=== PATIENT | male | born 1950 | race Caucasian/White ===

== ENCOUNTER → 2020-04-26 08:47 | Outpatient (BNVA) | payer MEDICARE, SELFPAY | PROVIDERS: PCP Internal Medicine; Visit Provider Internal Medicine Pulmonary Disease | DX: J44.9 Chronic obstructive pulmonary disease, unspecified (principal); Z87.891 Personal history of nicotine dependence; Z79.899 Other long term (current) drug therapy; Z99.81 Dependence on supplemental oxygen | CPT/HCPCS: 99204 ==

== ENCOUNTER 2020-05-15 09:45 | Outpatient (REF) | payer MEDICARE, SELFPAY ==
--- NOTE | 2020-05-15 | PFT_ITS ---
INDICATION: COPD. SPIROMETRY: The FEV1 to FVC 32% with an FEV1 of 1.22 L which is 34% predicted and an FVC of 3.79 L, which is 78% predicted. Unable to perform the test with bronchodilation. Maximum voluntary ventilation 34% predicted. LUNG VOLUMES: Total lung capacity 105% predicted with a residual volume of 142% predicted. DIFFUSION CAPACITY: DLCO 35% predicted. COMPARISONS: No previous PFTs available at this time. IMPRESSION: There is significant obstructive airway disease consistent with severe COPD. Again, bronchodilators were not be able to use. Also severe decrease in maximum voluntary ventilation secondary to deconditioning and also worsening dynamic inspiratory capacity. The patient has evidence of air trapping consistent with COPD and also severe diffusion impairment secondary to emphysema and other parenchymal lung conditions should be considered. Clinical correlation warranted, suboptimal study. MD JET Parkinson/MODL / [id number]
== END 2020-05-15 09:46 | disposition home or self-care (01) ==
LOC: HO.RESP 09:45
PROVIDERS: Visit Provider Internal Medicine Pulmonary Disease
DX: J44.9 Chronic obstructive pulmonary disease, unspecified (principal); Z87.891 Personal history of nicotine dependence
CPT/HCPCS: 94060; 94727; 94729

== ENCOUNTER → 2020-05-29 09:47 | Outpatient (BNVA) | payer MEDICARE, SELFPAY | PROVIDERS: PCP Internal Medicine; Visit Provider Internal Medicine Pulmonary Disease | DX: J44.9 Chronic obstructive pulmonary disease, unspecified (principal); R91.8 Other nonspecific abnormal finding of lung field; Z79.899 Other long term (current) drug therapy; Z99.81 Dependence on supplemental oxygen | CPT/HCPCS: 99212 ==

== ENCOUNTER → 2020-10-09 09:41 | Outpatient (BNVA) | payer MEDICARE, SELFPAY | PROVIDERS: PCP Internal Medicine; Visit Provider Internal Medicine Pulmonary Disease | DX: J44.9 Chronic obstructive pulmonary disease, unspecified (principal); R91.8 Other nonspecific abnormal finding of lung field; Z99.81 Dependence on supplemental oxygen | CPT/HCPCS: 99212 ==

== ENCOUNTER → 2020-10-19 09:19 | Outpatient (BNVA) | payer MEDICARE, SELFPAY | PROVIDERS: PCP Internal Medicine; Visit Provider Internal Medicine Pulmonary Disease | DX: Z13.89 Encounter for screening for other disorder (principal) | CPT/HCPCS: 99212 ==

== ENCOUNTER 2020-10-19 09:54 | Inpatient (IN) | payer MEDICARE, SELFPAY ==
[2020-10-19] VITALS (9 sets, daily range): BP systolic 101–129; BP diastolic 59–81; PULSE 82–130; RESP 18–24; TEMP 36.7–37.2; O2SAT 94–99; BMI 23.7
--- NOTE | ~2020-10-19 | CT_ITS ---
EXAMINATION: CT ANGIOGRAM OF THE CHEST WITH AND WITHOUT CONTRAST (CT PULMONARY ANGIOGRAM FOR PE) CLINICAL INFORMATION: Reason for Exam SOB COMPARISON: Chest radiograph 10/19/2020 TECHNIQUE: Prior to contrast administration, noncontrast localization images were obtained. Subsequently, multidetector volumetric imaging was performed from the thoracic inlet to below the diaphragms following the administration of 65 mL Omnipaque 350 intravenous contrast. Sagittal, coronal, and MIP oblique sagittal reformatted images were obtained on the CT workstation, uploaded to PACS, and reviewed. This CT examination was performed using dose optimization techniques as appropriate, variously including the following: *Automated exposure control *Adjustment of mA and/or kV according to patient size (this includes techniques or standardized protocols for targeted exams where dose is matched to indication/reason for exam; i.e. extremities or head) *Use of iterative reconstruction technique Total exam dose-length product 257 mGy-cm FINDINGS: QUALITY OF STUDY/CONTRAST BOLUS: Satisfactory. PULMONARY ARTERIES: No central or segmental pulmonary emboli. THORACIC AORTA: No aneurysm or dissection. LUNG: No airspace consolidation or groundglass opacity. Central airways clear. No endobronchial lesion or bronchiectasis. No pneumothorax or pneumomediastinum. PLEURA: Mild bilateral apical pleural-parenchymal scarring. No pleural effusion. MEDIASTINUM: Normal heart size. No pericardial effusion. No hilar or mediastinal lymphadenopathy. No evidence of septal bowing or right heart strain. CHEST WALL/AXILLA: No axillary or internal mammary lymphadenopathy. OSSEOUS STRUCTURES: No acute bony abnormality. UPPER ABDOMEN: Probable 0.9 cm cyst dome liver segment 4A. No reflux of contrast into the hepatic veins to suggest elevated right heart pressures. CT/CT angio chest PE protocol IMPRESSION: 1. No pulmonary embolism. No thoracic aortic dissection. 2. No airspace consolidation, pneumothorax, or effusion. VTE: negative
--- NOTE | ~2020-10-19 | XR_ITS ---
EXAMINATION: XR CHEST CLINICAL INFORMATION: Shortness of breath COMPARISON: None TECHNIQUE: AP portable view of the chest was obtained. FINDINGS: No significant abnormality is noted involving the heart, lungs, mediastinum, bony thorax or soft tissues. There is hyperinflation of the lungs with prominent pulmonary arteries likely related to COPD. There are some mildly prominent interstitial markings seen at the lung bases bilaterally. XR/XR chest 1V IMPRESSION: No acute disease. Findings consistent with COPD.
--- NOTE | 2020-10-19 09:58 | ED.SOB ---
HPI - SOB/Dyspnea General Chief Complaint: Dyspnea Stated Complaint: copd exacerbation Time Seen by Provider: 10/19/20 09:58 Source: patient Mode of arrival: wheelchair Limitations: no limitations History of Present Illness HPI Narrative: Pleasant 70-year-old male with past medical history that is significant for severe COPD on home O2 O2 dependent, hyperlipidemia and ? Paroxysmal atrial fibrillation and surgical history significant for cervical spine/lumbar spine back surgery status post plating, abdominal hernia repair, right shoulder surgery, vasectomy who is currently being followed by pulmonology here Dr. Bennett. He presents from office of pulmonology with continued shortness of breath has been having a flare for the past week or so attempt was made to manage this an outpatient with steroids and optimal COPD regimen however continues to have shortness of breath and the center emergency room for further evaluation and treatment. He is a former smoker with 30+ pack a year history he stopped smoking in 2010 MD elicited complaint: shortness of breath Pertinent past history: COPD Onset (ago): day(s) Timing: constant Severity: moderate Exacerbating factors: coughing Relieving factors: rest Known history of: COPD Associated symptoms: cough Treatment prior to arrival: oxygen, bronchodilator and other (Prednisone) Related Data Home oxygen amount: 2 liters Home Medications Medication Instructions Recorded Confirmed albuterol sulfate 90 mcg/actuation 2 puff INHALATION Q4H PRN 04/26/20 10/19/20 aerosol inhaler atorvastatin 20 mg tablet 20 mg PO BEDTIME 04/26/20 10/19/20 budesonide-formoterol HFA 160 2 puff PO BID 04/26/20 10/19/20 mcg-4.5 mcg/actuation aerosol inhaler mirtazapine 30 mg tablet 30 mg PO BEDTIME 04/26/20 10/19/20 pantoprazole 40 mg tablet,delayed 40 mg PO DAILY 04/26/20 10/19/20 release trazodone 50 mg tablet 50 mg PO BEDTIME 04/26/20 10/19/20 albuterol sulfate 1 vial INHALATION Q4H PRN 10/19/20 10/19/20 ascorbic acid (vitamin C) [Vitamin 1,000 mg PO DAILY 10/19/20 10/19/20 C] ipratropium-albuterol 3 ml INHALATION Q4H PRN 10/19/20 10/19/20 lidocaine 1 patch TOPICAL DAILY 10/19/20 10/19/20 multivitamin 1 tab PO DAILY 10/19/20 10/19/20 theophylline 200 mg PO DAILY 10/19/20 10/19/20 tiotropium bromide [Spiriva with 1 cap INHALATION DAILY 10/19/20 10/19/20 HandiHaler] tizanidine 2 mg PO BEDTIME 10/19/20 10/19/20 verapamil 180 mg PO BEDTIME 10/19/20 10/19/20 Allergies Allergy/AdvReac Type Severity Reaction Status Date / Time No Known Allergies Allergy Verified 10/19/20 09:20 Review of Systems Review of Systems: Constitutional: No Weight loss, No Fever, No Chills, No Night Sweats, No Fatigue, No Malaise ENT/Mouth: No Hearing loss, No Ear Pain, No Nasal Congestion, No Sinus Pain, No Hoarseness, No sore throat, No Rhinorrhea, No Swallowing Difficulty Eyes: No Eye Pain, No Swelling, No Redness, No Foreign Body, No Discharge, No Vision Changes Cardiovascular: No Chest Pain, + SOB, No Edema, No Palpitations Respiratory: + Cough at baseline, + Wheezing, No Smoke Exposure Gastrointestinal: No Nausea, No Vomiting, No Diarrhea, No Constipation, No abdominal Pain, No Hematochezia, No Melena Genitourinary: No Dysuria, No Urinary Frequency, No Hematuria, No Urinary Incontinence, No Urgency, No Flank Pain, No Urinary Flow Changes, No Hesitancy Musculoskeletal: No joint pain, No Myalgias, No Joint Swelling Skin: No Skin Lesions, No rash Neuro: No Weakness, No Numbness, No Paresthesias, No Loss of Consciousness, No Dizziness, No Headache Psych: No Social Issues Heme/Lymph: No Bruising, No Bleeding,No Lymphadenopathy Endocrine: No Polyuria, No Polydipsia, No Temperature Intolerance Yes all other systems are reviewed and are negative [facility] Past Medical History [facility] Narrative: severe COPD on home O2 dependent, hyperlipidemia and ? Paroxysmal atrial fibrillation and surgical history significant for cervical spine/lumbar spine back surgery status post plating, abdominal hernia repair, right shoulder surgery, vasectomy Medical History (Updated 10/19/20 @ 14:27 by Bradley Armijo NP) Afib Social History Social History (Updated 04/26/20 @ 09:06 by Kaylie Jones MA) Alcohol intake: never Smoking Status: Former smoker Years Smoked: 40 yrs Smoked in Last 30 Days: No Use of substances other than those prescribed or required for medical reasons: No Advance Directives: Yes Advance Directives on File: Yes Advance Directives Date on File: 10/19/20 Physical Exam Vital Signs: Vital Signs: Last Vital Signs Temp 98.9 F 10/19/20 13:05 Pulse 125 H 10/19/20 13:05 Resp 20 10/19/20 13:05 BP 123/66 10/19/20 13:05 Pulse Ox 97 10/19/20 13:05 Body Mass Index 23.7 Reviewed Const: General: acute distress mild and respiratory and anxious; No intoxicated appearing Nutritional Appearance: thin Orientation/consciousness: patient oriented x3 HENMT: Head: Yes normal to inspection Ears: hearing grossly normal bilaterally Eyes: General: appearance normal, both eyes and all related structures Visual Bettencourt: normal visual bettencourt by confrontation Neck: Neck: Yes normal visual inspection, No positive Brudzinski's sign, No positive Kernig's sign and No tender Thyroid: Thyroid normal Chest: Chest palpation & inspection: normal inspection of the chest Resp: Effort & Inspection: able to speak in complete sentences and Actively coughing Auscultation: diminished lung sounds diffuse Cardio: Jugular venous distension: no JVD Rate: tachycardic GI: Inspection: Yes normal to inspection Palpation (GI): Soft to palpation Percussion: Yes normal to percussion Auscultation: normal bowel sounds : General: Yes no CVA tenderness Back/Spine/Pelvis: Back: no CVA tenderness Skin: General skin exam: no rashes or lesions noted Neuro: General: patient oriented x3 Extrem: General: Yes normal to inspection Course Course Course Narrative: Labs show elevated lactic acidosis this is from type be secondary to multiple inhalers and not acute infectious. Otherwise labs are stable. Chest x-ray with no acute findings. 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 Consultations Consultation #1: Case discussed with hospitalist Dr. Baca accepted patient to service. MDM - SOB/Dyspnea Differential Diagnosis Differential diagnosis: Likely acute exacerbation of chronic obstructive airways disease; Unlikely congestive heart failure, pneumonia, asthma with exacerbation, pulmonary embolism, pleural effusion, sleep apnea and anemia Medical Records Attestation: I reviewed the patient's medical records. Medical records narrative: I reviewed pulmonology note Attempted to call [place] [facility] Dr. Hernandez several times office has no answer both Kameron and Gracie to get records in regards to his cardiac history he states he goes to Cardiology in [place] and gets echo done q.6 months. Lab Data Attestation: I reviewed the patient's lab results. Result diagrams: 10/19/20 10:23 10/19/20 10:22 Labs: Lab Results 10/19/20 10/19/20 10/19/20 Range/Units 10:22 10:22 10:22 WBC (4.8-10.8) X10*3/uL RBC (4.60-5.80) X10*6/uL Hgb (14.0-18.0) g/dl Hct (42-52) % MCV (80-98) fL MCH (27.0-33.0) pg MCHC (31.0-36.0) g/dl RDW (11.0-16.0) % Plt Count (160-400) X10*3/uL MPV (9.4-12.4) fL Immature Gran % (Auto) (0.0-0.4) % Neut % (Auto) (45-73) % Lymph % (Auto) (20-40) % [place] % (Auto) (2-11) % Eos % (Auto) (0-4) % Baso % (Auto) (0-2) % Lymph # (Auto) (1.2-4.9) X10*3/uL [place] # (Auto) (0.1-1.2) X10*3/uL Eos # (Auto) (0.0-0.4) X10*3/uL Baso # (Auto) (0.0-0.2) X10*3/uL Abs Immat Gran (auto) (0.00-0.03) X10*3/uL Absolute Neuts (auto) (2.0-8.3) X10*3/uL Absolute Nucleated RBC (0.0-0.012) X10*3/uL Nucleated RBC % (auto) (0.0-0.2) /100WBC PT 11.6 (10.8-13.0) SEC INR 1.0 (0.9-1.1) APTT 32.1 (24.1-38.0) SEC VBG pH (7.32-7.43) VBG pCO2 mmHg VBG pO2 mmHg VBG HCO3 (22-26) mmol/L VBG O2 Saturation % Sodium 142 (135-145) mmol/L Potassium 3.7 (3.3-5.1) mmol/L Chloride 107 (96-108) mmol/L Carbon Dioxide 24 (22-29) mmol/L Anion Gap 15 (12-20) BUN 19 H (9-16) mg/dL Creatinine 0.91 (0.5-1.4) mg/dL Estim Creat Clear Calc 85.2 Estimated GFR > 60 Random Glucose 121 H (60-115) mg/dL Lactic Acid (0.5-2.0) mmol/L Lactic Acid Fup @ 2Hr (0.5-2.0) mmol/L Calcium 8.6 (8.4-10.2) mg/dL Total Bilirubin 0.5 (0.0-1.0) mg/dL AST 17 (5-37) U/L ALT 20 (0-40) U/L Alkaline Phosphatase 75 (39-117) U/L Troponin I High Sens < 3.5 (<3.5-35.0) ng/L B-Natriuretic Peptide 15 (<100) pg/mL Total Protein 6.5 (6.5-8.0) g/dL Albumin 4.1 (3.5-5.0) g/dL Urine Color Urine Appearance Urine pH (5.0-8.0) Ur Specific [place] (1.005-1.025) Urine Protein (NEG-TRACE) MG/DL Urine Glucose (UA) (NEG) MG/DL Urine Ketones (NEG) MG/DL Urine Blood (NEG) Urine Nitrite (NEG) Ur Leukocyte Esterase (NEG) Urine RBC (0) /HPF Urine WBC (0-4) /HPF Ur Squamous Epith Cells /LPF Urine Bacteria /LPF Coronavirus (PCR) (Negative) Influenza Type A (PCR) (Negative) Influenza Type B (PCR) (Negative) RSV RNA Qual (PCR) (Negative) 10/19/20 10/19/20 10/19/20 Range/Units 10:23 10:23 10:31 WBC 11.2 H (4.8-10.8) X10*3/uL RBC 4.48 L (4.60-5.80) X10*6/uL Hgb 13.9 L (14.0-18.0) g/dl Hct 41.4 L (42-52) % MCV 92.4 (80-98) fL MCH 31.0 (27.0-33.0) pg MCHC 33.6 (31.0-36.0) g/dl RDW 13.1 (11.0-16.0) % Plt Count 299 (160-400) X10*3/uL MPV 9.2 L (9.4-12.4) fL Immature Gran % (Auto) 1.2 H (0.0-0.4) % Neut % (Auto) 62.9 (45-73) % Lymph % (Auto) 26.8 (20-40) % [place] % (Auto) 8.2 (2-11) % Eos % (Auto) 0.6 (0-4) % Baso % (Auto) 0.3 (0-2) % Lymph # (Auto) 3.0 (1.2-4.9) X10*3/uL [place] # (Auto) 0.9 (0.1-1.2) X10*3/uL Eos # (Auto) 0.1 (0.0-0.4) X10*3/uL Baso # (Auto) 0.0 (0.0-0.2) X10*3/uL Abs Immat Gran (auto) 0.13 H (0.00-0.03) X10*3/uL Absolute Neuts (auto) 7.0 (2.0-8.3) X10*3/uL Absolute Nucleated RBC 0.000 (0.0-0.012) X10*3/uL Nucleated RBC % (auto) 0.0 (0.0-0.2) /100WBC PT (10.8-13.0) SEC INR (0.9-1.1) APTT (24.1-38.0) SEC VBG pH 7.45 H (7.32-7.43) VBG pCO2 32 mmHg VBG pO2 170 mmHg VBG HCO3 22 (22-26) mmol/L VBG O2 Saturation 99.0 % Sodium (135-145) mmol/L Potassium (3.3-5.1) mmol/L Chloride (96-108) mmol/L Carbon Dioxide (22-29) mmol/L Anion Gap (12-20) BUN (9-16) mg/dL Creatinine (0.5-1.4) mg/dL Estim Creat Clear Calc Estimated GFR Random Glucose (60-115) mg/dL Lactic Acid 2.1 H* (0.5-2.0) mmol/L Lactic Acid Fup @ 2Hr (0.5-2.0) mmol/L Calcium (8.4-10.2) mg/dL Total Bilirubin (0.0-1.0) mg/dL AST (5-37) U/L ALT (0-40) U/L Alkaline Phosphatase (39-117) U/L Troponin I High Sens (<3.5-35.0) ng/L B-Natriuretic Peptide (<100) pg/mL Total Protein (6.5-8.0) g/dL Albumin (3.5-5.0) g/dL Urine Color Urine Appearance Urine pH (5.0-8.0) Ur Specific [place] (1.005-1.025) Urine Protein (NEG-TRACE) MG/DL Urine Glucose (UA) (NEG) MG/DL Urine Ketones (NEG) MG/DL Urine Blood (NEG) Urine Nitrite (NEG) Ur Leukocyte Esterase (NEG) Urine RBC (0) /HPF Urine WBC (0-4) /HPF Ur Squamous Epith Cells /LPF Urine Bacteria /LPF Coronavirus (PCR) (Negative) Influenza Type A (PCR) (Negative) Influenza Type B (PCR) (Negative) RSV RNA Qual (PCR) (Negative) 10/19/20 10/19/20 10/19/20 Range/Units 11:08 12:31 12:53 WBC (4.8-10.8) X10*3/uL RBC (4.60-5.80) X10*6/uL Hgb (14.0-18.0) g/dl Hct (42-52) % MCV (80-98) fL MCH (27.0-33.0) pg MCHC (31.0-36.0) g/dl RDW (11.0-16.0) % Plt Count (160-400) X10*3/uL MPV (9.4-12.4) fL Immature Gran % (Auto) (0.0-0.4) % Neut % (Auto) (45-73) % Lymph % (Auto) (20-40) % [place] % (Auto) (2-11) % Eos % (Auto) (0-4) % Baso % (Auto) (0-2) % Lymph # (Auto) (1.2-4.9) X10*3/uL [place] # (Auto) (0.1-1.2) X10*3/uL Eos # (Auto) (0.0-0.4) X10*3/uL Baso # (Auto) (0.0-0.2) X10*3/uL Abs Immat Gran (auto) (0.00-0.03) X10*3/uL Absolute Neuts (auto) (2.0-8.3) X10*3/uL Absolute Nucleated RBC (0.0-0.012) X10*3/uL Nucleated RBC % (auto) (0.0-0.2) /100WBC PT (10.8-13.0) SEC INR (0.9-1.1) APTT (24.1-38.0) SEC VBG pH (7.32-7.43) VBG pCO2 mmHg VBG pO2 mmHg VBG HCO3 (22-26) mmol/L VBG O2 Saturation % Sodium (135-145) mmol/L Potassium (3.3-5.1) mmol/L Chloride (96-108) mmol/L Carbon Dioxide (22-29) mmol/L Anion Gap (12-20) BUN (9-16) mg/dL Creatinine (0.5-1.4) mg/dL Estim Creat Clear Calc Estimated GFR Random Glucose (60-115) mg/dL Lactic Acid (0.5-2.0) mmol/L Lactic Acid Fup @ 2Hr 4.0 H* (0.5-2.0) mmol/L Calcium (8.4-10.2) mg/dL Total Bilirubin (0.0-1.0) mg/dL AST (5-37) U/L ALT (0-40) U/L Alkaline Phosphatase (39-117) U/L Troponin I High Sens (<3.5-35.0) ng/L B-Natriuretic Peptide (<100) pg/mL Total Protein (6.5-8.0) g/dL Albumin (3.5-5.0) g/dL Urine Color YELLOW Urine Appearance CLEAR Urine pH 7.5 (5.0-8.0) Ur Specific [place] 1.015 (1.005-1.025) Urine Protein NEG (NEG-TRACE) MG/DL Urine Glucose (UA) NEG (NEG) MG/DL Urine Ketones NEG (NEG) MG/DL Urine Blood NEG (NEG) Urine Nitrite NEG (NEG) Ur Leukocyte Esterase NEG (NEG) Urine RBC 0 (0) /HPF Urine WBC 0 (0-4) /HPF Ur Squamous Epith Cells NONE /LPF Urine Bacteria NONE /LPF Coronavirus (PCR) NEGATIVE (Negative) Influenza Type A (PCR) NEGATIVE (Negative) Influenza Type B (PCR) NEGATIVE (Negative) RSV RNA Qual (PCR) NEGATIVE (Negative) ECG Data Interpretation: Normal sinus rhythm Rate [address] segment changes No previous available Critical Care Time Critical Care Time Attestation: Respiratory monitoring, evaluation for potential sepsis, hour long nebulizer treatment, multiple visits to bedside from monitor. Discharge Plan Discharge Clinical Impression: Supplemental oxygen dependent, COPD with acute exacerbation Patient Disposition: Admitted As Inpatient
--- NOTE | 2020-10-19 10:00 | ECG_ITS ---
Test Reason : WEAKNESS Blood Pressure : / mmHG Vent. Rate : 079 BPM Atrial Rate : 079 BPM P-R Int : 166 ms QRS Dur : 074 ms QT Int : 400 ms P-R-T Axes : 079 082 086 degrees QTc Int : 458 ms Normal sinus rhythm Possible Anterior infarct , age undetermined Abnormal ECG No previous ECGs available Referred By: Bradley Armijo Electronically Signed By:PAVEL BEE
[2020-10-19] MEDS: methylPREDNISolone Sod Succ 125 MG/2 ML VIAL IVPUSH (10:28)
[2020-10-19 10:32] LABS: MANUAL DIFF FLAG NO
[2020-10-19 10:34] LABS: Basophils Percent Auto 0.3 % (0-2); Eosinophils Absolute Auto 0.1 X10*3/uL (0.0-0.4); Eosinophils Percent Auto 0.6 % (0-4); Hematocrit 41.4 % (42-52); Hemoglobin 13.9 g/dl (14.0-18.0); Imm Gran Abs Auto 0.13 X10*3/uL (0.00-0.03); Imm Gran Pct Auto 1.2 % (0.0-0.4); Lymphocytes Percent Auto 26.8 % (20-40); Mean Corpuscular HGB Conc 33.6 g/dl (31.0-36.0); Mean Corpuscular Volume 92.4 fL (80-98); Mean Platelet Volume 9.2 fL (9.4-12.4); Monocytes Absolute Auto 0.9 X10*3/uL (0.1-1.2); Monocytes Percent Auto 8.2 % (2-11); Neutrophils Percent Auto 62.9 % (45-73); Platelet Count 299 X10*3/uL (160-400); Red Blood Count 4.48 X10*6/uL (4.60-5.80); Red Cell Distribution Width 13.1 % (11.0-16.0); White Blood Count 11.2 X10*3/uL (4.8-10.8)
--- NOTE | 2020-10-19 10:34 | PC.NURSE ---
pt seen by provider, sitting in tripod position on bedside table for comfort, spo2 97% on 2l. nad. iv established, blood labs obtained and sent.
[2020-10-19 10:40] LABS: Venous Blood Gas Refer to POC result
[2020-10-19 10:41] LABS: VBG HCO3 22 mmol/L (22-26); VBG pCO2 32 mmHg; VBG pH 7.45 (7.32-7.43); VBG pO2 170 mmHg
[2020-10-19 10:52] LABS: Prothrombin Time 11.6 SEC (10.8-13.0)
[2020-10-19 10:55] LABS: Partial Thromboplastin Time 32.1 SEC (24.1-38.0)
--- NOTE | 2020-10-19 10:55 | MHC.CM.ED ---
Per Kaleigh in registration, patient requesting to complete HCP. Met with patient. HCP completed, signed and witnessed. Original given to patient. Copy placed in chart. Continue to monitor for d/c needs.
[2020-10-19 11:01] LABS: Lactic Acid 2.1 mmol/L (0.5-2.0)
[2020-10-19 11:05] LABS: Alanine Aminotransferase 20 U/L (0-40); Albumin Level 4.1 g/dL (3.5-5.0); Alkaline Phosphatase 75 U/L (39-117); Anion Gap 15 (12-20); Aspartate Amino Transferase 17 U/L (5-37); Bilirubin Total 0.5 mg/dL (0.0-1.0); Blood Urea Nitrogen 19 mg/dL (9-16); Calcium 8.6 mg/dL (8.4-10.2); Carbon Dioxide 24 mmol/L (22-29); Chloride 107 mmol/L (96-108); Creatinine Clr Calc Pharmacy 85.2; Estimated Glomerular Filt Rate > 60; Glucose Random 121 mg/dL (60-115); Potassium 3.7 mmol/L (3.3-5.1); Sodium 142 mmol/L (135-145); Total Protein 6.5 g/dL (6.5-8.0); Troponin-I High Sensitivity < 3.5 ng/L (<3.5-35.0)
[2020-10-19] MEDS: 0.9 % Sodium Chloride 500 ML IV (11:16)
[2020-10-19] MEDS: Albuterol Sulfate (0.083%) 2.5 MG/3 ML VIAL.NEB 7.5 MG INHALE (11:37)
[2020-10-19 11:57] LABS: Influenza A PCR NEGATIVE (Negative); Influenza B PCR NEGATIVE (Negative); Resp Syncy Virus RNA Qual PCR NEGATIVE (Negative); SARS COV2 PCR INHOUSE NEGATIVE (Negative)
[2020-10-19 12:26] LABS: Reflex Lactate? Lactic Acid Added
[2020-10-19 12:48] LABS: Glucose Urine UA NEG (NEG); Leukocyte Esterase Urine NEG (NEG); Nitrite Urine NEG (NEG); PH 7.5 (5.0-8.0); Specific Gravity - Urine 1.015 (1.005-1.025); Urine Blood NEG (NEG); Urine Ketones NEG (NEG); Urine Protein NEG (NEG-TRACE)
[2020-10-19 12:51] LABS: Appearance Urine CLEAR; Color Urine YELLOW
[2020-10-19 12:58] LABS: RBC Urine 0 /HPF (0); WBC Urine 0 /HPF (0-4)
[2020-10-19] MEDS: Azithromycin 500 MG in 0.9 % Sodium Chloride 250 ML 125 MG IV (13:02)
[2020-10-19 13:08] LABS: B Type Natriuretic Peptide 15 pg/mL (<100)
--- NOTE | 2020-10-19 13:30 | PM.EVENT ---
Event Note Date of Service: 10/19/20 Event Note: Patient seen and examined independently and I was present during [place] portion of E/M service. Agree with REINA Montague's history, physical, assessment, and plan. This is a 70-year-old male with a past medical history of COPD, chronic respiratory failure on home O2, chronic tachycardia question paroxysmal AFib (not entirely clear per patient history), who was being managed for a COPD exacerbation in the outpatient setting. 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 Noted to have poor air entry while in the ED along with tachycardia. CTA completed showing no pulmonary embolism. Will admit for high-dose IV steroids and scheduled bronchodilators, will use Xopenex due to tachycardia. Will also give him some Zithromax for its anti-inflammatory effect. BNP is low and no fluid is seen on imaging studies, however if no further improvement with IV steroids may need to check echo.
--- NOTE | 2020-10-19 13:31 | PC.NURSE ---
pt return from ct scan, seen by hospitalist. offers no new complaints. vss.
--- NOTE | 2020-10-19 14:12 | P.HPHOSP_ITS ---
History of Present Illness Date of Service: 10/19/20 Chief Complaint: shortness of breath This is a 70-year-old male with a history advanced COPD/chronic respiratory failure on 2-3 L of home O2 sent from the pulmonary clinic for worsening shortness of breath. Patient reports shortness of breath and chest tightness over the past 3 weeks. He was treated with of one-week course of steroids with no significant improvement. His shortness of breath worsens even with minimal exertion. He denies any cough, fever, chills. In the emergency department read he received IV Solu-Medrol, breathing treatment. He was very tachycardic and therefore underwent CTA which did not show any evidence of pulmonary embolism. His lab work was unremarkable. He was saturating 96% on his 2 L of home O2 and the decision was made to admit him for further management. Review of Systems Review of Systems: Yes all other systems are reviewed and are negative Constitutional: Constitutional: Denies chills and Denies fever(s) Cardiovascular: Cardiovascular: Denies chest pain and Reports dyspnea Respiratory: Respiratory: Denies cough and Reports dyspnea Gastrointestinal: Gastrointestinal: Denies abdominal pain [facility] Medical History Afib COPD (chronic obstructive pulmonary disease) HLD (hyperlipidemia) Tachyarrhythmia Functional capacity: independent ambulation Family History (Updated 10/19/20 @ 15:08 by REINA Pizano) Other Adopted Family history: reviewed and not pertinent Social History Alcohol intake: never Smoking Status: Former smoker Years Smoked: 40 yrs Smoked in Last 30 Days: No Use of substances other than those prescribed or required for medical reasons: No Advance Directives: Yes Advance Directives on File: Yes Advance Directives Date on File: 10/19/20 Meds Allergies Allergy/AdvReac Type Severity Reaction Status Date / Time No Known Allergies Allergy Verified 10/19/20 09:20 Active Medications: Current Medications Generic Name Dose Route Start Last Admin Trade Name Freq PRN Reason Stop Dose Admin Azithromycin 500 mg/ Sodium 250 mls @ 125 mls/hr 10/19/20 12:47 10/19/20 13:02 Chloride IV 10/19/20 14:46 125 mls/hr ONCE ONE Administration Home Medications Medication Instructions Recorded Confirmed Last Taken Type albuterol sulfate 90 mcg/actuation 2 puff INHALATION Q4H PRN 04/26/20 10/19/20 Unknown History aerosol inhaler atorvastatin 20 mg tablet 20 mg PO BEDTIME 04/26/20 10/19/20 10/18/20 History budesonide-formoterol HFA 160 2 puff PO BID 04/26/20 10/19/20 10/19/20 History mcg-4.5 mcg/actuation aerosol 1 inhaler mirtazapine 30 mg tablet 30 mg PO BEDTIME 04/26/20 10/19/20 10/18/20 History pantoprazole 40 mg tablet,delayed 40 mg PO DAILY 04/26/20 10/19/20 10/19/20 History release trazodone 50 mg tablet 50 mg PO BEDTIME 04/26/20 10/19/20 10/18/20 History albuterol sulfate 1 vial INHALATION Q4H PRN 10/19/20 10/19/20 10/19/20 History ascorbic acid (vitamin C) [Vitamin 1,000 mg PO DAILY 10/19/20 10/19/20 10/19/20 History C] ipratropium-albuterol 3 ml INHALATION Q4H PRN 10/19/20 10/19/20 10/19/20 History lidocaine 1 patch TOPICAL DAILY 10/19/20 10/19/20 10/18/20 History multivitamin 1 tab PO DAILY 10/19/20 10/19/20 10/19/20 History theophylline 200 mg PO DAILY 10/19/20 10/19/20 10/19/20 History tiotropium bromide [Spiriva with 1 cap INHALATION DAILY 10/19/20 10/19/20 10/19/20 History HandiHaler] tizanidine 2 mg PO BEDTIME 10/19/20 10/19/20 10/18/20 History verapamil 180 mg PO BEDTIME 10/19/20 10/19/20 10/18/20 History Physical Exam Vital Signs and Narrative: Vital Signs: Last Vital Signs Temp 98.9 F 10/19/20 13:05 Pulse 125 H 10/19/20 13:05 Resp 20 10/19/20 13:05 BP 123/66 10/19/20 13:05 Pulse Ox 97 10/19/20 13:05 Body Mass Index 23.7 Const: General: alert and awake Nutritional Appearance: well nourished Orientation/consciousness: patient oriented x3 HENMT: Head: Yes normocephalic and Yes atraumatic Eyes: Sclerae: sclerae normal Chest: Chest palpation & inspection: normal inspection of the chest Resp: Other: diminished b/l; prolonged expiratory phase, no wheezing Effort & Inspection: tachypneic Cardio: Rhythm: regular rhythm GI: Palpation (GI): Soft to palpation and nontender Skin: General skin exam: no rashes or lesions noted Neuro: General: patient oriented x3 Cranial nerves: Yes CN's II-XII intact bilaterally and Yes Bilaterally intact EOM present Extrem: General: Yes normal to inspection Results Labs CBC and Chem 7: 10/19/20 10:23 10/19/20 10:22 Labs: Laboratory Results - last 24 hr 10/19/20 10/19/20 10/19/20 10:22 10:22 10:22 MCV MCH MCHC RDW Plt Count MPV Immature Gran % (Auto) Neut % (Auto) Lymph % (Auto) [place] % (Auto) Eos % (Auto) Baso % (Auto) Lymph # (Auto) [place] # (Auto) Eos # (Auto) Baso # (Auto) Abs Immat Gran (auto) Absolute Neuts (auto) Absolute Nucleated RBC Nucleated RBC % (auto) PT 11.6 INR 1.0 APTT 32.1 VBG pH VBG pCO2 VBG pO2 VBG HCO3 VBG O2 Saturation Anion Gap 15 Estim Creat Clear Calc 85.2 Estimated GFR > 60 Random Glucose 121 H Lactic Acid Lactic Acid Fup @ 2Hr Calcium 8.6 Total Bilirubin 0.5 AST 17 ALT 20 Alkaline Phosphatase 75 Troponin I High Sens < 3.5 B-Natriuretic Peptide 15 Total Protein 6.5 Albumin 4.1 Urine Color Urine Appearance Urine pH Ur Specific [place] Urine Protein Urine Glucose (UA) Urine Ketones Urine Blood Urine Nitrite Ur Leukocyte Esterase Urine RBC Urine WBC Ur Squamous Epith Cells Urine Bacteria Coronavirus (PCR) Influenza Type A (PCR) Influenza Type B (PCR) RSV RNA Qual (PCR) 10/19/20 10/19/20 10/19/20 10:23 10:23 10:31 MCV 92.4 MCH 31.0 MCHC 33.6 RDW 13.1 Plt Count 299 MPV 9.2 L Immature Gran % (Auto) 1.2 H Neut % (Auto) 62.9 Lymph % (Auto) 26.8 [place] % (Auto) 8.2 Eos % (Auto) 0.6 Baso % (Auto) 0.3 Lymph # (Auto) 3.0 [place] # (Auto) 0.9 Eos # (Auto) 0.1 Baso # (Auto) 0.0 Abs Immat Gran (auto) 0.13 H Absolute Neuts (auto) 7.0 Absolute Nucleated RBC 0.000 Nucleated RBC % (auto) 0.0 PT INR APTT VBG pH 7.45 H VBG pCO2 32 VBG pO2 170 VBG HCO3 22 VBG O2 Saturation 99.0 Anion Gap Estim Creat Clear Calc Estimated GFR Random Glucose Lactic Acid 2.1 H* Lactic Acid Fup @ 2Hr Calcium Total Bilirubin AST ALT Alkaline Phosphatase Troponin I High Sens B-Natriuretic Peptide Total Protein Albumin Urine Color Urine Appearance Urine pH Ur Specific [place] Urine Protein Urine Glucose (UA) Urine Ketones Urine Blood Urine Nitrite Ur Leukocyte Esterase Urine RBC Urine WBC Ur Squamous Epith Cells Urine Bacteria Coronavirus (PCR) Influenza Type A (PCR) Influenza Type B (PCR) RSV RNA Qual (PCR) 10/19/20 10/19/20 10/19/20 11:08 12:31 12:53 MCV MCH MCHC RDW Plt Count MPV Immature Gran % (Auto) Neut % (Auto) Lymph % (Auto) [place] % (Auto) Eos % (Auto) Baso % (Auto) Lymph # (Auto) [place] # (Auto) Eos # (Auto) Baso # (Auto) Abs Immat Gran (auto) Absolute Neuts (auto) Absolute Nucleated RBC Nucleated RBC % (auto) PT INR APTT VBG pH VBG pCO2 VBG pO2 VBG HCO3 VBG O2 Saturation Anion Gap Estim Creat Clear Calc Estimated GFR Random Glucose Lactic Acid Lactic Acid Fup @ 2Hr 4.0 H* Calcium Total Bilirubin AST ALT Alkaline Phosphatase Troponin I High Sens B-Natriuretic Peptide Total Protein Albumin Urine Color YELLOW Urine Appearance CLEAR Urine pH 7.5 Ur Specific [place] 1.015 Urine Protein NEG Urine Glucose (UA) NEG Urine Ketones NEG Urine Blood NEG Urine Nitrite NEG Ur Leukocyte Esterase NEG Urine RBC 0 Urine WBC 0 Ur Squamous Epith Cells NONE Urine Bacteria NONE Coronavirus (PCR) NEGATIVE Influenza Type A (PCR) NEGATIVE Influenza Type B (PCR) NEGATIVE RSV RNA Qual (PCR) NEGATIVE Imaging Radiologist's Impressions: Impressions Chest X-Ray 10/19/20 10:00 IMPRESSION: No acute disease. Findings consistent with COPD. Chest CTA 10/19/20 12:46 IMPRESSION: 1. No pulmonary embolism. No thoracic aortic dissection. 2. No airspace consolidation, pneumothorax, or effusion. VTE: negative Assessment and Plan (1) COPD with acute exacerbation: Status: Acute This is a 89-year-old male with a history of COPD/chronic respiratory failure who was sent from pulmonary clinic with worsening shortness of breath Acute COPD exacerbation/chronic respiratory failure On 2-3 L of home O2 Status post 1 week p.o. steroids with no improvement CTA negative for PE, pna, effusion continue home dose theophylline -IV Solu-Medrol -scheduled Xopenex, Atrovent given tachycardia h/o tachyarrythmia ?PAF. never on AC -continue verapamil -tele monitoring HLD continue statin gerd continue ppi dvt ppx - lovenox code status - DNI This case was discussed with Dr. Baca
[2020-10-19 14:56] LABS: Reflex Lactate? 2 Y
--- NOTE | 2020-10-19 16:05 | PC.NURSE ---
called to [facility] [place] for report
--- NOTE | 2020-10-19 16:16 | PC.NURSE ---
report given to c darlin jarquin
--- NOTE | 2020-10-19 17:09 | ECG_ITS ---
Test Reason : tachycardia Blood Pressure : / mmHG Vent. Rate : 122 BPM Atrial Rate : 122 BPM P-R Int : 160 ms QRS Dur : 072 ms QT Int : 314 ms P-R-T Axes : 081 085 076 degrees QTc Int : 447 ms Sinus tachycardia with Premature atrial complexes Biatrial enlargement Abnormal ECG When compared to the previous EKG of 19 october 2020, atrial enlargement seems more prominent. Referred By: Anne Del Toro Electronically Signed By:PAVEL BEE
[2020-10-19 17:17] LABS: ~Lactic Acid-LAB USE ONLY 9.8 mmol/L (0.5-2.0)
[2020-10-19] MEDS: 0.9 % Sodium Chloride Flush 3 ML SYRINGE IVFLUSH ×2 (17:53→23:48)
[2020-10-19] MEDS: methylPREDNISolone Sod Succ 125 MG/2 ML VIAL 60 MG IVPUSH ×2 (17:54→23:48)
[2020-10-19] MEDS: Enoxaparin Sodium 40 MG/0.4 ML SYRINGE SUBCUT (17:55)
[2020-10-19] MEDS: VerapamiL HCL SR 180 MG TABLET.ER PO (17:56)
[2020-10-19] MEDS: 0.9 % Sodium Chloride 1,000 ML 999 ML IVCONT (17:57)
--- NOTE | 2020-10-19 18:27 | PC.NURSE ---
PT ARRIVED TO UNIT APPROX 1700. SR ON MONITOR. ASSISTED TO CHAIR. O2 2L NC. DENIES PAIN BUT IS FENG. PT STOOD TO VOID IN URINAL. HR UP 120'2 TO 130'S. JACKELYN PINEDO NOTIFIED. EKG OBTAINED. LACTIC 9.8 REPORTED WELL. IVF ORDERED. BOOLUS INFUSING, VERAPAMIL GIVEN. PT ASSISTED BTB. WILL HAVE REPEAT LACTIC AT 1930
[2020-10-19] MEDS: Ipratropium Bromide 0.5 MG/2.5 ML SOLUTION INHALE (18:32)
[2020-10-19] MEDS: 0.9 % Sodium Chloride 1,000 ML 100 ML IVCONT (19:32)
[2020-10-19 20:10] LABS: Lactic Acid 8.7 mmol/L (0.5-2.0)
[2020-10-19] MEDS: TiZANidine HCL 4 MG TABLET 2 MG PO (21:03)
[2020-10-19] MEDS: Mirtazapine 30 MG TABLET PO (21:04)
[2020-10-19] MEDS: traZODone HCL 50 MG TABLET PO (21:04)
[2020-10-19] MEDS: Atorvastatin Calcium 20 MG TABLET PO (21:04)
[2020-10-19 21:34] LABS: Reflex Lactate? Lactic Acid Added
[2020-10-19 22:45] LABS: ~Lactic Acid-LAB USE ONLY 6.9 mmol/L (0.5-2.0)
[2020-10-20] VITALS (10 sets, daily range): BP systolic 105–135; BP diastolic 57–94; PULSE 94–118; RESP 18–22; TEMP 36.2–37.2; O2SAT 94–98
[2020-10-20 00:16] LABS: Reflex Lactate? 2 Y
[2020-10-20] MEDS: 0.9 % Sodium Chloride 1,000 ML 100 ML IVCONT (04:52)
[2020-10-20] MEDS: Ipratropium Bromide 0.5 MG/2.5 ML SOLUTION INHALE ×4 (07:50→20:35)
--- NOTE | 2020-10-20 08:48 | HO.PM.IMPN ---
Subjective Subjective Date of Service: 10/20/20 <REINA Pizano - Last Filed: 10/20/20 09:17> 10/20/20 <William Urbina MD - Last Filed: 10/20/20 13:38> Interval History: f/u COPD exacerbation reports feeling somewhat better, with less chest tightness 1 episode of coughing early this am, with no phlegm production <REINA Pizano - Last Filed: 10/20/20 09:17> Review of Systems Review of Systems: Yes all other systems are reviewed and are negative <REINA Pizano - Last Filed: 10/20/20 09:17> Constitutional Constitutional: Denies chills and Denies fever(s) <REINA Pizano - Last Filed: 10/20/20 09:17> Cardiovascular Cardiovascular: Denies chest pain, Reports dyspnea and Reports dyspnea on exertion <REINA Pizano - Last Filed: 10/20/20 09:17> Respiratory Respiratory: Reports cough, Reports dyspnea and Reports dyspnea on exertion <REINA Pizano - Last Filed: 10/20/20 09:17> Gastrointestinal Gastrointestinal: Denies abdominal pain <REINA Pizano - Last Filed: 10/20/20 09:17> Physical Exam Vital Signs: Vital Signs: Last Vital Signs Temp 97.1 F 10/20/20 08:00 Pulse 118 H 10/20/20 08:00 Resp 22 H 10/20/20 08:00 BP 135/68 10/20/20 08:00 Pulse Ox 96 10/20/20 08:00 Body Mass Index 23.7 <REINA Pizano - Last Filed: 10/20/20 09:17> Const: General: alert and awake <REINA Pizano Last Filed: 10/20/20 09:17> Nutritional Appearance: thin <REINA Pizano Last Filed: 10/20/20 09:17> Orientation/consciousness: patient oriented x3 <REINA Pizano Last Filed: 10/20/20 09:17> HENMT: Head: Yes normocephalic and Yes atraumatic <REINA Pizano - Last Filed: 10/20/20 09:17> Eyes: Sclerae: sclerae normal <REINA Pizano - Last Filed: 10/20/20 09:17> Chest: Chest palpation & inspection: normal inspection of the chest <REINA Pizano - Last Filed: 10/20/20 09:17> Resp: Other: better air entry, prolonged expiratory phase, no significant wheezing <REINA Pizano - Last Filed: 10/20/20 09:17> Effort & Inspection: able to speak in complete sentences, no respiratory distress and tachypneic <REINA Pizano - Last Filed: 10/20/20 09:17> Cardio: Rate: regular rate <REINA Pizano - Last Filed: 10/20/20 09:17> Rhythm: regular rhythm <REINA Pizano - Last Filed: 10/20/20 09:17> GI: Palpation (GI): Soft to palpation and nontender <REINA Pizano - Last Filed: 10/20/20 09:17> Neuro: General: patient oriented x3 <REINA Pizano - Last Filed: 10/20/20 09:17> Cranial nerves: Yes CN's II-XII intact bilaterally and Yes Bilaterally intact EOM present <REINA Pizano - Last Filed: 10/20/20 09:17> Extrem: Other: no leg edema <REINA Pizano - Last Filed: 10/20/20 09:17> Objective Data Current Medications Generic Name Dose Route Start Last Admin Trade Name Freq PRN Reason Stop Dose Admin Acetaminophen 650 mg 10/19/20 16:33 Acetaminophen 325 Mg Tablet PO Q6H PRN Pain, Mild (Pain Scale 1-3) Ascorbic Acid 1,000 mg 10/20/20 09:00 Ascorbic Acid 500 Mg Tablet PO DAILY SUSAN Atorvastatin Calcium 20 mg 10/19/20 21:00 10/19/20 21:04 Atorvastatin Calcium 20 Mg Tablet PO 20 mg BEDTIME SUSAN Administration Docusate Sodium 100 mg 10/19/20 16:33 Docusate Sodium 100 Mg Capsule PO DAILY PRN Constipation Enoxaparin Sodium 40 mg 10/19/20 17:00 10/19/20 17:55 Enoxaparin Sodium 40 Mg/0.4 Ml Syringe SUBCUT 40 mg Q24H SUSAN Administration Sodium Chloride 1,000 mls @ 100 mls/hr 10/19/20 17:45 10/20/20 04:52 Ns IVCONT 100 mls/hr .Q10H SUSAN Administration Ipratropium [place] 0.5 mg 10/20/20 08:00 10/20/20 07:50 Ipratropium [place] 0.5 Mg/2.5 Ml Solution INHALE 0.5 mg RQ4H WHILE AWAKE SUSAN Administration Levalbuterol HCl 1.25 mg 10/19/20 16:33 10/20/20 07:50 Levalbuterol Hcl 1.25 Mg/0.5 Ml Vial.Neb INHALE 1.25 mg RQ4H WHILE AWAKE SUSAN Administration Lidocaine 1 patch 10/20/20 09:00 Lidocaine 4 % Patch Adh..Patch TRANSDERMA DAILY [facility] Methylprednisolone Sodium Succinate 60 mg 10/19/20 16:33 10/19/20 23:48 Methylprednisolone Sod Succ 125 Mg/2 Ml Vial IVPUSH 60 mg Q8H SUSAN Administration Mirtazapine 30 mg 10/19/20 21:00 10/19/20 21:04 Mirtazapine 30 Mg Tablet PO 30 mg BEDTIME SUSAN Administration Multivitamins/Vitamin C 1 tab 10/20/20 09:00 Multivitamin Tablet PO DAILY [facility] Omeprazole 20 mg 10/20/20 06:30 10/20/20 05:02 Omeprazole 20 Mg Capsule.Dr PO Not Given DAILY@0630 [facility] Ondansetron HCl 4 mg 10/19/20 16:33 Ondansetron Hcl 4 Mg/2 Ml Vial IVPUSH Q8H PRN Nausea and Vomiting Sodium Chloride 3 ml 10/19/20 16:33 10/19/20 23:48 0.9 % Sodium Chloride Flush 3 Ml Syringe IVFLUSH 3 ml QSHIFT SUSAN Administration Theophylline 200 mg 10/20/20 09:00 Theophylline Anhydrous Er 400 Mg Tab.Er.24h PO DAILY [facility] Tizanidine HCl 2 mg 10/19/20 21:00 10/19/20 21:03 Tizanidine Hcl 4 Mg Tablet PO 2 mg BEDTIME SUSAN Administration Trazodone HCl 50 mg 10/19/20 21:00 10/19/20 21:04 Trazodone Hcl 50 Mg Tablet PO 50 mg BEDTIME SUSAN Administration Verapamil HCl 180 mg 10/19/20 17:16 10/19/20 17:56 Verapamil Hcl Sr 180 Mg Tablet.Er PO 180 mg BEDTIME SUSAN Administration Protocol <REINA Pizano - Last Filed: 10/20/20 09:17> Labs CBC & Chem 7: : 10/19/20 10:23 10/19/20 10:22 <REINA Pizano - Last Filed: 10/20/20 09:17> Assessment and Plan (1) COPD with acute exacerbation: Status: Acute <REINA Pizano - Last Filed: 10/20/20 09:17> Assessment and Plan: This is a 89-year-old male with a history of COPD/chronic respiratory failure who was sent from pulmonary clinic with worsening shortness of breath after failing outpatient treatment with PO steroids. Acute COPD exacerbation/chronic respiratory failure On 2-3 L of home O2. CTA negative for PE, pna, effusion continue home theophylline -Continue IV Solu-Medrol -scheduled Xopenex, Atrovent given tachycardia h/o tachyarrythmia ?PAF. never on AC Has been tachycardic to 120s, EKG sinus tach, HR slightly improved today -continue verapamil -tele monitoring Elevated lactic acid Improving with IVF r/t tachycardia not r/t sepsis or infectious source HLD continue statin gerd continue ppi dvt ppx - lovenox code status - DNI Attending: Dr. Gatica <REINA Pizano - Last Filed: 10/20/20 09:17> Addendum to documentation by midlevel I saw and examined the patient and participated in the [place] portion of the E/M service. I agree exam and management as documented by PA above. Patient admitted for severe exacerbation of COPD, lactic acidosis and tachycardia. Exam: No longer anxious, seems comfortable, speaks in full sentences, lung with good air movment, no accessory muscle. labs and imaging reviewed. Lactic acidosis not d/t sepsis, but rather to bronchodilators and tissue hypoxia from copd. 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 O/w I agree with assesment and plan as above <William Urbina MD - Last Filed: 10/20/20 13:38>
[2020-10-20] MEDS: 0.9 % Sodium Chloride Flush 3 ML SYRINGE IVFLUSH ×3 (09:43→23:02)
[2020-10-20] MEDS: methylPREDNISolone Sod Succ 125 MG/2 ML VIAL 60 MG IVPUSH ×2 (09:43→16:36)
[2020-10-20] MEDS: Multivitamin TABLET 1 TAB PO (09:44)
[2020-10-20] MEDS: Theophylline Anhydrous ER 400 MG TAB.ER.24H 200 MG PO (09:44)
[2020-10-20] MEDS: Ascorbic Acid 500 MG TABLET 1000 MG PO (09:44)
[2020-10-20] MEDS: Lidocaine 4 % Patch ADH..PATCH 1 PATCH TRANSDERMA (09:46)
--- NOTE | 2020-10-20 11:54 | MHC.CM.PN ---
Lives at home w/, still drives, fully independent. Owns 3 canes (2 straight canes and 1 tripod-does not use any of them), no prior services. asking for assistance with a letter for her work to keep her on a leave for his clinical safety (away from COVID); this CM explained this requested letter would be best suited coming from his PCP who oversees his OP care and is familiar w/all comorbidities/patient diagnoses and risk COVID presents, etc., should be designated navigator of requested legal advocacy clinical document regarding the patient's clinical risk and her requirements to protect such. Otherwise, D/C plan is home w/ via , no anticipated services.
[2020-10-20] MEDS: Enoxaparin Sodium 40 MG/0.4 ML SYRINGE SUBCUT (16:36)
[2020-10-20] MEDS: VerapamiL HCL SR 180 MG TABLET.ER PO (20:31)
[2020-10-20] MEDS: traZODone HCL 50 MG TABLET PO (20:31)
[2020-10-20] MEDS: Atorvastatin Calcium 20 MG TABLET PO (20:31)
[2020-10-20] MEDS: TiZANidine HCL 4 MG TABLET 2 MG PO (20:32)
[2020-10-20] MEDS: Mirtazapine 30 MG TABLET PO (20:32)
[2020-10-21] VITALS (9 sets, daily range): BP systolic 109–150; BP diastolic 63–88; PULSE 96–114; RESP 18–20; TEMP 36.6–37.1; O2SAT 94–97
[2020-10-21] MEDS: methylPREDNISolone Sod Succ 125 MG/2 ML VIAL 60 MG IVPUSH ×3 (02:34→16:32)
[2020-10-21] MEDS: Omeprazole 20 MG CAPSULE.DR PO (05:48)
[2020-10-21 07:15] LABS: Hematocrit 36.2 % (42-52); Hemoglobin 11.8 g/dl (14.0-18.0); Mean Corpuscular HGB Conc 32.6 g/dl (31.0-36.0); Mean Corpuscular Hemoglobin 30.6 pg (27.0-33.0); Mean Platelet Volume 9.5 fL (9.4-12.4); Platelet Count 281 X10*3/uL (160-400); Red Blood Count 3.85 X10*6/uL (4.60-5.80); Red Cell Distribution Width 14.4 % (11.0-16.0); White Blood Count 28.9 X10*3/uL (4.8-10.8)
[2020-10-21 07:35] LABS: Anion Gap 17 (12-20); Blood Urea Nitrogen 24 mg/dL (9-16); Calcium 8.2 mg/dL (8.4-10.2); Carbon Dioxide 19 mmol/L (22-29); Chloride 111 mmol/L (96-108); Estimated Glomerular Filt Rate > 60; Glucose Random 146 mg/dL (60-115); Sodium 143 mmol/L (135-145)
[2020-10-21] MEDS: Ipratropium Bromide 0.5 MG/2.5 ML SOLUTION INHALE ×4 (07:35→20:07)
[2020-10-21] MEDS: 0.9 % Sodium Chloride Flush 3 ML SYRINGE IVFLUSH ×3 (08:19→20:08)
[2020-10-21] MEDS: Ascorbic Acid 500 MG TABLET 1000 MG PO (08:20)
[2020-10-21] MEDS: Theophylline Anhydrous ER 400 MG TAB.ER.24H 200 MG PO (08:21)
[2020-10-21] MEDS: Multivitamin TABLET 1 TAB PO (08:21)
[2020-10-21] MEDS: Lidocaine 4 % Patch ADH..PATCH 1 PATCH TRANSDERMA (08:21)
--- NOTE | 2020-10-21 12:43 | HO.PM.IMPN ---
Subjective Subjective Date of Service: 10/21/20 <REINA Pizano - Last Filed: 10/21/20 13:01> 10/21/20 <William Urbina MD - Last Filed: 10/21/20 13:46> Interval History: f/u COPD exacerbation seen and examined this morning Feels chest tightness has improved and overall breathing improved, but still having FENG with minimal activity home albuterol at bedside - advised not to self administer medications ROS: CV no chest pain, some palpitations overnight, none this am PULM. 1 ep <REINA Pizano - Last Filed: 10/21/20 13:01> Physical Exam Vital Signs: Vital Signs: Last Vital Signs Temp 98 F 10/21/20 11:03 Pulse 107 H 10/21/20 11:03 Resp 20 10/21/20 11:03 BP 133/71 10/21/20 11:03 Pulse Ox 96 10/21/20 11:03 Body Mass Index 23.7 <REINA Pizano - Last Filed: 10/21/20 13:01> Const: General: alert and awake <REINA Pizano - Last Filed: 10/21/20 13:01> Nutritional Appearance: well nourished and thin <REINA Pizano - Last Filed: 10/21/20 13:01> Orientation/consciousness: patient oriented x3 <REINA Pizano - Last Filed: 10/21/20 13:01> HENMT: Head: Yes normocephalic and Yes atraumatic <REINA Pizano - Last Filed: 10/21/20 13:01> Eyes: Sclerae: sclerae normal <REINA Pizano - Last Filed: 10/21/20 13:01> Chest: Chest palpation & inspection: normal inspection of the chest <REINA Pizano Last Filed: 10/21/20 13:01> Resp: Other: better air entry, prolonged expiratory phase, no significant wheezing <REINA Pizano - Last Filed: 10/21/20 13:01> Effort & Inspection: able to speak in complete sentences, no respiratory distress and tachypneic <REINA Pizano - Last Filed: 10/21/20 13:01> Cardio: Rate: regular rate <REINA Pizano - Last Filed: 10/21/20 13:01> Rhythm: regular rhythm <REINA Pizano - Last Filed: 10/21/20 13:01> GI: Palpation (GI): Soft to palpation and nontender <REINA Pizano - Last Filed: 10/21/20 13:01> Skin: General skin exam: no rashes or lesions noted <REINA Pizano - Last Filed: 10/21/20 13:01> Neuro: General: patient oriented x3 <REINA Pizano - Last Filed: 10/21/20 13:01> Cranial nerves: Yes CN's II-XII intact bilaterally and Yes Bilaterally intact EOM present <REINA Pizano - Last Filed: 10/21/20 13:01> Extrem: Other: no leg edema <REINA Pizano Last Filed: 10/21/20 13:01> General: Yes normal to inspection <REINA Pizano - Last Filed: 10/21/20 13:01> Objective Data Current Medications Generic Name Dose Route Start Last Admin Trade Name Freq PRN Reason Stop Dose Admin Acetaminophen 650 mg 10/19/20 16:33 Acetaminophen 325 Mg Tablet PO Q6H PRN Pain, Mild (Pain Scale 1-3) Ascorbic Acid 1,000 mg 10/20/20 09:00 10/21/20 08:20 Ascorbic Acid 500 Mg Tablet PO 1,000 mg DAILY SUSAN Administration Atorvastatin Calcium 20 mg 10/19/20 21:00 10/20/20 20:31 Atorvastatin Calcium 20 Mg Tablet PO 20 mg BEDTIME SUSAN Administration Docusate Sodium 100 mg 10/19/20 16:33 Docusate Sodium 100 Mg Capsule PO DAILY PRN Constipation Enoxaparin Sodium 40 mg 10/19/20 17:00 10/20/20 16:36 Enoxaparin Sodium 40 Mg/0.4 Ml Syringe SUBCUT 40 mg Q24H SUSAN Administration Ipratropium [place] 0.5 mg 10/20/20 08:00 10/21/20 11:05 Ipratropium [place] 0.5 Mg/2.5 Ml Solution INHALE 0.5 mg RQ4H WHILE AWAKE SUSAN Administration Levalbuterol HCl 1.25 mg 10/19/20 16:33 10/21/20 11:05 Levalbuterol Hcl 1.25 Mg/0.5 Ml Vial.Neb INHALE 1.25 mg RQ4H WHILE AWAKE SUSAN Administration Lidocaine 1 patch 10/20/20 09:00 10/21/20 08:21 Lidocaine 4 % Patch Adh..Patch TRANSDERMA 1 patch DAILY SUSAN Administration Methylprednisolone Sodium Succinate 60 mg 10/19/20 16:33 10/21/20 08:20 Methylprednisolone Sod Succ 125 Mg/2 Ml Vial IVPUSH 60 mg Q8H SUSAN Administration Mirtazapine 30 mg 10/19/20 21:00 10/20/20 20:32 Mirtazapine 30 Mg Tablet PO 30 mg BEDTIME SUSAN Administration Multivitamins/Vitamin C 1 tab 10/20/20 09:00 10/21/20 08:21 Multivitamin Tablet PO 1 tab DAILY SUSAN Administration Omeprazole 20 mg 10/20/20 06:30 10/21/20 05:48 Omeprazole 20 Mg Capsule. PO 20 mg DAILY@0630 SUSAN Administration Ondansetron HCl 4 mg 10/19/20 16:33 Ondansetron Hcl 4 Mg/2 Ml Vial IVPUSH Q8H PRN Nausea and Vomiting Sodium Chloride 3 ml 10/19/20 16:33 10/21/20 08:19 0.9 % Sodium Chloride Flush 3 Ml Syringe IVFLUSH 3 ml QSHIFT SUSAN Administration Theophylline 200 mg 10/20/20 09:00 10/21/20 08:21 Theophylline Anhydrous Er 400 Mg Tab.Er.24h PO 200 mg DAILY SUSAN Administration Tizanidine HCl 2 mg 10/19/20 21:00 10/20/20 20:32 Tizanidine Hcl 4 Mg Tablet PO 2 mg BEDTIME SUSAN Administration Trazodone HCl 50 mg 10/19/20 21:00 10/20/20 20:31 Trazodone Hcl 50 Mg Tablet PO 50 mg BEDTIME SUSAN Administration Verapamil HCl 180 mg 10/19/20 17:16 10/20/20 20:31 Verapamil Hcl Sr 180 Mg Tablet.Er PO 180 mg BEDTIME SUSAN Administration Protocol <REINA Pizano - Last Filed: 10/21/20 13:01> Labs CBC & Chem 7: : 10/21/20 06:02 10/21/20 06:02 <REINA Pizano - Last Filed: 10/21/20 13:01> Microbiology Microbiology Results: Microbiology 10/19/20 10:22 Blood - Venous Blood Culture - Preliminary No growth after 48 hours. 10/19/20 11:18 Blood - Venous Blood Culture - Preliminary No growth after 24 hours. <REINA Pizano - Last Filed: 10/21/20 13:01> Assessment and Plan (1) COPD with acute exacerbation: Status: Acute <REINA Pizano - Last Filed: 10/21/20 13:01> Assessment and Plan: This is a 89-year-old male with a history of COPD/chronic respiratory failure who was sent from pulmonary clinic with worsening shortness of breath after failing outpatient treatment with PO steroids. FENG r/t underlying severe COPD BNP 15, trop neg can consider echo if no improvement with current management Acute COPD exacerbation/chronic respiratory failure On 2-3 L of home O2. CTA negative for PE, pna, effusion continue home theophylline -Continue IV Solu-Medrol -scheduled Xopenex, Atrovent given tachycardia -Pulmonary consult Leukocytosis r/t steroid use h/o tachyarrythmia ?PAF. never on AC Has been tachycardic to 120s, EKG sinus tach, HR slightly improved today -continue verapamil -tele monitoring Elevated lactic acid Improving with IVF r/t tachycardia not r/t sepsis or infectious source HLD continue statin gerd continue ppi dvt ppx - lovenox code status - DNI Attending: Dr. Metzger <REINA Pizano - Last Filed: 10/21/20 13:01> I saw and examined the patient and participated in the sykes portion of the E/M service. I agree exam and management as documented by REINA above. He is being treated for severe exacerbation of COPD. Exam: less tachycy anxious, seems comfortable, speaks in full sentences, lung with good air movment, no wheezes heard, no accessory muscle. labs and imaging reviewed Plan is to continue IV steroid for one more day and transition to Prednisone, bronchodilators with xopenex given tachycardia (should not be using his own albuterol pump), O2 at home level of 2. O/w I agree with assesment and plan as above <William Urbina MD - Last Filed: 10/21/20 13:46>
[2020-10-21] MEDS: Enoxaparin Sodium 40 MG/0.4 ML SYRINGE SUBCUT (16:33)
[2020-10-21] MEDS: VerapamiL HCL SR 180 MG TABLET.ER PO (20:07)
[2020-10-21] MEDS: TiZANidine HCL 4 MG TABLET 2 MG PO (20:07)
[2020-10-21] MEDS: Atorvastatin Calcium 20 MG TABLET PO (20:07)
[2020-10-21] MEDS: traZODone HCL 50 MG TABLET PO (20:07)
[2020-10-21] MEDS: Mirtazapine 30 MG TABLET PO (20:08)
[2020-10-22] VITALS (9 sets, daily range): BP systolic 116–148; BP diastolic 66–90; PULSE 92–109; RESP 17–18; TEMP 35.9–36.7; O2SAT 96–98
[2020-10-22] MEDS: methylPREDNISolone Sod Succ 125 MG/2 ML VIAL 60 MG IVPUSH ×2 (00:45→09:30)
[2020-10-22] MEDS: Omeprazole 20 MG CAPSULE.DR PO (05:53)
[2020-10-22 06:37] LABS: Hematocrit 36.7 % (42-52); Mean Corpuscular HGB Conc 32.7 g/dl (31.0-36.0); Mean Corpuscular Hemoglobin 30.6 pg (27.0-33.0); Mean Corpuscular Volume 93.6 fL (80-98); Mean Platelet Volume 9.6 fL (9.4-12.4); Platelet Count 280 X10*3/uL (160-400); Red Blood Count 3.92 X10*6/uL (4.60-5.80); Red Cell Distribution Width 14.3 % (11.0-16.0); White Blood Count 22.7 X10*3/uL (4.8-10.8)
[2020-10-22 07:11] LABS: Anion Gap 15 (12-20); Blood Urea Nitrogen 24 mg/dL (9-16); Calcium 8.2 mg/dL (8.4-10.2); Carbon Dioxide 22 mmol/L (22-29); Chloride 110 mmol/L (96-108); Creatinine Clr Calc Pharmacy 99.4; Estimated Glomerular Filt Rate > 60; Glucose Random 115 mg/dL (60-115); Potassium 4.3 mmol/L (3.3-5.1); Sodium 143 mmol/L (135-145)
[2020-10-22] MEDS: Ipratropium Bromide 0.5 MG/2.5 ML SOLUTION INHALE ×4 (08:47→20:03)
[2020-10-22] MEDS: Multivitamin TABLET 1 TAB PO (09:30)
[2020-10-22] MEDS: Theophylline Anhydrous ER 400 MG TAB.ER.24H 200 MG PO (09:31)
[2020-10-22] MEDS: Ascorbic Acid 500 MG TABLET 1000 MG PO (09:31)
[2020-10-22] MEDS: Lidocaine 4 % Patch ADH..PATCH 1 PATCH TRANSDERMA (09:37)
[2020-10-22] MEDS: 0.9 % Sodium Chloride Flush 3 ML SYRINGE IVFLUSH ×2 (09:39→16:02)
[2020-10-22] MEDS: guaiFENesin LA 600 MG TAB.ER.12H PO (10:25)
--- NOTE | 2020-10-22 12:43 | MHC.CM.PN ---
DP MALE 70 COPD EXACERBATION. @ discharge the Pt will return home without services. Patient to arrange transportation. is requesting a work note to extend her leave r/t covid. She does not want to give her spouse covid. The request has been forwarded. CM will follow.
--- NOTE | 2020-10-22 14:40 | P.CONPL_ITS ---
History of Present Illness History of Present Illness Consult date: 10/22/20 Requesting physician: Anne Del Toro Reason for consult: COPD Chief complaint: copd exacerbation Narrative: 70-year-old gentleman with underlying history of AFib, hyperlipidemia, severe supplemental oxygen dependent 2-3 L COPD admitted from pulmonary office on 10/19/2020 of with COPD exacerbation poorly responsive to ambulatory treatment. Patient has been started on systemic glucocorticoids and nebulized bronchodilators and now reports some improvement. However, he still has poor bilateral air movement. Review of Systems Constitutional: Constitutional: Denies daytime sleepiness, Denies excessive sweating, Denies fatigue, Denies fever(s), Denies lethargy, Denies malaise, Denies night sweats, Denies snoring and Denies weight loss Eyes: Eyes: Denies blurry vision and Denies itchy eyes ENT: Denies nasal congestion, Denies post nasal drip, Denies sinus pain, Denies sinus pressure and Denies other ( Thrush) Cardiovascular: Cardiovascular: Denies chest pain, Denies pedal edema, Reports dyspnea, Denies orthopnea and Denies paroxysmal nocturnal dyspnea Respiratory: Respiratory: Denies cough, Denies hemoptysis, Denies excessive phlegm production, Reports dyspnea, Denies snoring and Reports wheezing Gastrointestinal: Gastrointestinal: Denies abdominal pain and Denies heartburn Musculoskeletal: Musculoskeletal: Denies myalgias, Denies arthralgias and Denies joint swelling Integumentary/Breasts: Skin/Breast: Denies rash Neurologic: Denies memory loss and Denies seizure-like activity Psychiatric: Psychiatric: Denies abnormal sleep pattern, Denies anxiety and Denies memory loss Endocrine: Endocrine: Denies excessive sweating, Denies fatigue and Denies heat intolerance Hematologic/Lymphatic: Hematologic/Lymphatic: Denies easy bruising Allergic/Immunologic: Allergic/Immunologic: Denies itchy eyes, Denies seasonal rhinorrhea and Reports wheezing PMFSH Past Medical History Medical History Afib COPD (chronic obstructive pulmonary disease) HLD (hyperlipidemia) Tachyarrhythmia Functional capacity: independent ambulation Family History Family History Other Adopted Family history: reviewed and not pertinent Social History Social History Household Members: Spouse Housing: Apartment Do you presently have visiting nurse or other home services: No Alcohol intake: never Smoking Status: Former smoker Tobacco Type: Cigarette Years Smoked: 40 yrs Smoked in Last 30 Days: No Patient Interested in Nicotine Replacement: No Use of substances other than those prescribed or required for medical reasons: No Currently Displaying Signs/Symptoms of Drug Intoxication Withdrawal: No Have you been hit, kicked, punched, or otherwise hurt by someone within the past year? If so, by whom?: No Do you feel safe in your current relationship?: Yes Is there a partner from a previous relationship who is making you feel unsafe now?: No Are you made to feel afraid or neglected: No Advance Directives: Yes Advance Directives on File: Yes Advance Directives Date on File: 10/19/20 Do you have thoughts of harming others: None Do you have a plan to hurt others: No Plan Recently lost weight without trying: No Current occupational status: retired Meds Allergies Allergy/AdvReac Type Severity Reaction Status Date / Time No Known Allergies Allergy Verified 10/19/20 09:20 Active Medications: Current Medications Generic Name Dose Route Start Last Admin Trade Name Freq PRN Reason Stop Dose Admin Acetaminophen 650 mg 10/19/20 16:33 Acetaminophen 325 Mg Tablet PO Q6H PRN Pain, Mild (Pain Scale 1-3) Ascorbic Acid 1,000 mg 10/20/20 09:00 10/22/20 09:31 Ascorbic Acid 500 Mg Tablet PO 1,000 mg DAILY SUSAN Administration Atorvastatin Calcium 20 mg 10/19/20 21:00 10/21/20 20:07 Atorvastatin Calcium 20 Mg Tablet PO 20 mg BEDTIME SUSAN Administration Docusate Sodium 100 mg 10/19/20 16:33 Docusate Sodium 100 Mg Capsule PO DAILY PRN Constipation Enoxaparin Sodium 40 mg 10/19/20 17:00 10/21/20 16:33 Enoxaparin Sodium 40 Mg/0.4 Ml Syringe SUBCUT 40 mg Q24H SUSAN Administration Guaifenesin 600 mg 10/22/20 10:15 10/22/20 10:25 Guaifenesin [place] 600 Mg Tab.Er.12h PO 600 mg BID SUSAN Administration Ipratropium [place] 0.5 mg 10/20/20 08:00 10/22/20 11:56 Ipratropium [place] 0.5 Mg/2.5 Ml Solution INHALE 0.5 mg RQ4H WHILE AWAKE SUSAN Administration Levalbuterol HCl 1.25 mg 10/19/20 16:33 10/22/20 11:56 Levalbuterol Hcl 1.25 Mg/0.5 Ml Vial.Neb INHALE 1.25 mg RQ4H WHILE AWAKE SUSAN Administration Lidocaine 1 patch 10/20/20 09:00 10/22/20 09:37 Lidocaine 4 % Patch Adh..Patch TRANSDERMA 1 patch DAILY SUSAN Administration Methylprednisolone Sodium Succinate 60 mg 10/19/20 16:33 10/22/20 09:30 Methylprednisolone Sod Succ 125 Mg/2 Ml Vial IVPUSH 60 mg Q8H SUSAN Administration Mirtazapine 30 mg 10/19/20 21:00 10/21/20 20:08 Mirtazapine 30 Mg Tablet PO 30 mg BEDTIME SUSAN Administration Multivitamins/Vitamin C 1 tab 10/20/20 09:00 10/22/20 09:30 Multivitamin Tablet PO 1 tab DAILY SUSAN Administration Omeprazole 20 mg 10/20/20 06:30 10/22/20 05:53 Omeprazole 20 Mg Capsule.Dr PO 20 mg DAILY@0630 SUSAN Administration Ondansetron HCl 4 mg 10/19/20 16:33 Ondansetron Hcl 4 Mg/2 Ml Vial IVPUSH Q8H PRN Nausea and Vomiting Sodium Chloride 3 ml 10/19/20 16:33 10/22/20 09:39 0.9 % Sodium Chloride Flush 3 Ml Syringe IVFLUSH 3 ml QSHIFT SUSAN Administration Theophylline 200 mg 10/20/20 09:00 10/22/20 09:31 Theophylline Anhydrous Er 400 Mg Tab.Er.24h PO 200 mg DAILY SUSAN Administration Tizanidine HCl 2 mg 10/19/20 21:00 10/21/20 20:07 Tizanidine Hcl 4 Mg Tablet PO 2 mg BEDTIME SUSAN Administration Trazodone HCl 50 mg 10/19/20 21:00 10/21/20 20:07 Trazodone Hcl 50 Mg Tablet PO 50 mg BEDTIME SUSAN Administration Verapamil HCl 180 mg 10/19/20 17:16 10/21/20 20:07 Verapamil Hcl Sr 180 Mg Tablet.Er PO 180 mg BEDTIME SUSAN Administration Protocol Home Medications Medication Instructions Recorded Confirmed Last Taken Type albuterol sulfate 90 mcg/actuation 2 puff INHALATION Q4H PRN 04/26/20 10/19/20 Unknown History aerosol inhaler atorvastatin 20 mg tablet 20 mg PO BEDTIME 04/26/20 10/19/20 10/18/20 History budesonide-formoterol HFA 160 2 puff PO BID 04/26/20 10/19/20 10/19/20 History mcg-4.5 mcg/actuation aerosol 1 inhaler mirtazapine 30 mg tablet 30 mg PO BEDTIME 04/26/20 10/19/20 10/18/20 History pantoprazole 40 mg tablet,delayed 40 mg PO DAILY 04/26/20 10/19/20 10/19/20 History release trazodone 50 mg tablet 50 mg PO BEDTIME 04/26/20 10/19/20 10/18/20 History albuterol sulfate 1 vial INHALATION Q4H PRN 10/19/20 10/19/20 10/19/20 History ascorbic acid (vitamin C) [Vitamin 1,000 mg PO DAILY 10/19/20 10/19/20 10/19/20 History C] ipratropium-albuterol 3 ml INHALATION Q4H PRN 10/19/20 10/19/20 10/19/20 History lidocaine 1 patch TOPICAL DAILY 10/19/20 10/19/20 10/18/20 History multivitamin 1 tab PO DAILY 10/19/20 10/19/20 10/19/20 History theophylline 200 mg PO DAILY 10/19/20 10/19/20 10/19/20 History tiotropium bromide [Spiriva with 1 cap INHALATION DAILY 10/19/20 10/19/20 10/19/20 History HandiHaler] tizanidine 2 mg PO BEDTIME 10/19/20 10/19/20 10/18/20 History verapamil 180 mg PO BEDTIME 10/19/20 10/19/20 10/18/20 History Physical Exam Vital Signs: Vital Signs: Last Vital Signs Temp 98.1 F 10/22/20 12:00 Pulse 109 H 10/22/20 12:00 Resp 17 10/22/20 12:00 BP 116/66 10/22/20 12:00 Pulse Ox 97 10/22/20 12:00 Body Mass Index 23.7 Const: General: no acute distress, alert and awake Eyes: Sclerae: sclerae normal EOM: EOMs intact bilaterally Neck: Neck: Yes no lymphadenopathy, Yes trachea midline and Yes supple Resp: Effort & Inspection: normal respiratory effort and no respiratory distress Auscultation: other (Improved, but still poor bilateral air movement) Cardio: Rate: regular rate Rhythm: regular rhythm Heart sounds: no gallops, no murmurs and no rubs GI: Palpation (GI): Soft to palpation and Other GI palpation findings present ( Nontender) Auscultation: normal bowel sounds Extrem: General: Yes no pedal edema, No clubbing and No cyanosis Results Laboratory Findings CBC and BMP: 10/22/20 05:27 10/22/20 05:27 ABG, PT/INR, D-dimer: ABG Carbon Dioxide 22 mmol/L (22-29) 10/22/20 05:27 Albumin 4.1 g/dL (3.5-5.0) 10/19/20 10:22 PT/INR, D-dimer PT 11.6 SEC (10.8-13.0) 10/19/20 10:22 INR 1.0 (0.9-1.1) 10/19/20 10:22 Abnormal lab findings: Abnormal Labs 10/19/20 10/19/20 10/19/20 10:22 10:23 10:23 WBC 11.2 H RBC 4.48 L Hgb 13.9 L Hct 41.4 L MPV 9.2 L Immature Gran % (Auto) 1.2 H Abs Immat Gran (auto) 0.13 H VBG pH Chloride Carbon Dioxide BUN 19 H Random Glucose 121 H Lactic Acid 2.1 H* Lactic Acid Fup @ 2Hr Lactic Acid Fup @ 4Hr Calcium 10/19/20 10/19/20 10/19/20 10:31 12:53 16:44 WBC RBC Hgb Hct MPV Immature Gran % (Auto) Abs Immat Gran (auto) VBG pH 7.45 H Chloride Carbon Dioxide BUN Random Glucose Lactic Acid Lactic Acid Fup @ 2Hr 4.0 H* Lactic Acid Fup @ 4Hr 9.8 H* Calcium 10/19/20 10/19/20 10/21/20 19:27 22:10 06:02 WBC 28.9 H RBC 3.85 L Hgb 11.8 L Hct 36.2 L MPV Immature Gran % (Auto) Abs Immat Gran (auto) VBG pH Chloride Carbon Dioxide BUN Random Glucose Lactic Acid 8.7 H* Lactic Acid Fup @ 2Hr 6.9 H* Lactic Acid Fup @ 4Hr Calcium 10/21/20 10/22/20 10/22/20 06:02 05:27 05:27 WBC 22.7 H RBC 3.92 L Hgb 12.0 L Hct 36.7 L MPV Immature Gran % (Auto) Abs Immat Gran (auto) VBG pH Chloride 111 H 110 H Carbon Dioxide 19 L BUN 24 H 24 H Random Glucose 146 H Lactic Acid Lactic Acid Fup @ 2Hr Lactic Acid Fup @ 4Hr Calcium 8.2 L 8.2 L Microbiology: Microbiology 10/19/20 11:18 Blood - Venous Blood Culture - Preliminary No growth after 48 hours. 10/19/20 10:22 Blood - Venous Blood Culture - Preliminary No growth after 48 hours. Assessment and Plan (1) COPD with acute exacerbation: Status: Acute Impression: Exacerbation of underlying chronic supplemental oxygen dependent COPD, now with slow improvement. Recommendation: Continue with tapering systemic glucocorticoids. Continue nebulized bronchodilators. Will increase theophylline to 400. (2) Supplemental oxygen dependent: Status: Acute
--- NOTE | 2020-10-22 15:43 | P.PNIM_ITS ---
Subjective Subjective Date of Service: 10/22/20 <Pretty Santiago NP - Last Filed: 10/22/20 15:53> 10/22/20 <Favio Baca MD - Last Filed: 10/22/20 16:53> Interval History: Follow up COPD. Some mild SOB but better <Pretty Santiago NP - Last Filed: 10/22/20 15:53> Physical Exam Vital Signs: Vital Signs: Last Vital Signs Temp 98.0 F 10/22/20 15:35 Pulse 108 H 10/22/20 15:35 Resp 18 10/22/20 15:35 BP 148/81 H 10/22/20 15:35 Pulse Ox 96 10/22/20 15:35 Body Mass Index 23.7 <Pretty Santiago NP - Last Filed: 10/22/20 15:53> Appearing in no acute distress lung sounds diminished heart regular rate rhythm, clear S1, S2 positive bowel sounds, abdomen is soft, nontender neuro patient is alert x3, no focal deficits <Pretty Santiago NP - Last Filed: 10/22/20 15:53> Objective Data Current Medications Generic Name Dose Route Start Last Admin Trade Name Freq PRN Reason Stop Dose Admin Acetaminophen 650 mg 10/19/20 16:33 Acetaminophen 325 Mg Tablet PO Q6H PRN Pain, Mild (Pain Scale 1-3) Ascorbic Acid 1,000 mg 10/20/20 09:00 10/22/20 09:31 Ascorbic Acid 500 Mg Tablet PO 1,000 mg DAILY SUSAN Administration Atorvastatin Calcium 20 mg 10/19/20 21:00 10/21/20 20:07 Atorvastatin Calcium 20 Mg Tablet PO 20 mg BEDTIME SUSAN Administration Docusate Sodium 100 mg 10/19/20 16:33 Docusate Sodium 100 Mg Capsule PO DAILY PRN Constipation Enoxaparin Sodium 40 mg 10/19/20 17:00 10/21/20 16:33 Enoxaparin Sodium 40 Mg/0.4 Ml Syringe SUBCUT 40 mg Q24H SUSAN Administration Guaifenesin 600 mg 10/22/20 10:15 10/22/20 10:25 Guaifenesin [place] 600 Mg Tab.Er.12h PO 600 mg BID SUSAN Administration Ipratropium [place] 0.5 mg 10/20/20 08:00 10/22/20 11:56 Ipratropium [place] 0.5 Mg/2.5 Ml Solution INHALE 0.5 mg RQ4H WHILE AWAKE SUSAN Administration Levalbuterol HCl 1.25 mg 10/19/20 16:33 10/22/20 11:56 Levalbuterol Hcl 1.25 Mg/0.5 Ml Vial.Neb INHALE 1.25 mg RQ4H WHILE AWAKE SUSAN Administration Lidocaine 1 patch 10/20/20 09:00 10/22/20 09:37 Lidocaine 4 % Patch Adh..Patch TRANSDERMA 1 patch DAILY SUSAN Administration Methylprednisolone Sodium Succinate 40 mg 10/22/20 21:00 Methylprednisolone Sod Succ 125 Mg/2 Ml Vial IVPUSH BID SUSAN Mirtazapine 30 mg 10/19/20 21:00 10/21/20 20:08 Mirtazapine 30 Mg Tablet PO 30 mg BEDTIME SUSAN Administration Multivitamins/Vitamin C 1 tab 10/20/20 09:00 10/22/20 09:30 Multivitamin Tablet PO 1 tab DAILY SUSAN Administration Omeprazole 20 mg 10/20/20 06:30 10/22/20 05:53 Omeprazole 20 Mg Capsule.Dr PO 20 mg DAILY@0630 SUSAN Administration Ondansetron HCl 4 mg 10/19/20 16:33 Ondansetron Hcl 4 Mg/2 Ml Vial IVPUSH Q8H PRN Nausea and Vomiting Sodium Chloride 3 ml 10/19/20 16:33 10/22/20 09:39 0.9 % Sodium Chloride Flush 3 Ml Syringe IVFLUSH 3 ml QSHIFT SUSAN Administration Theophylline 400 mg 10/23/20 09:00 Theophylline Anhydrous Er 400 Mg Tab.Er.24h PO DAILY SUSAN Tizanidine HCl 2 mg 10/19/20 21:00 10/21/20 20:07 Tizanidine Hcl 4 Mg Tablet PO 2 mg BEDTIME SUSAN Administration Trazodone HCl 50 mg 10/19/20 21:00 10/21/20 20:07 Trazodone Hcl 50 Mg Tablet PO 50 mg BEDTIME SUSAN Administration Verapamil HCl 180 mg 10/19/20 17:16 10/21/20 20:07 Verapamil Hcl Sr 180 Mg Tablet.Er PO 180 mg BEDTIME SUSAN Administration Protocol <Pretty Santiago PATIENT CARE NURSING ASSISTANT - Last Filed: 10/22/20 15:53> Labs CBC & Chem 7: : 10/22/20 05:27 10/22/20 05:27 <Pretty Santiago NP - Last Filed: 10/22/20 15:53> Microbiology Microbiology Results: Microbiology 10/19/20 11:18 Blood - Venous Blood Culture - Preliminary No growth after 48 hours. 10/19/20 10:22 Blood - Venous Blood Culture - Preliminary No growth after 48 hours. <Pretty Santiago NP - Last Filed: 10/22/20 15:53> Assessment and Plan (1) COPD with acute exacerbation: Status: Acute <Pretty Santiago NP - Last Filed: 10/22/20 15:53> Assessment and Plan: 89-year-old male with a history of COPD/chronic respiratory failure who was sent from pulmonary clinic with worsening shortness of breath after failing outpatient treatment with PO steroids. Acute COPD exacerbation/chronic respiratory failure. On 2-3 L of home O2. CTA negative for PE, pna, effusion -continue home theophylline -decrease IV Solu-Medrol to BID -scheduled Xopenex, Atrovent -Pulmonary consult -add Mucinex 1200 BID Leukocytosis. Secondary to steroid use. Hx of tachyarrythmia. Patient reports hx of afib not on anticoagulation. No episodes of Afib while hospitalized. -continue verapamil -tele monitoring Elevated lactic acid. Secondary to tachycardia not sepsis HLD -continue statin GERD -continue ppi Attending: Dr. Baca <Pretty Santiago NP - Last Filed: 10/22/20 15:53> Patient seen and examined independently and I was present during sykes portion of E/M service. Agree with Violeta Santiago NP's history, physical, assessment, and plan. Very slow to improve. Will start steroid taper. Pulm input appreciated -- theophyllin increased. <Favio Baca MD - Last Filed: 10/22/20 16:53>
[2020-10-22] MEDS: Enoxaparin Sodium 40 MG/0.4 ML SYRINGE SUBCUT (16:02)
[2020-10-22] MEDS: Furosemide 20 MG/2 ML VIAL IVPUSH (16:02)
[2020-10-22] MEDS: VerapamiL HCL SR 180 MG TABLET.ER PO (21:50)
[2020-10-22] MEDS: Mirtazapine 30 MG TABLET PO (21:50)
[2020-10-22] MEDS: methylPREDNISolone Sod Succ 125 MG/2 ML VIAL 40 MG IVPUSH (21:50)
[2020-10-22] MEDS: traZODone HCL 50 MG TABLET PO (21:50)
[2020-10-22] MEDS: guaiFENesin LA 600 MG TAB.ER.12H 1200 MG PO (21:51)
[2020-10-22] MEDS: TiZANidine HCL 4 MG TABLET 2 MG PO (21:51)
[2020-10-22] MEDS: Atorvastatin Calcium 20 MG TABLET PO (21:51)
[2020-10-23] VITALS (10 sets, daily range): BP systolic 112–153; BP diastolic 53–83; PULSE 95–114; RESP 16–22; TEMP 36.3–37; O2SAT 95–98
--- NOTE | 2020-10-23 | ECG_ITS ---
Test Reason : CP Blood Pressure : / mmHG Vent. Rate : 109 BPM Atrial Rate : 109 BPM P-R Int : 146 ms QRS Dur : 062 ms QT Int : 332 ms P-R-T Axes : 080 082 071 degrees QTc Int : 447 ms Sinus tachycardia Possible Left atrial enlargement Septal infarct , age undetermined Abnormal ECG No previous ECGs available Referred By: Favio Baca Electronically Signed By:ALLY DONALD MD
[2020-10-23] MEDS: 0.9 % Sodium Chloride Flush 3 ML SYRINGE IVFLUSH ×3 (01:04→16:33)
[2020-10-23] MEDS: Omeprazole 20 MG CAPSULE.DR PO (05:48)
[2020-10-23 06:41] LABS: MANUAL DIFF FLAG NO
[2020-10-23 06:46] LABS: Basophils Percent Auto 0.2 % (0-2); Hematocrit 38.6 % (42-52); Hemoglobin 12.6 g/dl (14.0-18.0); Imm Gran Abs Auto 0.35 X10*3/uL (0.00-0.03); Imm Gran Pct Auto 1.9 % (0.0-0.4); Lymphocytes Absolute Auto 0.9 X10*3/uL (1.2-4.9); Lymphocytes Percent Auto 4.8 % (20-40); Mean Corpuscular HGB Conc 32.6 g/dl (31.0-36.0); Mean Corpuscular Hemoglobin 30.7 pg (27.0-33.0); Mean Corpuscular Volume 93.9 fL (80-98); Mean Platelet Volume 9.6 fL (9.4-12.4); Monocytes Absolute Auto 0.6 X10*3/uL (0.1-1.2); Monocytes Percent Auto 3.1 % (2-11); Neutrophils Absolute Auto 16.4 X10*3/uL (2.0-8.3); Platelet Count 288 X10*3/uL (160-400); Red Blood Count 4.11 X10*6/uL (4.60-5.80); Red Cell Distribution Width 14.3 % (11.0-16.0); White Blood Count 18.2 X10*3/uL (4.8-10.8)
[2020-10-23 07:18] LABS: Anion Gap 18 (12-20); Blood Urea Nitrogen 32 mg/dL (9-16); Calcium 8.6 mg/dL (8.4-10.2); Carbon Dioxide 22 mmol/L (22-29); Chloride 105 mmol/L (96-108); Creatinine Clr Calc Pharmacy 89.1; Estimated Glomerular Filt Rate > 60; Glucose Random 174 mg/dL (60-115); Potassium 3.8 mmol/L (3.3-5.1); Sodium 141 mmol/L (135-145)
--- NOTE | 2020-10-23 07:30 | CA_ITS ---
Transthoracic Echocardiogram Patient (Last, First, Middle): Mateusz Grigsby P Gender: Male Date of : 1950 Age: 70 Procedure Date: 10/23/2020 Procedure Type: Transthoracic Echocardiogram Location: [facility] – [place] Height: 182.88 cm Weight: 79.38 kg BSA: 2.01 m2 Heart Rate: bpm BP: 112 / 53 mmHg [employer]: Referring MD: Brian Bennett MD Symptoms: FENG Study Quality: Fair ECG Rhythm: Sinus Conclusions: - Normal left ventricular size and systolic function. - There is moderately increased left ventricular wall thickness. - Diastolic function is normal for age. - Normal right ventricular cavity size and systolic function. - There is no evidence of pulmonary hypertension. Findings Left Ventricle Normal left ventricular size and systolic function. There is moderately increased left ventricular wall thickness. The visually estimated ejection fraction is between 55-60%. There is no evidence of regional wall motion abnormalities. Diastolic function is normal for age. Right Ventricle Normal right ventricular cavity size and systolic function. Atria The left atrium is normal in size. Aortic Valve The aortic valve was not well visualized. There is no aortic valve stenosis. There is no aortic valve regurgitation. Mitral Valve Normal mitral valve structure and function. There is no mitral valve regurgitation. There is no mitral valve stenosis. Pulmonic Valve The pulmonic valve was not well visualized. Tricuspid Valve Likely normal tricuspid valve structure and function. There is trace tricuspid valve regurgitation. Normal right atrial pressure. There is no evidence of pulmonary hypertension. Great Vessels The aorta was not well visualized. The pulmonary artery was not well visualized. Venous The inferior vena cava is normal in size and collapses greater than 50% with inspiration. Pericardium/Pleural There is no evidence of pericardial effusion. Prior Study Comparison No prior study available for comparison. Measurements 2D Linear Measurements IVSd: 1.23 0.6-0.9/0.6-1.0 cm LVIDd: 3.97 3.9-5.3/4.2-5.9 cm LVIDd Index: 1.98 2.4-3.2/2.2-3.1 cm/m2 LVIDs: 2.51 2.0-3.6 cm LVPWd: 1.28 0.7-1.1 cm Ao Root: 3.30 2.1-3.5 cm LA Diam: 2.10 2.7-3.8/3.0-4.0 cm LAIDs Index: 1.04 1.5-2.3 cm/m2 LV Mass: 217.91 67-162/88-224 g LV Mass Index: 108.41 43-95/49-115 g/m2 LVOT Diam: 2.10 3.0+(-)1.3 cm Mitral Valve MV Pk E: 0.78 MV PK A: 1.05 MV Decel Time: 144.00 E/A: 0.70 E'Lateral: 7.64 E'Medial: 7.93 E/E' Med: 9.80 E/E' Lat: 10.20 PHT: 42.00 MVA PHT: 5.24 Decel Carver: 5.41 Aortic Valve AoV Pk Pranay: 1.39 AoV Mn Pranay: 0.96 AoV VTI: 0.28 AoV Pk Grad: 8.00 Aov Mn Grad: 4.00 RADHA Cont.VTI: 1.96 LVOT LVOT Pk Pranay: 0.77 LVOT Mn Pranay: 0.58 LVOT VTI: 0.16 LVOT Pk Grad: 2.00 LVOT Mn Grad: 2.00 LVOT Diam: 2.10 LVOT Area: 3.46 Diastolic Function MV Pk E: 0.78 MV Pk A: 1.05 E/A: 0.70 E'Medial: 7.93 E/E' Med: 9.80 E' Laterial: 7.64 E/E' Lat: 10.20 Tricuspid Valve TR Pk Pranay: 1.46 TR Pk Grad: 9.00 RA Press: 5.50 RVSP: 17.00 Great Vessels Aorta Ao Root-2D: 3.30 2.0-3.7 cm Pulmonary Valve PV Pk Pranay: 0.79 Peak PV Grad: 2.00 Updated in Other Vendor System with Status of Final Eric Hoffman MD electronically signed on 10/23/2020 4:46:04 PM with status of Final
[2020-10-23] MEDS: Multivitamin TABLET 1 TAB PO (08:36)
[2020-10-23] MEDS: Ascorbic Acid 500 MG TABLET 1000 MG PO (08:36)
[2020-10-23] MEDS: guaiFENesin LA 600 MG TAB.ER.12H 1200 MG PO ×2 (08:37→20:02)
[2020-10-23] MEDS: Theophylline Anhydrous ER 400 MG TAB.ER.24H PO (08:37)
[2020-10-23] MEDS: methylPREDNISolone Sod Succ 125 MG/2 ML VIAL 40 MG IVPUSH ×2 (08:38→20:04)
[2020-10-23] MEDS: Lidocaine 4 % Patch ADH..PATCH 1 PATCH TRANSDERMA (08:38)
[2020-10-23] MEDS: Ipratropium Bromide 0.5 MG/2.5 ML SOLUTION INHALE ×3 (11:17→20:05)
--- NOTE | 2020-10-23 12:41 | P.PNIM_ITS ---
Subjective Subjective Date of Service: 10/23/20 Physical Exam Vital Signs: Vital Signs: Last Vital Signs Temp 98.3 F 10/23/20 11:48 Pulse 106 H 10/23/20 11:48 Resp 18 10/23/20 11:48 BP 141/83 H 10/23/20 11:48 Pulse Ox 97 10/23/20 11:48 Body Mass Index 23.7 Objective Data Current Medications Generic Name Dose Route Start Last Admin Trade Name Freq PRN Reason Stop Dose Admin Acetaminophen 650 mg 10/19/20 16:33 Acetaminophen 325 Mg Tablet PO Q6H PRN Pain, Mild (Pain Scale 1-3) Ascorbic Acid 1,000 mg 10/20/20 09:00 10/23/20 08:36 Ascorbic Acid 500 Mg Tablet PO 1,000 mg DAILY SUSAN Administration Atorvastatin Calcium 20 mg 10/19/20 21:00 10/22/20 21:51 Atorvastatin Calcium 20 Mg Tablet PO 20 mg BEDTIME SUSAN Administration Docusate Sodium 100 mg 10/19/20 16:33 Docusate Sodium 100 Mg Capsule PO DAILY PRN Constipation Enoxaparin Sodium 40 mg 10/19/20 17:00 10/22/20 16:02 Enoxaparin Sodium 40 Mg/0.4 Ml Syringe SUBCUT 40 mg Q24H SUSAN Administration Guaifenesin 1,200 mg 10/22/20 21:00 10/23/20 08:37 Guaifenesin [place] 600 Mg Tab.Er.12h PO 1,200 mg BID SUSAN Administration Ipratropium [place] 0.5 mg 10/20/20 08:00 10/23/20 11:17 Ipratropium [place] 0.5 Mg/2.5 Ml Solution INHALE 0.5 mg RQ4H WHILE AWAKE SUSAN Administration Levalbuterol HCl 1.25 mg 10/19/20 16:33 10/23/20 11:17 Levalbuterol Hcl 1.25 Mg/0.5 Ml Vial.Neb INHALE 1.25 mg RQ4H WHILE AWAKE SUSAN Administration Lidocaine 1 patch 10/20/20 09:00 10/23/20 08:38 Lidocaine 4 % Patch Adh..Patch TRANSDERMA 1 patch DAILY SUSAN Administration Methylprednisolone Sodium Succinate 40 mg 10/22/20 21:00 10/23/20 08:38 Methylprednisolone Sod Succ 125 Mg/2 Ml Vial IVPUSH 40 mg BID SUSAN Administration Mirtazapine 30 mg 10/19/20 21:00 10/22/20 21:50 Mirtazapine 30 Mg Tablet PO 30 mg BEDTIME SUSAN Administration Multivitamins/Vitamin C 1 tab 10/20/20 09:00 10/23/20 08:36 Multivitamin Tablet PO 1 tab DAILY SUSAN Administration Omeprazole 20 mg 10/20/20 06:30 10/23/20 05:48 Omeprazole 20 Mg Capsule.Dr PO 20 mg DAILY@0630 SUSAN Administration Ondansetron HCl 4 mg 10/19/20 16:33 Ondansetron Hcl 4 Mg/2 Ml Vial IVPUSH Q8H PRN Nausea and Vomiting Sodium Chloride 3 ml 10/19/20 16:33 10/23/20 08:38 0.9 % Sodium Chloride Flush 3 Ml Syringe IVFLUSH 3 ml QSHIFT SUSAN Administration Theophylline 400 mg 10/23/20 09:00 10/23/20 08:37 Theophylline Anhydrous Er 400 Mg Tab.Er.24h PO 400 mg DAILY SUSAN Administration Tizanidine HCl 2 mg 10/19/20 21:00 10/22/20 21:51 Tizanidine Hcl 4 Mg Tablet PO 2 mg BEDTIME SUSAN Administration Trazodone HCl 50 mg 10/19/20 21:00 10/22/20 21:50 Trazodone Hcl 50 Mg Tablet PO 50 mg BEDTIME SUSAN Administration Verapamil HCl 180 mg 10/19/20 17:16 10/22/20 21:50 Verapamil Hcl Sr 180 Mg Tablet.Er PO 180 mg BEDTIME SUSAN Administration Protocol Labs CBC & Chem 7: 10/23/20 05:47 10/23/20 05:47 Microbiology Microbiology Results: Microbiology 10/19/20 11:18 Blood - Venous Blood Culture - Preliminary No growth after 48 hours. 10/19/20 10:22 Blood - Venous Blood Culture - Preliminary No growth after 48 hours. Assessment and Plan (1) COPD with acute exacerbation: Status: Acute Assessment and Plan: 89-year-old male with a history of COPD/chronic respiratory failure who was sent from pulmonary clinic with worsening shortness of breath after failing ou tpatient treatment with PO steroids. Acute COPD exacerbation/chronic respiratory failure. On 2-3 L of home O2. CTA negative for PE, pna, effusion -seen and evaluated by pulmonology, theophylline dose increased -decrease IV Solu-Medrol to BID -scheduled Xopenex, Atrovent -add Mucinex 1200 BID Leukocytosis. Secondary to steroid use. Hx of tachyarrythmia. Patient reports hx of afib not on anticoagulation. No episodes of Afib while hospitalized. -continue verapamil -tele monitoring Elevated lactic acid. Secondary to tachycardia not sepsis HLD -continue statin GERD -continue ppi Dispo: Likely discharge tomorrow if stable. Home with increased dose of theophylline and steroid taper.
[2020-10-23] MEDS: Enoxaparin Sodium 40 MG/0.4 ML SYRINGE SUBCUT (16:23)
[2020-10-23] MEDS: VerapamiL HCL SR 180 MG TABLET.ER 240 MG PO (20:00)
[2020-10-23] MEDS: TiZANidine HCL 4 MG TABLET 2 MG PO (20:01)
[2020-10-23] MEDS: Mirtazapine 30 MG TABLET PO (20:03)
[2020-10-23] MEDS: traZODone HCL 50 MG TABLET PO (20:03)
[2020-10-23] MEDS: Atorvastatin Calcium 20 MG TABLET PO (20:03)
[2020-10-24] MEDS: 0.9 % Sodium Chloride Flush 3 ML SYRINGE IVFLUSH ×2 (02:00→08:18)
[2020-10-24 03:24] VITALS: BP 100/64; PULSE 93; RESP 17; TEMP 37; O2SAT 96
[2020-10-24] MEDS: Omeprazole 20 MG CAPSULE.DR PO (05:36)
[2020-10-24 07:11] VITALS: BP 148/74; PULSE 89; RESP 20; TEMP 36.3; O2SAT 97
[2020-10-24] MEDS: Ipratropium Bromide 0.5 MG/2.5 ML SOLUTION INHALE ×2 (07:45→10:50)
[2020-10-24 07:46] VITALS: PULSE 88; O2SAT 94
[2020-10-24] MEDS: Ascorbic Acid 500 MG TABLET 1000 MG PO (08:06)
[2020-10-24] MEDS: methylPREDNISolone Sod Succ 125 MG/2 ML VIAL 40 MG IVPUSH (08:07)
[2020-10-24] MEDS: guaiFENesin LA 600 MG TAB.ER.12H 1200 MG PO (08:07)
[2020-10-24] MEDS: Theophylline Anhydrous ER 400 MG TAB.ER.24H PO (08:09)
[2020-10-24] MEDS: Multivitamin TABLET 1 TAB PO (08:09)
--- NOTE | 2020-10-24 08:33 | MHC.CM.PN ---
IMM 10/24/20 Male 70 DX COPD DP is discharge to home with [facility]. Lisa is the Pts O2 provider. The Pt states that he has a supply of O2 @ home. A note RE hospitalization, has been provided, as requested from CM office. The Pts will provide transportation. CM will follow.
[2020-10-24 10:52] VITALS: PULSE 87; O2SAT 94
[2020-10-24] MEDS: Lidocaine 4 % Patch ADH..PATCH 1 PATCH TRANSDERMA (11:02)
--- NOTE | 2020-10-24 13:16 | P.DS_ITS ---
DS: Providers Provider Date of Service: 10/24/20 <Pretty Santiago NP - Last Filed: 10/24/20 13:31> 10/25/20 <Favio Baca MD - Last Filed: 10/25/20 15:16> Date of admission: 10/19/20 14:10 <Pretty Santiago NP - Last Filed: 10/24/20 13:31> Primary care physician: Alfa Velasco MD <Pretty Santiago NP - Last Filed: 10/24/20 13:31> Consults: 10/21/20 11:57 Consult to Pulmonology Routine Consulting Provider: Morris Satniago Reason for consultation: severe copd Has provider been notified: No <Pretty Santiago NP - Last Filed: 10/24/20 13:31> DS: Diagnosis Discharge Diagnosis (1) COPD with acute exacerbation: Status: Acute <Pretty Santiago NP - Last Filed: 10/24/20 13:31> (2) Chronic respiratory failure with hypoxia: Status: Acute <Pretty Santiago NP - Last Filed: 10/24/20 13:31> (3) Tachycardia: Status: Acute <Pretty Santiago NP - Last Filed: 10/24/20 13:31> DS: Medications Discharge Medications Home Medications: Home Medications Medication Instructions Recorded Confirmed albuterol sulfate 90 mcg/actuation 2 puff INHALATION Q4H PRN 04/26/20 10/19/20 aerosol inhaler atorvastatin 20 mg tablet 20 mg PO BEDTIME 04/26/20 10/19/20 budesonide-formoterol HFA 160 2 puff PO BID 04/26/20 10/19/20 mcg-4.5 mcg/actuation aerosol inhaler mirtazapine 30 mg tablet 30 mg PO BEDTIME 04/26/20 10/19/20 pantoprazole 40 mg tablet,delayed 40 mg PO DAILY 04/26/20 10/19/20 release trazodone 50 mg tablet 50 mg PO BEDTIME 04/26/20 10/19/20 Spiriva with HandiHaler 1 cap INHALATION DAILY 10/19/20 10/19/20 albuterol sulfate 1 vial INHALATION Q4H PRN 10/19/20 10/19/20 ascorbic acid (vitamin C) [Vitamin 1,000 mg PO DAILY 10/19/20 10/19/20 C] ipratropium-albuterol 3 ml INHALATION Q4H PRN 10/19/20 10/19/20 lidocaine 1 patch TOPICAL DAILY 10/19/20 10/19/20 multivitamin 1 tab PO DAILY 10/19/20 10/19/20 tizanidine 2 mg PO BEDTIME 10/19/20 10/19/20 Previous Rx's Medication Instructions Recorded prednisone See Taper PO DAILY #30 tab 10/24/20 theophylline 400 mg PO DAILY #30 tab 10/24/20 verapamil 240 mg PO BEDTIME #30 tab 10/24/20 <Pretty Santiago NP - Last Filed: 10/24/20 13:31> DS: Summary Hospital Course Hospital Course: HP as per admitting provider This is a 70-year-old male with a history advanced COPD/chronic respiratory failure on 2-3 L of home O2 sent from the pulmonary clinic for worsening shortness of breath. Patient reports shortness of breath and chest tightness over the past 3 weeks. He was treated with of one-week course of steroids with no significant improvement. His shortness of breath worsens even with minimal exertion. He denies any cough, fever, chills. In the emergency department read he received IV Solu-Medrol, breathing treatment. He was very tachycardic and therefore underwent CTA which did not show any evidence of pulmonary embolism. His lab work was unremarkable. He was saturating 96% on his 2 L of home O2 and the decision was made to admit him for further management . Acute COPD exacerbation + Chronic resp. failure with hyopxia Oxygen dependent at home. CTA was negative for pulmonary embolus, pneumonia or effusion. Treated with IV steroids, scheduled Xopenex. His theophylline was increased to 400 mg daily. He was seen and evaluated by pulmonology. He will be discharged on a prednisone taper. Tachyarrythmia. History of this in the past. On Verapamil that was increased to 240mg daily after having some episodes of tachycardia. No atrial fibrillation noted during hospitalization. He can follow up with his medical center representative outpatient. Attending: Dr. Baca Attending Attestation: Patient seen and examined independently and I was present during sykes portion of E/M service. Agree with Violeta Santiago NP's history, physical, assessment, and plan. Improved, home today with steroid taper. Theophyllin increased per pulm. continue o2 at baseline. F/u with his cash management officer in a few weeks or sooner if not improved. <Pretty Santiago NP - Last Filed: 10/24/20 13:31> Time Spent with Patient Time attestation: Total time spent providing and/or coordinating discharge services: <Pretty Santiago NP - Last Filed: 10/24/20 13:31> Discharge coordination time: Greater than 30 minutes <Pretty Santiago NP - Last Filed: 10/24/20 13:31> Physical Exam Vital Signs: Vital Signs: Last Vital Signs Temp 97.4 F 10/24/20 07:11 Pulse 87 10/24/20 10:52 Resp 20 10/24/20 07:11 BP 148/74 H 10/24/20 07:11 Pulse Ox 97 10/24/20 07:11 Body Mass Index 23.7 <Pretty Santiago NP - Last Filed: 10/24/20 13:31> Appearing in no acute distress head is normocephalic atraumatic eyes pupils are PERRLA sclera is anicteric mouth throat mucous membranes are intact and moist neck is supple no lymphadenopathy, no JVD noted lung sounds diminished but moving more air heart regular rate rhythm, clear S1, S2 positive bowel sounds, abdomen is soft, nontender neuro patient is alert x3, no focal deficits <Pretty Santiago NP - Last Filed: 10/24/20 13:31> DS: Data Data Completed and Pending Labs on day of discharge: Preliminary micro results at discharge 10/19/20 11:18 Blood Culture - Preliminary Blood - Venous No growth after 48 hours. <Pretty Santiago NP - Last Filed: 10/24/20 13:31> Discharge Plan Discharge Anticipated Discharge Date/Time: 10/24/20 13:14 <Pretty Santiago NP - Last Filed: 10/24/20 13:31> Patient Disposition: Home, Self-Care <Pretty Santiago NP - Last Filed: 10/24/20 13:31> Referrals: Alfa Velasco MD [Primary Care Provider] - <Pretty Santiago NP - Last Filed: 10/24/20 13:31> Discharge Medications: New theophylline 400 mg Tablet Extended Release 24 Hr 400 mg PO DAILY Qty: 30 RF: 0 prednisone 10 mg tablet See Taper mg PO DAILY Qty: 30 RF: 0 verapamil 240 mg tablet extended release 240 mg PO BEDTIME Qty: 30 RF: 0 Continued Spiriva with HandiHaler 18 mcg capsule, w/inhalation device 1 cap inhalation DAILY RF: 0 albuterol sulfate 2.5 mg /3 mL (0.083 %) solution for nebulization 1 vial inhalation Q4H PRN (Reason: wheezing) RF: 0 ipratropium-albuterol 0.5 mg-3 mg(2.5 mg base)/3 mL solution for nebulization 3 ml inhalation Q4H PRN (Reason: wheezing) RF: 0 multivitamin Tablet 1 tab PO DAILY RF: 0 ascorbic acid (vitamin C) [Vitamin C] 500 mg Tablet 1,000 mg PO DAILY RF: 0 tizanidine 2 mg Tablet 2 mg PO BEDTIME RF: 0 lidocaine 5 % Adhesive Patch,Medicated 1 patch TOPICAL DAILY RF: 0 budesonide-formoterol 160-4.5 mcg/actuation HFA aerosol inhaler 2 puff PO BID RF: 0 mirtazapine 30 mg tablet 30 mg PO BEDTIME RF: 0 pantoprazole 40 mg tablet,delayed release (DR/EC) 40 mg PO DAILY RF: 0 atorvastatin 20 mg tablet 20 mg PO BEDTIME RF: 0 trazodone 50 mg tablet 50 mg PO BEDTIME RF: 0 albuterol sulfate 90 mcg/actuation HFA aerosol inhaler 2 puff inhalation Q4H PRN (Reason: Wheezing) RF: 0 Discontinued verapamil 180 mg tablet extended release 180 mg PO BEDTIME RF: 0 theophylline 400 mg tablet extended release 24 hr 200 mg PO DAILY RF: 0 <Pretty Santiago NP - Last Filed: 10/24/20 13:31> Discharge Orders: Discharge Order (Routine); Ordered 10/24/20 Ordered By: Pretty Santiago <Pretty Santiago NP - Last Filed: 10/24/20 13:31> Diet: advance to usual diet <Pretty Santiago NP - Last Filed: 10/24/20 13:31> advance to usual diet <Favio Baca MD - Last Filed: 10/25/20 15:16> Activity on Discharge: As tolerated <Pretty Santiago NP - Last Filed: 10/24/20 13:31> As tolerated <Favio Baca MD - Last Filed: 10/25/20 15:16> Stand Alone Forms: Patient Portal Discharge page <Pretty Santiago NP - Last Filed: 10/24/20 13:31> Care Plan Goals: Resolution of shortness of breath <Pretty Santiago NP - Last Filed: 10/24/20 13:31> Health Concerns: COPD <Pretty Santiago NP - Last Filed: 10/24/20 13:31> Plan of Treatment: Follow up with primary care provider as needed <Pretty Santiago NP - Last Filed: 10/24/20 13:31> Discharge Date/Time: 10/24/20 14:00 <Pretty Santiago NP - Last Filed: 10/24/20 13:31>
== END 2020-10-24 14:00 | disposition home or self-care (01) | DRG 191 ==
LOC: HO.ED 14:27 → HO.EDOVER 14:50 → HO.IMC 16:00
PROVIDERS: Nurse Practitioner Acute Care; Nurse Practitioner Primary Care; Physician Assistant Medical; Admitting Provider Family Medicine; Emergency Provider Emergency Medicine Emergency Medical Services; PCP Internal Medicine; Visit Provider Family Medicine
DX: J44.1 Chronic obstructive pulmonary disease with (acute) exacerbation (principal); E87.2 Acidosis; J96.11 Chronic respiratory failure with hypoxia; D72.829 Elevated white blood cell count, unspecified; K21.9 Gastro-esophageal reflux disease without esophagitis; E78.5 Hyperlipidemia, unspecified; I48.0 Paroxysmal atrial fibrillation; Z99.81 Dependence on supplemental oxygen; Z20.822 Contact with and (suspected) exposure to COVID-19; Z87.891 Personal history of nicotine dependence; Z79.899 Other long term (current) drug therapy
CPT/HCPCS: 0241U; 36415; 71045; 71275; 80048; 80053; 81001; 83605; 83880; 84484; 85025; 85027; 85610; 85730; 87040; 93005; 93306; 94640; 94644; 96361; 96365; 96366; 96375; 99212; 99285; J0456; J1650; J1940; J2930; Q9967

== ENCOUNTER → 2020-11-27 10:55 | Outpatient (BNVA) | payer MEDICARE, SELFPAY | PROVIDERS: PCP Internal Medicine; Visit Provider Internal Medicine Pulmonary Disease | DX: J44.9 Chronic obstructive pulmonary disease, unspecified (principal); Z99.81 Dependence on supplemental oxygen | CPT/HCPCS: 99212 ==

== ENCOUNTER 2020-12-05 09:44 | Outpatient (REF) | payer MEDICARE, SELFPAY ==
[2020-12-05 10:37] VITALS: O2SAT 96
[2020-12-05 10:58] LABS: ABG Base Excess -0.9 mmol/L; ABG HCO3 22 mmol/L (22-26); ABG pCO2 31 mmHg (32-45); ABG pCO2 TC 31 mmHg (32-45); ABG pH 7.45 (7.35-7.45); ABG pH TC 7.45 (7.35-7.45); ABG pO2 92 mmHg (83-108); ABG pO2 TC 92 (83-108)
[2020-12-05 10:59] LABS: ABG Refer to POC result
[2020-12-05 12:25] LABS: Alanine Aminotransferase 15 U/L (0-40); Albumin Level 4.6 g/dL (3.5-5.0); Alkaline Phosphatase 84 U/L (39-117); Anion Gap 15 (12-20); Aspartate Amino Transferase 15 U/L (5-37); Bilirubin Total 0.5 mg/dL (0.0-1.0); Blood Urea Nitrogen 14 mg/dL (9-16); Calcium 9.5 mg/dL (8.4-10.2); Carbon Dioxide 24 mmol/L (22-29); Chloride 106 mmol/L (96-108); Estimated Glomerular Filt Rate > 60; Glucose Random 97 mg/dL (60-115); Potassium 3.8 mmol/L (3.3-5.1); Sodium 141 mmol/L (135-145); Total Protein 6.9 g/dL (6.5-8.0)
== END 2020-12-05 09:45 | disposition home or self-care (01) ==
LOC: HO.LAB 09:44
PROVIDERS: PCP Internal Medicine; Visit Provider Internal Medicine Pulmonary Disease
DX: R06.00 Dyspnea, unspecified (principal); J44.9 Chronic obstructive pulmonary disease, unspecified
CPT/HCPCS: 36415; 36600; 80053; 99211

== ENCOUNTER → 2021-01-01 09:38 | Outpatient (BNVA) | payer MEDICARE, SELFPAY | PROVIDERS: PCP Internal Medicine; Visit Provider Internal Medicine Pulmonary Disease | DX: J44.9 Chronic obstructive pulmonary disease, unspecified (principal); B37.0 Candidal stomatitis; Z99.81 Dependence on supplemental oxygen | CPT/HCPCS: 99212 ==

== ENCOUNTER → 2021-01-29 13:25 | Outpatient (BNVA) | payer MEDICARE, SELFPAY | PROVIDERS: PCP Internal Medicine; Visit Provider Internal Medicine Pulmonary Disease | DX: J44.9 Chronic obstructive pulmonary disease, unspecified (principal); Z99.81 Dependence on supplemental oxygen | CPT/HCPCS: 99212 ==

== ENCOUNTER → 2021-03-06 09:25 | Outpatient (BNVA) | payer MEDICARE, SELFPAY | PROVIDERS: PCP Internal Medicine; Visit Provider Internal Medicine Pulmonary Disease | DX: J44.9 Chronic obstructive pulmonary disease, unspecified (principal); Z99.81 Dependence on supplemental oxygen | CPT/HCPCS: 99212 ==

== ENCOUNTER → 2021-07-09 09:26 | Outpatient (BNVA) | payer MEDICARE, SELFPAY | PROVIDERS: PCP Internal Medicine; Visit Provider Internal Medicine Pulmonary Disease | DX: J44.9 Chronic obstructive pulmonary disease, unspecified (principal); Z99.81 Dependence on supplemental oxygen | CPT/HCPCS: 99212 ==

== ENCOUNTER 2021-09-26 12:09 | Emergency (ER) | payer MEDICARE, SELFPAY ==
--- NOTE | ~2021-09-26 | XR_ITS ---
EXAMINATION: XR CHEST CLINICAL INFORMATION: Shortness of breath COMPARISON: October 19, 2020 TECHNIQUE: 2 views of the chest were obtained. FINDINGS: The lungs are hyperinflated. No acute parenchymal disease, pneumothorax, or pleural effusion is appreciated. There is some diminished density peripherally consistent with emphysematous change. The central pulmonary arteries are prominent. Heart normal size. No evidence of pulmonary edema. Status post previous neck surgery. XR/XR chest 2V IMPRESSION: No acute disease.
--- NOTE | 2021-09-26 12:10 | ECG_ITS ---
Test Reason : chest pain / sob Blood Pressure : / mmHG Vent. Rate : 103 BPM Atrial Rate : 103 BPM P-R Int : 156 ms QRS Dur : 074 ms QT Int : 348 ms P-R-T Axes : 086 085 087 degrees QTc Int : 455 ms Sinus tachycardia with Premature supraventricular complexes Biatrial enlargement Cannot rule out Anterior infarct (cited on or before 23-OCT-2020) Abnormal ECG When compared with ECG of 23-OCT-2020 12:05, Premature supraventricular complexes are now Present Referred By: Generic ED Physician Electronically Signed By:Eric Hoffman
[2021-09-26 12:20] VITALS: BP 129/76; PULSE 101; RESP 30; TEMP 36.7; O2SAT 96
--- NOTE | 2021-09-26 12:52 | ED_ITS ---
HPI - SOB/Dyspnea General Chief Complaint: Dyspnea Stated Complaint: chest pain Time Seen by Provider: 09/26/21 12:29 Source: patient Mode of arrival: ambulatory Limitations: no limitations History of Present Illness HPI Narrative: Patient is a 71-year-old male with a past medical history of atrial fibrillation, not on anticoagulant, COPD on 2 L via nasal cannula, pulmonary nodules. He presents emergency department for evaluation of chest pain and shortness of breath. Patient reports onset of symptoms 4 days ago. He was feeling, unwell?. Three days ago developed increasing shortness urine. States this morning upon awakening he was having substernal chest pain described as throbbing and aching. The pain has been constant. It is made worse by deep inspiration or coughing. He has been having a nonproductive cough. He was evaluated at his primary care provider's office prior to arrival, had a negative COVID-19 test, and was referred to the emergency department for further evaluation. Denies fevers, chills, dizziness, lightheadedness, neck pain, palpitations, nausea, vomiting, abdominal pain, leg pain or swelling, past or personal history of DVT/PE/cancer. States he is participating in pulmonary rehab, undergoing evaluation at [facility] for possible lung transplant, is followed by pulmonology at [facility], managed with Symbicort, Spiriva, albuterol MDI, theophyliline, Duoneb, and prednisone 5mg daily. Former cigarette smoker with cessation in 2010 with 30+ pack year history. MD elicited complaint: shortness of breath, cough, pain with inspiration and chest pain Pertinent past history: COPD Onset (ago): day(s) Timing: progressively worsening Known history of: COPD Associated symptoms: chest pain Treatment prior to arrival: oxygen and bronchodilator Related Data Home oxygen amount: 2 liters Home Medications Medication Instructions Recorded Confirmed albuterol sulfate 90 mcg/actuation 2 puff INHALATION Q4H PRN 04/26/20 10/19/20 aerosol inhaler atorvastatin 20 mg tablet 20 mg PO BEDTIME 04/26/20 10/19/20 budesonide-formoterol HFA 160 2 puff PO BID 04/26/20 10/19/20 mcg-4.5 mcg/actuation aerosol inhaler mirtazapine 30 mg tablet 30 mg PO BEDTIME 04/26/20 10/19/20 pantoprazole 40 mg tablet,delayed 40 mg PO DAILY 04/26/20 10/19/20 release trazodone 50 mg tablet 50 mg PO BEDTIME 04/26/20 10/19/20 albuterol sulfate 1 vial INHALATION Q4H PRN 10/19/20 10/19/20 ascorbic acid (vitamin C) 500 mg 1,000 mg PO DAILY 10/19/20 10/19/20 tablet (Vitamin C) ipratropium 0.5 mg-albuterol 3 mg 3 ml INHALATION Q4H PRN 10/19/20 10/19/20 (2.5 mg base)/3 mL nebulization soln lidocaine 5 % topical patch 1 patch TOPICAL DAILY 10/19/20 10/19/20 multivitamin 1 tab PO DAILY 10/19/20 10/19/20 tiotropium bromide 18 mcg capsule 1 cap INHALATION DAILY 10/19/20 10/19/20 with inhalation device (Spiriva with HandiHaler) tizanidine 2 mg tablet 2 mg PO BEDTIME 10/19/20 10/19/20 Previous Rx's Medication Instructions Recorded verapamil 240 mg tablet,extended 240 mg PO BEDTIME #30 tab 10/24/20 release fluconazole 100 mg tablet 100 mg PO DAILY #7 tab 01/01/21 prednisone 5 mg tablet 5 mg PO DAILY 90 Days #90 tab 07/09/21 theophylline 400 mg 400 mg PO DAILY 90 Days #90 tab 07/09/21 tablet,extended release 24 hr azithromycin 500 mg tablet See Rx Instructions .ROUTE 09/26/21 .COMPLEX #6 tab prednisone 20 mg tablet 60 mg PO DAILY 5 Days #15 tab 09/26/21 Allergies Allergy/AdvReac Type Severity Reaction Status Date / Time No Known Allergies Allergy Verified 09/26/21 12:18 Review of Systems Review of Systems: Constitutional: No weight loss, fever, chills, weakness or fatigue. HEENT: No visual loss, blurred vision, double vision or yellow sclera. No hearing loss, sneezing, congestion, runny nose or sore throat. Skin: No rash or itching. Cardiovascular: Positive chest pain. No palpitations or pedal edema. Respiratory: Positive shortness of breath and cough Gastrointestinal: No anorexia, nausea, vomiting or diarrhea. No abdominal pain or blood in stool. Genitourinary: No burning micturition. No urinary frequency or incontinence. Neurologic: No headache, dizziness, syncope, unilateral weakness, ataxia, numbness or tingling in the extremities. Musculoskeletal: No muscle pain, back pain, joint pain or stiffness. Hematologic: No bleeding or bruising. Lymphatics: No enlarged lymph nodes. Psychiatric:No depression or anxiety. Endocrine: No polyuria or polydipsia. COUNTS INCLUDE 234 BEDS AT THE [facility] Past Medical History Attestation statement: The following information was validated with the patient. Source: old records reviewed Medical History Afib COPD (chronic obstructive pulmonary disease) HLD (hyperlipidemia) Tachyarrhythmia Family History Family History Other Adopted Social History Social History Household Members: Spouse Housing: Apartment Do you presently have visiting nurse or other home services: No Alcohol intake: never Years Smoked: 40 Advance Directives: Yes Advance Directives on File: Yes Advance Directives Date on File: 10/19/20 Current occupational status: retired Physical Exam Vital Signs: Vital Signs: Last Vital Signs Temp 98.1 F 09/26/21 12:20 Pulse 84 09/26/21 14:19 Resp 16 09/26/21 14:19 BP 109/70 09/26/21 14:19 Pulse Ox 98 09/26/21 14:19 Oxygen Flow Rate 3 09/26/21 12:20 BMI result Body Mass Index 0.0 Vital signs have been reviewed and appeared to be correct. Blood pressure normal.? Heart rate 90's during exam.? Tachypnea, respiratory rate 25-30 Temperature normal.? Oxygen saturation normal. Appearance: Alert.?Oriented to person, place and time.?Normal affect. Eyes: Pupils equal, round and reactive to light.? ENT: Pharynx normal.?? Neck: Normal inspection.? Neck supple.?? CVS: Heart sounds normal. Normal heart rate and rhythm.? Pulses normal.?? No JVD. Respiratory: + increased work of breathing, use of abdominal muscles, speaking short brief sentences, easily winded. Lung sounds are diminished bilaterally with little air movement, no wheezing or rales Abdomen: Soft and non-tender. Normoactive bowel sounds. No pulsatile mass.?? Skin: Skin warm and dry.? Normal skin color.? Normal skin turgor.?? Extremities: No lower extremity edema.? No calf ttp? Neuro: Moves all extremities spontaneously. Sensation intact bilaterally. CN II- XII intact. No focal neuro deficits. Ambulates with normal steady gait. Course Course Course Narrative: Patient is a 71-year-old male being evaluated for chest pain and shortness of breath. Will obtain CBC to evaluate for leukocytosis/ anemia, CMP to evaluate for abnormal electrolytes /abnormal renal function/ abnormal hepatic function, EKG and troponin to evaluate for ischemia/ACS. Chest x-ray to evaluate for consolidation/ infiltrate/ mass/ pulmonary congestion/ effusion. D-Dimer to evaluate for pulmonary embolism. Suspect this is likely an acute exacerbation of his chronic obstructive airway disease, less likely to be congestive heart failure but will obtain BNP. Will treat with DuoNeb and methylprednisone 125mg IV. Reevaluation(s) Reevaluation #1: CBC reveals a mild anemia with hemoglobin 12.9 and hematocrit 38.3 consistent with baseline priors. CMP is overall unremarkable. D-dimer <150, unlikely to be PE. BNP 23 do not suspect congestive heart failure exacerbation. EKG reveals sinus tachycardia without acute concerns for ischemia, troponin <3.5 obtain repeat delta trop. Chest x-ray without acute disease, lungs are hyperinflated. Reports improvement in his shortness of breath after receiving Solu-Medrol and was DuoNeb. Lung sounds continued to be diminished bilaterally but moving more air than prior. Suspect that this is most likely COPD exacerbation. Time: 14:53 Reevaluation #2: Delta troponin <50%, <3.5 on repeat. Discussed results with patient and his . Suspect the symptoms are most consistent with a COPD exacerbation, therefore he will be discharged home with prednisone 60 mg daily for 5 days, in addition to azithromycin course for 5 days. 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 Discussed reasons to return to the emergency department including worsening shortness of breath, or any new symptoms or concerns including but not limited to fevers, chills, chest pain, palpitations, dizziness, lightheadedness, nausea, vomiting, abdominal pain, weakness. MDM - SOB/Dyspnea Medical Records Attestation: I reviewed the patient's medical records. Lab Data Attestation: I reviewed the patient's lab results. Result diagrams: 09/26/21 13:18 09/26/21 13:18 Labs: Lab Results 09/26/21 09/26/21 09/26/21 Range/Units 13:18 13:18 13:18 WBC 9.9 (4.8-10.8) X10*3/uL RBC 4.20 L (4.60-5.80) X10*6/uL Hgb 12.9 L (14.0-18.0) g/dl Hct 38.3 L (42.0-52.0) % MCV 91.2 (80.0-98.0) fL MCH 30.7 (27.0-33.0) pg MCHC 33.7 (31.0-36.0) g/dl RDW 13.4 (11.0-16.0) % Plt Count 295 (160-400) X10*3/uL MPV 9.1 L (9.4-12.4) fL Immature Gran % (Auto) 0.5 H (0.0-0.4) % Neut % (Auto) 78.9 H (45-73) % Lymph % (Auto) 15.8 L (20-40) % [place] % (Auto) 4.5 (2-11) % Eos % (Auto) 0.0 (0-4) % Baso % (Auto) 0.3 (0-2) % Lymph # (Auto) 1.6 (1.2-4.9) X10*3/uL [place] # (Auto) 0.4 (0.1-1.2) X10*3/uL Eos # (Auto) 0.0 (0.0-0.4) X10*3/uL Baso # (Auto) 0.0 (0.0-0.2) X10*3/uL Abs Immat Gran (auto) 0.05 H (0.00-0.03) X10*3/uL Absolute Neuts (auto) 7.8 (2.0-8.3) x10*3/uL Absolute Nucleated RBC 0.000 (0.0-0.012) X10*3/uL Nucleated RBC % (auto) 0.0 (0.0-0.2) /100WBC D-Dimer High Sensitivty NG/ML Sodium 141 (135-145) mmol/L Potassium 3.8 (3.3-5.1) mmol/L Chloride 107 (96-108) mmol/L Carbon Dioxide 27 (22-29) mmol/L Anion Gap 11 L (12-20) BUN 12 (9-16) mg/dL Creatinine 0.90 (0.5-1.4) mg/dL Estim Creat Clear Calc TNP Estimated GFR > 60 Random Glucose 99 (60-115) mg/dL Calcium 9.1 (8.4-10.2) mg/dL Total Bilirubin 0.6 (0.0-1.0) mg/dL AST 16 (5-37) U/L ALT 13 (0-40) U/L Alkaline Phosphatase 55 D (39-117) U/L Troponin I High Sens < 3.5 (<3.5-35.0) ng/L B-Natriuretic Peptide 23 (<100) pg/mL Total Protein 6.4 L (6.5-8.0) g/dL Albumin 4.1 (3.5-5.0) g/dL 09/26/21 09/26/21 Range/Units 13:18 16:07 WBC (4.8-10.8) X10*3/uL RBC (4.60-5.80) X10*6/uL Hgb (14.0-18.0) g/dl Hct (42.0-52.0) % MCV (80.0-98.0) fL MCH (27.0-33.0) pg MCHC (31.0-36.0) g/dl RDW (11.0-16.0) % Plt Count (160-400) X10*3/uL MPV (9.4-12.4) fL Immature Gran % (Auto) (0.0-0.4) % Neut % (Auto) (45-73) % Lymph % (Auto) (20-40) % [place] % (Auto) (2-11) % Eos % (Auto) (0-4) % Baso % (Auto) (0-2) % Lymph # (Auto) (1.2-4.9) X10*3/uL [place] # (Auto) (0.1-1.2) X10*3/uL Eos # (Auto) (0.0-0.4) X10*3/uL Baso # (Auto) (0.0-0.2) X10*3/uL Abs Immat Gran (auto) (0.00-0.03) X10*3/uL Absolute Neuts (auto) (2.0-8.3) x10*3/uL Absolute Nucleated RBC (0.0-0.012) X10*3/uL Nucleated RBC % (auto) (0.0-0.2) /100WBC D-Dimer High Sensitivty < 150 NG/ML Sodium (135-145) mmol/L Potassium (3.3-5.1) mmol/L Chloride (96-108) mmol/L Carbon Dioxide (22-29) mmol/L Anion Gap (12-20) BUN (9-16) mg/dL Creatinine (0.5-1.4) mg/dL Estim Creat Clear Calc Estimated GFR Random Glucose (60-115) mg/dL Calcium (8.4-10.2) mg/dL Total Bilirubin (0.0-1.0) mg/dL AST (5-37) U/L ALT (0-40) U/L Alkaline Phosphatase (39-117) U/L Troponin I High Sens < 3.5 (<3.5-35.0) ng/L B-Natriuretic Peptide (<100) pg/mL Total Protein (6.5-8.0) g/dL Albumin (3.5-5.0) g/dL Imaging Data Chest x-ray: Radiologist's impression: FINDINGS: The lungs are hyperinflated. No acute parenchymal disease, pneumothorax, or pleural effusion is appreciated. There is some diminished density peripherally consistent with emphysematous change. The central pulmonary arteries are prominent. Heart normal size. No evidence of pulmonary edema. Status post previous neck surgery. XR/XR chest 2V IMPRESSION: No acute disease. ECG Data Attestation: I personally reviewed and interpreted this ECG as follows: ECG interpretation date: 09/26/21 ECG interpretation time: 13:04 Prior ECG tracings: available for review Interpretation: Rate: 103 Rhythm:? Sinus tachycardia [place]:? None Normal P waves.? Normal SARAH.?? Normal QRS complex.?? ST T wave :??None ST elevation, no ST depression in new T-wave inversion qTC: 455 prior studies:? September 2020 The study has been interpreted contemporaneously by me. Discharge Plan Discharge Clinical Impression: COPD (chronic obstructive pulmonary disease) Patient Disposition: Home, Self-Care Instructions: COPD (Chronic Obstructive Pulmonary Disease) (ED) Additional Instructions: COPD exacerbation, new prescription for prednisone 60 mg daily for 5 days, in addition to azithromycin 500 mg day 1 followed by 250 mg day 2 through 5. Continue using your oxygen and albuterol inhaler/nebulizer updraft. 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 Please return to the emergency department with any new or worsening symptoms or concerns including fevers, chills, shortness of breath, chest pain, palpitations, dizziness, lightheadedness, nausea, vomiting, abdominal pain, weakness. Prescriptions: New prednisone 20 mg tablet 60 mg PO DAILY 5 Days Qty: 15 0RF azithromycin 500 mg tablet See Rx Instructions .ROUTE .COMPLEX Qty: 6 0RF Rx Instructions: For 250 mg dose pack: take 500 mg today (day 1), then 250 mg for 4 days (days 2-5) No Action Spiriva with HandiHaler 18 mcg capsule, w/inhalation device 1 cap inhalation DAILY 0RF albuterol sulfate 2.5 mg /3 mL (0.083 %) solution for nebulization 1 vial inhalation Q4H PRN (Reason: wheezing) 0RF ipratropium-albuterol 0.5 mg-3 mg(2.5 mg base)/3 mL solution for nebulization 3 ml inhalation Q4H PRN (Reason: wheezing) 0RF multivitamin Tablet 1 tab PO DAILY 0RF ascorbic acid (vitamin C) [Vitamin C] 500 mg Tablet 1,000 mg PO DAILY 0RF tizanidine 2 mg Tablet 2 mg PO BEDTIME 0RF Rx Instructions: rx is for tid prn, but patient takes once at bedtime lidocaine 5 % Adhesive Patch,Medicated 1 patch TOPICAL DAILY 0RF Rx Instructions: 12 hours on/12 hours off verapamil 240 mg tablet extended release 240 mg PO BEDTIME Qty: 30 0RF budesonide-formoterol 160-4.5 mcg/actuation HFA aerosol inhaler 2 puff PO BID 0RF mirtazapine 30 mg tablet 30 mg PO BEDTIME 0RF pantoprazole 40 mg tablet,delayed release (DR/EC) 40 mg PO DAILY 0RF atorvastatin 20 mg tablet 20 mg PO BEDTIME 0RF trazodone 50 mg tablet 50 mg PO BEDTIME 0RF albuterol sulfate 90 mcg/actuation HFA aerosol inhaler 2 puff inhalation Q4H PRN (Reason: Wheezing) 0RF fluconazole 100 mg tablet 100 mg PO DAILY Qty: 7 0RF theophylline 400 mg tablet extended release 24 hr 400 mg PO DAILY 90 Days Qty: 90 4RF prednisone 5 mg tablet 5 mg PO DAILY 90 Days Qty: 90 4RF Interventions: ED Discharge Assessment Last Done: 09/26/21 17:38 Discharge Date/Time: 09/26/21 17:38
[2021-09-26] MEDS: methylPREDNISolone Sod Succ 125 MG/2 ML VIAL IVPUSH (13:19)
[2021-09-26] MEDS: Albuterol/Iprat 2.5/0.5MG 3 ML AMPUL.NEB INHALE (13:28)
[2021-09-26 13:30] LABS: MANUAL DIFF FLAG NO
[2021-09-26 13:32] LABS: Basophils Percent Auto 0.3 % (0-2); Hematocrit 38.3 % (42.0-52.0); Hemoglobin 12.9 g/dl (14.0-18.0); Imm Gran Abs Auto 0.05 X10*3/uL (0.00-0.03); Imm Gran Pct Auto 0.5 % (0.0-0.4); Lymphocytes Absolute Auto 1.6 X10*3/uL (1.2-4.9); Lymphocytes Percent Auto 15.8 % (20-40); Mean Corpuscular HGB Conc 33.7 g/dl (31.0-36.0); Mean Corpuscular Hemoglobin 30.7 pg (27.0-33.0); Mean Corpuscular Volume 91.2 fL (80.0-98.0); Mean Platelet Volume 9.1 fL (9.4-12.4); Monocytes Absolute Auto 0.4 X10*3/uL (0.1-1.2); Monocytes Percent Auto 4.5 % (2-11); Neutrophils Absolute Auto 7.8 x10*3/uL (2.0-8.3); Neutrophils Percent Auto 78.9 % (45-73); Platelet Count 295 X10*3/uL (160-400); Red Cell Distribution Width 13.4 % (11.0-16.0); White Blood Count 9.9 X10*3/uL (4.8-10.8)
[2021-09-26 13:34] VITALS: PULSE 93; RESP 14; O2SAT 99
[2021-09-26 13:40] LABS: D Dimer High Sensitivity < 150 NG/ML
[2021-09-26 13:46] LABS: Alanine Aminotransferase 13 U/L (0-40); Albumin Level 4.1 g/dL (3.5-5.0); Alkaline Phosphatase 55 U/L (39-117); Anion Gap 11 (12-20); Aspartate Amino Transferase 16 U/L (5-37); Bilirubin Total 0.6 mg/dL (0.0-1.0); Blood Urea Nitrogen 12 mg/dL (9-16); Calcium 9.1 mg/dL (8.4-10.2); Carbon Dioxide 27 mmol/L (22-29); Chloride 107 mmol/L (96-108); Estimated Glomerular Filt Rate > 60; Glucose Random 99 mg/dL (60-115); Potassium 3.8 mmol/L (3.3-5.1); Sodium 141 mmol/L (135-145); Total Protein 6.4 g/dL (6.5-8.0)
[2021-09-26 13:50] LABS: B Type Natriuretic Peptide 23 pg/mL (<100); Troponin-I High Sensitivity < 3.5 ng/L (<3.5-35.0)
[2021-09-26 14:19] VITALS: BP 109/70; PULSE 84; RESP 16; O2SAT 98
[2021-09-26 16:34] LABS: Troponin-I High Sensitivity < 3.5 ng/L (<3.5-35.0)
== END 2021-09-26 17:38 | disposition home or self-care (01) ==
PROVIDERS: Nurse Practitioner Family; Emergency Provider Emergency Medicine; PCP Internal Medicine
DX: J44.9 Chronic obstructive pulmonary disease, unspecified (principal); R06.02 Shortness of breath; I48.91 Unspecified atrial fibrillation; E78.5 Hyperlipidemia, unspecified; R00.0 Tachycardia, unspecified; Z99.81 Dependence on supplemental oxygen; Z87.891 Personal history of nicotine dependence
CPT/HCPCS: 36415; 71046; 80053; 83880; 84484; 85025; 85379; 93005; 94640; 96374; 99284; J2930

== ENCOUNTER → 2021-10-03 09:38 | Outpatient (BNVA) | payer MEDICARE, SELFPAY | PROVIDERS: PCP Internal Medicine; Visit Provider Internal Medicine Pulmonary Disease | DX: J44.9 Chronic obstructive pulmonary disease, unspecified (principal); Z99.81 Dependence on supplemental oxygen | CPT/HCPCS: 94640; 99212 ==

== ENCOUNTER → 2021-10-08 13:48 | Outpatient (BNVA) | payer MEDICARE, SELFPAY | PROVIDERS: PCP Internal Medicine; Visit Provider Internal Medicine Pulmonary Disease | DX: J44.9 Chronic obstructive pulmonary disease, unspecified (principal); R06.00 Dyspnea, unspecified; Z79.52 Long term (current) use of systemic steroids; Z79.899 Other long term (current) drug therapy; Z87.891 Personal history of nicotine dependence; Z99.81 Dependence on supplemental oxygen | CPT/HCPCS: 99212 ==

== ENCOUNTER 2021-10-17 15:04 | Outpatient (REF) | payer MEDICARE, SELFPAY ==
--- NOTE | ~2021-10-17 | CT_ITS ---
EXAMINATION: CT ANGIOGRAM OF THE CHEST WITH AND WITHOUT CONTRAST (CT PULMONARY ANGIOGRAM FOR PE) CLINICAL INFORMATION: Reason for Exam R06.00 - Dyspnea, unspecified COMPARISON: None TECHNIQUE: Prior to contrast administration, noncontrast localization images were obtained. Subsequently, multidetector volumetric imaging was performed from the thoracic inlet to below the diaphragms following the administration of 80 mL Omnipaque 350 intravenous contrast. No contrast reaction reported Sagittal, coronal, and MIP oblique sagittal reformatted images were obtained on the CT workstation, uploaded to PACS, and reviewed. This CT examination was performed using dose optimization techniques as appropriate, variously including the following: *Automated exposure control *Adjustment of mA and/or kV according to patient size (this includes techniques or standardized protocols for targeted exams where dose is matched to indication/reason for exam; i.e. extremities or head) *Use of iterative reconstruction technique Total exam dose-length product 110 mGy-cm FINDINGS: QUALITY OF STUDY/CONTRAST BOLUS: Satisfactory. PULMONARY ARTERIES: No central or segmental pulmonary emboli. THORACIC AORTA: No aneurysm or dissection. LUNG: There is diffuse centrilobular emphysema with diffuse groundglass attenuation seen throughout both lungs. There are no pulmonary nodules, mass or consolidation. Minimal atelectatic changes are seen in the lingula. PLEURA: No pleural effusion or pneumothorax. MEDIASTINUM: Normal heart size. No pericardial effusion. No hilar or mediastinal lymphadenopathy. No evidence of septal bowing or right heart strain. CHEST WALL/AXILLA: No axillary or internal mammary lymphadenopathy. OSSEOUS STRUCTURES: There are mild compression deformities T1 and T2 vertebra of indeterminate age. No lytic or sclerotic process seen. There is mild osteopenia. UPPER ABDOMEN: There are several hypodense lesions seen in liver largest lesion measures 1.2 cm adjacent to the right hemidiaphragm axial image 64/5. Visualized spleen, pancreas and bilateral adrenal glands are unremarkable No reflux of contrast into the hepatic veins to suggest elevated right heart pressures. CT/CT angio chest PE protocol IMPRESSION: No evidence of PE. No evidence of aortic dissection or aneurysm. Diffuse emphysema without acute pneumonic process. VTE: negative
[2021-10-17] MEDS: iohexoL 350 MG/ML 100 ML INFUS..BTL IV (15:50)
== END 2021-10-17 15:05 | disposition home or self-care (01) ==
LOC: HO.CT 15:04
PROVIDERS: Visit Provider Internal Medicine Pulmonary Disease
DX: R06.00 Dyspnea, unspecified (principal); J44.9 Chronic obstructive pulmonary disease, unspecified
CPT/HCPCS: 71275; Q9967

== ENCOUNTER → 2021-11-12 10:23 | Outpatient (BNVA) | payer MEDICARE, SELFPAY | PROVIDERS: PCP Internal Medicine; Visit Provider Internal Medicine Pulmonary Disease | DX: J44.9 Chronic obstructive pulmonary disease, unspecified (principal); Z99.81 Dependence on supplemental oxygen | CPT/HCPCS: 99212 ==

== ENCOUNTER → 2022-02-04 09:41 | Outpatient (BNVA) | payer MEDICARE, SELFPAY | PROVIDERS: PCP Internal Medicine; Visit Provider Internal Medicine Pulmonary Disease | DX: J44.9 Chronic obstructive pulmonary disease, unspecified (principal); Z99.81 Dependence on supplemental oxygen; Z79.52 Long term (current) use of systemic steroids; Z79.899 Other long term (current) drug therapy | CPT/HCPCS: 99212 ==

== ENCOUNTER → 2022-05-21 11:06 | Outpatient (BNVA) | payer MEDICARE, SELFPAY | PROVIDERS: PCP Internal Medicine; Visit Provider Internal Medicine Pulmonary Disease | DX: J44.9 Chronic obstructive pulmonary disease, unspecified (principal); Z99.81 Dependence on supplemental oxygen | CPT/HCPCS: 94640; 96372; 99212; J2930 ==

== ENCOUNTER → 2022-06-03 10:35 | Outpatient (BNVA) | payer MEDICARE, SELFPAY | PROVIDERS: PCP Internal Medicine; Visit Provider Internal Medicine Pulmonary Disease | DX: J44.9 Chronic obstructive pulmonary disease, unspecified (principal); R06.00 Dyspnea, unspecified; Z99.81 Dependence on supplemental oxygen | CPT/HCPCS: 99212 ==

== ENCOUNTER → 2022-07-08 10:19 | Outpatient (BNVA) | payer MEDICARE, SELFPAY | PROVIDERS: PCP Internal Medicine; Visit Provider Internal Medicine Pulmonary Disease | DX: J44.9 Chronic obstructive pulmonary disease, unspecified (principal); R91.8 Other nonspecific abnormal finding of lung field; Z87.891 Personal history of nicotine dependence; Z98.890 Other specified postprocedural states; Z99.81 Dependence on supplemental oxygen; Z79.52 Long term (current) use of systemic steroids; Z79.899 Other long term (current) drug therapy | CPT/HCPCS: 99212 ==

== ENCOUNTER → 2022-10-21 10:57 | Outpatient (BNVA) | payer MEDICARE, SELFPAY | PROVIDERS: PCP Internal Medicine; Visit Provider Internal Medicine Pulmonary Disease | DX: J44.9 Chronic obstructive pulmonary disease, unspecified (principal); I48.91 Unspecified atrial fibrillation; Z99.81 Dependence on supplemental oxygen | CPT/HCPCS: 99212 ==

== ENCOUNTER → 2022-11-17 08:44 | Outpatient (BNVA) | payer MEDICARE, SELFPAY | PROVIDERS: PCP Internal Medicine; Referring Provider Internal Medicine; Visit Provider Internal Medicine | DX: I25.10 Atherosclerotic heart disease of native coronary artery without angina pectoris (principal); I42.9 Cardiomyopathy, unspecified; R07.2 Precordial pain; J44.9 Chronic obstructive pulmonary disease, unspecified | CPT/HCPCS: 93005; 99202 ==

== ENCOUNTER → 2022-12-09 07:47 | Outpatient (REF) | payer MEDICARE, SELFPAY ==
[2022-11-18 10:00] VITALS: BP 120/70; BP 124/64; BMI 22.6
--- NOTE | ~2022-12-09 | NM_ITS ---
Dobutamine Myocardial perfusion study Indication: Coronary artery disease, assess for ischemia Technique: The patient was brought in for a dobutamine myocardial perfusion study on 12/09/2022 and dobutamine was injected intravenously per protocol. Subsequently, 25 mCi of sestamibi was given intravenously. Images were obtained using the SPECT gamma camera interlaced with the gating device. Images were obtained in supine position. Resting perfusion study was performed on 12/11/2022. Patient was administered 25 mCi of sestamibi intravenously at rest. Images were then obtained in supine position. Images were processed with the software and compared side to side in short axis, horizontal long axis and vertical long axis views. Total DLP 103mGy-cm. Findings: Raw acquisition reviewed. Arms by the patient's side. The stress perfusion study showed diminished tracer uptake along the distal part of inferior wall, but there is also adjacent sub-diaphragmatic uptake. Hence not clear if artifactual. With CT attenuation correction, however there seems to be some improvement. The gated study shows normal LV systolic function with calculated LVEF of 37%. LV cavity is normal in size. The gated study shows globally diminished wall thickening and contraction of segments. Resting study shows diminished tracer uptake along the inferolateral wall along the distal aspect. There is also adjacent subdiaphragmatic tracer uptake. There is improvement with CT attenuation correction. Gating at rest reveals normal wall motion with ejection fraction at 39%. The findings are consistent with no clear reversible defects. Fixed distal inferior defect that could be artifactual. NM/NM cardiolite stress test Impression: 1. Myocardial perfusion imaging study shows no clear evidence of any ischemia or infarction. Probably normal myocardial perfusion. 2. Gated LVEF is 37% during stress and 39% during rest. 3. Transient ischemic dilatation not present. EKG component of the test reported separately.
--- NOTE | 2022-12-09 07:50 | CA_ITS ---
Transthoracic Echocardiogram Patient (Last, First, Middle): Mateusz Grigsby P Gender: Male Date of : 1950 Age: 72 Procedure Date: 12/09/2022 Procedure Type: Transthoracic Echocardiogram Location: OP Height: 182.88 cm Weight: 75.3 kg BSA: 1.97 m2 Heart Rate: bpm BP: 128 / 66 mmHg Materials Clerk: Referring MD: Ritesh Puentes MD Symptoms: I42.9 - Cardiomyopathy, unspecified Study Quality: Fair ECG Rhythm: Sinus Conclusions: - The left ventricular systolic function is mildly decreased. The visually estimated ejection fraction is between 40-45%. - No obvious valvular pathology seen on this study. Findings Procedure Information Contrast agent, definity, is being given per protocol without apparent complications. Left Ventricle Normal left ventricular cavity size. There is mildly increased left ventricular wall thickness. The left ventricular systolic function is mildly decreased. The visually estimated ejection fraction is between 40-45%. There is mild global hypokinesis. Diastolic function is normal for age. Right Ventricle Normal right ventricular cavity size and systolic function. Atria Both atria are normal in size. Aortic Valve There is a normal trileaflet aortic valve. There is no aortic valve stenosis. There is no aortic valve regurgitation. Mitral Valve The mitral valve appears normal. There is no mitral valve regurgitation. There is no mitral valve stenosis. Pulmonic Valve The pulmonic valve is likely normal. Tricuspid Valve There is trace tricuspid valve regurgitation. There is no evidence of pulmonary hypertension. Great Vessels The asc aorta is normal in size. Venous The inferior vena cava is normal in size and collapses greater than 50% with inspiration. Pericardium/Pleural There is no evidence of pericardial effusion. There is a trivial pericardial effusion. Prior Study Comparison Changes noted compared to prior study dated: 10/23/2020. LVEF diminished. Recommendations, Care & Conclusions No obvious valvular pathology seen on this study. Measurements 2D Linear Measurements IVSd: 1.03 0.6-0.9/0.6-1.0 cm LVIDd: 4.93 3.9-5.3/4.2-5.9 cm LVIDd Index: 2.50 2.4-3.2/2.2-3.1 cm/m2 LVIDs: 3.81 2.0-3.6 cm LVPWd: 1.10 0.7-1.1 cm Ao Root: 3.40 2.1-3.5 cm LA Diam: 2.20 2.7-3.8/3.0-4.0 cm LAIDs Index: 1.12 1.5-2.3 cm/m2 LV Mass: 241.36 67-162/88-224 g LV Mass Index: 122.52 43-95/49-115 g/m2 LVOT Diam: 2.20 3.0+(-)1.3 cm 2D Systolic Function EF 4C: 41.90 >55% EF 2C: 51.80 >55% EF BiP: 46.70 >55% Mitral Valve MV Pk E: 0.80 MV PK A: 1.18 MV Decel Time: 160.00 E/A: 0.70 E'Lateral: 6.64 E'Medial: 5.87 E/E' Med: 13.60 E/E' Lat: 12.00 PHT: 47.00 MVA PHT: 4.68 Decel [place]: 4.98 Aortic Valve AoV Pk Pranay: 1.51 AoV Mn Pranay: 0.99 AoV VTI: 0.31 AoV Pk Grad: 9.00 Aov Mn Grad: 5.00 RADHA Cont.VTI: 1.89 LVOT LVOT Pk Pranay: 0.74 LVOT Mn Pranay: 0.50 LVOT VTI: 0.15 LVOT Pk Grad: 2.00 LVOT Mn Grad: 1.00 LVOT Diam: 2.20 LVOT Area: 3.80 Diastolic Function MV Pk E: 0.80 MV Pk A: 1.18 E/A: 0.70 E'Medial: 5.87 E/E' Med: 13.60 E' Laterial: 6.64 E/E' Lat: 12.00 Right Ventricle TAPSE (mm): 30.00 TVS' Pranay: 11.00 Tricuspid Valve TR Pk Pranay: 1.56 TR Pk Grad: 10.00 RA Press: 3.00 RVSP: 13.00 Great Vessels Aorta Ao Root-2D: 3.40 2.0-3.7 cm Ao Asc: 3.70 2.1-3.4 cm Pulmonary Valve PV Pk Pranay: 0.88 Peak PV Grad: 3.00 Updated in Other Vendor System with Status of Final Ritesh Puentes MD electronically signed on 12/10/2022 3:31:35 PM with status of Final
--- NOTE | 2022-12-09 07:50 | CA_ITS ---
Acquisition Time: 2022-12-09 09:18:30 Total Exercise Time: 00:11:17 Test Indications: CP ABN EKG Medications: ALBUTEROL ASA ATORVASTATIN CLONAZAPAM MIRTAZAPINE PANTOPRAZOLE PREDNISONE THEOPHYLLINE TIZANIDINE VERAPAMIL Protocol: DOBUTAMINE Max HR: 133 BPM 88% of Pred: 150 BPM Max BP: 136/074 mmHG Max Work Load: 1.0 METS Pharmacological sress test wth Dobutamine infusion to max of 20mcg/kg/min achieving 88% MPHR, without anginal symptoms, with frequent PVCs, PACs and runs of accelerated junctional rhythm during test, with normotensive response to infusion, without EKG changes meeting criteria for ischemia, with borderline ST depression noted inferorly. Nuclear images pending. Test reviewed with Dr Hoffman. Referred By: Ritesh Puentes Overread By: JARED JON
== END ==
LOC: HO.CARD 07:47
PROVIDERS: PCP Internal Medicine; Visit Provider Internal Medicine
DX: R07.2 Precordial pain (principal); I25.10 Atherosclerotic heart disease of native coronary artery without angina pectoris; I42.9 Cardiomyopathy, unspecified
CPT/HCPCS: 78452; 93017; 93306; A9500; J1250; Q9957

== ENCOUNTER → 2022-12-24 13:11 | Outpatient (BNVA) | payer MEDICARE, SELFPAY ==
[2022-11-18 10:00] VITALS: BP 120/70; BP 124/64
[2022-12-15 15:37] VITALS: BP 110/70; BMI 22.6
== END ==
PROVIDERS: PCP Internal Medicine; Referring Provider Internal Medicine; Visit Provider Internal Medicine
DX: I25.10 Atherosclerotic heart disease of native coronary artery without angina pectoris (principal); I42.9 Cardiomyopathy, unspecified; R00.0 Tachycardia, unspecified; J44.9 Chronic obstructive pulmonary disease, unspecified
CPT/HCPCS: 99212

== ENCOUNTER → 2022-12-31 10:22 | Outpatient (BNVA) | payer MEDICARE, SELFPAY ==
[2022-11-18 10:00] VITALS: BP 120/70; BP 124/64
[2022-12-15 15:37] VITALS: BP 110/70; BMI 22.6
== END ==
PROVIDERS: PCP Internal Medicine; Visit Provider Nurse Practitioner Family
DX: J44.9 Chronic obstructive pulmonary disease, unspecified (principal); R91.8 Other nonspecific abnormal finding of lung field; Z79.899 Other long term (current) drug therapy; Z99.81 Dependence on supplemental oxygen
CPT/HCPCS: 94640; 96372; 99212; J2930

== ENCOUNTER → 2023-01-13 09:54 | Outpatient (BNVA) | payer MEDICARE, SELFPAY ==
[2022-11-18 10:00] VITALS: BP 120/70; BP 124/64
[2022-12-15 15:37] VITALS: BMI 22.6
[2023-01-13 09:55] VITALS: BP 106/70
== END ==
PROVIDERS: PCP Internal Medicine; Visit Provider Internal Medicine Pulmonary Disease
DX: J44.1 Chronic obstructive pulmonary disease with (acute) exacerbation (principal); Z79.899 Other long term (current) drug therapy; Z87.891 Personal history of nicotine dependence; Z99.81 Dependence on supplemental oxygen
CPT/HCPCS: 99212

== ENCOUNTER 2023-02-24 08:31 | Outpatient (REF) | payer MEDICARE, SELFPAY ==
[2022-11-18 10:00] VITALS: BP 120/70; BP 124/64
[2023-02-24 07:47] VITALS: BMI 23.1
[2023-02-24 12:23] LABS: ABG Base Excess 2.7 mmol/L; ABG HCO3 25 mmol/L (22-26); ABG pCO2 34 mmHg (32-45); ABG pH 7.48 (7.35-7.45); ABG pO2 83 mmHg (83-108)
[2023-02-24 12:27] LABS: ABG Refer to POC result
== END 2023-02-24 08:32 | disposition home or self-care (01) ==
LOC: HO.LAB 08:31
PROVIDERS: PCP Internal Medicine; Visit Provider Nurse Practitioner Family
DX: J44.9 Chronic obstructive pulmonary disease, unspecified (principal); R06.02 Shortness of breath; Z99.81 Dependence on supplemental oxygen
CPT/HCPCS: 82803; 94640; 96372; 99212; J2930

== ENCOUNTER 2023-02-24 08:31 | Outpatient (AMB) | payer MEDICARE, SELFPAY ==
[2022-11-18 10:00] VITALS: BP 120/70; BP 124/64
[2023-02-24 07:47] VITALS: BMI 23.1
--- NOTE | 2023-02-24 08:24 | MHC.OFFVIS ---
Intake Vital Signs 02/24/23 08:27 Height 6 ft Weight 167 lb 8.821 oz BMI 22.7 BP 140/80 H Blood Pressure Location Lt brachial Position Sitting Pulse 105 H Pulse Source Pulse Oximeter Pulse Oximetry (%) 93 Intake Visit Reasons: short of breath Cancer Genetic Counselor Required: No Brush Material Preparer: Brush Material Preparer offered & declined Accompanied by: Self / Same As Patient Allergies No Known Allergies Allergy (Verified 02/24/23 08:30) Medication List - Last Reconciled 02/24/23 by Claire Saucedo LPN albuterol sulfate 1 vial inhalation Q4H PRN albuterol sulfate 90 mcg/actuation 2 puffs inhalation Q4H PRN ascorbic acid (vitamin C) (Vitamin C) 1,000 mg PO DAILY aspirin (Adult Low Dose Aspirin) 81 mg PO DAILY atorvastatin 20 mg PO BEDTIME budesonide-formoterol 160-4.5 mcg/actuation (Symbicort) 2 puffs inhalation Q12H 30 days clonazepam 1 mg PO DAILY PRN 30 days ipratropium-albuterol 0.5 mg-3 mg(2.5 mg base)/3 mL 3 mL inhalation Q4-6H PRN levofloxacin 750 mg PO DAILY 7 days mirtazapine 30 mg PO BEDTIME multivitamin 1 tab PO DAILY nitroglycerin 0 mg sublingual pantoprazole 40 mg PO DAILY prednisone 5 mg PO DAILY 3 months theophylline ER 400 mg PO DAILY 90 days tiotropium bromide (Spiriva with HandiHaler) 1 cap inhalation DAILY tizanidine 2 mg PO BEDTIME trazodone 50 mg PO BEDTIME verapamil ER 240 mg PO BEDTIME HPI short of breath HPI Details Mateusz is a very pleasant 72 year old male who is followed for severe COPD on supplemental oxygen and pulmonary nodules. At baseline, his symptoms are moderately controlled on Symbicort, Spiriva, albuterol MDI, theophylline, prednisone 5 mg daily, and duonebs.?Today he presents for an acute visit. He reports an increase in wheezing, shortness of breath and mucus production with light green sputum since yesterday. He denies any fevers, chills or sick contacts. [facility] Medical History (Updated 11/17/22 @ 11:58 by Ritesh Puentes MD) Afib Atherosclerotic cardiovascular disease Cardiomyopathy COPD (chronic obstructive pulmonary disease) HLD (hyperlipidemia) Tachyarrhythmia Family History Other Adopted Social History (Updated 02/24/23 @ 08:33 by Claire Saucedo LPN) Household Members: Spouse Housing: Apartment Do you presently have visiting nurse or other home services: No Alcohol intake: never Patient Tobacco Use Status: Former Tobacco user Quit Date: 2010 Cigarette Packs Per Day: 1 Years Smoked: 41 Smoked in Last 30 Days: No Advance Directives Date on File: 10/19/20 Current occupational status: retired Review of Systems Const Denies daytime sleepiness, Denies excessive sweating, Denies fatigue, Denies fever(s), Denies night sweats, Denies snoring and Denies weight loss Eyes Denies blurry vision and Denies itchy eyes ENT Reports Normal hearing present, Denies nasal congestion, Denies post nasal drip, Denies sinus pain, Denies sinus pressure and Denies other ( Thrush) Card Denies pedal edema, Reports dyspnea on exertion, Denies orthopnea and Denies paroxysmal nocturnal dyspnea Resp Denies hemoptysis, Reports dyspnea on exertion and Denies snoring GI Denies abdominal pain and Denies heartburn Musc Denies myalgias, Denies arthralgias and Denies joint swelling Skin/Breast Denies rash Neuro Reports Normal hearing present, Denies memory loss and Denies seizure-like activity Psych Denies abnormal sleep pattern, Denies anxiety and Denies memory loss Endo Denies excessive sweating, Denies fatigue and Denies heat intolerance [place]/Lymph Denies easy bruising Aller/Immun Denies itchy eyes and Denies seasonal rhinorrhea Physical Exam Vital Signs: Last Vital Signs Pulse 105 H 02/24/23 08:27 BP 140/80 H 02/24/23 08:27 Pulse Ox 93 02/24/23 08:27 BMI result Body Mass Index 22.7 Const General: cooperative, no acute distress and alert Orientation/consciousness: patient oriented x3 Limitations: ambulation with walker HEENT Head: Yes normal to inspection, Yes normocephalic and Yes atraumatic Ears: hearing grossly normal bilaterally and external ears normal Eyes General: appearance normal, both eyes and all related structures Eyelids: Yes eyelids normal Sclerae: sclerae normal EOM: EOMs intact bilaterally Neck Neck: Yes normal visual inspection and Yes no lymphadenopathy Lymphatic: no lymphadenopathy noted Chest Chest palpation & inspection: normal inspection of the chest Resp Other: poor air movement bilaterally, some improvement after DuoNeb. Effort & Inspection: able to speak in complete sentences, audible wheezes, Actively coughing, no stridor, tripod positioning and no use of accessory muscles Auscultation: wheezes expiratory wheezes and throughout and diminished lung sounds Cardio Rate: regular rate Rhythm: regular rhythm Skin Other: warm, dry General skin exam: no rashes or lesions noted Neuro General: patient oriented x3 Cranial nerves: Yes Normal hearing present Cognition (Neuro): normal cognition Extrem General: Yes normal to inspection, Yes capillary refill normal, Yes no clubbing, cyanosis or edema and Yes no pedal edema Psych Appearance: grossly normal and well kempt Speech and movement: Normal speech and movement present and Clear speech present Affect: normal affect Attitude: cooperative Thought process: Normal thought process present Thought content: Normal thought content present Insight: Good insight present (Psych) Judgement: Good judgement present (Psych) Office Procedures Nebulizer Treatment Nebulizer Treatment 12121-Kihnzqzgp/MDI RX initial, or Nebulizer Subsequent Treatment Office Meds methylprednisolone sod suc(PF) Performing Provider: Marisabel Cooper NP Administered by: Claire Saucedo LPN on 02/24/23 09:41 Dose Route Admin Location Lot Number Expiration Date [facility] Gis Analyst Developer 125 mg IM right buttock [id number] 04/25/25 5894-7909-01 [employer] [facility] ipratropium-albuterol 0.5 mg-3 mg(2.5 mg base)/3 mL Performing Provider: Marisabel Cooper NP Administered by: Claire Saucedo LPN on 02/24/23 09:43 Dose Route Admin Location Lot Number Expiration Date [place] [employer] 6 mL inhalation [id number] 07/26/24 8203-4782-72 [employer] Assessment & Plan Assessment & Plan (1) COPD (chronic obstructive pulmonary disease): Code(s): J44.9 - Chronic obstructive pulmonary disease, unspecified (2) Supplemental oxygen dependent: Code(s): Z99.81 - Dependence on supplemental oxygen Plan Mateusz reports progressively worsening dyspnea on exertion, wheezing and productive cough with green sputum that started yesterday. He was on his way to pulmonary rehab this morning and given his worsening symptoms came to the office for a sick visit. Duoneb and solumedrol given in office. Will treat?acute exacerbation with Levaquin and prednisone.?Advised to continue baseline regimen and maintain supplemental O2 saturation of 88-93%. Patient is aware if symptoms do not improve to call and if worsen seek emergent care. All questions were answered and patient is in agreement of plan. Will follow up in two weeks for regularly scheduled appointment with Dr. Bennett. Orders: Orders ABG Today J44.9 - Chronic obstructive pulmonary disease, unspecified AMB Methylprednisolone Injection Today J44.9 - Chronic obstructive pulmonary disease, unspecified AMB Nebulizer Treatment Today J44.9 - Chronic obstructive pulmonary disease, unspecified Medications: New prednisone 40 mg (2 x 20 mg) PO DAILY 10 tabs 0RF Refilled levofloxacin 750 mg PO DAILY 7 tabs 0RF 7 days Coding Level of Care Code Est Pt Level 4 (38497) Diagnoses COPD (chronic obstructive pulmonary disease) J44.9 Supplemental oxygen dependent Z99.81 CPT Codes Nebulizer Treatment - Nebulizer Treatment, initial or subsequent: [id number]-Cdltmmxxj/MDI RX initial, or Nebulizer Subsequent Treatment ([id number])
[2023-02-24 08:27] VITALS: BP 140/80; PULSE 105; O2SAT 93; BMI 22.7
== END 2023-02-24 09:29 | disposition home or self-care (01) ==
PROVIDERS: PCP Internal Medicine; Visit Provider Nurse Practitioner Family
DX: J44.9 Chronic obstructive pulmonary disease, unspecified (principal); Z99.81 Dependence on supplemental oxygen
CPT/HCPCS: 99214

== ENCOUNTER 2023-03-10 09:48 | Outpatient (AMB) | payer MEDICARE, SELFPAY ==
[2022-11-18 10:00] VITALS: BP 120/70; BP 124/64
[2022-12-15 15:37] VITALS: BMI 22.6
[2023-01-13 09:55] VITALS: BP 106/70
--- NOTE | 2023-03-10 09:50 | A.OFFVIS_ITS ---
Intake Vital Signs 03/10/23 09:54 Weight 174 lb 2.643 oz BP 116/64 Blood Pressure Location Lt brachial Position Sitting Pulse 112 H Pulse Source Pulse Oximeter Pulse Oximetry (%) 92 Oxygen Delivery Method Nasal Cannula Oxygen Flow Rate 0.5 Intake Visit Reasons: asthma Allergies No Known Allergies Allergy (Verified 03/10/23 09:57) Medication List - Last Reconciled 03/10/23 by Stephanie Rivero LPN albuterol sulfate 1 vial inhalation Q4H PRN albuterol sulfate 90 mcg/actuation 2 puffs inhalation Q4H PRN ascorbic acid (vitamin C) (Vitamin C) 1,000 mg PO DAILY aspirin (Adult Low Dose Aspirin) 81 mg PO DAILY atorvastatin 20 mg PO BEDTIME budesonide-formoterol 160-4.5 mcg/actuation (Symbicort) 2 puffs inhalation Q12H 30 days clonazepam 1 mg PO DAILY PRN 30 days ipratropium-albuterol 0.5 mg-3 mg(2.5 mg base)/3 mL 3 mL inhalation Q4-6H PRN levofloxacin 750 mg PO DAILY 7 days mirtazapine 30 mg PO BEDTIME multivitamin 1 tab PO DAILY nitroglycerin 0 mg sublingual pantoprazole 40 mg PO DAILY prednisone 40 mg (2 x 20 mg) PO DAILY prednisone 5 mg PO DAILY 3 months theophylline ER 400 mg PO DAILY 90 days tiotropium bromide (Spiriva with HandiHaler) 1 cap inhalation DAILY tizanidine 2 mg PO BEDTIME trazodone 50 mg PO BEDTIME verapamil ER 240 mg PO BEDTIME HPI asthma HPI Details 73-year-old gentleman, former 30+ pack-year smoker, quit 2009,? followed for severe supplemental oxygen dependent COPD and 3 mm pulmonary nodules.? He continues to use Symbicort, Spiriva, albuterol MDI, theophylline, prednisone 5 mg daily, and Duonebs with good baseline control of his symptoms.? He has been evaluated at [facility] program.? 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 Patient recently been treated for COPD exacerbation, however with no significant improvement. Today he does complain of worsening dyspnea on exertion, orthopnea, but no wheezing. [facility] Medical History (Updated 11/17/22 @ 11:58 by Ritesh Puentes MD) Afib Atherosclerotic cardiovascular disease Cardiomyopathy COPD (chronic obstructive pulmonary disease) HLD (hyperlipidemia) Tachyarrhythmia Family History Other Adopted Social History (Updated 02/24/23 @ 08:33 by Claire Saucedo LPN) Household Members: Spouse Housing: Apartment Do you presently have visiting nurse or other home services: No Alcohol intake: never Patient Tobacco Use Status: Former Tobacco user Quit Date: 2010 Cigarette Packs Per Day: 1 Years Smoked: 41 Advance Directives Date on File: 10/19/20 Current occupational status: retired Review of Systems Const Denies daytime sleepiness, Denies excessive sweating, Denies fatigue, Denies fever(s), Denies lethargy, Denies malaise, Denies night sweats, Denies snoring and Denies weight loss Eyes Denies blurry vision and Denies itchy eyes ENT Denies nasal congestion, Denies post nasal drip, Denies sinus pain, Denies sinus pressure and Denies other ( Thrush) Card Denies chest pain, Denies pedal edema, Denies dyspnea, Reports dyspnea on exertion, Reports orthopnea and Denies paroxysmal nocturnal dyspnea Resp Denies cough, Denies hemoptysis, Denies excessive phlegm production, Denies dyspnea, Reports dyspnea on exertion, Denies snoring and Denies wheezing GI Denies abdominal pain and Denies heartburn Musc Denies myalgias, Denies arthralgias and Denies joint swelling Skin/Breast Denies rash Neuro Denies memory loss and Denies seizure-like activity Psych Denies abnormal sleep pattern, Denies anxiety and Denies memory loss Endo Denies excessive sweating, Denies fatigue and Denies heat intolerance [place]/Lymph Denies easy bruising Aller/Immun Denies itchy eyes, Denies seasonal rhinorrhea and Denies wheezing Physical Exam Vital Signs: Last Vital Signs Pulse 112 H 03/10/23 09:54 BP 116/64 03/10/23 09:54 Pulse Ox 92 03/10/23 09:54 Oxygen Delivery Method Nasal Cannula 03/10/23 09:54 Oxygen Flow Rate 0.5 03/10/23 09:54 Const General: no acute distress and alert Nutritional Appearance: not obese Orientation/consciousness: Other orientation findings ( oriented) HEENT Head: Yes atraumatic Eyes General: appearance normal, both eyes and all related structures Sclerae: sclerae normal EOM: EOMs intact bilaterally Neck Neck: Yes supple Lymphatic: no lymphadenopathy noted Resp Effort & Inspection: normal respiratory effort and no use of accessory muscles Auscultation: clear to auscultation bilaterally Cardio Rate: regular rate Rhythm: regular rhythm Heart sounds: no gallops, no murmurs and no rubs Skin General skin exam: other ( warm) Extrem General: No clubbing, No cyanosis and No edema Assessment & Plan Assessment & Plan (1) COPD (chronic obstructive pulmonary disease): Code(s): J44.9 - Chronic obstructive pulmonary disease, unspecified Plan: Baseline controlled on Symbicort, Spiriva, prednisone 5 mg daily, Serevent 400, albuterol MDI, and duo nebs. Continue current regimen. (2) Chronic respiratory failure with hypoxia: Code(s): J96.11 - Chronic respiratory failure with hypoxia Plan: Continue supplemental oxygen to maintain O2 saturation of 88-92%. (3) Dyspnea on exertion: Code(s): R06.00 - Dyspnea, unspecified Plan: Now appears to have a component of orthopnea and retention, will treat with empiric course of diuretic. Orders: Orders XR chest 2V Today J44.9 - Chronic obstructive pulmonary disease, unspecified Medications: New furosemide (Lasix) 40 mg PO DAILY 7 days 7 tabs 0RF J44.9 - Chronic obstructive pulmonary disease, unspecified Discontinued levofloxacin Discontinued Reason: Doctor's Order 750 mg PO DAILY 7 days 7 tabs 0RF prednisone Discontinued Reason: Doctor's Order 40 mg (2 x 20 mg) PO DAILY 10 tabs 0RF Coding Level of Care Code Est Pt Level 4 (38089) Diagnoses COPD (chronic obstructive pulmonary disease) J44.9 Chronic respiratory failure with hypoxia J96.11 Dyspnea on exertion R06.00
[2023-03-10 09:54] VITALS: BP 116/64; PULSE 112; O2SAT 92
== END 2023-03-10 10:18 | disposition home or self-care (01) ==
PROVIDERS: PCP Internal Medicine; Visit Provider Internal Medicine Pulmonary Disease
DX: J44.9 Chronic obstructive pulmonary disease, unspecified (principal); J96.11 Chronic respiratory failure with hypoxia
CPT/HCPCS: 99214

== ENCOUNTER 2023-03-10 09:48 | Outpatient (REF) | payer MEDICARE, SELFPAY ==
[2022-11-18 10:00] VITALS: BP 120/70; BP 124/64
--- NOTE | ~2023-03-10 | XR_ITS ---
EXAMINATION: XR CHEST 2 VIEWS CLINICAL INFORMATION: COPD. COMPARISON: CTA chest dated 10/17/2021; chest radiographs dated 09/26/2021. TECHNIQUE: Frontal and lateral views of the chest were obtained. FINDINGS: The heart, great vessels, pulmonary vasculature and mediastinum are normal. The lungs show no focal infiltrate, effusion or pneumothorax. A prominent left nipple shadow is redemonstrated, stable from chest radiographs dated 09/26/2021 and correlating with the CT appearance of 10/17/2021. There is biapical pleural scarring. There is no acute osseous abnormality. There are stable mild T6 and T7 anterior wedge compression fractures. There is lower cervical orthopedic hardware. XR/XR chest 2V IMPRESSION: No active cardiopulmonary disease.
== END 2023-03-10 09:49 | disposition home or self-care (01) ==
LOC: HO.XRAY 09:48
PROVIDERS: PCP Internal Medicine; Visit Provider Internal Medicine Pulmonary Disease
DX: J44.9 Chronic obstructive pulmonary disease, unspecified (principal); J96.11 Chronic respiratory failure with hypoxia
CPT/HCPCS: 71046; 99212

== ENCOUNTER 2023-03-17 08:34 | Outpatient (AMB) | payer MEDICARE, SELFPAY ==
[2022-11-18 10:00] VITALS: BP 120/70; BP 124/64
--- NOTE | 2023-03-17 08:49 | A.OFFVIS_ITS ---
Intake Vital Signs 03/17/23 08:50 Height 6 ft Weight 173 lb 1.006 oz BMI 23.5 BP 126/68 Blood Pressure Location Lt brachial Position Sitting Pulse 116 H Pulse Source Pulse Oximeter Pulse Oximetry (%) 93 Oxygen Delivery Method Nasal Cannula Intake Visit Reasons: COPD follow-up [employer] Required: No Accompanied by: Spouse Allergies No Known Allergies Allergy (Verified 03/17/23 09:44) Medication List - Last Reconciled 03/17/23 by Claire Saucedo LPN albuterol sulfate 1 vial inhalation Q4H PRN albuterol sulfate 90 mcg/actuation 2 puffs inhalation Q4H PRN ascorbic acid (vitamin C) (Vitamin C) 1,000 mg PO DAILY aspirin (Adult Low Dose Aspirin) 81 mg PO DAILY atorvastatin 20 mg PO BEDTIME budesonide-formoterol 160-4.5 mcg/actuation (Symbicort) 2 puffs inhalation Q12H 30 days clonazepam 1 mg PO DAILY PRN 30 days furosemide (Lasix) 40 mg PO DAILY 30 days ipratropium-albuterol 0.5 mg-3 mg(2.5 mg base)/3 mL 3 mL inhalation Q4-6H PRN mirtazapine 30 mg PO BEDTIME multivitamin 1 tab PO DAILY nitroglycerin 0 mg sublingual pantoprazole 40 mg PO DAILY prednisone 5 mg PO DAILY 3 months theophylline ER 400 mg PO DAILY 90 days tiotropium bromide (Spiriva with HandiHaler) 1 cap inhalation DAILY tizanidine 2 mg PO BEDTIME trazodone 50 mg PO BEDTIME verapamil ER 240 mg PO BEDTIME HPI COPD follow-up HPI Details Mateusz is a very pleasant 72 year old male who is followed for severe COPD on supplemental oxygen and pulmonary nodules. He ambulates with a walker and is accompanied by his . He has had worsening control of his symptoms on Symbicort, Spiriva, albuterol MDI, theophylline, prednisone 5 mg daily, and duonebs.?He was seen on 02/24/23 with bronchitic symptoms and treated prednisone/levaquin with minimal improvement. He was then seen on 03/10/23 with worsening shortness of breath, orthopnea, treated empirically with lasix 40 mg with no improvement. Today he presents with worsening dyspnea on minimal exertion, reporting increasing frequency of needing to rest, chest tightness/discomfort and productive cough with white sputum. He denies any f jasmin, chills or sick contacts. [facility] Medical History (Updated 11/17/22 @ 11:58 by Ritesh Puentes MD) Afib Atherosclerotic cardiovascular disease Cardiomyopathy COPD (chronic obstructive pulmonary disease) HLD (hyperlipidemia) Tachyarrhythmia Family History Other Adopted Social History Household Members: Spouse Housing: Apartment Do you presently have visiting nurse or other home services: No Alcohol intake: never Patient Tobacco Use Status: Former Tobacco user Quit Date: 2010 Cigarette Packs Per Day: 1 Years Smoked: 41 Advance Directives Date on File: 10/19/20 Current occupational status: retired Review of Systems Const Denies daytime sleepiness, Denies excessive sweating, Denies fatigue, Denies fever(s), Denies night sweats, Denies snoring and Denies weight loss Eyes Denies blurry vision and Denies itchy eyes ENT Reports Normal hearing present, Denies nasal congestion, Denies post nasal drip, Denies sinus pain, Denies sinus pressure and Denies other ( Thrush) Card Reports chest pain, Reports rapid heart rate, Denies pedal edema, Reports dysp sunil, Reports dyspnea on exertion, Reports orthopnea and Denies paroxysmal nocturnal dyspnea Resp Reports chest congestion, Reports cough, Denies hemoptysis, Reports dyspnea, R eports dyspnea on exertion and Denies snoring GI Denies abdominal pain and Reports heartburn Musc Denies myalgias, Denies arthralgias and Denies joint swelling Skin/Breast Denies rash Neuro Reports Normal hearing present, Denies memory loss and Denies seizure-like activity Psych Denies abnormal sleep pattern, Denies anxiety and Denies memory loss Endo Denies excessive sweating, Denies fatigue and Denies heat intolerance [place]/Lymph Denies easy bruising Aller/Immun Denies itchy eyes and Denies seasonal rhinorrhea Physical Exam Vital Signs: Last Vital Signs Pulse 116 H 03/17/23 08:50 BP 126/68 03/17/23 08:50 Pulse Ox 93 03/17/23 08:50 Oxygen Delivery Method Nasal Cannula 03/17/23 08:50 BMI result Body Mass Index 23.5 Const General: cooperative, no acute distress and alert Orientation/consciousness: patient oriented x3 Limitations: ambulation with walker HEENT Head: Yes normal to inspection, Yes normocephalic and Yes atraumatic Ears: hearing grossly normal bilaterally and external ears normal Eyes General: appearance normal, both eyes and all related structures Eyelids: Yes eyelids normal Sclerae: sclerae normal EOM: EOMs intact bilaterally Neck Neck: Yes normal visual inspection and Yes no lymphadenopathy Lymphatic: no lymphadenopathy noted Chest Chest palpation & inspection: normal inspection of the chest Resp Other: poor air movement bilaterally, some improvement after DuoNeb. Effort & Inspection: able to speak in complete sentences, Actively coughing, no stridor and tripod positioning Auscultation: diminished lung sounds Cardio Rhythm: regular rhythm Skin Other: warm, dry General skin exam: no rashes or lesions noted Neuro General: patient oriented x3 Cranial nerves: Yes Normal hearing present Cognition (Neuro): normal cognition Extrem General: Yes normal to inspection and Yes no pedal edema Psych Appearance: grossly normal and well kempt Speech and movement: Normal speech and movement present and Clear speech present Affect: normal affect Attitude: cooperative Thought process: Normal thought process present Thought content: Normal thought content present Insight: Good insight present (Psych) Judgement: Good judgement present (Psych) Office Procedures Nebulizer Treatment Nebulizer Treatment [id number]/MDI RX initial, or Nebulizer Subsequent Treatment Office Meds ipratropium-albuterol 0.5 mg-3 mg(2.5 mg base)/3 mL Performing Provider: Marisabel Cooper NP Administered by: Claire Saucedo LPN on 03/17/23 09:15 Dose Route Admin Location Lot Number Expiration Date [facility] [employer] Outside 3 mL inhalation [id number] 06/26/24 2921-6449-01 [facility] [place] Assessment & Plan Assessment & Plan (1) COPD (chronic obstructive pulmonary disease): Code(s): J44.9 - Chronic obstructive pulmonary disease, unspecified (2) Supplemental oxygen dependent: Code(s): Z99.81 - Dependence on supplemental oxygen Plan Mateusz presents with progressively worsening dyspnea on exertion, increased work of breathing and chest discomfort. He has been maximized on outpatient therapy with antibiotics, prednisone and lasix with little to no improvement in symptoms. At this time, we agreed that he should be evaluated in the ED.All questions were answered and patient is in agreement of plan. Will follow up in two weeks for regularly scheduled appointment with Dr. Bennett. Orders: Orders AMB Nebulizer Treatment Today J44.9 - Chronic obstructive pulmonary disease, unspecified, J96.11 - Chronic respiratory failure with hypoxia Coding Level of Care Code Est Pt Level 5 (15661) Diagnoses COPD (chronic obstructive pulmonary disease) J44.9 Supplemental oxygen dependent Z99.81 CPT Codes Nebulizer Treatment - Nebulizer Treatment, initial or subsequent: 49615- Nebulizer/MDI RX initial, or Nebulizer Subsequent Treatment ([id number])
[2023-03-17 08:50] VITALS: BP 126/68; PULSE 116; O2SAT 93; BMI 23.5
== END 2023-03-17 10:06 | disposition home or self-care (01) ==
PROVIDERS: PCP Internal Medicine; Visit Provider Nurse Practitioner Family
DX: J44.9 Chronic obstructive pulmonary disease, unspecified (principal); J96.11 Chronic respiratory failure with hypoxia; Z99.81 Dependence on supplemental oxygen
CPT/HCPCS: 99213

== ENCOUNTER → 2023-03-17 08:34 | Outpatient (BNVA) | payer MEDICARE, SELFPAY ==
[2022-11-18 10:00] VITALS: BP 120/70; BP 124/64
[2023-02-24 07:47] VITALS: BMI 23.1
== END ==
PROVIDERS: PCP Internal Medicine; Visit Provider Nurse Practitioner Family

== ENCOUNTER 2023-03-17 09:39 | Inpatient (IN) | payer MEDICARE, SELFPAY ==
[2022-11-18 10:00] VITALS: BP 120/70; BP 124/64
[2023-03-17] VITALS (22 sets, daily range): BP systolic 101–145; BP diastolic 54–83; PULSE 80–130; RESP 11–114; TEMP 36.1–36.9; O2SAT 91–99; BMI 23.5
--- NOTE | ~2023-03-17 | XR_ITS ---
EXAMINATION: XR CHEST CLINICAL INFORMATION: Shortness of breath. COMPARISON: 03/10/2023 chest radiographs. TECHNIQUE: Frontal view of the chest was obtained. FINDINGS: No significant abnormality is noted involving the heart, lungs, mediastinum, bony thorax or soft tissues. XR/XR chest 1V IMPRESSION: No acute cardiopulmonary process.
--- NOTE | ~2023-03-17 | XR_ITS ---
EXAMINATION: XR CHEST CLINICAL INFORMATION: Shortness of breath. COMPARISON: Chest CTA dated 03/17/2023. TECHNIQUE: Frontal view of the chest was obtained. FINDINGS: Coarsened interstitial markings are seen bilaterally. There are no pleural effusions. The heart and mediastinal structures are unremarkable. XR/XR chest 1V IMPRESSION: Coarsened interstitial markings correlate with the patient's known emphysema. No acute cardiopulmonary process.
--- NOTE | ~2023-03-17 | CT_ITS ---
EXAMINATION: CT ANGIOGRAM OF THE CHEST WITH AND WITHOUT CONTRAST (CT PULMONARY ANGIOGRAM FOR PE) CLINICAL INFORMATION: Reason for Exam sob r/o PE COMPARISON: None available. TECHNIQUE: Prior to contrast administration, noncontrast localization images were obtained. Subsequently, multidetector volumetric imaging was performed from the thoracic inlet to below the diaphragms following the administration of 80 mL Omnipaque 350 intravenous contrast. No contrast reaction reported Sagittal, coronal, and MIP oblique sagittal reformatted images were obtained on the CT workstation, uploaded to PACS, and reviewed. This CT examination was performed using dose optimization techniques as appropriate, variously including the following: *Automated exposure control *Adjustment of mA and/or kV according to patient size (this includes techniques or standardized protocols for targeted exams where dose is matched to indication/reason for exam; i.e. extremities or head) *Use of iterative reconstruction technique Total exam dose-length product 285 mGy-cm FINDINGS: QUALITY OF STUDY/CONTRAST BOLUS: Satisfactory. PULMONARY ARTERIES: No pulmonary emboli. THORACIC AORTA: There is no evidence of aneurysm. There is 4 vessel branching of the arch. The left vertebral artery originates from the arch. LUNG: There is mild centrilobular emphysema without acute process. There is bilateral apical pleural thickening. PLEURA: No pleural effusion or pneumothorax. MEDIASTINUM: Normal heart size. No pericardial effusion. No hilar or mediastinal lymphadenopathy. No evidence of septal bowing or right heart strain. CORONARY ARTERY CALCIFICATION: There is mild coronary artery calcification present. CHEST WALL/AXILLA: No axillary or internal mammary lymphadenopathy. OSSEOUS STRUCTURES: No acute or suspicious osseous abnormality. UPPER ABDOMEN: There is a 9 mm hypodensity left hepatic lobe image 59/5 and 1.3 cm hypodensity right hepatic lobe favoring cyst. No additional lesions seen. No intrahepatic ductal dilatation. The gallbladder is unremarkable. Visualized spleen, pancreas and bilateral adrenal glands unremarkable. No reflux of contrast into the hepatic veins to suggest elevated right heart pressures. CT/CT angio chest PE protocol IMPRESSION: No evidence of PE. No evidence of aortic dissection or aneurysm. Centrilobular emphysema with bilateral apical pleural thickening. No acute consolidation. VTE: negative
--- NOTE | 2023-03-17 09:42 | ECG_ITS ---
Test Reason : chest pain Blood Pressure : / mmHG Vent. Rate : 110 BPM Atrial Rate : 110 BPM P-R Int : 146 ms QRS Dur : 070 ms QT Int : 350 ms P-R-T Axes : 083 085 082 degrees QTc Int : 473 ms Sinus tachycardia with Premature atrial complexes Right atrial enlargement Anterior infarct (cited on or before 23-OCT-2020) Abnormal ECG When compared with ECG of 26-SEP-2021 12:10, No significant change was found Referred By: Deniz Perry Electronically Signed By:EMIL PATEL
--- NOTE | 2023-03-17 09:43 | ED_ITS ---
HPI - General Adult General Chief complaint: Upper Respiratory Symptoms Stated complaint: Diff Breathing Time Seen by Provider: 03/17/23 09:42 Source: patient and family Mode of arrival: ambulatory Limitations: no limitations History of Present Illness HPI narrative: 73-year-old male history of COPD on home oxygen wears 0.5 L at rest and with exertion 2-3 L, cardiomyopathy, atherosclerotic cardiovascular disease, chronic respiratory failure, AFib only on aspirin no anti coags presenting to the emergency department from pulmonology with shortness of breath for the past few weeks worsening over the past few days. Patient reports that shortness of breath is worse with exertion better at rest. He was recently on antibiotics and prednisone with little to no relief and was also placed on diuretics which seem to not be helping. Patient got a DuoNeb today in the office however this did not help. Patient denies chest pain, fevers, chills, chest pain, nausea, vomiting, abdominal pain, headache, vision changes, dizziness, weakness. Related Data Home Medications Medication Instructions Recorded Confirmed albuterol sulfate 90 mcg/actuation 2 puff inhalation Q4H PRN Wheezing 04/26/20 03/17/23 aerosol inhaler atorvastatin 20 mg tablet 20 mg PO BEDTIME 04/26/20 03/17/23 mirtazapine 30 mg tablet 30 mg PO BEDTIME 04/26/20 03/17/23 pantoprazole 40 mg tablet,delayed 40 mg PO DAILY 04/26/20 03/17/23 release trazodone 50 mg tablet 50 mg PO BEDTIME 04/26/20 03/17/23 albuterol sulfate 2.5 mg/3 mL 1 vial inhalation Q4H PRN wheezing 10/19/20 03/17/23 (0.083 %) solution for nebulization ascorbic acid (vitamin C) 500 mg 1,000 mg PO DAILY 10/19/20 03/17/23 tablet (Vitamin C) multivitamin 1 tab PO DAILY 10/19/20 03/17/23 tiotropium bromide 18 mcg capsule 1 cap inhalation DAILY 10/19/20 03/17/23 with inhalation device (Spiriva with HandiHaler) tizanidine 2 mg tablet 2 mg PO BEDTIME 10/19/20 03/17/23 aspirin 81 mg tablet,delayed 81 mg PO DAILY 11/17/22 03/17/23 release (Adult Low Dose Aspirin) nitroglycerin 0.4 mg sublingual 0 mg sublingual 11/17/22 03/17/23 tablet Previous Rx's Medication Instructions Recorded theophylline 400 mg 400 mg PO DAILY 90 days #90 tabs 07/24/22 tablet,extended release 24 hr ipratropium 0.5 mg-albuterol 3 mg 3 ml inhalation Q4-6H PRN for 09/16/22 (2.5 mg base)/3 mL nebulization wheezing #270 mL soln budesonide-formoterol HFA 160 2 puff inhalation Q12H 30 days 01/13/23 mcg-4.5 mcg/actuation aerosol #10.2 grams inhaler (Symbicort) clonazepam 1 mg tablet 1 mg PO DAILY PRN anxiety 30 days 01/13/23 #30 tabs prednisone 5 mg tablet 5 mg PO DAILY 3 months #90 tabs 02/03/23 verapamil 240 mg tablet,extended 240 mg PO BEDTIME #30 tabs 02/12/23 release furosemide 40 mg tablet (Lasix) 40 mg PO DAILY 30 days #30 tabs 03/13/23 Allergies Allergy/AdvReac Type Severity Reaction Status Date / Time No Known Allergies Allergy Verified 03/17/23 09:44 Review of Systems Review of Systems: Constitutional : No Weight loss, No Fever, No Chills, No Fatigue, No Malaise ENT/Mouth : No sore throat, No Rhinorrhea Eyes: No Eye Pain, No Swelling, No Redness Cardiovascular : No Chest Pain, + SOB, + Dyspnea on Exertion, No Orthopnea, No Edema, No Palpitations Respiratory : No Cough, No Sputum, No Wheezing Gastrointestinal : No Nausea, No Vomiting, No Diarrhea, No Constipation, No abdominal Pain, No Hematochezia, No Melena Genitourinary : No Dysuria, No Urinary Frequency, No Hematuria, Musculoskeletal : No joint pain, No Myalgias, No Joint Swelling Skin : No Skin Lesions, No rash Neuro : No Weakness, No Numbness, No Dizziness, No Headache Psych : No Anxiety/Panic, No Depression All other systems reviewed and are negative Yes all other systems are reviewed and are negative [facility] Past Medical History Attestation statement: The following information was validated with the patient. Source: old records reviewed and nursing notes reviewed Medical History Afib Atherosclerotic cardiovascular disease Cardiomyopathy COPD (chronic obstructive pulmonary disease) HLD (hyperlipidemia) Tachyarrhythmia Family History Family History Other Adopted Social History Social History Household Members: Spouse Housing: Apartment Do you presently have visiting nurse or other home services: No Alcohol intake: never Patient Tobacco Use Status: Former Tobacco user Quit Date: 2010 Cigarette Packs Per Day: 1 Years Smoked: 41 Smoked in Last 30 Days: No Use of substances other than those prescribed or required for medical reasons: No Advance Directives: Yes Advance Directives on File: Yes Advance Directives Date on File: 10/19/20 Current occupational status: retired Physical Exam ED Vital Signs: Vital Signs - 24 hr 03/17/23 09:44 03/17/23 11:25 03/17/23 11:36 Temperature 98 F Pulse Rate 85 101 H Respiratory Rate 26 H 16 Blood Pressure 101/55 L Pulse Oximetry 93 99 Oxygen Delivery Method Nasal Cannula Nasal Cannula Oxygen Flow Rate 03/17/23 11:36 Temperature 98.2 F Pulse Rate 104 H Respiratory Rate 18 Blood Pressure 127/67 Pulse Oximetry 98 Oxygen Delivery Method Nasal Cannula Oxygen Flow Rate 2 BMI result Body Mass Index 23.5 vss Appearance: Alert.? Oriented X3.? No acute distress.? Head: Normocephalic, atraumatic, no step-offs or deformities Eyes: Pupils equal, round and reactive to light.? ENT: Pharynx normal.? Neck: Normal inspection.? Neck supple.? CVS: Normal heart rate and rhythm.? Pulses normal.? Respiratory: No respiratory distress.? Breath sounds diminished b/l.? Abdomen: Soft and nontender.? Skin: Skin warm and dry.? Normal skin color.? Normal skin turgor.? Extremities: No lower extremity edema.? No calf ttp. 5/5 strength to bilateral upper and lower extremities Neuro: Oriented X 3.? No motor deficit.? No sensory deficit. CN 2-12 intact Course Reevaluation(s) Reevaluation #1: CBC with leukocytosis and left shift, a normocytic anemia also noted however this appears to be part of patient's baseline. Coags unremarkable, negative D- dimer however based off patient history and physical exam still some suspicion for PE will obtain CTA patient risk factors include sedentary lifestyle, atrial fibrillation not on anticoagulants. Chest x-ray unremarkable. Patient's chemistry is pending Time: 10:45 Reevaluation #2: Patient's potassium 3.1 will give oral potassium at this time. BUN 22 likely secondary to poor p.o. intake/dehydration initial lactic acid elevated 2.4 this could be secondary to poor p.o. intake/dehydration or secondary to steroid use, however after repeated 2 hours later lactic still elevated, this could be a COPD exacerbation, treated with antibiotics, fluids. Plan to admit patient to the hospital due to patient requiring more oxygen than usual, and has failed p.o. antibiotics. Time: 13:13 Reevaluation #3: I did speak to pulmonology earlier nurse practitioner, concern patient has been having increasing shortness of breath despite antibiotics, prednisone, multiple home treatments and DuoNeb in office. Not on blood thinners. Medications Administered Discontinued Medications Generic Name Dose Route Start Last Admin Trade Name Freq PRN Reason Stop Dose Admin Ceftriaxone Sodium 1 gm/ 50 mls @ 100 mls/hr 03/17/23 10:44 03/17/23 11:59 Sodium Chloride IV 03/17/23 11:13 Infused ONCE ONE Infusion Sodium Chloride 1,000 mls @ 999 mls/hr 03/17/23 11:15 03/17/23 12:31 Ns IV 03/17/23 12:15 Infused .Q1H1M SUSAN Infusion Iohexol 65 ml 03/17/23 11:21 03/17/23 11:21 Iohexol 350 Mg/Ml 100 Ml Infus..Btl IV 03/17/23 11:22 65 ml ONCE ONE Administration Levalbuterol HCl 3.75 mg 03/17/23 11:02 03/17/23 11:22 Levalbuterol Hcl 1.25 Mg/3 Ml Vial.Neb INHALE 03/17/23 11:03 3.75 mg ONCE ONE Administration Methylprednisolone Sodium Succinate 125 mg 03/17/23 11:49 03/17/23 12:03 Methylprednisolone Sod Succ 125 Mg/2 Ml Vial IVPUSH 03/17/23 11:50 125 mg ONCE ONE Administration Medical Decision Making Medical Decision Making [facility] Narrative: 0945 73-year-old male presents with shortness of breath for few weeks worsening of the past few days. Coming from pulmonology. Uses home O2 and is not requiring increase home O2. Physical examination with diminished breath sounds bilaterally. Mild respiratory distress. Concerns for chronic lung disease versus pulmonary embolism versus bronchitis versus CHF. Unlikely ACS, dissection, aneurysm rupture. No signs of acute r espiratory distress at this time. Will rule out electrolyte abnormalities, dysrhythmia. Plan at this time labs, imaging, EKG. Differential Diagnosis Differential Diagnoses: The differential diagnosis associated with the presentation includes Concerns for chronic lung disease versus pulmonary embolism versus bronchitis versus CHF. Unlikely ACS, dissection, aneurysm rupture. No signs of acute respiratory distress at this time. Will rule out electrolyte abnormalities, dysrhythmia. Admission/Observation Consideration of admission/observation: Escalation of care including admission/observation considered Likely Lab Data MDM Lab Attestation statement: I reviewed the patient's lab results. 03/17/23 10:19 03/17/23 10:19 Labs: Lab Results 03/17/23 03/17/23 03/17/23 Range/Units 10:06 10:19 10:19 WBC 12.0 H (4.8-10.8) X10*3/uL RBC 4.45 L (4.60-5.80) X10*6/uL Hgb 13.8 L (14.0-18.0) g/dl Hct 40.5 L (42.0-52.0) % MCV 91.0 (80.0-98.0) fL MCH 31.0 (27.0-33.0) pg MCHC 34.1 (31.0-36.0) g/dl RDW 13.0 (11.0-16.0) % Plt Count 283 (160-400) X10*3/uL MPV 8.9 L (9.4-12.4) fL Immature Gran % (Auto) 0.7 H (0.0-0.4) % Neut % (Auto) 80.6 H (45-73) % Lymph % (Auto) 11.6 L (20-40) % Platte % (Auto) 6.4 (2-11) % Eos % (Auto) 0.5 (0-4) % Baso % (Auto) 0.2 (0-2) % Lymph # (Auto) 1.4 (1.2-4.9) X10*3/uL Platte # (Auto) 0.8 (0.1-1.2) X10*3/uL Eos # (Auto) 0.1 (0.0-0.4) X10*3/uL Baso # (Auto) 0.0 (0.0-0.2) X10*3/uL Abs Immat Gran (auto) 0.08 H (0.00-0.03) X10*3/uL Absolute Neuts (auto) 9.7 H (2.0-8.3) x10*3/uL Absolute Nucleated RBC 0.000 (0.0-0.012) X10*3/uL Nucleated RBC % (auto) 0.0 (0.0-0.2) /100WBC PT (11.1-13.3) SEC INR (0.9-1.1) D-Dimer High Sensitivty NG/ML Sodium 141 (135-145) mmol/L Potassium 3.1 L (3.3-5.1) mmol/L Chloride 100 (96-108) mmol/L Carbon Dioxide 30 H (22-29) mmol/L Anion Gap 14 (12-20) BUN 22 H (9-16) mg/dL Creatinine 1.03 (0.5-1.4) mg/dL Estim Creat Clear Calc 72.2 Estimated GFR > 60 Random Glucose 109 (60-115) mg/dL Lactic Acid (0.5-2.0) mmol/L Lactic Acid F/U @ 2Hr (0.5-2.0) mmol/L Calcium 10.1 D (8.4-10.2) mg/dL Magnesium 2.2 (1.6-2.6) mg/dL Total Bilirubin 0.7 (0.0-1.0) mg/dL AST 18 (5-37) U/L ALT 17 (0-40) U/L Alkaline Phosphatase 58 (39-117) U/L Troponin I High Sens (<3.5-35.0) ng/L B-Natriuretic Peptide (<100) pg/mL Total Protein 7.1 (6.5-8.0) g/dL Albumin 4.3 (3.5-5.0) g/dL COVID-19 (HAYDEE) Negative (Negative) COVID-19 Clin Com See Note 03/17/23 03/17/23 03/17/23 Range/Units 10:19 10:19 10:19 WBC (4.8-10.8) X10*3/uL RBC (4.60-5.80) X10*6/uL Hgb (14.0-18.0) g/dl Hct (42.0-52.0) % MCV (80.0-98.0) fL MCH (27.0-33.0) pg MCHC (31.0-36.0) g/dl RDW (11.0-16.0) % Plt Count (160-400) X10*3/uL MPV (9.4-12.4) fL Immature Gran % (Auto) (0.0-0.4) % Neut % (Auto) (45-73) % Lymph % (Auto) (20-40) % Platte % (Auto) (2-11) % Eos % (Auto) (0-4) % Baso % (Auto) (0-2) % Lymph # (Auto) (1.2-4.9) X10*3/uL Platte # (Auto) (0.1-1.2) X10*3/uL Eos # (Auto) (0.0-0.4) X10*3/uL Baso # (Auto) (0.0-0.2) X10*3/uL Abs Immat Gran (auto) (0.00-0.03) X10*3/uL Absolute Neuts (auto) (2.0-8.3) x10*3/uL Absolute Nucleated RBC (0.0-0.012) X10*3/uL Nucleated RBC % (auto) (0.0-0.2) /100WBC PT 11.0 L (11.1-13.3) SEC INR 0.9 (0.9-1.1) D-Dimer High Sensitivty < 150 NG/ML Sodium (135-145) mmol/L Potassium (3.3-5.1) mmol/L Chloride (96-108) mmol/L Carbon Dioxide (22-29) mmol/L Anion Gap (12-20) BUN (9-16) mg/dL Creatinine (0.5-1.4) mg/dL Estim Creat Clear Calc Estimated GFR Random Glucose (60-115) mg/dL Lactic Acid (0.5-2.0) mmol/L Lactic Acid F/U @ 2Hr (0.5-2.0) mmol/L Calcium (8.4-10.2) mg/dL Magnesium (1.6-2.6) mg/dL Total Bilirubin (0.0-1.0) mg/dL AST (5-37) U/L ALT (0-40) U/L Alkaline Phosphatase (39-117) U/L Troponin I High Sens 8.2 (<3.5-35.0) ng/L B-Natriuretic Peptide 18 (<100) pg/mL Total Protein (6.5-8.0) g/dL Albumin (3.5-5.0) g/dL COVID-19 (HAYDEE) (Negative) COVID-19 Clin Com 03/17/23 03/17/23 Range/Units 10:19 12:39 WBC (4.8-10.8) X10*3/uL RBC (4.60-5.80) X10*6/uL Hgb (14.0-18.0) g/dl Hct (42.0-52.0) % MCV (80.0-98.0) fL MCH (27.0-33.0) pg MCHC (31.0-36.0) g/dl RDW (11.0-16.0) % Plt Count (160-400) X10*3/uL MPV (9.4-12.4) fL Immature Gran % (Auto) (0.0-0.4) % Neut % (Auto) (45-73) % Lymph % (Auto) (20-40) % Platte % (Auto) (2-11) % Eos % (Auto) (0-4) % Baso % (Auto) (0-2) % Lymph # (Auto) (1.2-4.9) X10*3/uL Platte # (Auto) (0.1-1.2) X10*3/uL Eos # (Auto) (0.0-0.4) X10*3/uL Baso # (Auto) (0.0-0.2) X10*3/uL Abs Immat Gran (auto) (0.00-0.03) X10*3/uL Absolute Neuts (auto) (2.0-8.3) x10*3/uL Absolute Nucleated RBC (0.0-0.012) X10*3/uL Nucleated RBC % (auto) (0.0-0.2) /100WBC PT (11.1-13.3) SEC INR (0.9-1.1) D-Dimer High Sensitivty NG/ML Sodium (135-145) mmol/L Potassium (3.3-5.1) mmol/L Chloride (96-108) mmol/L Carbon Dioxide (22-29) mmol/L Anion Gap (12-20) BUN (9-16) mg/dL Creatinine (0.5-1.4) mg/dL Estim Creat Clear Calc Estimated GFR Random Glucose (60-115) mg/dL Lactic Acid 2.4 H* (0.5-2.0) mmol/L Lactic Acid F/U @ 2Hr 3.1 H* (0.5-2.0) mmol/L Calcium (8.4-10.2) mg/dL Magnesium (1.6-2.6) mg/dL Total Bilirubin (0.0-1.0) mg/dL AST (5-37) U/L ALT (0-40) U/L Alkaline Phosphatase (39-117) U/L Troponin I High Sens (<3.5-35.0) ng/L B-Natriuretic Peptide (<100) pg/mL Total Protein (6.5-8.0) g/dL Albumin (3.5-5.0) g/dL COVID-19 (HAYDEE) (Negative) COVID-19 Clin Com Independent Interpretation I performed an independent interpretation of an: Plain X-Ray Radiology Impression Discussion of test interpretation with radiology: I have reviewed the radiologist's reading. Core Measures AMI core measures followed: Yes Measure exclusions: not indicated Critical Care Time Critical Care Time Critical Care Time: Yes Total Critical Care Time: 35 Attestation: I attest to this time spent taking care of the patient, obtaining history, physical, reviewing labs, imaging, speaking to my attending, speaking to specialist. Discharge Plan Discharge Clinical Impression: COPD (chronic obstructive pulmonary disease), Shortness of breath, Wheezing Patient Disposition: Admitted As Inpatient Prescriptions: No Action theophylline 400 mg tablet extended release 24 hr 400 mg PO DAILY 90 Days Qty: 90 4RF ipratropium-albuterol 0.5 mg-3 mg(2.5 mg base)/3 mL solution for nebulization 3 ml inhalation Q4-6H PRN (Reason: for wheezing) Qty: 270 6RF prednisone 5 mg tablet 5 mg PO DAILY 90 Days Qty: 90 4RF verapamil 240 mg tablet extended release 240 mg PO BEDTIME Qty: 30 5RF furosemide [Lasix] 40 mg tablet 40 mg PO DAILY 30 Days Qty: 30 0RF Spiriva with HandiHaler 18 mcg capsule, w/inhalation device 1 cap inhalation DAILY albuterol sulfate 2.5 mg /3 mL (0.083 %) solution for nebulization 1 vial inhalation Q4H PRN (Reason: wheezing) multivitamin Tablet 1 tab PO DAILY ascorbic acid (vitamin C) [Vitamin C] 500 mg Tablet 1,000 mg PO DAILY tizanidine 2 mg Tablet 2 mg PO BEDTIME Rx Instructions: rx is for tid prn, but patient takes once at bedtime mirtazapine 30 mg tablet 30 mg PO BEDTIME pantoprazole 40 mg tablet,delayed release (DR/EC) 40 mg PO DAILY atorvastatin 20 mg tablet 20 mg PO BEDTIME trazodone 50 mg tablet 50 mg PO BEDTIME albuterol sulfate 90 mcg/actuation HFA aerosol inhaler 2 puff inhalation Q4H PRN (Reason: Wheezing) clonazepam 1 mg tablet 1 mg PO DAILY PRN (Reason: anxiety) 30 Days Qty: 30 3RF budesonide-formoterol [Symbicort] 160-4.5 mcg/actuation HFA aerosol inhaler 2 puff inhalation Q12H 30 Days Qty: 10.2 6RF aspirin [Adult Low Dose Aspirin] 81 mg tablet,delayed release (DR/EC) 81 mg PO DAILY nitroglycerin 0.4 mg tablet, sublingual 0 mg sublingual
[2023-03-17 10:26] LABS: MANUAL DIFF FLAG NO
--- NOTE | 2023-03-17 10:27 | PC.NURSE ---
IV placed in right forearm w/o complications - labs drawn and sent to lab. tech will draw second set of cultures.
[2023-03-17 10:29] LABS: Basophils Percent Auto 0.2 % (0-2); Eosinophils Absolute Auto 0.1 X10*3/uL (0.0-0.4); Eosinophils Percent Auto 0.5 % (0-4); Hematocrit 40.5 % (42.0-52.0); Hemoglobin 13.8 g/dl (14.0-18.0); Imm Gran Abs Auto 0.08 X10*3/uL (0.00-0.03); Imm Gran Pct Auto 0.7 % (0.0-0.4); Lymphocytes Absolute Auto 1.4 X10*3/uL (1.2-4.9); Lymphocytes Percent Auto 11.6 % (20-40); Mean Corpuscular HGB Conc 34.1 g/dl (31.0-36.0); Mean Platelet Volume 8.9 fL (9.4-12.4); Monocytes Absolute Auto 0.8 X10*3/uL (0.1-1.2); Monocytes Percent Auto 6.4 % (2-11); Neutrophils Absolute Auto 9.7 x10*3/uL (2.0-8.3); Neutrophils Percent Auto 80.6 % (45-73); Platelet Count 283 X10*3/uL (160-400); Red Blood Count 4.45 X10*6/uL (4.60-5.80)
[2023-03-17 10:34] LABS: INTERNATIONAL NORM RATIO 0.9 (0.9-1.1)
[2023-03-17 10:38] LABS: D Dimer High Sensitivity < 150 NG/ML
[2023-03-17 10:46] LABS: Lactic Acid 2.4 mmol/L (0.5-2.0)
[2023-03-17 10:48] LABS: Alanine Aminotransferase 17 U/L (0-40); Albumin Level 4.3 g/dL (3.5-5.0); Alkaline Phosphatase 58 U/L (39-117); Anion Gap 14 (12-20); Aspartate Amino Transferase 18 U/L (5-37); Bilirubin Total 0.7 mg/dL (0.0-1.0); Blood Urea Nitrogen 22 mg/dL (9-16); Calcium 10.1 mg/dL (8.4-10.2); Carbon Dioxide 30 mmol/L (22-29); Chloride 100 mmol/L (96-108); Creatinine Clr Calc Pharmacy 72.2; Estimated Glomerular Filt Rate > 60; Glucose Random 109 mg/dL (60-115); Magnesium 2.2 mg/dL (1.6-2.6); Potassium 3.1 mmol/L (3.3-5.1); Sodium 141 mmol/L (135-145); Total Protein 7.1 g/dL (6.5-8.0)
[2023-03-17 10:53] LABS: B Type Natriuretic Peptide 18 pg/mL (<100)
[2023-03-17 10:55] LABS: COVID-19 Test Negative (Negative); IDNOW Serial# BCCEAD1C
[2023-03-17 10:55] LABS: Troponin-I High Sensitivity 8.2 ng/L (<3.5-35.0)
[2023-03-17] MEDS: iohexoL 350 MG/ML 100 ML INFUS..BTL 65 ML IV (11:21)
[2023-03-17] MEDS: levalbuterol HCL 1.25 MG/3 ML VIAL.NEB 3.75 MG INHALE (11:22)
[2023-03-17] MEDS: cefTRIAXone sodium 1 GM in 0.9 % Sodium Chloride 50 ML IV (11:29)
[2023-03-17] MEDS: 0.9 % Sodium Chloride 1,000 ML 999 ML IV ×2 (11:30→13:23)
--- NOTE | 2023-03-17 11:33 | PC.NURSE ---
pt a&ox3, vss, sinus tachy on the monitoring and evaluation advisor, IVF and medications administered per provider order. wheezing noted throughout lung ovalle prior to respiratory treatment. RT bedside setting pt up with treatment. call mendiola placed within reach.
[2023-03-17] MEDS: methylPREDNISolone Sod Succ 125 MG/2 ML VIAL IVPUSH (12:03)
--- NOTE | 2023-03-17 12:06 | PC.NURSE ---
medication administered per provider order.
[2023-03-17 12:25] LABS: Reflex Lactate? Lactic Acid Added
--- NOTE | 2023-03-17 12:44 | PC.NURSE ---
abx completely infused and d/c'd. pt still c/o SOB and pain on inspiration. pt showing no work of breathing melvin but displays pursed lip breathing to soothe self. pt able to speak in full/clear sentences w/o signs of distress. pt's lung sounds clear throughout post breathing treatment. pt's bedside. call mendiola within reach.
[2023-03-17 13:10] LABS: ~Lactic Acid-LAB USE ONLY 3.1 mmol/L (0.5-2.0)
--- NOTE | 2023-03-17 13:24 | PC.NURSE ---
a&ox3, vss, sinus tachy on the transmitter engineer, IVF hung and administered per provider order. pt resting comfortably in no apparent distress.
--- NOTE | 2023-03-17 13:56 | PHA.MEDREC ---
Pharmacy Consult ? Medication Reconciliation Pharmacy has completed the medication reconciliation. Spoke to patient to confirm meds. Patient had med list with them.
--- NOTE | 2023-03-17 14:22 | PM.IMHP ---
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 Puentes recent echo showed EF 40-45%, cardiac catheterization at [facility] last ER showed no hemodynamically significant obstructive disease, recent dobutamine myocardial perfusion imaging study showed no acute ischemia or infarction, patient tachycardia was felt to be related to advanced lung disease, and theophylline use patient has been maintained on verapamil to counter this tachycardia and to of antianginal , patient has been followed closely by his fire pilot due to worsening shortness of breath with exertion for last several months but worse in last 3 weeks patient recently finished a course of prednisone ends antibiotic 2 weeks ago and was recently placed on Lasix but since patient was not having any improvement in symptoms he went for a follow-up appointment at pulmonology for increasing work of breathing, chest discomfort and was referred to [place] ED for further evaluation and treatment. today patient is complaining of shortness of breath for the past few weeks ,reports that shortness of breath is worse with exertion better at rest, he complains of chest tightness that occurs even at rest gets better with deep breathing in few minutes and with use of nitro, he complains of epigastric pain burning acidity, he denies associated fever chills, no headache, no dizziness, denies nausea, no vomiting, no diarrhea , he uses DuoNeb twice daily use Symbicort inhaler, he awful and Spiriva religiously and uses home O2 as prescribed in ED CTA chest showed no PE, no infiltrate, WBC 42984, potassium 3.1, elevated lactic acid 2.4, normal creatinine, bicarb 30 magnesium 2.2 patient treated with the emergency room with IV steroids and now being admitted to [facility] due to persistent dyspnea of exertion of several weeks duration. Review of Systems Review of Systems: General no headache no dizziness no fever chills. CVS no palpitation. Respiratory Shortness of breath, dry cough Gastrointestinal no nausea no vomiting, no abdominal pain no urgency, no frequency skin no rash all other system reviewed and negative [facility] Medical History Afib Atherosclerotic cardiovascular disease Cardiomyopathy COPD (chronic obstructive pulmonary disease) HLD (hyperlipidemia) Tachyarrhythmia Family History Other Adopted Social History Household Members: Spouse Housing: Apartment Do you presently have visiting nurse or other home services: No Alcohol intake: never Patient Tobacco Use Status: Former Tobacco user Quit Date: 2010 Cigarette Packs Per Day: 1 Years Smoked: 41 Smoked in Last 30 Days: No Use of substances other than those prescribed or required for medical reasons: No Advance Directives: Yes Advance Directives on File: Yes Advance Directives Date on File: 10/19/20 Nutrition Risks: No Nutritional Risk Current occupational status: retired [employer] Allergies Allergy/AdvReac Type Severity Reaction Status Date / Time No Known Allergies Allergy Verified 03/17/23 09:44 Active Medications: Current Medications Acetaminophen (Acetaminophen 325 Mg Tablet) 650 mg PO Q6H PRN PRN Reason: Pain, Mild (Pain Scale 1-3) Albuterol/Ipratropium (Albuterol/Iprat 2.5/0.5mg 3 Ml Ampul.Neb) 3 ml INHALE QID [facility] Ascorbic Acid (Ascorbic Acid 500 Mg Tablet) 1,000 mg PO DAILY [facility] Aspirin (Aspirin Enteric Coated 81 Mg Tablet.) 81 mg PO DAILY [facility] Atorvastatin Calcium (Atorvastatin Calcium 20 Mg Tablet) 20 mg PO BEDTIME [facility] Clonazepam (Clonazepam 1 Mg Tablet) 1 mg PO DAILY PRN PRN Reason: anxiety Magnesium Hydroxide (Milk Of Magnesia 30 Ml Oral.Susp) 30 ml PO DAILY PRN PRN Reason: Constipation Melatonin (Melatonin 3 Mg Tablet) 3 mg PO BEDTIME PRN PRN Reason: Insomnia Methylprednisolone Sodium Succinate (Methylprednisolone Sod Succ 40 Mg/Ml Vial) 40 mg IVPUSH BID [facility] Mirtazapine (Mirtazapine 30 Mg Tablet) 30 mg PO BEDTIME [facility] Multivitamins/Vitamin C (Multivitamin Tablet) 1 tab PO DAILY [facility] Nitroglycerin (Nitroglycerin 0.4 Mg Tab.Subl) 0.4 mg SUBLINGUAL Q5M PRN PRN Reason: Angina Omeprazole (Omeprazole 40 Mg Capsule.) 40 mg PO DAILY@0630 [facility] Ondansetron HCl (Ondansetron Hcl 4 Mg/2 Ml Vial) 4 mg IVPUSH Q8H PRN PRN Reason: Nausea and Vomiting Sodium Chloride (0.9 % Sodium Chloride Flush 3 Ml Syringe) 3 ml IVFLUSH QSHIFT [facility] Theophylline (Theophylline Anhydrous Er 300 Mg Tab.Er.12h) 300 mg PO DAILY [facility] Tizanidine HCl (Tizanidine Hcl 4 Mg Tablet) 2 mg PO BEDTIME [facility] Trazodone HCl (Trazodone Hcl 25 Mg Halftab) 25 mg PO BEDTIME [facility] Verapamil HCl (Verapamil Hcl Sr 240 Mg Tablet.Er) 240 mg PO BEDTIME [facility]; Protocol Home Medications Medication Instructions Recorded Confirmed Last Taken Type albuterol sulfate 90 mcg/actuation 2 puff inhalation Q4H PRN Wheezing 04/26/20 03/17/23 Unknown History aerosol inhaler atorvastatin 20 mg tablet 20 mg PO BEDTIME 04/26/20 03/17/23 03/16/23 History mirtazapine 30 mg tablet 30 mg PO BEDTIME 04/26/20 03/17/23 03/16/23 History pantoprazole 40 mg tablet,delayed 40 mg PO DAILY@0630 04/26/20 03/17/23 03/17/23 07:00 History release trazodone 50 mg tablet 25 mg PO BEDTIME 04/26/20 03/17/23 03/16/23 History ascorbic acid (vitamin C) 500 mg 1,000 mg PO DAILY 10/19/20 03/17/23 03/17/23 09:00 History tablet (Vitamin C) multivitamin 1 tab PO DAILY 10/19/20 03/17/23 03/17/23 09:00 History tiotropium bromide 18 mcg capsule 1 cap inhalation DAILY 10/19/20 03/17/23 03/17/23 09:00 History with inhalation device (Spiriva with HandiHaler) tizanidine 2 mg tablet 2 mg PO BEDTIME 10/19/20 03/17/23 03/16/23 History aspirin 81 mg tablet,delayed 81 mg PO DAILY 11/17/22 03/17/23 03/17/23 09:00 History release (Adult Low Dose Aspirin) nitroglycerin 0.4 mg sublingual 0.4 mg sublingual Q5M PRN Angina 11/17/22 03/17/23 Unknown History tablet acetaminophen 500 mg tablet 500 mg PO Q6H PRN Pain 03/17/23 03/17/23 Unknown History ipratropium 0.5 mg-albuterol 3 mg 3 ml inhalation Q4H PRN for 03/17/23 03/17/23 Unknown History (2.5 mg base)/3 mL nebulization wheezing soln levalbuterol HCl 1.25 mg/3 mL 1.25 mg inhalation Q4H PRN 03/17/23 03/17/23 Unknown History solution for nebulization Shortness Of Breath Or Wheezing lidocaine 5 % topical patch 1 patch topical DAILY 03/17/23 03/17/23 03/17/23 09:00 History Physical Exam Vital Signs and Narrative: Vital Signs: Last Vital Signs Temp 97.6 F 03/17/23 13:17 Pulse 93 03/17/23 13:17 Resp 16 03/17/23 13:17 BP 104/65 03/17/23 13:17 Pulse Ox 97 03/17/23 13:17 O2 Del Method Nasal Cannula 03/17/23 13:17 O2 Flow Rate 2 03/17/23 13:17 Oxygen Flow Rate 2 03/17/23 11:36 BMI result Body Mass Index 23.5 Const: Other: General awake alert x3 talking in full sentences, in no respiratory distress. anicteric sclera Neck is supple no JVD. CVS regular rate rhythm, Respiratory lungs clear to auscultation, diminished, no respiratory distress, no wheeze, no rhonchi. Gastrointestinal abdomen soft, nontender, bowel sounds audible, no guarding , no rigidity. Extremities edema. Neuro nonfocal patient moving all 4 extremity speech clear. Skin no rash psych appropriate affect Results Labs 03/17/23 10:19 03/17/23 10:19 Labs: Laboratory Results - last 24 hr 03/17/23 03/17/23 03/17/23 10:06 10:19 10:19 MCV 91.0 MCH 31.0 MCHC 34.1 RDW 13.0 Plt Count 283 MPV 8.9 L Immature Gran % (Auto) 0.7 H Neut % (Auto) 80.6 H Lymph % (Auto) 11.6 L [place] % (Auto) 6.4 Eos % (Auto) 0.5 Baso % (Auto) 0.2 Lymph # (Auto) 1.4 [place] # (Auto) 0.8 Eos # (Auto) 0.1 Baso # (Auto) 0.0 Abs Immat Gran (auto) 0.08 H Absolute Neuts (auto) 9.7 H Absolute Nucleated RBC 0.000 Nucleated RBC % (auto) 0.0 PT INR D-Dimer High Sensitivty Anion Gap 14 Estim Creat Clear Calc 72.2 Estimated GFR > 60 Random Glucose 109 Lactic Acid Lactic Acid F/U @ 2Hr Calcium 10.1 D Magnesium 2.2 Total Bilirubin 0.7 AST 18 ALT 17 Alkaline Phosphatase 58 B-Natriuretic Peptide Total Protein 7.1 Albumin 4.3 COVID-19 (HAYDEE) Negative COVID-19 9+ Com See Note 03/17/23 03/17/23 03/17/23 10:19 10:19 10:19 MCV MCH MCHC RDW Plt Count MPV Immature Gran % (Auto) Neut % (Auto) Lymph % (Auto) [place] % (Auto) Eos % (Auto) Baso % (Auto) Lymph # (Auto) [place] # (Auto) Eos # (Auto) Baso # (Auto) Abs Immat Gran (auto) Absolute Neuts (auto) Absolute Nucleated RBC Nucleated RBC % (auto) PT 11.0 L INR 0.9 D-Dimer High Sensitivty < 150 Anion Gap Estim Creat Clear Calc Estimated GFR Random Glucose Lactic Acid 2.4 H* Lactic Acid F/U @ 2Hr Calcium Magnesium Total Bilirubin AST ALT Alkaline Phosphatase B-Natriuretic Peptide 18 Total Protein Albumin COVID-19 (HAYDEE) COVID-[facility] 03/17/23 12:39 MCV MCH MCHC RDW Plt Count MPV Immature Gran % (Auto) Neut % (Auto) Lymph % (Auto) [place] % (Auto) Eos % (Auto) Baso % (Auto) Lymph # (Auto) [place] # (Auto) Eos # (Auto) Baso # (Auto) Abs Immat Gran (auto) Absolute Neuts (auto) Absolute Nucleated RBC Nucleated RBC % (auto) PT INR D-Dimer High Sensitivty Anion Gap Estim Creat Clear Calc Estimated GFR Random Glucose Lactic Acid Lactic Acid F/U @ 2Hr 3.1 H* Calcium Magnesium Total Bilirubin AST ALT Alkaline Phosphatase B-Natriuretic Peptide Total Protein Albumin COVID-19 (HAYDEE) COVID[facility] Com Imaging Radiologist's Impressions: Impressions Chest X-Ray 03/17/23 10:30 IMPRESSION: No acute cardiopulmonary process. Chest CTA 03/17/23 11:22 IMPRESSION: No evidence of PE. No evidence of aortic dissection or aneurysm. Centrilobular emphysema with bilateral apical pleural thickening. No acute consolidation. VTE: negative Assessment and Plan (1) Shortness of breath: Status: Acute Plan 73-year-old gentleman with past medical history of COPD, chronic respiratory failure who was sent from pulmonary clinic with worsening shortness of breath and failing outpatient treatment with by mouth steroids and antibiotics acute COPD exacerbation /chronic respiratory failure. worsening dyspnea of exertion likely due to worsening underlying severe COPD CTA chest showed no PE, no infiltrate recently finished course of antibiotic and prednisone will place on scheduled DuoNeb updraft and as needed, IV Solu Medrol 40 b.i.d. continue theophylline, check respiratory viral panel, Symbicort is non formulary hold Spiriva no evidence of CHF, hold Lasix , BNP 18, no evidence of fluid overload, recent echo showed EF between 55-60% no evidence of regional wall motion abnormality and normal diastolic function likely need higher concentration of oxygen , scheduled DuoNeb q.i.d. and chronic prednisone, along with steroid inhalers and Spiriva. consult pulmonology. hypokalemia due to recent use of Lasix will replace and follow labs Leukocytosis r/t steroid use h/o tachyarrythmia no documented paroxysmal atrial fibrillation, continue verapamil, dose of theophylline reduced to 300 mg daily acute lactic acidosis likely due to updraft treatment, due to dehydration with recent use of Lasix,r/t tachycardia not r/t sepsis or infectious source. HLD continue Lipitor mood disorder continue Remeron and trazodone gerd continue ppi dvt ppx - lovenox code status - DNI in my clinical judgment patient need to night inpatient stay for management of acute worsening dyspnea on exertion with underlying COPD requiring IV steroids Time Spent With Patient Time: Total time managing care of this patient today ____ minutes. Quality Stroke Does the patient have a stroke diagnosis?: No VTE Prior VTE?: No VTE Risk Level:: Medical - moderate - high VTE Device Contraindication: Treatment Not Indicated VTE Drug Contraindication: N/A - Med Ordered
--- NOTE | 2023-03-17 14:30 | PC.NURSE ---
labs drawn and sent to lab.
[2023-03-17 14:43] LABS: Reflex Lactate? 2 Y
[2023-03-17 14:56] LABS: Troponin-I High Sensitivity 4.4 ng/L (<3.5-35.0)
[2023-03-17] MEDS: 0.9 % Sodium Chloride Flush 3 ML SYRINGE IVFLUSH ×2 (15:12→23:09)
--- NOTE | 2023-03-17 15:14 | PC.NURSE ---
pt a&ox3, vss, sinus tachy w/ frequent PVCs on the nuclear monitoring technician. pt verbalizing no pain. pt states that he is feeling better but still SOB. pt able to speak in full, clear sentences w/o difficulty. lung sounds clear bilaterally/throughout. pt resting comfortably while watching tv. call mendiola placed within reach.
[2023-03-17 15:44] LABS: ~Lactic Acid-LAB USE ONLY 3.7 mmol/L (0.5-2.0)
--- NOTE | 2023-03-17 16:50 | PC.NURSE ---
report given to RN on IMC. transport notified that pt is ready to leave unit.
[2023-03-17 16:54] LABS: Theophylline 11.4 MG/L ((10-20))
[2023-03-17 16:56] LABS: Appearance Urine Clear; Color Urine Yellow; Glucose Urine UA Negative (Negative); Leukocyte Esterase Urine Negative (Negative); Nitrite Urine Negative (Negative); Specific Gravity - Urine >= 1.030 (1.005-1.025); Urine Blood Negative (Negative); Urine Ketones Negative (Negative); Urine Protein Negative (Neg-Trace)
[2023-03-17] MEDS: Potassium Chloride ER 20 MEQ TAB.ER.PRT 40 MEQ PO (18:17)
[2023-03-17] MEDS: Enoxaparin Sodium 40 MG/0.4 ML SYRINGE SUBCUT (18:20)
[2023-03-17] MEDS: Albuterol/Iprat 2.5/0.5MG 3 ML AMPUL.NEB INHALE (19:57)
[2023-03-17] MEDS: TiZANidine HCL 4 MG TABLET 2 MG PO (20:34)
[2023-03-17] MEDS: Atorvastatin Calcium 20 MG TABLET PO (20:36)
[2023-03-17] MEDS: Mirtazapine 30 MG TABLET PO (20:36)
[2023-03-17] MEDS: traZODone HCL 25 MG HALFTAB PO (20:36)
[2023-03-17] MEDS: methylPREDNISolone Sod Succ 40 MG/ML VIAL IVPUSH (20:36)
[2023-03-17] MEDS: VerapamiL HCL SR 240 MG TABLET.ER PO (20:36)
--- NOTE | 2023-03-17 21:19 | ECG_ITS ---
Test Reason : CP Blood Pressure : / mmHG Vent. Rate : 119 BPM Atrial Rate : 119 BPM P-R Int : 152 ms QRS Dur : 072 ms QT Int : 330 ms P-R-T Axes : 081 082 077 degrees QTc Int : 464 ms Sinus tachycardia Right atrial enlargement Cannot rule out Anterior infarct (cited on or before 23-OCT-2020) Abnormal ECG When compared with ECG of 17-MAR-2023 10:03, Premature atrial complexes are no longer Present Referred By: Jed Garcia Electronically Signed By:EMIL PATEL
[2023-03-18] VITALS (10 sets, daily range): BP systolic 116–163; BP diastolic 65–92; PULSE 86–142; RESP 18–20; TEMP 36.4–37.1; O2SAT 94–98
--- NOTE | 2023-03-18 | ECG_ITS ---
Test Reason : TACHYCARDIA Blood Pressure : / mmHG Vent. Rate : 130 BPM Atrial Rate : 130 BPM P-R Int : 144 ms QRS Dur : 068 ms QT Int : 308 ms P-R-T Axes : 084 084 077 degrees QTc Int : 453 ms Sinus tachycardia with frequent Premature ventricular complexes Biatrial enlargement Anterior infarct (cited on or before 23-OCT-2020) Abnormal ECG When compared with ECG of 17-MAR-2023 21:19, Premature ventricular complexes are now Present Referred By: Mary Jo Venegas Electronically Signed By:EMIL PATEL
--- NOTE | 2023-03-18 01:09 | PC.NURSE ---
2054; Patient with tachycardia, HR 122, BP 127/72, scheduled verapamil sr 240mg administered per sep. Patient reports a history of tachycardia. Patient offers no complaints at this time, denies pain or discomfort. No orders for cardiac monitoring. Dr. Bang notified. Orders for EKG, cardiac monitoring. Ekg done and sent to Dr. Bang.
[2023-03-18] MEDS: Omeprazole 40 MG CAPSULE.DR PO (06:33)
[2023-03-18 07:03] LABS: Anion Gap 13 (12-20); Blood Urea Nitrogen 19 mg/dL (9-16); Calcium 9.7 mg/dL (8.4-10.2); Carbon Dioxide 26 mmol/L (22-29); Chloride 107 mmol/L (96-108); Creatinine Clr Calc Pharmacy 92.9; Estimated Glomerular Filt Rate > 60; Glucose Random 119 mg/dL (60-115); Sodium 142 mmol/L (135-145)
[2023-03-18] MEDS: Ascorbic Acid 500 MG TABLET 1000 MG PO (07:46)
[2023-03-18] MEDS: Theophylline Anhydrous ER 300 MG TAB.ER.12H PO (07:46)
[2023-03-18] MEDS: Aspirin Enteric Coated 81 MG TABLET.DR PO (07:46)
[2023-03-18] MEDS: Multivitamin TABLET 1 TAB PO (07:47)
[2023-03-18] MEDS: 0.9 % Sodium Chloride Flush 3 ML SYRINGE IVFLUSH ×3 (07:49→23:06)
[2023-03-18] MEDS: methylPREDNISolone Sod Succ 40 MG/ML VIAL IVPUSH ×2 (07:49→23:02)
[2023-03-18] MEDS: Albuterol/Iprat 2.5/0.5MG 3 ML AMPUL.NEB INHALE ×4 (07:55→20:00)
--- NOTE | 2023-03-18 09:09 | MHC.CM.PN ---
IMM 03/18. Pt admitted with dyspnea on exertion. Pt lives at home with his , uses a rollater walker when out of the house, and has home O2 with Lisa. Pt reports he goes to the pulmonary rehab at [facility] on /. D/C plan: return home self-care. Pt can drive himself home. HCP on file and verified. PCP: Alfa Reyes vax: x 4
--- NOTE | 2023-03-18 09:33 | PM.CNPUL ---
History of Present Illness History of Present Illness Consult date: 03/18/23 Chief complaint: dyspnea on exertion Narrative: This is an inpatient pulmonary consultation. The patient is a 73-year-old male with past medical history of COPD, chronic respiratory failure on home oxygen 0.5 L at rest and with exertion 2-3 L,? sinus tachycardia no official diagnosis of atrial fibrillation, recent echo showed EF? 40-45%, cardiac catheterization? at [facility] last ER showed no hemodynamically significant obstructive disease, recent dobutamine myocardial perfusion imaging study showed no acute ischemia or infarction, patient tachycardia was felt to be related to advanced lung disease, and theophylline use patient has been maintained on verapamil to counter this tachycardia and to of antianginal , patient has been followed closely by his back end engineer due to worsening shortness of breath with exertion for last several months but worse in last 3 weeks patient recently finished a course of prednisone ends antibiotic 2 weeks ago and was recently placed on Lasix but since patient was not having any improvement in symptoms he went for a follow-up appointment at pulmonology? for increasing work of breathing, chest discomfort and was referred to [place] [facility] for further evaluation and treatment. In the ER the patient did have a CTA which was personally by me demonstrating extensive emphysema otherwise no acute disease. Review of Systems Review of Systems: General no headache no dizziness no fever chills. CVS no palpitation. Respiratory Shortness of breath, dry cough Gastrointestinal no nausea no vomiting, no abdominal pain no urgency, no frequency skin no rash all other system reviewed and negative ENT: Reports Normal hearing present Neurologic: Reports Normal hearing present [facility] Past Medical History Medical History Afib Atherosclerotic cardiovascular disease Cardiomyopathy COPD (chronic obstructive pulmonary disease) HLD (hyperlipidemia) Tachyarrhythmia Family History Family History Other Adopted Social History Social History Household Members: Spouse Housing: Condominium Do you presently have visiting nurse or other home services: No Alcohol intake: never Patient Tobacco Use Status: Former Tobacco user Quit Date: 2010 Cigarette Packs Per Day: 1 Years Smoked: 41 Smoked in Last 30 Days: No Patient Interested in Nicotine Replacement: No Use of substances other than those prescribed or required for medical reasons: No Currently Displaying Signs/Symptoms of Drug Intoxication Withdrawal: No Have you been hit, kicked, punched, or otherwise hurt by someone within the past year? If so, by whom?: No Do you feel safe in your current relationship?: Yes Is there a partner from a previous relationship who is making you feel unsafe now?: No Are you made to feel afraid or neglected: No Advance Directives: Yes Advance Directives on File: Yes Advance Directives Date on File: 10/19/20 Do you have thoughts of harming others: None Do you have a plan to hurt others: No Plan Recently lost weight without trying: No Eating poorly because of decreased appetite: No Nutrition Risks: No Nutritional Risk Poor oral hygiene: No service: No Current occupational status: retired [employer] Allergies Allergy/AdvReac Type Severity Reaction Status Date / Time No Known Allergies Allergy Verified 03/17/23 09:44 Active Medications: Current Medications Acetaminophen (Acetaminophen 325 Mg Tablet) 650 mg PO Q6H PRN PRN Reason: Pain, Mild (Pain Scale 1-3) Albuterol/Ipratropium (Albuterol/Iprat 2.5/0.5mg 3 Ml Ampul.Neb) 3 ml INHALE QID [facility] Last Admin: 03/18/23 07:55 Dose: 3 ml Ascorbic Acid (Ascorbic Acid 500 Mg Tablet) 1,000 mg PO DAILY [facility] Last Admin: 03/18/23 07:46 Dose: 1,000 mg Aspirin (Aspirin Enteric Coated 81 Mg Tablet.) 81 mg PO DAILY [facility] Last Admin: 03/18/23 07:46 Dose: 81 mg Atorvastatin Calcium (Atorvastatin Calcium 20 Mg Tablet) 20 mg PO BEDTIME [facility] Last Admin: 03/17/23 20:36 Dose: 20 mg Clonazepam (Clonazepam 1 Mg Tablet) 1 mg PO DAILY PRN PRN Reason: anxiety Enoxaparin Sodium (Enoxaparin Sodium 40 Mg/0.4 Ml Syringe) 40 mg SUBCUT Q24H [facility] Last Admin: 03/17/23 18:20 Dose: 40 mg Magnesium Hydroxide (Milk Of Magnesia 30 Ml Oral.Susp) 30 ml PO DAILY PRN PRN Reason: Constipation Melatonin (Melatonin 3 Mg Tablet) 3 mg PO BEDTIME PRN PRN Reason: Insomnia Methylprednisolone Sodium Succinate (Methylprednisolone Sod Succ 40 Mg/Ml Vial) 40 mg IVPUSH BID [facility] Last Admin: 03/18/23 07:49 Dose: 40 mg Mirtazapine (Mirtazapine 30 Mg Tablet) 30 mg PO BEDTIME [facility] Last Admin: 03/17/23 20:36 Dose: 30 mg Multivitamins/Vitamin C (Multivitamin Tablet) 1 tab PO DAILY [facility] Last Admin: 03/18/23 07:47 Dose: 1 tab Nitroglycerin (Nitroglycerin 0.4 Mg Tab.Subl) 0.4 mg SUBLINGUAL Q5M PRN PRN Reason: Angina Omeprazole (Omeprazole 40 Mg Capsule.Dr) 40 mg PO DAILY@0630 [facility] Last Admin: 03/18/23 06:33 Dose: 40 mg Ondansetron HCl (Ondansetron Hcl 4 Mg/2 Ml Vial) 4 mg IVPUSH Q8H PRN PRN Reason: Nausea and Vomiting Sodium Chloride (0.9 % Sodium Chloride Flush 3 Ml Syringe) 3 ml IVFLUSH QSHIFT [facility] Last Admin: 03/18/23 07:49 Dose: 3 ml Theophylline (Theophylline Anhydrous Er 300 Mg Tab.Er.12h) 300 mg PO DAILY [facility] Last Admin: 03/18/23 07:46 Dose: 300 mg Tizanidine HCl (Tizanidine Hcl 4 Mg Tablet) 2 mg PO BEDTIME [facility] Last Admin: 03/17/23 20:34 Dose: 2 mg Trazodone HCl (Trazodone Hcl 25 Mg Halftab) 25 mg PO BEDTIME [facility] Last Admin: 03/17/23 20:36 Dose: 25 mg Verapamil HCl (Verapamil Hcl Sr 240 Mg Tablet.Er) 240 mg PO BEDTIME [facility]; Protocol Last Admin: 03/17/23 20:36 Dose: 240 mg Home Medications Medication Instructions Recorded Confirmed Last Taken Type albuterol sulfate 90 mcg/actuation 2 puff inhalation Q4H PRN Wheezing 04/26/20 03/17/23 Unknown History aerosol inhaler atorvastatin 20 mg tablet 20 mg PO BEDTIME 04/26/20 03/17/23 03/16/23 History mirtazapine 30 mg tablet 30 mg PO BEDTIME 04/26/20 03/17/23 03/16/23 History pantoprazole 40 mg tablet,delayed 40 mg PO DAILY@0630 04/26/20 03/17/23 03/17/23 07:00 History release trazodone 50 mg tablet 25 mg PO BEDTIME 04/26/20 03/17/23 03/16/23 History ascorbic acid (vitamin C) 500 mg 1,000 mg PO DAILY 10/19/20 03/17/23 03/17/23 09:00 History tablet (Vitamin C) multivitamin 1 tab PO DAILY 10/19/20 03/17/23 03/17/23 09:00 History tiotropium bromide 18 mcg capsule 1 cap inhalation DAILY 10/19/20 03/17/23 03/17/23 09:00 History with inhalation device (Spiriva with HandiHaler) tizanidine 2 mg tablet 2 mg PO BEDTIME 10/19/20 03/17/23 03/16/23 History aspirin 81 mg tablet,delayed 81 mg PO DAILY 11/17/22 03/17/23 03/17/23 09:00 History release (Adult Low Dose Aspirin) nitroglycerin 0.4 mg sublingual 0.4 mg sublingual Q5M PRN Angina 11/17/22 03/17/23 Unknown History tablet acetaminophen 500 mg tablet 500 mg PO Q6H PRN Pain 03/17/23 03/17/23 Unknown History ipratropium 0.5 mg-albuterol 3 mg 3 ml inhalation Q4H PRN for 03/17/23 03/17/23 Unknown History (2.5 mg base)/3 mL nebulization wheezing soln levalbuterol HCl 1.25 mg/3 mL 1.25 mg inhalation Q4H PRN 03/17/23 03/17/23 Unknown History solution for nebulization Shortness Of Breath Or Wheezing lidocaine 5 % topical patch 1 patch topical DAILY 03/17/23 03/17/23 03/17/23 09:00 History Physical Exam Vital Signs: Vital Signs: Last Vital Signs Temp 98.4 F 03/18/23 07:32 Pulse 98 03/18/23 07:55 Resp 20 03/18/23 07:55 BP 129/69 03/18/23 07:32 Pulse Ox 97 03/18/23 07:32 O2 Del Method Nasal Cannula 03/18/23 07:32 O2 Flow Rate 2 03/18/23 07:32 Oxygen Flow Rate 2 03/17/23 11:36 BMI result Body Mass Index 23.5 Const: General: cooperative, no acute distress and alert Orientation/consciousness: patient oriented x3 Limitations: ambulation with walker HEENT: Head: Yes normal to inspection, Yes normocephalic and Yes atraumatic Ears: hearing grossly normal bilaterally and external ears normal Eyes: General: appearance normal, both eyes and all related structures Eyelids: Yes eyelids normal Sclerae: sclerae normal EOM: EOMs intact bilaterally Neck: Neck: Yes normal visual inspection and Yes no lymphadenopathy Lymphatic: no lymphadenopathy noted Chest: Chest palpation & inspection: normal inspection of the chest Resp: Other: poor air movement bilaterally, some improvement after DuoNeb. Effort & Inspection: able to speak in complete sentences, Actively coughing Quality: actively coughing, no stridor and tripod positioning Auscultation: diminished lung sounds Cardio: Rhythm: regular rhythm Skin: Other: warm, dry General skin exam: no rashes or lesions noted Neuro: General: patient oriented x3 Cranial nerves: Yes Normal hearing present Cognition (Neuro): normal cognition Extrem: General: Yes normal to inspection and Yes no pedal edema Psych: Appearance: grossly normal and well kempt Speech and movement: Normal speech and movement present and Clear speech present Affect: normal affect Attitude: cooperative Thought process: Normal thought process present Thought content: Normal thought content present Insight: Good insight present (Psych) Judgement: Good judgement present (Psych) Results Laboratory Findings 03/17/23 10:19 03/18/23 06:19 ABG, PT/INR, D-dimer: PT/INR, D-dimer PT 11.0 SEC (11.1-13.3) L 03/17/23 10:19 INR 0.9 (0.9-1.1) 03/17/23 10:19 Abnormal lab findings: Abnormal Labs 03/17/23 03/17/23 03/17/23 10:19 10:19 10:19 WBC 12.0 H RBC 4.45 L Hgb 13.8 L Hct 40.5 L MPV 8.9 L Immature Gran % (Auto) 0.7 H Neut % (Auto) 80.6 H Lymph % (Auto) 11.6 L Abs Immat Gran (auto) 0.08 H Absolute Neuts (auto) 9.7 H PT 11.0 L Potassium 3.1 L Carbon Dioxide 30 H BUN 22 H Random Glucose Lactic Acid Lactic Acid F/U @ 2Hr Lactic Acid F/U @ 4Hr Ur Specific [place] 03/17/23 03/17/23 03/17/23 10:19 12:39 15:07 WBC RBC Hgb Hct MPV Immature Gran % (Auto) Neut % (Auto) Lymph % (Auto) Abs Immat Gran (auto) Absolute Neuts (auto) PT Potassium Carbon Dioxide BUN Random Glucose Lactic Acid 2.4 H* Lactic Acid F/U @ 2Hr 3.1 H* Lactic Acid F/U @ 4Hr 3.7 H* Ur Specific [place] 03/17/23 03/18/23 16:45 06:19 WBC RBC Hgb Hct MPV Immature Gran % (Auto) Neut % (Auto) Lymph % (Auto) Abs Immat Gran (auto) Absolute Neuts (auto) PT Potassium Carbon Dioxide BUN 19 H Random Glucose 119 H Lactic Acid Lactic Acid F/U @ 2Hr Lactic Acid F/U @ 4Hr Ur Specific [place] >= 1.030 H Assessment and Plan (1) COPD (chronic obstructive pulmonary disease): Status: Acute (2) Acute and chronic respiratory failure: Status: Acute (3) Cough: Status: Acute Plan The patient is presenting with a COPD exacerbation. Slow to recover. Multiple course of prednisone and antibiotics. His CT scan is reassuring that he does not have any evidence of any lower respiratory infection. Does have an ongoing cough. Seems to evolve into prolonged coughing spells making it hard for him to breathe. Recommendations: Continue Solu-Medrol Continue respiratory therapy Add Mucinex DM twice a day Add benzonatate as needed to help with cough Continue oxygen supplementation to maintain a pulse ox above 90% Check theophylline levels Time Spent With Patient Time: Total time managing care of this patient today ____ minutes. Procedures Date of Service Date of Service: 03/18/23
[2023-03-18] MEDS: guaiFENesin LA 600 MG TAB.ER.12H PO (11:29)
[2023-03-18] MEDS: Loratadine 10 MG TABLET PO (11:30)
[2023-03-18 12:06] LABS: Adenovirus PCR Not Detected (Not Detect.); Bordetella parapertussis PCR Not Detected (Not Detect.); Bordetella pertussis PCR Not Detected (Not Detect.); Chlamydia pneumoniae PCR Not Detected (Not Detect.); Coronavirus 229E PCR Not Detected (Not Detect.); Coronavirus HKU1 PCR Not Detected (Not Detect.)
[2023-03-18 12:07] LABS: Coronavirus NL63 PCR Not Detected (Not Detect.); Coronavirus OC43 PCR Not Detected (Not Detect.); Human metapneumovirus PCR Not Detected (Not Detect.); Influenza A PCR Not Detected (Not Detect.); Influenza B PCR Not Detected (Not Detect.); Mycoplasma pneumoniae PCR Not Detected (Not Detect.); Parainfluenza 1 PCR Not Detected (Not Detect.); Parainfluenza 2 PCR Not Detected (Not Detect.); Parainfluenza 3 PCR Not Detected (Not Detect.); Parainfluenza 4 PCR Not Detected (Not Detect.); RSV PCR Not Detected (Not Detect.); Rhino/Enterovirus PCR Not Detected (Not Detect.); SARS-CoV-2 PCR Not Detected (Not Detect.)
--- NOTE | 2023-03-18 12:22 | PC.NURSE ---
Addendum entered by Hailey Andino RN 03/18/23 16:40: Approx 1538 pt notified RN while in bathroom increased work of breathing, dizziness and palpitations. HR into 150-160. Oxygen increased to 6L for comfort. BP 163/92 HR 139 sats 96% on 3L nasal cannula. Pt resting in bed Dr Venegas notified EKG obtained. Medicated with prn clonazepam per pt request. Dr Venegas at bedside to see patient. Plan to give Verapamil. Per pt feeling better shortly after. Will continue to monitor and report changes Original Note: Pt alert and oriented x4. Neurologically intact. LS dim all ovalle remains on 3L oxygen per pt request for comfort, seen by RT for updrafts. Continues on IV steroids. BS+X4 abdomen soft non-tender denies nausea/vomiting tolerating diet. Denies pain/discomfort. ST on tele. Sustained into 130's at 1220 with more frequent PVC's Dr Venegas notified. OOB to chair independent. Will continue to monitor and report changes
--- NOTE | 2023-03-18 15:02 | P.PNIM_ITS ---
Subjective Subjective Date of Service: 03/18/23 Interval History: dyspnea on exertion Review of Systems sob stillsimilar to yesterday Denies any chest pain or cough or phlegm. No fevers Physical Exam Vital Signs: Vital Signs: Last Vital Signs Temp 98.6 F 03/18/23 11:15 Pulse 113 H 03/18/23 11:15 Resp 20 03/18/23 11:15 BP 134/65 03/18/23 11:15 Pulse Ox 97 03/18/23 11:15 O2 Del Method Nasal Cannula 03/18/23 11:15 O2 Flow Rate 3 03/18/23 11:15 Oxygen Flow Rate 2 03/17/23 11:36 BMI result Body Mass Index 23.5 Appearance: Alert.? Oriented X3.? not in distress.? cvs: rrr, [id number] . res: air entry seems diminshed ,few rhonchii b/l. abd: no rebound or guarding ,nt, bs present. ext pulses present , no cyanosis . neuro: axo3 , nonfocal. Objective Data Active Medications Acetaminophen (Acetaminophen 325 Mg Tablet) 650 mg PO Q6H PRN PRN Reason: Pain, Mild (Pain Scale 1-3) Albuterol/Ipratropium (Albuterol/Iprat 2.5/0.5mg 3 Ml Ampul.Neb) 3 ml INHALE QID [facility] Last Admin: 03/18/23 11:14 Dose: 3 ml Documented By: JORJE Ascorbic Acid (Ascorbic Acid 500 Mg Tablet) 1,000 mg PO DAILY [facility] Last Admin: 03/18/23 07:46 Dose: 1,000 mg Documented By: NOLAN Aspirin (Aspirin Enteric Coated 81 Mg Tablet.) 81 mg PO DAILY [facility] Last Admin: 03/18/23 07:46 Dose: 81 mg Documented By: NOLAN Atorvastatin Calcium (Atorvastatin Calcium 20 Mg Tablet) 20 mg PO BEDTIME [facility] Last Admin: 03/17/23 20:36 Dose: 20 mg Documented By: ABDULLAHI Benzonatate (Benzonatate 100 Mg Capsule) 200 mg PO TID [facility] Clonazepam (Clonazepam 1 Mg Tablet) 1 mg PO DAILY PRN PRN Reason: anxiety Enoxaparin Sodium (Enoxaparin Sodium 40 Mg/0.4 Ml Syringe) 40 mg SUBCUT Q24H [facility] Last Admin: 03/17/23 18:20 Dose: 40 mg Documented By: ROGELIO Guaifenesin (Guaifenesin La 600 Mg Tab.Er.12h) 600 mg PO DAILY [facility] Last Admin: 03/18/23 11:29 Dose: 600 mg Documented By: NOLAN Guaifenesin/Dextromethorphan (Guaifenesin Dm 600/30 1 Tab Tab.Er.12h) 2 tab PO BID [facility] Loratadine (Loratadine 10 Mg Tablet) 10 mg PO DAILY [facility] Last Admin: 03/18/23 11:30 Dose: 10 mg Documented By: NOLAN Magnesium Hydroxide (Milk Of Magnesia 30 Ml Oral.Susp) 30 ml PO DAILY PRN PRN Reason: Constipation Melatonin (Melatonin 3 Mg Tablet) 3 mg PO BEDTIME PRN PRN Reason: Insomnia Methylprednisolone Sodium Succinate (Methylprednisolone Sod Succ 40 Mg/Ml Vial) 40 mg IVPUSH BID [facility] Last Admin: 03/18/23 07:49 Dose: 40 mg Documented By: NOLAN Mirtazapine (Mirtazapine 30 Mg Tablet) 30 mg PO BEDTIME [facility] Last Admin: 03/17/23 20:36 Dose: 30 mg Documented By: ABDULLAHI Multivitamins/Vitamin C (Multivitamin Tablet) 1 tab PO DAILY [facility] Last Admin: 03/18/23 07:47 Dose: 1 tab Documented By: NOLAN Nitroglycerin (Nitroglycerin 0.4 Mg Tab.Subl) 0.4 mg SUBLINGUAL Q5M PRN PRN Reason: Angina Omeprazole (Omeprazole 40 Mg Capsule.) 40 mg PO DAILY@0630 [facility] Last Admin: 03/18/23 06:33 Dose: 40 mg Documented By: ABDULLAHI Ondansetron HCl (Ondansetron Hcl 4 Mg/2 Ml Vial) 4 mg IVPUSH Q8H PRN PRN Reason: Nausea and Vomiting Sodium Chloride (0.9 % Sodium Chloride Flush 3 Ml Syringe) 3 ml IVFLUSH QSHIFT [facility] Last Admin: 03/18/23 07:49 Dose: 3 ml Documented By: NOLAN Theophylline (Theophylline Anhydrous Er 300 Mg Tab.Er.12h) 300 mg PO DAILY [facility] Last Admin: 03/18/23 07:46 Dose: 300 mg Documented By: HO.RUANES Tizanidine HCl (Tizanidine Hcl 4 Mg Tablet) 2 mg PO BEDTIME [facility] Last Admin: 03/17/23 20:34 Dose: 2 mg Documented By: ABDULLAHI Trazodone HCl (Trazodone Hcl 25 Mg Halftab) 25 mg PO BEDTIME [facility] Last Admin: 03/17/23 20:36 Dose: 25 mg Documented By: ABDULLAHI Verapamil HCl (Verapamil Hcl Sr 240 Mg Tablet.Er) 240 mg PO BEDTIME [facility]; Protocol Last Admin: 03/17/23 20:36 Dose: 240 mg Documented By: ABDULLAHI Labs 03/17/23 10:19 03/18/23 06:19 Labs: Laboratory Results - last 24 hr 03/17/23 03/17/23 03/17/23 14:29 15:07 16:45 Anion Gap Estim Creat Clear Calc Estimated GFR Random Glucose Lactic Acid F/U @ 4Hr 3.7 H* Calcium Urine Color Yellow Urine Appearance Clear Urine pH 8.0 Ur Specific [place] >= 1.030 H Urine Protein Negative Urine Glucose (UA) Negative Urine Ketones Negative Urine Blood Negative Urine Nitrite Negative Ur Leukocyte Esterase Negative Theophylline 11.4 Respiratory Panel Yoo Adenovirus (Rapid PCR) B.pert (TEM-PCR) B.parapertussis DNA PCR C. pneumoniae DNA (PCR) Coronavirus OC43 (PCR) Coronavirus HKU1 (PCR) Coronavirus 229E (PCR) Coronavirus NL63 (PCR) Human Metapneumovir PCR Influenza A (RT-PCR) Influenza B (RT-PCR) M. pneumoniae (PCR) Parainfluenza 1 (PCR) Parainfluenza 2 (PCR) Parainfluenza 3 (PCR) Parainfluenza 4 (PCR) RSV (PCR) Entero/Rhino (PCR) SARS-CoV-2 RNA (RT-PCR) 03/17/23 03/18/23 18:30 06:19 Anion Gap 13 Estim Creat Clear Calc 92.9 Estimated GFR > 60 Random Glucose 119 H Lactic Acid F/U @ 4Hr Calcium 9.7 Urine Color Urine Appearance Urine pH Ur Specific [place] Urine Protein Urine Glucose (UA) Urine Ketones Urine Blood Urine Nitrite Ur Leukocyte Esterase Theophylline Respiratory Panel Yoo See Note Adenovirus (Rapid PCR) Not Detected B.pert (TEM-PCR) Not Detected B.parapertussis DNA PCR Not Detected C. pneumoniae DNA (PCR) Not Detected Coronavirus OC43 (PCR) Not Detected Coronavirus HKU1 (PCR) Not Detected Coronavirus 229E (PCR) Not Detected Coronavirus NL63 (PCR) Not Detected Human Metapneumovir PCR Not Detected Influenza A (RT-PCR) Not Detected Influenza B (RT-PCR) Not Detected M. pneumoniae (PCR) Not Detected Parainfluenza 1 (PCR) Not Detected Parainfluenza 2 (PCR) Not Detected Parainfluenza 3 (PCR) Not Detected Parainfluenza 4 (PCR) Not Detected RSV (PCR) Not Detected Entero/Rhino (PCR) Not Detected SARS-CoV-2 RNA (RT-PCR) Not Detected Microbiology Microbiology Results: Microbiology 03/17/23 10:40 Blood Culture - Preliminary Blood - Venous No growth after 24 hours. 03/17/23 10:19 Blood Culture - Preliminary Blood - Venous No growth after 24 hours. Assessment and Plan (1) Acute and chronic respiratory failure: Status: Acute Assessment and Plan: ?73-year-old gentleman with past medical history of COPD, chronic respiratory failure who was sent from pulmonary clinic with worsening shortness of breath and failing outpatient treatment with by mouth steroids and antibiotics acute COPD exacerbation /chronic respiratory failure-worsening dyspnea of exertion likely due to worsening underlying severe COPD CTA chest showed no PE, no infiltrate recently finished course of antibiotic and prednisone. continue scheduled DuoNeb updraft and as needed, IV Solu Medrol 40 b.i.d. continue theophylline, respiratory viral panel-neg,Symbicort is non formulary hold Spiriva no evidence of CHF, hold Lasix , BNP 18, no evidence of fluid overload, recent echo showed EF between 55-60% no evidence of regional wall motion abnormality and normal diastolic function likely need higher concentration of oxygen , scheduled DuoNeb q.i.d. and chronic prednisone, along with steroid inhalers and Spiriva. pulmonology-continue above ,added mucinex ,benzonatate. hypokalemia due to recent use of Lasix will replace and follow labs Leukocytosis r/t steroid use h/o tachyarrythmia no documented paroxysmal atrial fibrillation, continue verapamil, dose of theophylline reduced to 300 mg daily theophylline levels pending. acute lactic acidosis likely due to updraft treatment, due to dehydration with recent use of Lasix,r/t tachycardia not r/t sepsis or infectious source. HLD continue? Lipitor ?mood disorder continue Remeron and trazodone gerd continue ppi dvt ppx - lovenox code status - DNI ongoing hospitilisation need:inpatient stay for management of acute worsening dy spnea on exertion with underlying COPD requiring IV steroids,pulm evaluation. Time Spent With Patient Time: Total time managing care of this patient today ____ minutes. Quality Stroke Does the patient have a stroke diagnosis?: No VTE Prior VTE?: No VTE Risk Level:: Medical - moderate - high VTE Device Contraindication: Treatment Not Indicated VTE Drug Contraindication: N/A - Med Ordered
--- NOTE | 2023-03-18 15:48 | ECG_ITS ---
Test Reason : PALPITATIONS Blood Pressure : / mmHG Vent. Rate : 133 BPM Atrial Rate : 133 BPM P-R Int : 140 ms QRS Dur : 078 ms QT Int : 304 ms P-R-T Axes : 084 085 076 degrees QTc Int : 452 ms Sinus tachycardia with occasional Premature ventricular complexes and Fusion complexes Right atrial enlargement Possible Anterior infarct (cited on or before 23-OCT-2020) Abnormal ECG When compared with ECG of 18-MAR-2023 12:29, Fusion complexes are now Present Referred By: Mary Jo Venegas Electronically Signed By:EMIL PATEL
[2023-03-18] MEDS: Benzonatate 100 MG CAPSULE 200 MG PO ×2 (16:00→23:02)
[2023-03-18] MEDS: clonazePAM 1 MG TABLET PO (16:00)
[2023-03-18] MEDS: VerapamiL HCL 5 MG/2 ML VIAL 2.5 MG IVPUSH (17:19)
[2023-03-18 17:30] LABS: Thyroid Stimulating Hormone 0.19 uIU/mL (0.32-4.0)
[2023-03-18] MEDS: VerapamiL HCL 80 MG TABLET PO ×2 (17:46→23:03)
[2023-03-18] MEDS: Enoxaparin Sodium 40 MG/0.4 ML SYRINGE SUBCUT (17:46)
[2023-03-18] MEDS: traZODone HCL 25 MG HALFTAB PO (23:03)
[2023-03-18] MEDS: Mirtazapine 30 MG TABLET PO (23:04)
[2023-03-18] MEDS: TiZANidine HCL 4 MG TABLET 2 MG PO (23:04)
[2023-03-18] MEDS: guaiFENesin DM 600/30 1 TAB TAB.ER.12H 2 TAB PO (23:04)
[2023-03-18] MEDS: Atorvastatin Calcium 20 MG TABLET PO (23:06)
[2023-03-18 23:36] LABS: Theophylline 14.6 MG/L ((10-20))
[2023-03-19] VITALS (11 sets, daily range): BP systolic 107–145; BP diastolic 60–70; PULSE 78–116; RESP 15–20; TEMP 36.2–36.9; O2SAT 96–99
[2023-03-19] MEDS: Omeprazole 40 MG CAPSULE.DR PO (06:07)
[2023-03-19 06:44] LABS: Thyroid Stimulating Hormone 0.11 uIU/mL (0.32-4.0)
[2023-03-19] MEDS: Albuterol/Iprat 2.5/0.5MG 3 ML AMPUL.NEB INHALE ×5 (07:50→19:39)
[2023-03-19] MEDS: VerapamiL HCL 80 MG TABLET PO ×4 (09:16→21:21)
[2023-03-19] MEDS: Ascorbic Acid 500 MG TABLET 1000 MG PO (09:16)
[2023-03-19] MEDS: Loratadine 10 MG TABLET PO (09:16)
[2023-03-19] MEDS: Benzonatate 100 MG CAPSULE 200 MG PO ×3 (09:16→21:20)
[2023-03-19] MEDS: Aspirin Enteric Coated 81 MG TABLET.DR PO (09:16)
[2023-03-19] MEDS: guaiFENesin DM 600/30 1 TAB TAB.ER.12H 2 TAB PO ×2 (09:16→21:20)
[2023-03-19] MEDS: Theophylline Anhydrous ER 300 MG TAB.ER.12H PO (09:16)
[2023-03-19] MEDS: guaiFENesin LA 600 MG TAB.ER.12H PO (09:16)
[2023-03-19] MEDS: 0.9 % Sodium Chloride Flush 3 ML SYRINGE IVFLUSH (09:16)
[2023-03-19] MEDS: Multivitamin TABLET 1 TAB PO (09:17)
[2023-03-19 09:19] LABS: VBG HCO3 25 mmol/L (22-26); VBG pCO2 39 mmHg; VBG pH 7.41 (7.32-7.43); VBG pO2 98 mmHg
[2023-03-19] MEDS: methylPREDNISolone Sod Succ 40 MG/ML VIAL IVPUSH ×2 (09:19→21:23)
[2023-03-19 09:21] LABS: Venous Blood Gas Refer to POC result
[2023-03-19] MEDS: Magnesium Sulfate/D5W 1 GM/100 ML PIGGYBACK IV (09:23)
[2023-03-19] MEDS: clonazePAM 1 MG TABLET PO (09:28)
--- NOTE | 2023-03-19 09:35 | P.CONCA_ITS ---
History of Present Illness History of Present Illness Date of Service: 03/19/23 Chief complaint: dyspnea on exertion Narrative: This is a cardiology consultation regarding tachycardia. Patient currently the hospital for acute COPD. Patient was last seen in the cardiology clinic about 3 months ago. He has a history of advanced COPD. In the past, he was listed for lung transplantation but no longer in the list due to age. He is on supplemental oxygen at baseline. He has frequent episodes of sinus tachycardia even as an outpatient, suspected to be from some combination of chronic lung disease as well as use of medications like steroids and theophylline. He also has LAD disease but not considered to be hemodynamically significant and mild cardiomyopathy that could be related to tachycardia. Main symptom is still shortness of breath. Nothing specifically cardiac sounding. Review of Systems Review of Systems: Yes all other systems are reviewed and are negative Constitutional: Constitutional: Reports as per HPI and Reports no additional c onstitutional complaints Eyes: Eyes: Reports as per HPI and Denies no additional eye complaints ENT: Denies system reviewed and no additional complaints, except as documented and Reports as per HPI Cardiovascular: Cardiovascular: Reports as per HPI, Reports no additional cardiovascular complaints, Denies acrocyanosis, Denies cool extremities, Denies chest pain, Denies leg edema, Denies lightheadedness, Denies palpitations and Reports dyspnea Respiratory: Respiratory: Reports as per HPI, Denies no additional respiratory complaints and Reports dyspnea Gastrointestinal: Gastrointestinal: Reports as per HPI and Denies no additional gastrointestinal complaints Genitourinary: Genitourinary: Reports no additional male genitourinary complaints and Reports as per HPI Musculoskeletal: Musculoskeletal: Reports no additional musculoskeletal compl aints and Reports as per HPI Integumentary/Breasts: Skin/Breast: Reports system reviewed and no additional complaints, except as docu Neurologic: Reports system reviewed and no additional complaints, except as documented and Reports as per HPI Psychiatric: Psychiatric: Reports no additional psychiatric complaints and Reports as per HPI Endocrine: Endocrine: Reports no additional endocrine complaints, Reports as per HPI and Denies palpitations Hematologic/Lymphatic: Hematologic/Lymphatic: Reports no additional hematologic/lymphatic complaints and Reports as per HPI Allergic/Immunologic: Allergic/Immunologic: Reports no additional allergic/immunologic complaints and Reports as per HPI PMFSH Past Medical History Medical History Afib Atherosclerotic cardiovascular disease Cardiomyopathy COPD (chronic obstructive pulmonary disease) HLD (hyperlipidemia) Tachyarrhythmia Family History Family History Other Adopted Social History Social History Household Members: [facility] Do you presently have visiting nurse or other home services: No Alcohol intake: never Patient Tobacco Use Status: Former Tobacco user Quit Date: 2010 Cigarette Packs Per Day: 1 Years Smoked: 41 Smoked in Last 30 Days: No Patient Interested in Nicotine Replacement: No Use of substances other than those prescribed or required for medical reasons: No Currently Displaying Signs/Symptoms of Drug Intoxication Withdrawal: No Have you been hit, kicked, punched, or otherwise hurt by someone within the past year? If so, by whom?: No Do you feel safe in your current relationship?: Yes Is there a partner from a previous relationship who is making you feel unsafe now?: No Are you made to feel afraid or neglected: No Advance Directives: Yes Advance Directives on File: Yes Advance Directives Date on File: 10/19/20 Do you have thoughts of harming others: None Do you have a plan to hurt others: No Plan Recently lost weight without trying: No Eating poorly because of decreased appetite: No Nutrition Risks: No Nutritional Risk Poor oral hygiene: No service: No Current occupational status: retired [employer] Allergies Allergy/AdvReac Type Severity Reaction Status Date / Time No Known Allergies Allergy Verified 03/17/23 09:44 Active Medications: Current Medications Acetaminophen (Acetaminophen 325 Mg Tablet) 650 mg PO Q6H PRN PRN Reason: Pain, Mild (Pain Scale 1-3) Albuterol/Ipratropium (Albuterol/Iprat 2.5/0.5mg 3 Ml Ampul.Neb) 3 ml INHALE QID [facility] Last Admin: 03/19/23 07:50 Dose: 3 ml Ascorbic Acid (Ascorbic Acid 500 Mg Tablet) 1,000 mg PO DAILY [facility] Last Admin: 03/19/23 09:16 Dose: 1,000 mg Aspirin (Aspirin Enteric Coated 81 Mg Tablet.) 81 mg PO DAILY [facility] Last Admin: 03/19/23 09:16 Dose: 81 mg Atorvastatin Calcium (Atorvastatin Calcium 20 Mg Tablet) 20 mg PO BEDTIME [facility] Last Admin: 03/18/23 23:06 Dose: 20 mg Benzonatate (Benzonatate 100 Mg Capsule) 200 mg PO TID [facility] Last Admin: 03/19/23 09:16 Dose: 200 mg Clonazepam (Clonazepam 1 Mg Tablet) 1 mg PO DAILY PRN PRN Reason: anxiety Last Admin: 03/19/23 09:28 Dose: 1 mg Enoxaparin Sodium (Enoxaparin Sodium 40 Mg/0.4 Ml Syringe) 40 mg SUBCUT Q24H [facility] Last Admin: 03/18/23 17:46 Dose: 40 mg Fluticasone/Umeclidinium/Vilanterol (Fluticasone/Umeclidinium/Vilanterol 100/62.5/25 Blst.W.Dev) 1 puff INHALE RDAILY [facility] Guaifenesin (Guaifenesin La 600 Mg Tab.Er.12h) 600 mg PO DAILY [facility] Last Admin: 03/19/23 09:16 Dose: 600 mg Guaifenesin/Dextromethorphan (Guaifenesin Dm 600/30 1 Tab Tab.Er.12h) 2 tab PO BID [facility] Last Admin: 03/19/23 09:16 Dose: 2 tab Loratadine (Loratadine 10 Mg Tablet) 10 mg PO DAILY [facility] Last Admin: 03/19/23 09:16 Dose: 10 mg Magnesium Hydroxide (Milk Of Magnesia 30 Ml Oral.Susp) 30 ml PO DAILY PRN PRN Reason: Constipation Melatonin (Melatonin 3 Mg Tablet) 3 mg PO BEDTIME PRN PRN Reason: Insomnia Methylprednisolone Sodium Succinate (Methylprednisolone Sod Succ 40 Mg/Ml Vial) 40 mg IVPUSH BID [facility] Last Admin: 03/19/23 09:19 Dose: 40 mg Mirtazapine (Mirtazapine 30 Mg Tablet) 30 mg PO BEDTIME [facility] Last Admin: 03/18/23 23:04 Dose: 30 mg Multivitamins/Vitamin C (Multivitamin Tablet) 1 tab PO DAILY [facility] Last Admin: 03/19/23 09:17 Dose: 1 tab Nitroglycerin (Nitroglycerin 0.4 Mg Tab.Subl) 0.4 mg SUBLINGUAL Q5M PRN PRN Reason: Angina Omeprazole (Omeprazole 40 Mg Capsule.Dr) 40 mg PO DAILY@0630 [facility] Last Admin: 03/19/23 06:07 Dose: 40 mg Ondansetron HCl (Ondansetron Hcl 4 Mg/2 Ml Vial) 4 mg IVPUSH Q8H PRN PRN Reason: Nausea and Vomiting Sodium Chloride (0.9 % Sodium Chloride Flush 3 Ml Syringe) 3 ml IVFLUSH QSHIFT [facility] Last Admin: 03/19/23 09:16 Dose: 3 ml Theophylline (Theophylline Anhydrous Er 300 Mg Tab.Er.12h) 300 mg PO DAILY [facility] Last Admin: 03/19/23 09:16 Dose: 300 mg Tizanidine HCl (Tizanidine Hcl 4 Mg Tablet) 2 mg PO BEDTIME [facility] Last Admin: 03/18/23 23:04 Dose: 2 mg Trazodone HCl (Trazodone Hcl 25 Mg Halftab) 25 mg PO BEDTIME [facility] Last Admin: 03/18/23 23:03 Dose: 25 mg Verapamil HCl (Verapamil Hcl 80 Mg Tablet) 80 mg PO QID [facility]; Protocol Last Admin: 03/19/23 09:16 Dose: 80 mg Home Medications Medication Instructions Recorded Confirmed Last Taken Type albuterol sulfate 90 mcg/actuation 2 puff inhalation Q4H PRN Wheezing 04/26/20 0 03/17/23 Unknown History aerosol inhaler atorvastatin 20 mg tablet 20 mg PO BEDTIME 04/26/20 03/17/23 03/16/23 History mirtazapine 30 mg tablet 30 mg PO BEDTIME 04/26/20 03/17/23 03/16/23 History pantoprazole 40 mg tablet,delayed 40 mg PO DAILY@0630 04/26/20 03/17/23 03/17/23 07:00 History release trazodone 50 mg tablet 25 mg PO BEDTIME 04/26/20 03/17/23 03/16/23 History ascorbic acid (vitamin C) 500 mg 1,000 mg PO DAILY 10/19/20 03/17/23 03/17/23 09:00 History tablet (Vitamin C) multivitamin 1 tab PO DAILY 10/19/20 03/17/23 03/17/23 09:00 History tiotropium bromide 18 mcg capsule 1 cap inhalation DAILY 10/19/20 03/17/23 03/17/23 09:00 History with inhalation device (Spiriva with HandiHaler) tizanidine 2 mg tablet 2 mg PO BEDTIME 10/19/20 03/17/2303/16/23 History aspirin 81 mg tablet,delayed 81 mg PO DAILY 11/17/22 03/17/23 03/17/23 09:00 H istory release (Adult Low Dose Aspirin) nitroglycerin 0.4 mg sublingual 0.4 mg sublingual Q5M PRN Angina 11/17/22 03/17/23 Unknown History tablet acetaminophen 500 mg tablet 500 mg PO Q6H PRN Pain 03/17/23 03/17/23 Unknown History ipratropium 0.5 mg-albuterol 3 mg 3 ml inhalation Q4H PRN for 03/17/23 03/17/23 Unknown History (2.5 mg base)/3 mL nebulization wheezing soln levalbuterol HCl 1.25 mg/3 mL 1.25 mg inhalation Q4H PRN 03/17/23 03/17/23 Unknown History solution for nebulization Shortness Of Breath Or Wheezing lidocaine 5 % topical patch 1 patch topical DAILY 03/17/23 03/17/23 03/17/23 09:00 History Physical Exam Vital Signs: Vital Signs: Last Vital Signs Temp 97.6 F 03/19/23 07:20 Pulse 113 H 03/19/23 09:01 Resp 18 03/19/23 09:01 BP 145/61 H 03/19/23 07:20 Pulse Ox 99 03/19/23 07:20 O2 Del Method Nasal Cannula 03/19/23 07:20 O2 Flow Rate 3 03/19/23 07:20 Oxygen Flow Rate 2 03/17/23 11:36 BMI result Body Mass Index 23.5 Const: General: comfortable and no acute distress Orientation/consciousn ess: patient oriented x3 HEENT: Other: Unremarkable Head: Yes normal to inspection Neck: Neck: Yes normal visual inspection Chest: Chest palpation & inspection: normal inspection of the chest Resp: Auscultation: rhonchi, wheezes and diminished lung sounds Cardio: Palpation: normal PMI Heart sounds: S1 normal heart sound present, S2 normal heart sound present, no gallops, no murmurs and no rubs GI: Palpation (GI): Soft to palpation Back/Spine/Pelvis: Other: unremarkable Skin: General skin exam: no rashes or lesions noted Neuro: General: patient oriented x3 Extrem: General: Yes normal to inspection Psych: Mental Status: mental status grossly normal Objective Labs and Meds 03/17/23 10:19 03/18/23 06:19 Lab results: Laboratory Results - last 24 hr 03/17/23 03/18/23 03/18/23 18:30 06:19 10:00 VBG pH VBG pCO2 VBG pO2 VBG HCO3 VBG O2 Saturation VBG Base Excess TSH 0.19 L Theophylline 14.6 Respiratory Panel Yoo See Note Adenovirus (Rapid PCR) Not Detected B.pert (TEM-PCR) Not Detected B.parapertussis DNA PCR Not Detected C. pneumoniae DNA (PCR) Not Detected Coronavirus OC43 (PCR) Not Detected Coronavirus HKU1 (PCR) Not Detected Coronavirus 229E (PCR) Not Detected Coronavirus NL63 (PCR) Not Detected Human Metapneumovir PCR Not Detected Influenza A (RT-PCR) Not Detected Influenza B (RT-PCR) Not Detected M. pneumoniae (PCR) Not Detected Parainfluenza 1 (PCR) Not Detected Parainfluenza 2 (PCR) Not Detected Parainfluenza 3 (PCR) Not Detected Parainfluenza 4 (PCR) Not Detected RSV (PCR) Not Detected Entero/Rhino (PCR) Not Detected SARS-CoV-2 RNA (RT-PCR) Not Detected 03/19/23 03/19/23 05:20 09:13 VBG pH 7.41 VBG pCO2 39 VBG pO2 98 VBG HCO3 25 VBG O2 Saturation 99.0 VBG Base Excess 1.0 TSH 0.11 L Theophylline Respiratory Panel Yoo Adenovirus (Rapid PCR) B.pert (TEM-PCR) B.parapertussis DNA PCR C. pneumoniae DNA (PCR) Coronavirus OC43 (PCR) Coronavirus HKU1 (PCR) Coronavirus 229E (PCR) Coronavirus NL63 (PCR) Human Metapneumovir PCR Influenza A (RT-PCR) Influenza B (RT-PCR) M. pneumoniae (PCR) Parainfluenza 1 (PCR) Parainfluenza 2 (PCR) Parainfluenza 3 (PCR) Parainfluenza 4 (PCR) RSV (PCR) Entero/Rhino (PCR) SARS-CoV-2 RNA (RT-PCR) ECG Interpretation: EKG shows sinus tachycardia at 01:33/Min; right atrial enlargement; cannot exclude old anterior infarct but could be related to lung disease; PVCs. On telemetry, heart rate is about 100/Min. Imaging Radiologist's impression: Impressions Chest X-Ray 03/19/23 08:46 IMPRESSION: Coarsened interstitial markings correlate with the patient's known emphysema. No acute cardiopulmonary process. Assessment and Plan (1) Tachycardia: Status: Acute (2) Acute and chronic respiratory failure: Status: Acute (3) Cardiomyopathy: Status: Acute (4) Atherosclerotic cardiovascular disease: Status: Acute Plan High sensitivity troponin 4.4 and 8.2. Cardiac BNP well within normal limits. Echocardiogram with LVEF of 40-45%. No significant valvular issues. Sinus tachycardia suspected to be from some combination of compensated re tachycardia related to advanced lung disease, steroid use, inhalers, steroids, theophylline. Not clear if thyroid also plays a role as the TSH is abnormal. He takes verapamil at baseline and okay to keep that. Otherwise, no specific management just for sinus tachycardia as it is a consequence of the above. If able, cut back on the theophylline. Discussed with Dr. Venegas. Time Spent With Patient Time: Total time managing care of this patient today ____ minutes. Procedures Date of Service Date of Service: 03/19/23
--- NOTE | 2023-03-19 09:35 | PM.PNPUL ---
Subjective Subjective Date of Service: 03/19/23 Interval history: The patient was seen on exam. Overall the patient is feeling a little better today. His cough seems to be better. Explained to him that he is wheezing is going to be constant due to the fact that he has advanced COPD. His blood gas was reassuring without any evidence of any hypercarbia. His respiratory viral panel was negative. He was also started on Trelegy. Objective Data Labs 03/17/23 10:19 03/18/23 06:19 Labs: Laboratory Results - last 24 hr 03/17/23 03/18/23 03/18/23 18:30 06:19 10:00 VBG pH VBG pCO2 VBG pO2 VBG HCO3 VBG O2 Saturation VBG Base Excess TSH 0.19 L Theophylline 14.6 Respiratory Panel Yoo See Note Adenovirus (Rapid PCR) Not Detected B.pert (TEM-PCR) Not Detected B.parapertussis DNA PCR Not Detected C. pneumoniae DNA (PCR) Not Detected Coronavirus OC43 (PCR) Not Detected Coronavirus HKU1 (PCR) Not Detected Coronavirus 229E (PCR) Not Detected Coronavirus NL63 (PCR) Not Detected Human Metapneumovir PCR Not Detected Influenza A (RT-PCR) Not Detected Influenza B (RT-PCR) Not Detected M. pneumoniae (PCR) Not Detected Parainfluenza 1 (PCR) Not Detected Parainfluenza 2 (PCR) Not Detected Parainfluenza 3 (PCR) Not Detected Parainfluenza 4 (PCR) Not Detected RSV (PCR) Not Detected Entero/Rhino (PCR) Not Detected SARS-CoV-2 RNA (RT-PCR) Not Detected 03/19/23 03/19/23 05:20 09:13 VBG pH 7.41 VBG pCO2 39 VBG pO2 98 VBG HCO3 25 VBG O2 Saturation 99.0 VBG Base Excess 1.0 TSH 0.11 L Theophylline Respiratory Panel Yoo Adenovirus (Rapid PCR) B.pert (TEM-PCR) B.parapertussis DNA PCR C. pneumoniae DNA (PCR) Coronavirus OC43 (PCR) Coronavirus HKU1 (PCR) Coronavirus 229E (PCR) Coronavirus NL63 (PCR) Human Metapneumovir PCR Influenza A (RT-PCR) Influenza B (RT-PCR) M. pneumoniae (PCR) Parainfluenza 1 (PCR) Parainfluenza 2 (PCR) Parainfluenza 3 (PCR) Parainfluenza 4 (PCR) RSV (PCR) Entero/Rhino (PCR) SARS-CoV-2 RNA (RT-PCR) Microbiology Microbiology Results: Microbiology 03/17/23 10:40 Blood - Venous Blood Culture - Preliminary No growth after 24 hours. 03/17/23 10:19 Blood - Venous Blood Culture - Preliminary No growth after 24 hours. Review of Systems Review of Systems General no headache no dizziness no fever chills. CVS no palpitation. Respiratory Shortness of breath, dry cough Gastrointestinal no nausea no vomiting, no abdominal pain no urgency, no frequency skin no rash all other system reviewed and negative Reports Normal hearing present Reports Normal hearing present Physical Exam Vital Signs: Vital Signs: Last Vital Signs Temp 97.6 F 03/19/23 07:20 Pulse 113 H 03/19/23 09:01 Resp 18 03/19/23 09:01 BP 145/61 H 03/19/23 07:20 Pulse Ox 99 03/19/23 07:20 O2 Del Method Nasal Cannula 03/19/23 07:20 O2 Flow Rate 3 03/19/23 07:20 Oxygen Flow Rate 2 03/17/23 11:36 BMI result Body Mass Index 23.5 Const: General: cooperative, no acute distress and alert Orientation/consciousness: patient oriented x3 Limitations: ambulation with walker HEENT: Head: Yes normal to inspection, Yes normocephalic and Yes atraumatic Ears: hearing grossly normal bilaterally and external ears normal Eyes: General: appearance normal, both eyes and all related structures Eyelids: Yes eyelids normal Sclerae: sclerae normal EOM: EOMs intact bilaterally Neck: Neck: Yes normal visual inspection and Yes no lymphadenopathy Lymphatic: no lymphadenopathy noted Chest: Chest palpation & inspection: normal inspection of the chest Resp: Other: poor air movement bilaterally, some improvement after DuoNeb. Effort & Inspection: able to speak in complete sentences, no cough and no stridor Auscultation: wheezes and diminished lung sounds Cardio: Rhythm: regular rhythm Skin: Other: warm, dry General skin exam: no rashes or lesions noted Neuro: General: patient oriented x3 Cranial nerves: Yes Normal hearing present Cognition (Neuro): normal cognition Extrem: General: Yes normal to inspection and Yes no pedal edema Psych: Appearance: grossly normal and well kempt Speech and movement: Normal speech and movement present and Clear speech present Affect: normal affect Attitude: cooperative Thought process: Normal thought process present Thought content: Normal thought content present Insight: Good insight present (Psych) Judgement: Good judgement present (Psych) Procedures Date of Service Date of Service: 03/19/23 Assessment and Plan Assessment and plan (1) Cough: Status: Acute (2) Acute and chronic respiratory failure: Status: Acute (3) COPD (chronic obstructive pulmonary disease): Status: Acute (4) Supplemental oxygen dependent: Status: Acute Plan Continue current respiratory regimen Started on Trelegy inhaler. 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 Progress Note: Quality Stroke Does the patient have a stroke diagnosis?: No
[2023-03-19 11:21] LABS: Free T4 (Free Thyroxine) 0.88 ng/dL (0.71-1.85)
--- NOTE | 2023-03-19 14:30 | HO.PM.IMPN ---
Subjective Subjective Date of Service: 03/19/23 Interval History: tachycardia ,copd exceerbation Review of Systems Shortness of breath seems somewhat similar to yesterday Tachycardia seems to be improving Denies other complaints currently. Physical Exam Vital Signs: Vital Signs: Last Vital Signs Temp 98.2 F 03/19/23 10:59 Pulse 108 H 03/19/23 11:28 Resp 18 03/19/23 11:28 BP 117/60 03/19/23 10:59 Pulse Ox 97 03/19/23 10:59 O2 Del Method Nasal Cannula 03/19/23 10:59 O2 Flow Rate 3 03/19/23 10:59 Oxygen Flow Rate 2 03/17/23 11:36 BMI result Body Mass Index 23.5 Appearance: Alert.? Oriented X3.? not in distress.? cvs: rrr, [id number] . res: air entry seems diminshed ,few rhonchii b/l. abd: no rebound or guarding ,nt, bs present. ext pulses present , no cyanosis . neuro: axo3 , nonfocal. Objective Data Active Medications Acetaminophen (Acetaminophen 325 Mg Tablet) 650 mg PO Q6H PRN PRN Reason: Pain, Mild (Pain Scale 1-3) Albuterol/Ipratropium (Albuterol/Iprat 2.5/0.5mg 3 Ml Ampul.Neb) 3 ml INHALE QID [facility] Last Admin: 03/19/23 11:26 Dose: 3 ml Documented By: BRITANY Ascorbic Acid (Ascorbic Acid 500 Mg Tablet) 1,000 mg PO DAILY [facility] Last Admin: 03/19/23 09:16 Dose: 1,000 mg Documented By: NOLAN Aspirin (Aspirin Enteric Coated 81 Mg Tablet.) 81 mg PO DAILY [facility] Last Admin: 03/19/23 09:16 Dose: 81 mg Documented By: NOLAN Atorvastatin Calcium (Atorvastatin Calcium 20 Mg Tablet) 20 mg PO BEDTIME [facility] Last Admin: 03/18/23 23:06 Dose: 20 mg Documented By: MARSHALL Benzonatate (Benzonatate 100 Mg Capsule) 200 mg PO TID [facility] Last Admin: 03/19/23 09:16 Dose: 200 mg Documented By: NOLAN Clonazepam (Clonazepam 1 Mg Tablet) 1 mg PO DAILY PRN PRN Reason: anxiety Last Admin: 03/19/23 09:28 Dose: 1 mg Documented By: NOLAN Enoxaparin Sodium (Enoxaparin Sodium 40 Mg/0.4 Ml Syringe) 40 mg SUBCUT Q24H [facility] Last Admin: 03/18/23 17:46 Dose: 40 mg Documented By: NOLAN Fluticasone/Umeclidinium/Vilanterol (Fluticasone/Umeclidinium/Vilanterol 100/62.5/25 Blst.W.Dev) 1 puff INHALE RDAILY [facility] Guaifenesin (Guaifenesin La 600 Mg Tab.Er.12h) 600 mg PO DAILY [facility] Last Admin: 03/19/23 09:16 Dose: 600 mg Documented By: NOLAN Guaifenesin/Dextromethorphan (Guaifenesin Dm 600/30 1 Tab Tab.Er.12h) 2 tab PO BID [facility] Last Admin: 03/19/23 09:16 Dose: 2 tab Documented By: NOLAN Loratadine (Loratadine 10 Mg Tablet) 10 mg PO DAILY [facility] Last Admin: 03/19/23 09:16 Dose: 10 mg Documented By: NOLAN Magnesium Hydroxide (Milk Of Magnesia 30 Ml Oral.Susp) 30 ml PO DAILY PRN PRN Reason: Constipation Melatonin (Melatonin 3 Mg Tablet) 3 mg PO BEDTIME PRN PRN Reason: Insomnia Methylprednisolone Sodium Succinate (Methylprednisolone Sod Succ 40 Mg/Ml Vial) 40 mg IVPUSH BID [facility] Last Admin: 03/19/23 09:19 Dose: 40 mg Documented By: NOLAN Mirtazapine (Mirtazapine 30 Mg Tablet) 30 mg PO BEDTIME [facility] Last Admin: 03/18/23 23:04 Dose: 30 mg Documented By: MARSHALL Multivitamins/Vitamin C (Multivitamin Tablet) 1 tab PO DAILY [facility] Last Admin: 03/19/23 09:17 Dose: 1 tab Documented By: NOLAN Nitroglycerin (Nitroglycerin 0.4 Mg Tab.Subl) 0.4 mg SUBLINGUAL Q5M PRN PRN Reason: Angina Omeprazole (Omeprazole 40 Mg Capsule.Dr) 40 mg PO DAILY@0630 [facility] Last Admin: 03/19/23 06:07 Dose: 40 mg Documented By: MARSHALL Ondansetron HCl (Ondansetron Hcl 4 Mg/2 Ml Vial) 4 mg IVPUSH Q8H PRN PRN Reason: Nausea and Vomiting Sodium Chloride (0.9 % Sodium Chloride Flush 3 Ml Syringe) 3 ml IVFLUSH QSHIFT [facility] Last Admin: 03/19/23 09:16 Dose: 3 ml Documented By: NOLAN Theophylline (Theophylline Anhydrous Er 300 Mg Tab.Er.12h) 300 mg PO DAILY [facility] Last Admin: 03/19/23 09:16 Dose: 300 mg Documented By: NOLAN Tizanidine HCl (Tizanidine Hcl 4 Mg Tablet) 2 mg PO BEDTIME [facility] Last Admin: 03/18/23 23:04 Dose: 2 mg Documented By: MARSHALL Trazodone HCl (Trazodone Hcl 25 Mg Halftab) 25 mg PO BEDTIME [facility] Last Admin: 03/18/23 23:03 Dose: 25 mg Documented By: MARSHALL Verapamil HCl (Verapamil Hcl 80 Mg Tablet) 80 mg PO QID [facility]; Protocol Last Admin: 03/19/23 09:16 Dose: 80 mg Documented By: NOLAN Labs 03/17/23 10:19 03/18/23 06:19 Labs: Laboratory Results - last 24 hr 03/18/23 03/18/23 03/19/23 06:19 10:00 05:20 VBG pH VBG pCO2 VBG pO2 VBG HCO3 VBG O2 Saturation VBG Base Excess TSH 0.19 L 0.11 L Free T4 Theophylline 14.6 03/19/23 03/19/23 09:13 10:02 VBG pH 7.41 VBG pCO2 39 VBG pO2 98 VBG HCO3 25 VBG O2 Saturation 99.0 VBG Base Excess 1.0 TSH Free T4 0.88 Theophylline Microbiology Microbiology Results: Microbiology 03/17/23 10:40 Blood Culture - Preliminary Blood - Venous No growth after 48 hours. 03/17/23 10:19 Blood Culture - Preliminary Blood - Venous No growth after 48 hours. Assessment and Plan (1) Acute and chronic respiratory failure: Status: Acute (2) Shortness of breath: Status: Acute Plan 73-year-old gentleman with past medical history of COPD, chronic respiratory failure who was sent from pulmonary clinic with worsening shortness of breath and failing outpatient treatment with by mouth steroids and antibiotics acute COPD exacerbation /chronic respiratory failure-worsening dyspnea of exertion likely due to worsening underlying severe COPD CTA chest showed no PE, no infiltrate recently finished course of antibiotic and prednisone. continue scheduled DuoNeb updraft and as needed, IV Solu Medrol 40 b.i.d. continue theophylline,? respiratory viral panel-neg,Symbicort is non formulary hold Spiriva no evidence of CHF, hold Lasix , BNP 18, no evidence of fluid overload, recent echo showed EF between 55-60% no evidence of regional wall motion abnormality and normal diastolic function likely need higher concentration of oxygen , scheduled DuoNeb q.i.d. and chronic prednisone, along with steroid inhalers and Spiriva,mucinex ,benzonatate. pulm following hypokalemia due to recent use of Lasix will replace and follow labs Leukocytosis r/t steroid use h/o tachyarrythmia: Possible multifactorial due to advance COPD, steroids, nebs. seems sinus tachycardia tsh boderline low ,normal free t4,added free t3 no documented paroxysmal atrial fibrillation, continue verapamil, dose of theophylline reduced to 300 mg daily theophylline levels within normal Range. Verapamil adjusted to 80 q.i.d. Cardio evaluation. acute lactic acidosis likely due to updraft treatment, due to dehydration with recent use of Lasix,r/t tachycardia not r/t sepsis or infectious source. HLD continue? Lipitor ?mood disorder continue Remeron and trazodone gerd continue ppi dvt ppx - lovenox Inpatient ongoing need: COPD exacerbation-need IV steroids, nebs, oxygen support respiratory is status is not optimal yet. Also need cardiology input for tachycardia Time Spent With Patient Time: Total time managing care of this patient today ____ minutes. Quality Stroke Does the patient have a stroke diagnosis?: No VTE Prior VTE?: No VTE Risk Level:: Medical - moderate - high VTE Device Contraindication: Treatment Not Indicated VTE Drug Contraindication: N/A - Med Ordered
[2023-03-19] MEDS: Enoxaparin Sodium 40 MG/0.4 ML SYRINGE SUBCUT (18:03)
[2023-03-19] MEDS: Mirtazapine 30 MG TABLET PO (21:21)
[2023-03-19] MEDS: TiZANidine HCL 4 MG TABLET 2 MG PO (21:21)
[2023-03-19] MEDS: traZODone HCL 25 MG HALFTAB PO (21:21)
[2023-03-19] MEDS: Atorvastatin Calcium 20 MG TABLET PO (21:22)
[2023-03-20 03:27] VITALS: BP 117/66; PULSE 99; RESP 20; TEMP 36.5; O2SAT 96
[2023-03-20] MEDS: Omeprazole 40 MG CAPSULE.DR PO (05:46)
[2023-03-20] MEDS: Albuterol/Iprat 2.5/0.5MG 3 ML AMPUL.NEB INHALE ×2 (07:47→11:22)
[2023-03-20 07:50] VITALS: PULSE 104; RESP 20; O2SAT 96
[2023-03-20 07:59] VITALS: BP 129/80; PULSE 102; RESP 16; TEMP 36.7; O2SAT 97
[2023-03-20 09:00] VITALS: BP 129/80; PULSE 102; O2SAT 97
[2023-03-20] MEDS: Ascorbic Acid 500 MG TABLET 1000 MG PO (09:14)
[2023-03-20] MEDS: Theophylline Anhydrous ER 300 MG TAB.ER.12H PO (09:14)
[2023-03-20] MEDS: Multivitamin TABLET 1 TAB PO (09:14)
[2023-03-20] MEDS: Benzonatate 100 MG CAPSULE 200 MG PO (09:14)
[2023-03-20] MEDS: guaiFENesin DM 600/30 1 TAB TAB.ER.12H 2 TAB PO (09:14)
[2023-03-20] MEDS: Aspirin Enteric Coated 81 MG TABLET.DR PO (09:14)
[2023-03-20] MEDS: Loratadine 10 MG TABLET PO (09:15)
[2023-03-20] MEDS: VerapamiL HCL 80 MG TABLET PO (09:15)
[2023-03-20] MEDS: clonazePAM 1 MG TABLET PO (09:17)
[2023-03-20] MEDS: Fluticasone/Umeclidinium/Vilanterol 100/62.5/25 BLST.W.DEV 1 PUFF INHALE (09:23)
[2023-03-20] MEDS: methylPREDNISolone Sod Succ 40 MG/ML VIAL IVPUSH (10:20)
[2023-03-20] MEDS: VerapamiL HCL SR 240 MG TABLET.ER PO (10:26)
[2023-03-20 10:38] LABS: Triiodothyronine T3 Free 3.4 pg/mL (2.3-4.2)
[2023-03-20 11:25] VITALS: PULSE 97; RESP 18; O2SAT 95
[2023-03-20 11:31] VITALS: BP 119/71; PULSE 111; RESP 18; TEMP 36.3; O2SAT 98
--- NOTE | 2023-03-20 11:35 | PM.DS ---
DS: Providers Provider Date of Service: 03/20/23 Date of admission: 03/17/23 14:19 Date of discharge: 03/20/23 Primary care physician: Alfa Velasco MD Consults: 03/17/23 18:09 Consult to Pulmonology Routine Consulting Provider: Morris Santiago Reason for consultation: garcia/copd Has provider been notified: No 03/18/23 16:29 Consult to Cardiology Routine Consulting Provider: [facility] Reason for consultation: tachycardia -? hax hx of afib Has provider been notified: No Attending physician on discharge: Mary Jo Venegas Discharging clinician: Mary Jo Venegas DS: Diagnosis Discharge Diagnosis (1) Acute and chronic respiratory failure: Status: Acute (2) Shortness of breath: Status: Acute DS: Summary Hospital Course Hospital Course: 73-year-old male with past medical history of COPD, chronic respiratory failure on home oxygen 0.5 L at rest and with exertion 2-3 L,? sinus tachycardia no official diagnosis of atrial fibrillation, being followed by director pharmacovigilance Dr. Puentes recent echo showed EF? 40-45%, cardiac catheterization? 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 for increasing work of breathing, chest discomfort and was referred to [place] [facility] for further evaluation and treatment. ?today patient is complaining of shortness of breath for the past few weeks ,reports that shortness of breath is worse with exertion better at rest, he complains of chest tightness that occurs even at rest gets better with deep breathing in few minutes and with use of nitro, he complains of epigastric pain burning acidity, he denies associated fever chills, no headache, no dizziness, denies nausea, no vomiting, no diarrhea , he uses DuoNeb twice daily use Symbicort inhaler, he awful and Spiriva religiously and uses home O2 as prescribed in ED? CTA chest showed no PE, no infiltrate, WBC 32709, potassium 3.1, elevated lactic acid 2.4, normal creatinine, bicarb 30 magnesium 2.2 patient treated with the emergency room with IV steroids and now being admitted to [facility] due to persistent dyspnea of exertion of several weeks duration. hsopital course: Patient shortness of breath-patient has chronic respiratory failure on home oxygen- patient was started on nebs, steroids, oxygen support, respiratory viral panel negative, CTA negative for pulmonary embolism: with above supportive care patient seems to be improving: Patient's theophylline was discontinued due to tachycardia. Also switched to trilogy as per Pulmonary. Patient was strongly advised to continue with pulmonary rehab outpatient. Tachycardia: Seen by Cardiology: Tachycardia probably related to advanced pulmonary disease, theophylline: Currently improving with supportive care for COPD and stopping theophylline. continue home verapamil. 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 Cta:Incidental findings : ?There is a 9 mm hypodensity left hepatic lobe image 59/5 and 1.3 cm hypodensity right hepatic lobe favoring cyst. No additional lesions seen. he denies any abdominal c/o, lft's seems fine outpatient follow up plan: stopping theophylline,breo Also switched to trilogy euthyroid sick syndrome,Please repeat thyroid testing including TSH, free T3 and free 3 for out patiently in a week . Patient was strongly advised for outpatient pulmonary rehab. Cta:Incidental findings : ?There is a 9 mm hypodensity left hepatic lobe image 59/5 and 1.3 cm hypodensity right hepatic lobe favoring cyst. No additional lesions seen. follow up with pcp outpatient for above. Also follow up with Pulmonary for underlying COPD. Above discussed with the patient in detail length he understand and in agreement with the above plan, time spent 50 minute. Follow-up with PCP and Pulmonary outpatient. Time Spent with Patient Time attestation: Total time managing care of this patient today ____ minutes. Discharge coordination time: Greater than 30 minutes Quality: Safe Use of Opioids Does Pt have an Active Cancer Diagnosis on the Problem List?: No Quality: Stroke Does the patient have a stroke diagnosis?: No Physical Exam Vital Signs: Vital Signs: Last Vital Signs Temp 97.3 F 03/20/23 11:31 Pulse 111 H 03/20/23 11:31 Resp 18 03/20/23 11:31 BP 119/71 03/20/23 11:31 Pulse Ox 98 03/20/23 11:31 O2 Del Method Nasal Cannula 03/20/23 11:31 O2 Flow Rate 3 03/20/23 11:31 Oxygen Flow Rate 2 03/17/23 11:36 BMI result Body Mass Index 23.5 Appearance: Alert.? Oriented X3.? not in distress.? cvs: rrr, [id number] . res: air entry seems improving,no wheezing or rales. abd: no rebound or guarding ,nt, bs present. ext pulses present , no cyanosis . neuro: axo3 , nonfocal. DS: Data Data Completed and Pending Labs on day of discharge: Laboratory Results - last 24 hr 03/19/23 11:39 Free T3 3.4 Preliminary micro results at discharge 03/17/23 10:40 Blood Culture - Preliminary Blood - Venous No growth after 48 hours. 03/17/23 10:19 Blood Culture - Preliminary Blood - Venous No growth after 48 hours. Imaging Chest x-ray: Radiologist's impression: ITS Impressions Chest X-Ray 03/17/23 10:30 IMPRESSION: No acute cardiopulmonary process. Chest CTA 03/17/23 11:22 IMPRESSION: No evidence of PE. No evidence of aortic dissection or aneurysm. Centrilobular emphysema with bilateral apical pleural thickening. No acute consolidation. VTE: negative Chest X-Ray 03/19/23 08:46 IMPRESSION: Coarsened interstitial markings correlate with the patient's known emphysema. No acute cardiopulmonary process. Discharge Plan Discharge Anticipated Discharge Date/Time: 03/20/23 11:20 Patient Disposition: Home, Self-Care Discharge Diagnosis: copd exacerbation , tachycardia Referrals: Alfa Velasco MD [Primary Care Provider] - 1 Week Discharge Medications: New prednisone 20 mg Tablet 40 mg PO DAILY Qty: 8 0RF Trelegy Ellipta 100-62.5-25 mcg Blister With Device 1 ea inhalation RDAILY Qty: 28 0RF Mucus DM 30-600 mg Tablet Extended Release 12 Hr 2 tab PO BID Qty: 10 0RF benzonatate 100 mg Capsule 200 mg PO TID Qty: 14 0RF loratadine 10 mg Tablet 10 mg PO DAILY Qty: 7 0RF Continued verapamil 240 mg tablet extended release 240 mg PO BEDTIME Qty: 30 5RF furosemide [Lasix] 40 mg tablet 40 mg PO DAILY 30 Days Qty: 30 0RF Spiriva with HandiHaler 18 mcg capsule, w/inhalation device 1 cap inhalation DAILY multivitamin Tablet 1 tab PO DAILY ascorbic acid (vitamin C) [Vitamin C] 500 mg Tablet 1,000 mg PO DAILY tizanidine 2 mg Tablet 2 mg PO BEDTIME Rx Instructions: rx is for tid prn, but patient takes once at bedtime lidocaine 5 % adhesive patch,medicated 1 patch topical DAILY Rx Instructions: remove after 12 hrs ipratropium-albuterol 0.5 mg-3 mg(2.5 mg base)/3 mL solution for nebulization 3 ml inhalation Q4H PRN (Reason: for wheezing) acetaminophen 500 mg Tablet 500 mg PO Q6H PRN (Reason: Pain) levalbuterol HCl 1.25 mg/3 mL Solution For Nebulization 1.25 mg INHALATION Q4H PRN (Reason: Shortness Of Breath Or Wheezing) mirtazapine 30 mg tablet 30 mg PO BEDTIME pantoprazole 40 mg tablet,delayed release (DR/EC) 40 mg PO DAILY@0630 atorvastatin 20 mg tablet 20 mg PO BEDTIME trazodone 50 mg tablet 25 mg PO BEDTIME albuterol sulfate 90 mcg/actuation HFA aerosol inhaler 2 puff inhalation Q4H PRN (Reason: Wheezing) clonazepam 1 mg tablet 1 mg PO DAILY PRN (Reason: anxiety) 30 Days Qty: 30 3RF aspirin [Adult Low Dose Aspirin] 81 mg tablet,delayed release (DR/EC) 81 mg PO DAILY nitroglycerin 0.4 mg tablet, sublingual 0.4 mg sublingual Q5M PRN (Reason: Angina) Held prednisone 5 mg tablet 5 mg PO DAILY 90 Days Qty: 90 4RF Hold Instructions: Resume on 03/24/23. Discontinued theophylline 400 mg tablet extended release 24 hr 400 mg PO DAILY 90 Days Qty: 90 4RF budesonide-formoterol [Symbicort] 160-4.5 mcg/actuation HFA aerosol inhaler 2 puff inhalation Q12H 30 Days Qty: 10.2 6RF Discharge Orders: Discharge Order (Routine); Ordered 03/20/23 Ordered By: Mary Jo Venegas Diet: Advance to usual diet Activity on Discharge: As tolerated Stand Alone Forms: Patient Portal Discharge page Care Plan Goals: Patient shortness of breath-patient has chronic respiratory failure on home oxygen- patient was started on nebs, steroids, oxygen support, respiratory viral panel negative, CTA negative for pulmonary embolism: with above supportive care patient seems to be improving: Patient's theophylline was discontinued due to tachycardia. Also switched to trilogy as per Pulmonary. Patient was strongly advised to continue with pulmonary rehab outpatient. Tachycardia: Seen by Cardiology: Tachycardia probably related to advanced pulmonary disease, theophylline: Currently improving with supportive care for COPD and stopping theophylline. continue home verapamil. hypokalemia was thought to be related to Lasix use, hypokalemia repleted and resolved. Possible euthyroid sick syndrome - tsh boderline low ,free t4 normal,free t3 pending Discussed with endocrinology currently-likely has euthyroid sick syndrome,Please repeat thyroid testing including TSH, free T3 and free 3 for out patiently in a week or so. Follow-up BMP and above mentioned thyroid testing in 1 week outpatient. Above discussed with the patient in detail length he understand and in agreement with the above plan, time spent 50 minute. Follow-up with PCP and Pulmonary outpatient. Health Concerns: As above. Plan of Treatment: As above. Assessment: As above.
--- NOTE | 2023-03-20 12:02 | PM.PNCARD ---
Subjective Subjective Date of Service: 03/20/23 Interval history: He states he is feeling okay. Breathing is somewhat better. Review of Systems Review of Systems Yes all other systems are reviewed and are negative Constitutional: Reports as per HPI and Reports no additional constitutional complaints Eyes: Reports as per HPI and Denies no additional eye complaints Denies system reviewed and no additional complaints, except as documented and Reports as per HPI Cardiovascular: Reports as per HPI, Reports no additional cardiovascular complaints, Denies acrocyanosis, Denies cool extremities, Denies chest pain, Denies leg edema, Denies lightheadedness, Denies palpitations and Reports dyspnea Respiratory: Reports as per HPI, Denies no additional respiratory complaints and Reports dyspnea Gastrointestinal: Reports as per HPI and Denies no additional gastrointestinal complaints Genitourinary: Reports no additional male genitourinary complaints and Reports as per HPI Musculoskeletal: Reports no additional musculoskeletal complaints and Reports as per HPI Skin/Breast: Reports system reviewed and no additional complaints, except as docu Reports system reviewed and no additional complaints, except as documented and Reports as per HPI Psychiatric: Reports no additional psychiatric complaints and Reports as per HPI Endocrine: Reports no additional endocrine complaints, Reports as per HPI and Denies palpitations Hematologic/Lymphatic: Reports no additional hematologic/lymphatic complaints and Reports as per HPI Allergic/Immunologic: Reports no additional allergic/immunologic complaints and Reports as per HPI Physical Exam Vital Signs: Last Vital Signs Temp 97.3 F 03/20/23 11:31 Pulse 111 H 03/20/23 11:31 Resp 18 03/20/23 11:31 BP 119/71 03/20/23 11:31 Pulse Ox 98 03/20/23 11:31 O2 Del Method Nasal Cannula 03/20/23 11:31 O2 Flow Rate 3 03/20/23 11:31 Oxygen Flow Rate 2 03/17/23 11:36 BMI result Body Mass Index 23.5 Const General: comfortable and no acute distress Orientation/consciousness: patient oriented x3 HEENT Other: Unremarkable Head: Yes normal to inspection Neck Neck: Yes normal visual inspection Chest Chest palpation & inspection: normal inspection of the chest Resp Auscultation: rhonchi and diminished lung sounds Cardio Palpation: normal PMI Heart sounds: S1 normal heart sound present, S2 normal heart sound present, no gallops, no murmurs and no rubs GI Palpation (GI): Soft to palpation Back/Spine/Pelvis Other: unremarkable Skin General skin exam: no rashes or lesions noted Neuro General: patient oriented x3 Extrem General: Yes normal to inspection Psych Mental Status: mental status grossly normal Objective Labs and Meds 03/17/23 10:19 03/18/23 06:19 Lab results: Laboratory Results - last 24 hr 03/19/23 11:39 Free T3 3.4 Progress Note: A&P Assessment and plan (1) Tachycardia: Status: Acute (2) Acute and chronic respiratory failure: Status: Acute (3) Cardiomyopathy: Status: Acute (4) Atherosclerotic cardiovascular disease: Status: Acute Plan High sensitivity troponin 4.4 and 8.2. Cardiac BNP well within normal limits. Echocardiogram with LVEF of 40-45%. No significant valvular issues. Sinus tachycardia suspected to be from some combination of compensated re tachycardia related to advanced lung disease, steroid use, inhalers, steroids, theophylline. Thyroid levels also abnormal. As sinus tachycardia is multifactorial as above, would be difficult to manage this especially with advanced lung disease. Suggest that we do not control this to aggressively as he may not feel otherwise with reduced cardiac output. If able, try to come off the theophylline unless absolutely essential for his lungs. He is on verapamil that may be continued. Otherwise, no specific cardiac recommendations at this time. Discussed in detail with Dr. Venegas at the bedside. Time Spent With Patient Time: Total time managing care of this patient today 45 minutes. This includes time spent in review of chart, laboratory data, imaging studies, review of telemetry, counseling patient, discussion with hospitalist, RN, documentation, coordination of care. Progress Note: Quality Stroke Does the patient have a stroke diagnosis?: No Procedures Date of Service Date of Service: 03/20/23
--- NOTE | 2023-03-20 12:39 | P.PNPL_ITS ---
Subjective Subjective Date of Service: 03/20/23 Interval history: The patient was seen on exam. Respiratory catalan the patient is doing well. He is doing well with the Trelegy inhaler as well. Unfortunately continues to have significant tachycardia. His theophylline level was measured to be within therapeutic range. Although is still not clear why so tachycardic. Cardiology did bring up the issue with the theophylline which could result then tachyarrhythmias. The patient's dose was already decreased from 400-300 and the heart rate continues to be a problem. Therefore will hold for now specially since he is doing well from a respiratory status. Objective Data Labs 03/17/23 10:19 03/18/23 06:19 Labs: Laboratory Results - last 24 hr 03/19/23 11:39 Free T3 3.4 Microbiology Microbiology Results: Microbiology 03/17/23 10:40 Blood - Venous Blood Culture - Preliminary No growth after 48 hours. 03/17/23 10:19 Blood - Venous Blood Culture - Preliminary No growth after 48 hours. Review of Systems Review of Systems General no headache no dizziness no fever chills. CVS no palpitation. Respiratory Shortness of breath, dry cough Gastrointestinal no nausea no vomiting, no abdominal pain no urgency, no frequency skin no rash all other system reviewed and negative Reports Normal hearing present Reports Normal hearing present Physical Exam Vital Signs: Vital Signs: Last Vital Signs Temp 97.3 F 03/20/23 11:31 Pulse 111 H 03/20/23 11:31 Resp 18 03/20/23 11:31 BP 119/71 03/20/23 11:31 Pulse Ox 98 03/20/23 11:31 O2 Del Method Nasal Cannula 03/20/23 11:31 O2 Flow Rate 3 03/20/23 11:31 Oxygen Flow Rate 2 03/17/23 11:36 BMI result Body Mass Index 23.5 Const: General: cooperative, no acute distress and alert Orientation/consciousness: patient oriented x3 Limitations: ambulation with walker HEENT: Head: Yes normal to inspection, Yes normocephalic and Yes atraumatic Ears: hearing grossly normal bilaterally and external ears normal Eyes: General: appearance normal, both eyes and all related structures Eyelids: Yes eyelids normal Sclerae: sclerae normal EOM: EOMs intact bilaterally Neck: Neck: Yes normal visual inspection and Yes no lymphadenopathy Lymphatic: no lymphadenopathy noted Chest: Chest palpation & inspection: normal inspection of the chest Resp: Other: poor air movement bilaterally, some improvement after DuoNeb. Effort & Inspection: able to speak in complete sentences, no cough and no str idor Auscultation: wheezes and diminished lung sounds Cardio: Rhythm: regular rhythm Skin: Other: warm, dry General skin exam: no rashes or lesions noted Neuro: General: patient oriented x3 Cranial nerves: Yes Normal hearing present Cognition (Neuro): normal cognition Extrem: General: Yes normal to inspection and Yes no pedal edema Psych: Appearance: grossly normal and well kempt Speech and movement: Normal speech and movement present and Clear speech present Affect: normal affect Attitude: cooperative Thought process: Normal thought process present Thought content: Normal thought content present Insight: Good insight present (Psych) Judgement: Good judgement present (Psych) Procedures Date of Service Date of Service: 03/20/23 Assessment and Plan Assessment and plan (1) Cough: Status: Acute (2) Acute and chronic respiratory failure: Status: Acute (3) COPD (chronic obstructive pulmonary disease): Status: Acute (4) Supplemental oxygen dependent: Status: Acute (5) Tachycardia: Status: Acute Plan Continue current respiratory regimen continue Trelegy inhaler. He can consider stay on Trelegy or switching over to his home regimen upon discharge Continue oxygen supplementation, should go for walks today and see how he does Prednisone taper the cough meds hold Theophylling due to the tachycardia at this time. Will monitor HR Would benefit from outpatient pulmonary rehabilitation Check follow-up with his reliability technician upon discharge Time Spent With Patient Time: Total time managing care of this patient today ____ minutes. Progress Note: Quality Stroke Does the patient have a stroke diagnosis?: No
--- NOTE | 2023-03-20 14:13 | MHC.CM.PN ---
Pt is medically cleared for D/C home self-care with resumption of home O2 with [employer], and will go to outpatient cardiac rehab. Pts to transport pt home.
== END 2023-03-20 15:45 | disposition home or self-care (01) | DRG 190 ==
LOC: HO.ED 13:15 → HO.EDOVER 14:31 → HO.IMC 15:41
PROVIDERS: Hospitalist; Physician Assistant; Admitting Provider Hospitalist; Emergency Provider Emergency Medicine; PCP Internal Medicine; Visit Provider Internal Medicine
DX: J44.1 Chronic obstructive pulmonary disease with (acute) exacerbation (principal); J96.20 Acute and chronic respiratory failure, unspecified whether with hypoxia or hypercapnia; E87.21 Acute metabolic acidosis; I42.9 Cardiomyopathy, unspecified; I25.10 Atherosclerotic heart disease of native coronary artery without angina pectoris; E86.0 Dehydration; R00.0 Tachycardia, unspecified; E78.5 Hyperlipidemia, unspecified; F39 Unspecified mood [affective] disorder; E07.81 Sick-euthyroid syndrome; E87.6 Hypokalemia; Z99.81 Dependence on supplemental oxygen; Z87.891 Personal history of nicotine dependence; Z79.51 Long term (current) use of inhaled steroids; Z79.52 Long term (current) use of systemic steroids; Z79.82 Long term (current) use of aspirin; Z79.899 Other long term (current) drug therapy
CPT/HCPCS: 36415; 71045; 71275; 80048; 80053; 80198; 81003; 82803; 83605; 83735; 83880; 84439; 84443; 84481; 84484; 85025; 85379; 85610; 87040; 87633; 87635; 93005; 94640; 97162; 99212; 99285; J0696; J1650; J2920; J2930; J3475; Q9967

== ENCOUNTER → 2023-03-17 14:19 | Outpatient (BNV) | payer MEDICARE, SELFPAY ==
[2022-11-18 10:00] VITALS: BP 120/70; BP 124/64
[2023-02-24 07:47] VITALS: BMI 23.1
== END ==
PROVIDERS: Admitting Provider Hospitalist; Emergency Provider Emergency Medicine; PCP Internal Medicine; Visit Provider Internal Medicine
DX: R00.0 Tachycardia, unspecified (principal); J96.20 Acute and chronic respiratory failure, unspecified whether with hypoxia or hypercapnia; I42.9 Cardiomyopathy, unspecified; I25.10 Atherosclerotic heart disease of native coronary artery without angina pectoris
CPT/HCPCS: 99223; 99233

== ENCOUNTER → 2023-03-17 14:19 | Outpatient (BNV) | payer MEDICARE, SELFPAY ==
[2022-11-18 10:00] VITALS: BP 120/70; BP 124/64
[2023-02-24 07:47] VITALS: BMI 23.1
== END ==
PROVIDERS: Admitting Provider Hospitalist; Emergency Provider Emergency Medicine; PCP Internal Medicine; Visit Provider Hospitalist
DX: J44.9 Chronic obstructive pulmonary disease, unspecified (principal); J96.20 Acute and chronic respiratory failure, unspecified whether with hypoxia or hypercapnia; R05.9 Cough, unspecified
CPT/HCPCS: 99232; 99233

== ENCOUNTER → 2023-03-17 14:19 | Outpatient (BNV) | payer MEDICARE, SELFPAY ==
[2022-11-18 10:00] VITALS: BP 120/70; BP 124/64
[2023-02-24 07:47] VITALS: BMI 23.1
== END ==
PROVIDERS: Admitting Provider Hospitalist; Emergency Provider Emergency Medicine; PCP Internal Medicine; Visit Provider Hospitalist
DX: J44.1 Chronic obstructive pulmonary disease with (acute) exacerbation (principal); J96.20 Acute and chronic respiratory failure, unspecified whether with hypoxia or hypercapnia
CPT/HCPCS: 99223; 99232; 99239

== ENCOUNTER 2023-04-07 11:14 | Outpatient (AMB) | payer MEDICARE, SELFPAY ==
[2022-11-18 10:00] VITALS: BP 120/70; BP 124/64
--- NOTE | 2023-04-07 11:16 | MHC.OFFVIS ---
Intake Vital Signs 04/07/23 11:19 Height 6 ft Weight 169 lb 12.095 oz BMI 23.0 BP 132/62 Blood Pressure Location Rt brachial Position Sitting Pulse 127 H Pulse Source Doppler Pulse Oximetry (%) 95 Oxygen Delivery Method Nasal Cannula Oxygen Flow Rate 2 Intake Visit Reasons: COPD Allergies No Known Allergies Allergy (Verified 04/07/23 11:24) HPI COPD HPI Details 73-year-old gentleman, former 30+ pack-year smoker, quit 2009,? followed for severe supplemental oxygen dependent COPD and 3 mm pulmonary nodules.? He continues to use Symbicort, Spiriva, albuterol MDI, theophylline, prednisone 5 mg daily, and Duonebs with good baseline control of his symptoms.? He has been evaluated at [facility].? He recently was evaluated with left heart catheterization by his cancer program consultant and now continues on medical therapy. Patient recently had upper lung COPD exacerbation requiring brief hospitalization [facility] that is now resolved. Now his at baseline. His theophylline was stopped at hospital discharge secondary to concerns of tachycardia, however patient states that his heart rate remains persistently elevated despite being off theophylline, however his respiratory status is worse. Also, his Symbicort and Spiriva will change to trilogy, however patient would like to return to prior regimen. He does complain of persistent cough with difficult to bring up phlegm. [facility] Medical History Afib Atherosclerotic cardiovascular disease Cardiomyopathy COPD (chronic obstructive pulmonary disease) HLD (hyperlipidemia) Tachyarrhythmia Family History Other Adopted Social History Household Members: Spouse Housing: Condominium Do you presently have visiting nurse or other home services: No Alcohol intake: never Patient Tobacco Use Status: Former Tobacco user Quit Date: 2010 Cigarette Packs Per Day: 1 Years Smoked: 41 Advance Directives Date on File: 10/19/20 service: No Current occupational status: retired Review of Systems Const Denies daytime sleepiness, Denies excessive sweating, Denies fatigue, Denies fever(s), Denies lethargy, Denies malaise, Denies night sweats, Denies snoring and Denies weight loss Eyes Denies blurry vision and Denies itchy eyes ENT Denies nasal congestion, Denies post nasal drip, Denies sinus pain, Denies sinus pressure and Denies other ( Thrush) Card Denies chest pain, Denies pedal edema, Denies dyspnea, Denies orthopnea and Denies paroxysmal nocturnal dyspnea Resp Reports cough, Denies hemoptysis, Denies excessive phlegm production, Denies dyspnea, Denies snoring and Denies wheezing GI Denies abdominal pain and Denies heartburn Musc Denies myalgias, Denies arthralgias and Denies joint swelling Skin/Breast Denies rash Neuro Denies memory loss and Denies seizure-like activity Psych Denies abnormal sleep pattern, Denies anxiety and Denies memory loss Endo Denies excessive sweating, Denies fatigue and Denies heat intolerance [place]/Lymph Denies easy bruising Aller/Immun Denies itchy eyes, Denies seasonal rhinorrhea and Denies wheezing Physical Exam Vital Signs: Last Vital Signs Pulse 127 H 04/07/23 11:19 BP 132/62 04/07/23 11:19 Pulse Ox 95 04/07/23 11:19 Oxygen Delivery Method Nasal Cannula 04/07/23 11:19 Oxygen Flow Rate 2 04/07/23 11:19 BMI result Body Mass Index 23.0 Const General: no acute distress and alert Nutritional Appearance: not obese Orientation/consciousness: Other orientation findings ( oriented) HEENT Head: Yes atraumatic Eyes General: appearance normal, both eyes and all related structures Sclerae: sclerae normal EOM: EOMs intact bilaterally Neck Neck: Yes supple Lymphatic: no lymphadenopathy noted Resp Effort & Inspection: normal respiratory effort and no use of accessory muscles Auscultation: clear to auscultation bilaterally Cardio Rate: regular rate Rhythm: regular rhythm Heart sounds: no gallops, no murmurs and no rubs Skin General skin exam: other ( warm) Extrem General: No clubbing, No cyanosis and No edema Assessment & Plan Assessment & Plan (1) COPD (chronic obstructive pulmonary disease): Code(s): J44.9 - Chronic obstructive pulmonary disease, unspecified Plan: Severe COPD essentially on maximum medical therapy. Switch trilogy back to Symbicort/Spiriva. Continue albuterol MDI and duo nebs. Restart theophylline 400. (2) Supplemental oxygen dependent: Code(s): Z99.81 - Dependence on supplemental oxygen Plan: Continue supplemental oxygen to maintain O2 saturation of 88-92%. Coding Level of Care Code Est Pt Level 4 (79807) Diagnoses COPD (chronic obstructive pulmonary disease) J44.9 Supplemental oxygen dependent Z99.81
[2023-04-07 11:19] VITALS: BP 132/62; PULSE 127; O2SAT 95; BMI 23.0
== END 2023-04-07 11:45 | disposition home or self-care (01) ==
PROVIDERS: PCP Internal Medicine; Visit Provider Internal Medicine Pulmonary Disease
DX: J44.9 Chronic obstructive pulmonary disease, unspecified (principal); Z99.81 Dependence on supplemental oxygen
CPT/HCPCS: 99214

== ENCOUNTER → 2023-04-07 11:14 | Outpatient (BNVA) | payer MEDICARE, SELFPAY ==
[2022-11-18 10:00] VITALS: BP 120/70; BP 124/64
== END ==
PROVIDERS: PCP Internal Medicine; Visit Provider Internal Medicine Pulmonary Disease
DX: J44.9 Chronic obstructive pulmonary disease, unspecified (principal); Z99.81 Dependence on supplemental oxygen
CPT/HCPCS: 99212

== ENCOUNTER 2023-04-21 08:21 | Outpatient (AMB) | payer MEDICARE, SELFPAY ==
[2022-11-18 10:00] VITALS: BP 120/70; BP 124/64
[2022-12-15 15:37] VITALS: BP 110/70; BMI 22.6
--- NOTE | 2023-04-21 08:43 | A.OFFVIS_ITS ---
Intake Vital Signs 04/21/23 08:44 Height 6 ft Weight 175 lb 14.862 oz BMI 23.9 BP 120/66 Blood Pressure Location Lt brachial Position Sitting Pulse 108 H Intake Visit Reasons: follow up Intake Note: follow up Filter Helper Required: No Accompanied by: Self / Same As Patient Allergies No Known Allergies Allergy (Verified 04/21/23 08:47) Medication List - Last Reconciled 04/21/23 by Ritesh Puentes MD acetaminophen 500 mg PO Q6H PRN albuterol sulfate 90 mcg/actuation 2 puffs inhalation Q4H PRN ascorbic acid (vitamin C) (Vitamin C) 1,000 mg PO DAILY aspirin (Adult Low Dose Aspirin) 81 mg PO DAILY atorvastatin 20 mg PO BEDTIME benzonatate 200 mg (2 x 100 mg) PO TID clonazepam 1 mg PO DAILY PRN 30 days dextromethorphan-guaifenesin 30-600 mg (Mucus DM) 2 tabs PO BID ljepnxxcbnl-fjxrqwowv-rdjfgklq 200-62.5-25 mcg (Trelegy Ellipta) 1 inh inhalation DAILY 30 days guaifenesin ER (Mucinex) 1,200 mg PO Q12H 14 days ipratropium-albuterol 0.5 mg-3 mg(2.5 mg base)/3 mL 3 mL inhalation Q4H PRN levalbuterol HCl 1.25 mg inhalation Q4H PRN lidocaine 5% 1 patch topical DAILY mirtazapine 30 mg PO BEDTIME multivitamin 1 tab PO DAILY nitroglycerin 0.4 mg sublingual Q5M PRN pantoprazole 40 mg PO DAILY@0630 prednisone 5 mg PO DAILY 3 months tizanidine 2 mg PO BEDTIME trazodone 25 mg PO BEDTIME verapamil ER 240 mg PO BEDTIME HPI HPI Comments History of Present Illness Details Mateusz returns for follow up. Switching from [facility]. To recall, he has advanced pulmonary disease, COPD. Previously, he was listed for lung transplantation but no longer in the list due to age. Recent hospitalization for pulmonary issues but in that context, main issue was tachycardia-sinus tachycardia from cardiac. This is suspected to be from some combination of compensated [place] tachycardia due to advanced lung disease as well as effects of theophylline, steroids, inhalers/nebulizers, deconditioning among others. He overall feels just about the same as before. Shortness of breath is at baseline. He really can not do much. No angina otherwise. Comes to clinic with a walker. [facility]LY [facility] Medical History (Updated 04/21/23 @ 09:22 by Ritesh Puentes MD) Cardiomyopathy Atherosclerotic cardiovascular disease Tachyarrhythmia HLD (hyperlipidemia) Afib COPD (chronic obstructive pulmonary disease) Surgical History (Updated 04/21/23 @ 08:49 by Brooke Hector) No pertinent past surgical history Family History Other Adopted Social History Household Members: Spouse Housing: Condominium Do you presently have visiting nurse or other home services: No Alcohol intake: never Patient Tobacco Use Status: Former Tobacco user Quit Date: 2010 Cigarette Packs Per Day: 1 Years Smoked: 41 Advance Directives Date on File: 10/19/20 service: No Current occupational status: retired Review of Systems Const Denies weakness ENT Denies dizziness Card Denies chest pain, Denies chest pain with activity, Denies syncope, Denies rapid heart rate, Denies pedal edema, Denies edema, Denies leg edema, Denies lightheadedness, Denies palpitations, Denies dyspnea, Denies dyspnea on exertion and Denies orthopnea Resp Denies cough, Denies dyspnea and Denies dyspnea on exertion GI Denies hematochezia and Denies change in stool character Musc Denies abnormal gait, Denies muscle cramps, Denies muscle weakness, Denies numbness, Denies radiating pain into limb and Denies tingling Neuro Denies abnormal gait, Denies dizziness, Denies syncope, Denies numbness, Denies tingling and Denies weakness Endo Denies palpitations Physical Exam Vital Signs: Last Vital Signs Pulse 108 H 04/21/23 08:44 BP 120/66 04/21/23 08:44 BMI result Body Mass Index 23.9 Const General: comfortable and no acute distress Orientation/consciousness: patient oriented x3 HEENT Other: Unremarkable Head: Yes normal to inspection Neck Neck: Yes normal visual inspection Chest Chest palpation & inspection: normal inspection of the chest Resp Auscultation: clear to auscultation bilaterally and diminished lung sounds Cardio Palpation: normal PMI Heart sounds: S1 normal heart sound present, S2 normal heart sound present, no gallops, no murmurs and no rubs GI Palpation (GI): Soft to palpation Back/Spine/Pelvis Other: unremarkable Skin General skin exam: no rashes or lesions noted Neuro General: patient oriented x3 Extrem General: Yes normal to inspection Psych Mental Status: mental status grossly normal Assessment & Plan Assessment & Plan (1) Atherosclerotic cardiovascular disease: Code(s): I25.10 - Atherosclerotic heart disease of [place] coronary artery without angina pectoris (2) Cardiomyopathy: Code(s): I42.9 - Cardiomyopathy, unspecified Qualifiers: Cardiomyopathy type: other Qualified Code(s): I42.8 - Other cardiomyopathies (3) Tachycardia: Code(s): R00.0 - Tachycardia, unspecified (4) COPD (chronic obstructive pulmonary disease): Code(s): J44.9 - Chronic obstructive pulmonary disease, unspecified Plan Available records reviewed. Echocardiogram in 2020 from [facility]-LVEF 55-60%. Probably normal RV size and systolic function. No significant valvular issues. Prior to that, it seems that at some point LVEF was 35-40% related to frequent PVCs. In the most recent echocardiogram, LVEF diminished at 40-45%. Cardiac catheterization from 2020 at [place] had shown IFR positive 70% LAD lesion. Repeat from last year in [facility] showed that was no longer hemodynamically significant and nonobstructive rather. Dobutamine myocardial perfusion imaging study without any ischemia or infarction. LVEF was still diminished. Overall, conservative care only from cardiac. Continue aspirin, statins. He is on verapamil which is anti anginal and may also help with tachycardia and okay to continue that. Unlikely that he will be able to take beta-blockers as he has advanced COPD. As long as tachycardia is not to prominent, may consider cardiac rehabilitation as he really wants to go back. We discussed the this about length today. Need to see what diagnosis was used in the past. Discussed with significant other who came for appointment. Coding Level of Care Code Est Pt Level 4 (21854) Diagnoses Atherosclerotic cardiovascular disease I25.10 Other cardiomyopathy I42.8 Cardiomyopathy type: other Tachycardia R00.0 COPD (chronic obstructive pulmonary disease) J44.9
[2023-04-21 08:44] VITALS: BP 120/66; PULSE 108; BMI 23.9
== END 2023-04-21 09:13 | disposition home or self-care (01) ==
PROVIDERS: PCP Internal Medicine; Visit Provider Internal Medicine
DX: I25.10 Atherosclerotic heart disease of native coronary artery without angina pectoris (principal); I42.8 Other cardiomyopathies; R00.0 Tachycardia, unspecified; J44.9 Chronic obstructive pulmonary disease, unspecified
CPT/HCPCS: 99214

== ENCOUNTER → 2023-04-21 08:21 | Outpatient (BNVA) | payer MEDICARE, SELFPAY ==
[2022-11-18 10:00] VITALS: BP 120/70; BP 124/64
== END ==
PROVIDERS: PCP Internal Medicine; Visit Provider Internal Medicine
DX: I25.10 Atherosclerotic heart disease of native coronary artery without angina pectoris (principal); I42.8 Other cardiomyopathies; J44.9 Chronic obstructive pulmonary disease, unspecified; R00.0 Tachycardia, unspecified
CPT/HCPCS: 99212

== ENCOUNTER 2023-05-12 08:55 | Outpatient (AMB) | payer MEDICARE, SELFPAY ==
[2022-11-18 10:00] VITALS: BP 120/70; BP 124/64
[2022-12-15 15:37] VITALS: BP 110/70
[2023-05-12 09:08] VITALS: BP 118/64; PULSE 100; O2SAT 94; BMI 23.9
--- NOTE | 2023-05-12 09:08 | A.OFFVIS_ITS ---
Intake Vital Signs 05/12/23 09:08 Height 6 ft Weight 176 lb 5.917 oz BMI 23.9 BP 118/64 Blood Pressure Location Rt brachial Position Sitting Pulse 100 Pulse Source Doppler Pulse Oximetry (%) 94 Oxygen Delivery Method Nasal Cannula Oxygen Flow Rate 2 Intake Visit Reasons: COPD Intake Note: Patient is here for a follow up on COPD, would like a refill on clonazepam Allergies No Known Allergies Allergy (Verified 05/12/23 09:10) HPI COPD HPI Details 73-year-old gentleman, former 30+ pack-y ear smoker, quit 2009,? followed for severe supplemental oxygen dependent COPD and 3 mm pulmonary nodules.? He continues to use Symbicort, Spiriva, albuterol MDI, theophylline, prednisone 5 mg daily, and Duonebs with good baseline control of his symptoms.? He has been evaluated at [facility] for lung transplant program.? 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 No recent exacerbations. Now he is at baseline. He did like Trelegy better than Symbicort/Spiriva combination. [facility] Medical History (Updated 04/21/23 @ 09:22 by Ritesh Puentes MD) Cardiomyopathy Atherosclerotic cardiovascular disease Tachyarrhythmia HLD (hyperlipidemia) Afib COPD (chronic obstructive pulmonary disease) Surgical History (Updated 04/21/23 @ 08:49 by Brooke Hector) No pertinent past surgical history Family History Other Adopted Social History Household Members: Spouse Housing: Condominium Do you presently have visiting nurse or other home services: No Alcohol intake: never Patient Tobacco Use Status: Former Tobacco user Quit Date: 2010 Cigarette Packs Per Day: 1 Years Smoked: 41 Advance Directives Date on File: 10/19/20 service: No Current occupational status: retired Review of Systems Const Denies daytime sleepiness, Denies excessive sweating, Denies fatigue, Denies fever(s), Denies lethargy, Denies malaise, Denies night sweats, Denies snoring and Denies weight loss Eyes Denies blurry vision and Denies itchy eyes ENT Denies nasal congestion, Denies post nasal drip, Denies sinus pain, Denies sinus pressure and Denies other ( Thrush) Card Denies chest pain, Denies pedal edema, Denies dyspnea, Denies orthopnea and Denies paroxysmal nocturnal dyspnea Resp Denies cough, Denies hemoptysis, Denies excessive phlegm production, Denies dyspnea, Denies snoring and Denies wheezing GI Denies abdominal pain and Denies heartburn Musc Denies myalgias, Denies arthralgias and Denies joint swelling Skin/Breast Denies rash Neuro Denies memory loss and Denies seizure-like activity Psych Denies abnormal sleep pattern, Denies anxiety and Denies memory loss Endo Denies excessive sweating, Denies fatigue and Denies heat intolerance [place]/Lymph Denies easy bruising Aller/Immun Denies itchy eyes, Denies seasonal rhinorrhea and Denies wheezing Physical Exam Vital Signs: Last Vital Signs Pulse 100 05/12/23 09:08 BP 118/64 05/12/23 09:08 Pulse Ox 94 05/12/23 09:08 Oxygen Delivery Method Nasal Cannula 05/12/23 09:08 Oxygen Flow Rate 2 05/12/23 09:08 BMI result Body Mass Index 23.9 Const General: no acute distress and alert Nutritional Appearance: not obese Orientation/consciousness: Other orientation findings ( oriented) HEENT Head: Yes atraumatic Eyes General: appearance normal, both eyes and all related structures Sclerae: sclerae normal EOM: EOMs intact bilaterally Neck Neck: Yes supple Lymphatic: no lymphadenopathy noted Resp Effort & Inspection: normal respiratory effort and no use of accessory muscles Auscultation: clear to auscultation bilaterally Cardio Rate: regular rate Rhythm: regular rhythm Heart sounds: no gallops, no murmurs and no rubs Skin General skin exam: other ( warm) Extrem General: No clubbing, No cyanosis and No edema Assessment & Plan Assessment & Plan (1) COPD (chronic obstructive pulmonary disease): Code(s): J44.9 - Chronic obstructive pulmonary disease, unspecified Plan: Advanced COPD on supplemental oxygen and maximum medical therapy. No recent exacerbations. Symptoms at this time are controlled on Trelegy, duo nebs, and albuterol MDI. Clonazepam for hyperventilation/air trapping prevention. (2) Supplemental oxygen dependent: Code(s): Z99.81 - Dependence on supplemental oxygen Plan: Continue supplemental oxygen to maintain O2 saturation of 88-92%. Coding Level of Care Code Est Pt Level 4 (77446) Diagnoses COPD (chronic obstructive pulmonary disease) J44.9 Supplemental oxygen dependent Z99.81
== END 2023-05-12 09:32 | disposition home or self-care (01) ==
PROVIDERS: PCP Internal Medicine; Visit Provider Internal Medicine Pulmonary Disease
DX: J44.9 Chronic obstructive pulmonary disease, unspecified (principal); Z99.81 Dependence on supplemental oxygen
CPT/HCPCS: 99214

== ENCOUNTER → 2023-05-12 08:55 | Outpatient (BNVA) | payer MEDICARE, SELFPAY ==
[2022-11-18 10:00] VITALS: BP 120/70; BP 124/64
== END ==
PROVIDERS: PCP Internal Medicine; Visit Provider Internal Medicine Pulmonary Disease
DX: J44.9 Chronic obstructive pulmonary disease, unspecified (principal); R91.8 Other nonspecific abnormal finding of lung field; Z87.891 Personal history of nicotine dependence; Z99.81 Dependence on supplemental oxygen; Z79.52 Long term (current) use of systemic steroids; Z79.899 Other long term (current) drug therapy
CPT/HCPCS: 99212

== ENCOUNTER 2023-10-13 10:37 | Outpatient (AMB) | payer MEDICARE, SELFPAY ==
[2022-11-18 10:00] VITALS: BP 120/70; BP 124/64
[2023-10-13 10:53] VITALS: BP 114/62; PULSE 102; O2SAT 93; BMI 23.5
--- NOTE | 2023-10-13 10:53 | A.OFFVIS_ITS ---
Intake Vital Signs 10/13/23 10:53 Height 6 ft Weight 173 lb 1.006 oz BMI 23.5 BP 114/62 Blood Pressure Location Lt brachial Position Sitting Pulse 102 H Pulse Source Doppler Pulse Oximetry (%) 93 Oxygen Delivery Method Nasal Cannula Oxygen Flow Rate 1 Intake Visit Reasons: COPD Allergies No Known Allergies Allergy (Verified 10/13/23 10:57) HPI COPD HPI Details 73-year-old gentleman, former 30+ pack-y ear smoker, quit 2009,? followed for severe supplemental oxygen dependent COPD and 3 mm pulmonary nodules.? He continues to use Symbicort, Spiriva, albuterol MDI, theophylline, prednisone 5 mg daily, and Duonebs with good baseline control of his symptoms.? He has been evaluated at [facility].? He previously was evaluated with left heart catheterization by his glove pairer and now continues on medical therapy. Patient did have COVID few months prior, but now has recovered to baseline, no recent exacerbations. He has been using Trelegy with good control of his symptoms. ON LICENSE OF [facility] Medical History (Updated 04/21/23 @ 09:22 by Ritesh Puentes MD) Cardiomyopathy Atherosclerotic cardiovascular disease Tachyarrhythmia HLD (hyperlipidemia) Afib COPD (chronic obstructive pulmonary disease) Surgical History (Updated 04/21/23 @ 08:49 by Brooke Hector) No pertinent past surgical history Family History Other Adopted Social History Household Members: Spouse Housing: Condominium Do you presently have visiting nurse or other home services: No Alcohol intake: never Patient Tobacco Use Status: Former Tobacco user Quit Date: 2010 Cigarette Packs Per Day: 1 Years Smoked: 41 Advance Directives Date on File: 10/19/20 service: No Current occupational status: retired Review of Systems Const Denies daytime sleepiness, Denies excessive sweating, Denies fatigue, Denies fever(s), Denies lethargy, Denies malaise, Denies night sweats, Denies snoring and Denies weight loss Eyes Denies blurry vision and Denies itchy eyes ENT Denies nasal congestion, Denies post nasal drip, Denies sinus pain, Denies sinus pressure and Denies other ( Thrush) Card Denies chest pain, Denies pedal edema, Denies dyspnea, Denies orthopnea and De nies paroxysmal nocturnal dyspnea Resp Denies cough, Denies hemoptysis, Denies excessive phlegm production, Denies dyspnea, Denies snoring and Denies wheezing GI Denies abdominal pain and Denies heartburn Musc Denies myalgias, Denies arthralgias and Denies joint swelling Skin/Breast Denies rash Neuro Denies memory loss and Denies seizure-like activity Psych Denies abnormal sleep pattern, Denies anxiety and Denies memory loss Endo Denies excessive sweating, Denies fatigue and Denies heat intolerance [place]/Lymph Denies easy bruising Aller/Immun Denies itchy eyes, Denies seasonal rhinorrhea and Denies wheezing Physical Exam Vital Signs: Last Vital Signs Pulse 102 H 10/13/23 10:53 BP 114/62 10/13/23 10:53 Pulse Ox 93 10/13/23 10:53 Oxygen Delivery Method Nasal Cannula 10/13/23 10:53 Oxygen Flow Rate 1 10/13/23 10:53 BMI result Body Mass Index 23.5 Const General: no acute distress and alert Nutritional Appearance: not obese Orientation/consciousness: Other orientation findings ( oriented) HEENT Head: Yes atraumatic Eyes General: appearance normal, both eyes and all related structures Sclerae: sclerae normal EOM: EOMs intact bilaterally Neck Neck: Yes supple Lymphatic: no lymphadenopathy noted Resp Effort & Inspection: normal respiratory effort and no use of accessory muscles Auscultation: clear to auscultation bilaterally Cardio Rate: regular rate Rhythm: regular rhythm Heart sounds: no gallops, no murmurs and no rubs Skin General skin exam: other ( warm) Extrem General: No clubbing, No cyanosis and No edema Assessment & Plan Assessment & Plan (1) COPD (chronic obstructive pulmonary disease): Code(s): J44.9 - Chronic obstructive pulmonary disease, unspecified Plan: Advanced COPD on maximum medical therapy. Continue trilogy, duo nebs, prednisone 5 mg daily, Xopenex. Continue Klonopin for air trapping. (2) Supplemental oxygen dependent: Code(s): Z99.81 - Dependence on supplemental oxygen Plan: Continue supplemental oxygen to maintain O2 saturation of 88-92%. Medications: Refilled ipratropium-albuterol 0.5 mg-3 mg(2.5 mg base)/3 mL 3 mL inhalation Q4H PRN 270 mL 6RF for wheezing J44.9 - Chronic obstructive pulmonary disease, unspecified [id number] 200-62.5-25 mcg (Trelegy Ellipta) 1 inh inhalation DAILY 30 days 1 ea 6RF Coding Level of Care Code Est Pt Level 4 (21408) Diagnoses COPD (chronic obstructive pulmonary disease) J44.9 Supplemental oxygen dependent Z99.81
== END 2023-10-13 11:13 | disposition home or self-care (01) ==
PROVIDERS: PCP Internal Medicine; Visit Provider Internal Medicine Pulmonary Disease
DX: J44.9 Chronic obstructive pulmonary disease, unspecified (principal); Z99.81 Dependence on supplemental oxygen
CPT/HCPCS: 99214

== ENCOUNTER → 2023-10-13 10:37 | Outpatient (BNVA) | payer MEDICARE, SELFPAY ==
[2022-11-18 10:00] VITALS: BP 120/70; BP 124/64
== END ==
PROVIDERS: PCP Internal Medicine; Visit Provider Internal Medicine Pulmonary Disease
DX: J44.9 Chronic obstructive pulmonary disease, unspecified (principal); Z99.81 Dependence on supplemental oxygen
CPT/HCPCS: 99212

== ENCOUNTER 2023-12-01 07:04 | Emergency (ER) | payer MEDICARE, SELFPAY ==
[2022-11-18 10:00] VITALS: BP 120/70; BP 124/64
[2022-12-15 15:37] VITALS: BP 110/70
[2023-04-01 14:47] VITALS: BP 120/70; BP 124/64; BMI 23.1
--- NOTE | 2023-12-01 | ECG_ITS ---
Test Reason : CP Blood Pressure : / mmHG Vent. Rate : 105 BPM Atrial Rate : 105 BPM P-R Int : 146 ms QRS Dur : 070 ms QT Int : 352 ms P-R-T Axes : 081 082 083 degrees QTc Int : 465 ms Sinus tachycardia with occasional Premature ventricular complexes Possible Anterior infarct (cited on or before 23-OCT-2020) Abnormal ECG When compared with ECG of 18-MAR-2023 15:45, Fusion complexes are no longer Present Referred By: Generic ED Physician Electronically Signed By:Eric Hoffman
--- NOTE | ~2023-12-01 | CT_ITS ---
EXAMINATION: CT ABDOMEN AND PELVIS WITH CONTRAST CLINICAL INFORMATION: Left flank pain radiating to left groin and leg COMPARISON: None available. TECHNIQUE: Multidetector volumetric images were obtained from the superior aspect of the liver through the pubic symphysis following administration 85 mL of Omnipaque 350 intravenous contrast. Sagittal and coronal reformatted images were obtained on the technologist's workstation. Oral contrast: No This CT examination was performed using dose optimization techniques as appropriate, variously including the following: *Automated exposure control *Adjustment of mA and/or kV according to patient size (this includes techniques or standardized protocols for targeted exams where dose is matched to indication/reason for exam; i.e. extremities or head) *Use of iterative reconstruction technique DLP: 440 mGy-cm FINDINGS: LUNG BASES: Mild emphysematous changes are present at the lung bases. LIVER, GALLBLADDER, AND BILIARY TREE: The liver is normal in size, shape, and attenuation. Benign hepatic cysts are present in the liver. No suspicious solid focal hepatic lesion or biliary ductal dilatation is present. The gallbladder is unremarkable with no evidence of radiopaque gallstones, gallbladder wall thickening, or obvious pericholecystic inflammatory changes. PANCREAS: Unremarkable. SPLEEN: Unremarkable. ADRENAL GLANDS: Unremarkable. KIDNEYS AND URETERS: The kidneys are normal in size, shape, and attenuation. No hydronephrosis, hydroureter, or calculi seen. No perinephric stranding. BLADDER: Unremarkable. GASTROINTESTINAL TRACT: The small and large bowel are unremarkable aside from colonic diverticula without diverticulitis. The appendix is not seen but there is no evidence of appendicitis evidence of appendicitis. ABDOMINAL WALL: Calcific atherosclerotic changes are present in the aorta and iliofemoral vessels. There is no evidence of an abdominal aortic aneurysm. LYMPH NODES: No retroperitoneal lymphadenopathy. VASCULAR: Unremarkable. PELVIC VISCERA: There is mild BPH. Seminal vesicles appear normal OSSEOUS STRUCTURES: Posterior pedicular screws are present from L4 through S1. There is mild biconvex thoracolumbar scoliosis. No bony destructive lesions or pelvic fractures are seen. CT/CT abdomen pelvis w IV con IMPRESSION: 1. A cause for the patient's left flank pain has not been found. 2. Incidental note made of benign hepatic cysts, colonic diverticulosis without diverticulitis, mild BPH and postoperative changes in the lumbar spine. Fleischner guidelines were followed.
[2023-12-01 07:15] VITALS: BP 146/78; PULSE 104; RESP 18; TEMP 36.6; O2SAT 94; BMI 23.1
--- NOTE | 2023-12-01 07:26 | ED_ITS ---
HPI - Chest Pain General Chief Complaint: Chest Pain Stated Complaint: SHARP L LEG PAIN Time Seen by Provider: 12/01/23 07:16 Source: patient Mode of arrival: EMS Limitations: no limitations History of Present Illness HPI narrative: 73-year-old male with a history of cardiomyopathy, atherosclerotic cardiovascular disease, tachyarrhythmia, hyperlipidemia, atrial fibrillation, COPD who presents emergency department for evaluation of sudden onset left thigh pain which radiates to his groin, left lower abdomen and left side of his chest. He states that the pain came on suddenly this morning. States the pain is a constant, sharp pain which is 10/10 . Pain is worse with movement. He does not recount any injury but he states he did ride a bike yesterday. This is 1st episode of this type of pain. He states the pain is 5/10 at rest but 10/10 if he moves his leg or back. He denied fever, chills, nausea, vomiting, diarrhea, frequency, urgency or dysuria Related Data Home Medications ?Medication ?Instructions ?Recorded ?Confirmed albuterol sulfate 90 mcg/actuation 2 puff inhalation Q4H PRN Wheezing 04/26/20 04/21/23 aerosol inhaler atorvastatin 20 mg tablet 20 mg PO BEDTIME 04/26/20 04/21/23 mirtazapine 30 mg tablet 30 mg PO BEDTIME 04/26/20 04/21/23 pantoprazole 40 mg tablet,delayed 40 mg PO DAILY@0630 04/26/20 04/21/23 release trazodone 50 mg tablet 25 mg PO BEDTIME 04/26/20 04/21/23 ascorbic acid (vitamin C) 500 mg 1,000 mg PO DAILY 10/19/20 04/21/23 tablet (Vitamin C) multivitamin 1 tab PO DAILY 10/19/20 04/21/23 aspirin 81 mg tablet,delayed 81 mg PO DAILY 11/17/22 04/21/23 release (Adult Low Dose Aspirin) nitroglycerin 0.4 mg sublingual 0.4 mg sublingual Q5M PRN Angina 11/17/22 04/21/23 tablet acetaminophen 500 mg tablet 500 mg PO Q6H PRN Pain 03/17/23 04/21/23 levalbuterol HCl 1.25 mg/3 mL 1.25 mg inhalation Q4H PRN 03/17/23 04/21/23 solution for nebulization Shortness Of Breath Or Wheezing lidocaine 5 % topical patch 1 patch topical DAILY 03/17/23 04/21/23 tizanidine 2 mg tablet 2 mg PO BEDTIME 04/21/23 04/21/23 Previous Rx's ?Medication ?Instructions ?Recorded prednisone 5 mg tablet 5 mg PO DAILY 3 months #90 tabs 02/03/23 benzonatate 100 mg capsule 200 mg (2 x 100 mg) PO TID #14 caps 03/20/23 dextromethorphan-guaifenesin 30 2 tab PO BID #10 tabs 03/20/23 mg-600 mg tablet extended hr (Mucus DM) guaifenesin 1,200 mg tablet, 1,200 mg PO Q12H 14 days #28 tabs 04/07/23 extended release 12 hr (Mucinex) clonazepam 1 mg tablet 1 mg PO DAILY PRN anxiety 30 days 05/12/23 #30 tabs verapamil 240 mg tablet,extended 240 mg PO BEDTIME #30 tabs 08/04/23 release ipratropium 0.5 mg-albuterol 3 mg 3 ml inhalation Q4H PRN for 10/13/23 (2.5 mg base)/3 mL nebulization wheezing #270 mL soln fluticasone fur. 200 mcg-umeclid 1 inh inhalation DAILY 30 days #1 11/12/23 62.5 mcg-vilant 25 mcg ea inhalat.powder (Trelegy Ellipta) morphine 15 mg tablet,extended 15 mg PO Q6H PRN pain #10 tabs 12/01/23 release Allergies Allergy/AdvReac Type Severity Reaction Status Date / Time No Known Allergies Allergy Verified 12/01/23 07:16 Review of Systems 2 Review of Systems: Yes all other systems are reviewed and are negative [facility] Past Medical History [facility] Narrative: Social history: He denies tobacco and alcohol use. He denies drug use. Medical History (Updated 12/01/23 @ 11:56 by Sd Atwood MD) Cardiomyopathy Atherosclerotic cardiovascular disease Tachyarrhythmia HLD (hyperlipidemia) Afib COPD (chronic obstructive pulmonary disease) Surgical History (Updated 04/21/23 @ 08:49 by Brooke Hector) No pertinent past surgical history Family History Family History Other Adopted Social History Social History Household Members: Spouse Housing: Condominium Do you presently have visiting nurse or other home services: No Alcohol intake: never Patient Tobacco Use Status: Former Tobacco user Quit Date: 2010 Cigarette Packs Per Day: 1 Years Smoked: 41 Smoked in Last 30 Days: No Use of substances other than those prescribed or required for medical reasons: No Advance Directives: Yes Advance Directives on File: Yes Advance Directives Date on File: 10/19/20 Do you have a plan to hurt others: No Plan service: No Current occupational status: retired Physical Exam 2 Vital Signs: Vital Signs: Last Vital Signs Temp 97.7 F 12/01/23 11:36 Pulse 88 12/01/23 11:36 Resp 20 12/01/23 11:36 BP 142/85 H 12/01/23 11:36 Pulse Ox 97 12/01/23 11:36 O2 Del Method Room Air 12/01/23 11:36 O2 Flow Rate 5 12/01/23 10:10 BMI result Body Mass Index 23.1 Vital signs revealed an elevated heart rate of 104 Exam: General: Awake, alert, in moderate distress secondary to his pain Head: Normocephalic, atraumatic EENT: PERRL, Lids normal, sclera normal, conjunctiva normal, nose normal , ears normal, throat without erythema or exudates Neck: Supple, no adenopathy Lung: breath sounds symmetric, no wheezing, rales or rhonchi Chest: symmetric movement, nontender Heart: regular rate and rhythm, normal S1, S2 no murmurs or rubs Abdomen: Moderate left lower quadrant tenderness with voluntary guarding but no involuntary guarding, no rebound, normoactive bowel sounds Back: Tenderness with spasm of the paraspinal muscles in the left lumbar sacral region, no point tenderness with palpation over the vertebrae Extremities: Patient has normal pulses bilaterally, skin is normal temperature with no increased coolness, no color change, there is mild tenderness with palpation of the left thigh and left groin area, has significant positive straight leg raise on the left but not on the right. Neuro: Awake, alert, oriented, normal speech, cranial nerves intact, moves all extremities symmetrically Psych: Pleasant, cooperative Medications Administered Discontinued Medications Generic Name Dose Route Start Last Admin Trade Name Chase PRN Reason Stop Dose Admin Sodium Chloride 1,000 mls @ 999 mls/hr 12/01/23 07:27 12/01/23 08:36 Ns IV 12/01/23 08:27 Infused .Q1H1M STA Infusion Iohexol 85 ml 12/01/23 08:46 12/01/23 08:46 Iohexol 350 Mg/Ml 100 Ml Infus..Btl IV 12/01/23 08:47 85 ml ONCE ONE Administration Morphine Sulfate 4 mg 12/01/23 07:27 12/01/23 07:34 Morphine Sulfate 4 Mg/Ml Cartridge IVPUSH 12/01/23 07:28 4 mg ONCE STA Administration Protocol Ondansetron HCl 4 mg 12/01/23 07:27 12/01/23 07:34 Ondansetron Hcl 4 Mg/2 Ml Vial IVPUSH 12/01/23 07:28 4 mg ONCE ONE Administration Medical Decision Making Medical Decision Making MDM Narrative: 73-year-old male with a history of cardiomyopathy, atherosclerotic cardiovascular disease, tachyarrhythmia, hyperlipidemia, atrial fibrillation, COPD who presents emergency department for evaluation of sudden onset left thigh pain which radiates to his groin, left lower abdomen and left side of his chest. Vital signs revealed elevated heart rate of 104. Patient did have tenderness palpation of his left thigh, left groin and significant tenderness with spasm with palpation over the left lumbar sacral paraspinal muscles. He was positive straight leg raise on the left than on the right. The left lower extremities neurovascularly intact with normal pulses. He also has left lower quadrant tenderness with voluntary guarding but no rebound. 07:37 Differential diagnosis: ?Includes but is not limited to myocardial infarction, myocardial ischemia, vascular compromise of the left lower extremity, lumbar pain with radiculopathy, anemia, electrolyte abnormalities Following evaluation was ordered: CBC, CMP, PT/INR, PTT, BNP, troponin, EKG, CT scan of the abdomen pelvis with IV contrast Patient was initially treated with the following: Morphine 4 mg IV, normal saline IV x1 L, IV insert, cardiac monitoring, O2 saturation monitor Course: 11:51 Interpretation patient's laboratory evaluation is as follows: CBC was normal. CMP was normal. Lipase was normal. The high sensitive troponin I was detectable but not elevated at 4.9 Patient's [address] scan of the abdomen pelvis did not reveal a clear cause for the patient's abdominal pain . The patient did have incidental findings I did discuss with him. At this time I suspect that the patient has lumbar radiculopathy with pain radiating to his abdomen and down his left leg and I did discuss this with him. Patient does take tizanidine and I told him to continue taking this medication as prescribed by his doctor for muscle spasm. He was advised to take acetaminophen 1000 mg every 6 hours as needed for pain and for pain not relieved by these medications she was prescribed morphine 15 mg every 6 hours as needed. Patient was also advised to take Metamucil daily to help prevent constipation and to increase his fluid intake. He was given printed and verbal instructions and discharged home. Admission/Observation Consideration of admission/observation: Escalation of care including admission/observation considered Lab Data 12/01/23 07:32 12/01/23 07:32 Labs: Lab Results 12/01/23 Range/Units 07:32 WBC 10.8 (4.8-10.8) X10*3/uL RBC 4.41 L (4.60-5.80) X10*6/uL Hgb 14.0 (14.0-18.0) g/dl Hct 40.5 L (42.0-52.0) % MCV 91.8 (80.0-98.0) fL MCH 31.7 (27.0-33.0) pg MCHC 34.6 (31.0-36.0) g/dl RDW 13.4 (11.0-16.0) % Plt Count 302 (160-400) X10*3/uL MPV 9.3 L (9.4-12.4) fL Immature Gran % (Auto) 0.5 H (0.0-0.4) % Neut % (Auto) 57.8 (45-73) % Lymph % (Auto) 30.8 (20-40) % Cameron % (Auto) 9.1 (2-11) % Eos % (Auto) 1.5 (0-4) % Baso % (Auto) 0.3 (0-2) % Lymph # (Auto) 3.3 (1.2-4.9) X10*3/uL Cameron # (Auto) 1.0 (0.1-1.2) X10*3/uL Eos # (Auto) 0.2 (0.0-0.4) X10*3/uL Baso # (Auto) 0.0 (0.0-0.2) X10*3/uL Abs Immat Gran (auto) 0.05 H (0.00-0.03) X10*3/uL Absolute Neuts (auto) 6.3 (2.0-8.3) x10*3/uL Absolute Nucleated RBC 0.000 (0.0-0.012) X10*3/uL Nucleated RBC % (auto) 0.0 (0.0-0.2) /100WBC PT 11.6 (11.1-13.3) SEC INR 1.0 (0.9-1.1) APTT 30.5 (26.0-36.8) SEC Sodium 145 (135-145) mmol/L Potassium 3.6 (3.3-5.1) mmol/L Chloride 108 (96-108) mmol/L Carbon Dioxide 24 (22-29) mmol/L Anion Gap 17 (12-20) BUN 19 H (9-16) mg/dL Creatinine 0.98 (0.5-1.4) mg/dL Estim Creat Clear Calc 75.6 Estimated GFR > 60 Random Glucose 91 (60-115) mg/dL Calcium 9.7 (8.4-10.2) mg/dL Total Bilirubin 0.5 (0.0-1.0) mg/dL AST 18 (5-37) U/L ALT 16 (0-40) U/L Alkaline Phosphatase 62 (39-117) U/L Troponin I High Sens 4.1 (<3.5-35.0) ng/L B-Natriuretic Peptide 35 (<100) pg/mL Total Protein 7.1 (6.5-8.0) g/dL Albumin 4.3 (3.5-5.0) g/dL Lipase 36 (8-78) U/L Independent Interpretation I performed an independent interpretation of an: EKG Interpretation: My interpretation patient's 12 EKG done at 07:10 hours is as follows: Sinus tachycardia with a rate of 100 beats per minute, occasional PVC, no ST segment elevation, no ST segment depression, no significant T-wave abnormalities, poor R-wave progression V1 through V3. Compared to EKG dated 03/18/2023, patient was tachycardic at that time with a rate of 133. Patient had PVCs and the poor R- wave progression is old. Radiology Impression Discussion of test interpretation with radiology: I have reviewed the radiologist's reading. Radiologist Impression: CT abdomen pelvis w IV con IMPRESSION: 1. A cause for the patient's left flank pain has not been found. 2. Incidental note made of benign hepatic cysts, colonic diverticulosis without diverticulitis, mild BPH and postoperative changes in the lumbar spine. Fleischner guidelines were followed. Dictated By: Massimo Candelaria MD Discharge Plan Discharge Clinical Impression: Acute left lumbar radiculopathy Patient Disposition: Home, Self-Care Instructions: Lumbar Radiculopathy (ED) Additional Instructions: Your blood work was normal Your EKG was unremarkable. The CT scan of your abdomen pelvis with IV contrast did not reveal a clear cause for your abdominal pain. There were several incidental findings that I put at the bottom of this note. You can follow-up with your doctor for these incidental findings. At this time I believe that the pain in your back, abdomen, groin and left leg are due to inflammation of the nerves coming out of your lower back (lumbar radiculopathy) Take Tylenol (acetaminophen) 2 pills every 6 hours as needed for pain. For pain not relieved byTylenol take morphine 15 mg pills, 1 pill every 4 hours as needed for pain. This medication will make you sleepy, do not drive or work while taking this medication. Morphine is a narcotic medication and can be addicting. If you are concerned about addiction you can ask the pharmacist for less pills or do not get this prescription filled. Follow-up with your doctor in 2 days. Please return to the emergency department if your symptoms get worse or if you develop any symptoms that are concerning to you. Prescriptions: New morphine 15 mg tablet extended release 15 mg PO Q6H PRN (Reason: pain) Qty: 10 0RF Rx Instructions: Partial Fill upon patient request. No Action prednisone 5 mg tablet 5 mg PO DAILY 90 Days Qty: 90 4RF Hold Instructions: Resume on 03/24/23. verapamil 240 mg tablet extended release 240 mg PO BEDTIME Qty: 30 7RF Trelegy Ellipta 200-62.5-25 mcg blister with device 1 inh inhalation DAILY 30 Days Qty: 1 6RF multivitamin Tablet 1 tab PO DAILY ascorbic acid (vitamin C) [Vitamin C] 500 mg Tablet 1,000 mg PO DAILY tizanidine 2 mg tablet 2 mg PO BEDTIME Rx Instructions: rx is for tid prn, but patient takes once at bedtime lidocaine 5 % adhesive patch,medicated 1 patch topical DAILY Rx Instructions: remove after 12 hrs acetaminophen 500 mg Tablet 500 mg PO Q6H PRN (Reason: Pain) levalbuterol HCl 1.25 mg/3 mL Solution For Nebulization 1.25 mg INHALATION Q4H PRN (Reason: Shortness Of Breath Or Wheezing) Mucus DM 30-600 mg Tablet Extended Release 12 Hr 2 tab PO BID Qty: 10 0RF benzonatate 100 mg Capsule 200 mg PO TID Qty: 14 0RF mirtazapine 30 mg tablet 30 mg PO BEDTIME pantoprazole 40 mg tablet,delayed release (DR/EC) 40 mg PO DAILY@0630 atorvastatin 20 mg tablet 20 mg PO BEDTIME trazodone 50 mg tablet 25 mg PO BEDTIME albuterol sulfate 90 mcg/actuation HFA aerosol inhaler 2 puff inhalation Q4H PRN (Reason: Wheezing) ipratropium-albuterol 0.5 mg-3 mg(2.5 mg base)/3 mL solution for nebulization 3 ml inhalation Q4H PRN (Reason: for wheezing) Qty: 270 6RF aspirin [Adult Low Dose Aspirin] 81 mg tablet,delayed release (DR/EC) 81 mg PO DAILY nitroglycerin 0.4 mg tablet, sublingual 0.4 mg sublingual Q5M PRN (Reason: Angina) Mucinex 1,200 mg tablet extended release 12hr 1,200 mg PO Q12H 14 Days Qty: 28 0RF clonazepam 1 mg tablet 1 mg PO DAILY PRN (Reason: anxiety) 30 Days Qty: 30 3RF Print Language: Yakut
[2023-12-01] MEDS: ondansetron HCL 4 MG/2 ML VIAL IVPUSH (07:34)
[2023-12-01] MEDS: Morphine Sulfate 4 MG/ML CARTRIDGE IVPUSH (07:34)
[2023-12-01] MEDS: 0.9 % Sodium Chloride 1,000 ML 999 ML IV (07:35)
[2023-12-01 07:38] LABS: MANUAL DIFF FLAG NO
[2023-12-01 07:46] LABS: Basophils Percent Auto 0.3 % (0-2); Eosinophils Absolute Auto 0.2 X10*3/uL (0.0-0.4); Eosinophils Percent Auto 1.5 % (0-4); Hematocrit 40.5 % (42.0-52.0); Imm Gran Abs Auto 0.05 X10*3/uL (0.00-0.03); Imm Gran Pct Auto 0.5 % (0.0-0.4); Lymphocytes Absolute Auto 3.3 X10*3/uL (1.2-4.9); Lymphocytes Percent Auto 30.8 % (20-40); Mean Corpuscular HGB Conc 34.6 g/dl (31.0-36.0); Mean Corpuscular Hemoglobin 31.7 pg (27.0-33.0); Mean Corpuscular Volume 91.8 fL (80.0-98.0); Mean Platelet Volume 9.3 fL (9.4-12.4); Monocytes Percent Auto 9.1 % (2-11); Neutrophils Absolute Auto 6.3 x10*3/uL (2.0-8.3); Neutrophils Percent Auto 57.8 % (45-73); Platelet Count 302 X10*3/uL (160-400); Red Blood Count 4.41 X10*6/uL (4.60-5.80); Red Cell Distribution Width 13.4 % (11.0-16.0); White Blood Count 10.8 X10*3/uL (4.8-10.8)
--- NOTE | 2023-12-01 07:46 | PC.NURSE ---
a&ox4. vss and up to date. 2-4L via NC baseline d/t hx of COPD. nsr on the electronic musical instrument repairer. pt presents to the ED w/ left sided leg pain - starts at knee, radiates to groin and center of chest as well as lower back. pt rates pain at a 5/10. pt also c/o dyspnea w/ exertion. pt seen by ED provider/aware of plan of care moving forward. ekg performed by tech. 20gIV placed in the right forearm - labs obtained/sent to lab. medication/IVF administered per provider order. effectiveness pending. pt waiting to go to CT at this time. respirations even and unlabored. plan of care ongoing. call mendiola placed within reach.
[2023-12-01 07:52] LABS: Prothrombin Time 11.6 SEC (11.1-13.3)
[2023-12-01 07:55] LABS: Alanine Aminotransferase 16 U/L (0-40); Albumin Level 4.3 g/dL (3.5-5.0); Alkaline Phosphatase 62 U/L (39-117); Anion Gap 17 (12-20); Aspartate Amino Transferase 18 U/L (5-37); Bilirubin Total 0.5 mg/dL (0.0-1.0); Blood Urea Nitrogen 19 mg/dL (9-16); Calcium 9.7 mg/dL (8.4-10.2); Carbon Dioxide 24 mmol/L (22-29); Chloride 108 mmol/L (96-108); Creatinine Clr Calc Pharmacy 75.6; Estimated Glomerular Filt Rate > 60; Glucose Random 91 mg/dL (60-115); Lipase 36 U/L (8-78); Partial Thromboplastin Time 30.5 SEC (26.0-36.8); Potassium 3.6 mmol/L (3.3-5.1); Sodium 145 mmol/L (135-145); Total Protein 7.1 g/dL (6.5-8.0)
[2023-12-01 07:58] LABS: B Type Natriuretic Peptide 35 pg/mL (<100)
[2023-12-01 08:02] LABS: Troponin-I High Sensitivity 4.1 ng/L (<3.5-35.0)
--- NOTE | 2023-12-01 08:37 | PC.NURSE ---
pt to CT at this time.
[2023-12-01] MEDS: iohexoL 350 MG/ML 100 ML INFUS..BTL 85 ML IV (08:46)
[2023-12-01 09:09] VITALS: BP 125/85; PULSE 90; RESP 18; O2SAT 98
--- NOTE | 2023-12-01 09:10 | PC.NURSE ---
pt returned from CT at this time. pt verbalizing feeling increased sob post moving onto stretcher in CT - NC increased to 5L at this time. pt repositioned to high fowlers to promote patent airway.
[2023-12-01 10:10] VITALS: BP 134/82; PULSE 84; RESP 18; O2SAT 98
[2023-12-01 11:36] VITALS: BP 142/85; PULSE 88; RESP 20; TEMP 36.5; O2SAT 97
[2023-12-01 12:05] VITALS: BP 142/85; PULSE 88; RESP 20; TEMP 36.5; O2SAT 97
[2023-12-01 12:14] VITALS: BP 135/87; PULSE 103; RESP 18; O2SAT 98
== END 2023-12-01 12:36 | disposition home or self-care (01) ==
PROVIDERS: Emergency Provider Emergency Medicine Emergency Medical Services; PCP Internal Medicine
DX: M54.16 Radiculopathy, lumbar region (principal)
CPT/HCPCS: 36415; 74177; 80053; 83690; 83880; 84484; 85025; 85610; 85730; 93005; 96361; 96374; 96375; 99284; 99285; J2270; J2405; Q9967

== ENCOUNTER → 2023-12-01 07:10 | Outpatient (BNV) | payer MEDICARE, SELFPAY ==
[2023-04-01 14:47] VITALS: BP 120/70; BP 124/64; BMI 23.1
== END ==
PROVIDERS: Emergency Provider Emergency Medicine Emergency Medical Services; PCP Internal Medicine; Visit Provider Internal Medicine Cardiovascular Disease
DX: R00.0 Tachycardia, unspecified (principal); I49.3 Ventricular premature depolarization
CPT/HCPCS: 93010

== ENCOUNTER 2023-12-16 09:44 | Outpatient (AMB) | payer MEDICARE, SELFPAY ==
[2022-11-18 10:00] VITALS: BP 120/70; BP 124/64
[2023-04-01 14:47] VITALS: BP 120/70; BP 124/64; BMI 23.1
--- NOTE | 2023-12-16 10:17 | MHC.OFFVIS ---
Vital Signs 12/16/23 10:18 Height 6 ft Weight 163 lb 2.273 oz BMI 22.1 BP 128/68 Blood Pressure Location Lt brachial Position Sitting Pulse 90 Pulse Source Pulse Oximeter Intake Visit Reasons: r/s x2 followup Allergies No Known Allergies Allergy (Verified 12/01/23 07:16) Medication List - Last Reconciled 12/16/23 by Ritesh Puentes MD acetaminophen 500 mg PO Q6H PRN albuterol sulfate 90 mcg/actuation 2 puffs inhalation Q4H PRN ascorbic acid (vitamin C) (Vitamin C) 1,000 mg PO DAILY aspirin (Adult Low Dose Aspirin) 81 mg PO DAILY atorvastatin 20 mg PO BEDTIME clonazepam 1 mg PO DAILY PRN 30 days [id number] 200-62.5-25 mcg (Trelegy Ellipta) 1 inh inhalation DAILY 30 days ipratropium-albuterol 0.5 mg-3 mg(2.5 mg base)/3 mL 3 mL inhalation Q4H PRN levalbuterol HCl 1.25 mg inhalation Q4H PRN mirtazapine 30 mg PO BEDTIME morphine ER 15 mg PO Q6H PRN multivitamin 1 tab PO DAILY nitroglycerin 0.4 mg sublingual Q5M PRN pantoprazole 40 mg PO DAILY@0630 prednisone 5 mg PO DAILY 3 months tizanidine 2 mg PO BEDTIME trazodone 25 mg PO BEDTIME verapamil ER 240 mg PO BEDTIME HPI Comments Details: Mateusz returns for follow up. Previously, he was seen at [facility]. To recall, he has advanced pulmonary disease, COPD. In the past, he was listed for lung transplantation but no longer in the list due to age. Has chronic sinus tachycardia which is suspected to be mainly from advanced lung disease. Other medications like theophylline, steroids, inhalers and nebulizers may also play some role in it. Overall, feels just about the same as before. He does get short of breath frequently, even with minimal activity. No angina. [facility] Medical History (Updated 12/02/23 @ 00:01 by Samuel Gomez) Cardiomyopathy Atherosclerotic cardiovascular disease Tachyarrhythmia HLD (hyperlipidemia) Afib COPD (chronic obstructive pulmonary disease) Surgical History (Updated 04/21/23 @ 08:49 by Brooke Hector) No pertinent past surgical history Family History Other Adopted Social History Household Members: [facility] Do you presently have visiting nurse or other home services: No Alcohol intake: never Patient Tobacco Use Status: Former Tobacco user Quit Date: 2010 Cigarette Packs Per Day: 1 Years Smoked: 41 Advance Directives Date on File: 10/19/20 service: No Current occupational status: retired Review of Systems Const Denies weakness ENT Denies dizziness Card Denies chest pain, Denies chest pain with activity, Denies syncope, Denies rapid heart rate, Denies pedal edema, Denies edema, Denies leg edema, Denies lightheadedness, Denies palpitations, Denies dyspnea, Denies dyspnea on exertion and Denies orthopnea Resp Denies cough, Denies dyspnea and Denies dyspnea on exertion GI Denies hematochezia and Denies change in stool character Musc Denies abnormal gait, Denies muscle cramps, Denies muscle weakness, Denies numbness, Denies radiating pain into limb and Denies tingling Neuro Denies abnormal gait, Denies dizziness, Denies syncope, Denies numbness, Denies tingling and Denies weakness Endo Denies palpitations Physical Exam Vital Signs: Last Vital Signs Pulse 90 12/16/23 10:18 BP 128/68 12/16/23 10:18 BMI result Body Mass Index 22.1 Const General: comfortable and no acute distress Orientation/consciousness: patient oriented x3 HEENT Other: Unremarkable Head: Yes normal to inspection Neck Neck: Yes normal visual inspection Chest Chest palpation & inspection: normal inspection of the chest Resp Auscultation: clear to auscultation bilaterally and diminished lung sounds Cardio Palpation: normal PMI Heart sounds: S1 normal heart sound present, S2 normal heart sound present, no gallops, no murmurs and no rubs GI Palpation (GI): Soft to palpation Back/Spine/Pelvis Other: unremarkable Skin General skin exam: no rashes or lesions noted Neuro General: patient oriented x3 Extrem General: Yes normal to inspection Psych Mental Status: mental status grossly normal Assessment & Plan Assessment & Plan (1) Atherosclerotic cardiovascular disease: Code(s): I25.10 - Atherosclerotic heart disease of seminole coronary artery without angina pectoris Category: Medical (2) Cardiomyopathy: Code(s): I42.9 - Cardiomyopathy, unspecified Category: Medical Qualifiers: Cardiomyopathy type: other Qualified Code(s): I42.8 - Other cardiomyopathies (3) Tachycardia: Code(s): R00.0 - Tachycardia, unspecified Category: Medical (4) COPD (chronic obstructive pulmonary disease): Code(s): J44.9 - Chronic obstructive pulmonary disease, unspecified Category: Medical Plan Records reviewed. Echocardiogram in 2020 from [facility]-LVEF 55-60%. Probably normal RV size and systolic function. No significant valvular issues. Prior to that, it seems that at some point LVEF was 35-40% related to frequent PVCs. In the most recent echocardiogram from 2022, LVEF diminished at 40-45%. Cardiac catheterization from 2020 at [facility] had shown IFR positive 70% LAD lesion. Repeat from last year in [facility] showed that was no longer hemodynamically significant and nonobstructive rather. Dobutamine myocardial perfusion imaging study from 11/2022 without any ischemia or infarction. LVEF was still diminished. Overall, advanced lung disease on supplemental oxygen, mild cardiomyopathy and markedly limited exercise capacity. Remains on aspirin statins. Lipids can be followed up through his own PCP. He continues to be on verapamil for antianginal effects as well as sinus tachycardia and okay to continue. Not suitable for beta-blockers due to advanced COPD. Discussed with significant other. Medications: Refilled verapamil ER 240 mg PO BEDTIME 90 tabs 3RF Coding Level of Care Code Est Pt Level 4 (89349) Diagnoses Atherosclerotic cardiovascular disease I25.10 Other cardiomyopathy I42.8 Cardiomyopathy type: other Tachycardia R00.0 COPD (chronic obstructive pulmonary disease) J44.9
[2023-12-16 10:18] VITALS: BP 128/68; PULSE 90; BMI 22.1
== END 2023-12-16 10:45 | disposition home or self-care (01) ==
PROVIDERS: PCP Internal Medicine; Visit Provider Internal Medicine
DX: I25.10 Atherosclerotic heart disease of native coronary artery without angina pectoris (principal); I42.8 Other cardiomyopathies; R00.0 Tachycardia, unspecified; J44.9 Chronic obstructive pulmonary disease, unspecified
CPT/HCPCS: 99214

== ENCOUNTER → 2023-12-16 09:44 | Outpatient (BNVA) | payer MEDICARE, SELFPAY ==
[2023-04-01 14:47] VITALS: BP 120/70; BP 124/64; BMI 23.1
== END ==
PROVIDERS: PCP Internal Medicine; Visit Provider Internal Medicine
DX: I25.10 Atherosclerotic heart disease of native coronary artery without angina pectoris (principal); I10 Essential (primary) hypertension; I42.8 Other cardiomyopathies; R00.0 Tachycardia, unspecified; J44.9 Chronic obstructive pulmonary disease, unspecified
CPT/HCPCS: 99212

== ENCOUNTER 2024-02-16 11:12 | Outpatient (AMB) | payer MEDICARE, SELFPAY ==
[2022-11-18 10:00] VITALS: BP 120/70; BP 124/64
[2023-04-01 14:47] VITALS: BP 120/70; BP 124/64; BMI 23.1
[2024-02-16 11:15] VITALS: BP 147/82; PULSE 111; O2SAT 94; BMI 22.4
--- NOTE | 2024-02-16 11:15 | MHC.OFFVIS ---
Vital Signs 02/16/24 11:15 Height 6 ft Weight 165 lb BMI 22.4 BP 147/82 H Blood Pressure Location Rt brachial Position Sitting Pulse 111 H Pulse Source Doppler Pulse Oximetry (%) 94 Oxygen Delivery Method Nasal Cannula Intake Visit Reasons: COPD Allergies No Known Allergies Allergy (Verified 02/16/24 11:21) HPI HPI COPD: Details: 74-year-old gentleman, former 30+ pack-year smoker, quit 2009,? followed for severe supplemental oxygen dependent COPD and 3 mm pulmonary nodules.? He continues to use Symbicort, Spiriva, albuterol MDI, theophylline, prednisone 5 mg daily, and Duonebs with good baseline control of his symptoms.? He has been evaluated at [facility] for lung transplant program.? He previously was evaluated with left heart catheterization by his supervisor compounding and finishing and now continues on medical therapy. He has been using Trelegy with good control of his symptoms. He was restarted on theophylline 400 by his primary care and is able to tolerated well without any increase in heart rate. Patient did have shingles from which he has recovered. [facility] Medical History (Updated 12/02/23 @ 00:01 by Samuel Gomez) Cardiomyopathy Atherosclerotic cardiovascular disease Tachyarrhythmia HLD (hyperlipidemia) Afib COPD (chronic obstructive pulmonary disease) Surgical History (Updated 04/21/23 @ 08:49 by Brooke Hector) No pertinent past surgical history Family History Other Adopted Social History Household Members: Spouse Housing: Condominium Do you presently have visiting nurse or other home services: No Alcohol intake: never Patient Tobacco Use Status: Former Tobacco user Cigarette Packs Per Day: 1 Years Smoked: 41 Advance Directives Date on File: 10/19/20 service: No Current occupational status: retired Review of Systems Const Denies daytime sleepiness, Denies excessive sweating, Denies fatigue, Denies fever(s), Denies lethargy, Denies malaise, Denies night sweats, Denies snoring and Denies weight loss Eyes Denies blurry vision and Denies itchy eyes ENT Denies nasal congestion, Denies post nasal drip, Denies sinus pain, Denies sinus pressure and Denies other ( Thrush) Card Denies chest pain, Denies pedal edema, Denies dyspnea, Reports dyspnea on exertion (Chronic), Denies orthopnea and Denies paroxysmal nocturnal dyspnea Resp Denies cough, Denies hemoptysis, Denies excessive phlegm production, Denies dyspnea, Reports dyspnea on exertion (Chronic), Denies snoring and Denies wheezing GI Denies abdominal pain and Denies heartburn Musc Denies myalgias, Denies arthralgias and Denies joint swelling Skin/Breast Denies rash Neuro Denies memory loss and Denies seizure-like activity Psych Denies abnormal sleep pattern, Denies anxiety and Denies memory loss Endo Denies excessive sweating, Denies fatigue and Denies heat intolerance Israel/Lymph Denies easy bruising Aller/Immun Denies itchy eyes, Denies seasonal rhinorrhea and Denies wheezing Physical Exam Vital Signs: Last Vital Signs Pulse 111 H 02/16/24 11:15 BP 147/82 H 02/16/24 11:15 Pulse Ox 94 02/16/24 11:15 Oxygen Delivery Method Nasal Cannula 02/16/24 11:15 BMI result Body Mass Index 22.4 Const General: no acute distress and alert Nutritional Appearance: not obese Orientation/consciousness: Other orientation findings ( oriented) HEENT Head: Yes atraumatic Eyes General: appearance normal, both eyes and all related structures Sclerae: sclerae normal EOM: EOMs intact bilaterally Neck Neck: Yes supple Lymphatic: no lymphadenopathy noted Resp Effort & Inspection: normal respiratory effort and no use of accessory muscles Auscultation: clear to auscultation bilaterally Cardio Rate: regular rate Rhythm: regular rhythm Heart sounds: no gallops, no murmurs and no rubs Skin General skin exam: other ( warm) Extrem General: No clubbing, No cyanosis and No edema Assessment & Plan Assessment & Plan (1) COPD (chronic obstructive pulmonary disease): Code(s): J44.9 - Chronic obstructive pulmonary disease, unspecified Category: Medical Plan: Advanced COPD on maximum medical therapy evaluated and not eligible for lung transplant. Continue with current regimen of Trelegy, duo nebs, theophylline 400, albuterol MDI, and prednisone 5 mg daily. (2) Supplemental oxygen dependent: Code(s): Z99.81 - Dependence on supplemental oxygen Category: Medical Plan: Continue supplemental oxygen to maintain O2 saturation of 88-92% Medications: New theophylline ER 400 mg PO DAILY 30 tabs 6RF Coding Level of Care Code Est Pt Level 4 (93842) Diagnoses COPD (chronic obstructive pulmonary disease) J44.9 Supplemental oxygen dependent Z99.81
== END 2024-02-16 11:47 | disposition home or self-care (01) ==
PROVIDERS: PCP Internal Medicine; Visit Provider Internal Medicine Pulmonary Disease
DX: J44.9 Chronic obstructive pulmonary disease, unspecified (principal); Z99.81 Dependence on supplemental oxygen
CPT/HCPCS: 99214

== ENCOUNTER → 2024-02-16 11:12 | Outpatient (BNVA) | payer MEDICARE, SELFPAY ==
[2023-04-01 14:47] VITALS: BP 120/70; BP 124/64; BMI 23.1
== END ==
PROVIDERS: PCP Internal Medicine; Visit Provider Internal Medicine Pulmonary Disease
DX: J44.9 Chronic obstructive pulmonary disease, unspecified (principal); Z99.81 Dependence on supplemental oxygen; Z79.52 Long term (current) use of systemic steroids; Z79.899 Other long term (current) drug therapy
CPT/HCPCS: 99212

== ENCOUNTER 2024-06-15 09:16 | Outpatient (AMB) | payer MEDICARE, SELFPAY ==
[2023-04-01 14:47] VITALS: BP 120/70; BP 124/64; BMI 23.1
[2024-06-15 09:37] VITALS: BP 111/62; PULSE 99; O2SAT 94; BMI 23.5
--- NOTE | 2024-06-15 09:37 | MHC.OFFVIS ---
Vital Signs 06/15/24 09:37 Height 6 ft Weight 173 lb BMI 23.5 BP 111/62 Blood Pressure Location Lt brachial Position Sitting Pulse 99 Pulse Source Doppler Pulse Oximetry (%) 94 Oxygen Delivery Method Nasal Cannula Oxygen Flow Rate 1.5 Intake Visit Reasons: COPD Allergies No Known Allergies Allergy (Verified 02/16/24 11:21) HPI HPI COPD: Details: 74-year-old gentleman, former 30+ pack-year smoker, quit 2009,? followed for severe supplemental oxygen dependent COPD and 3 mm pulmonary nodules. He has been evaluated at [facility] for lung transplant program.? He previously was evaluated with left heart catheterization by his aviation electrical technician and now continues on medical therapy. He has been using Trelegy, theophylline, prednisone 5 mg daily, duo nebs, and albuterol MDI with good control of his symptoms. He denies recent exacerbations. [facility] Medical History (Updated 06/15/24 @ 10:07 by Brian Bennett MD) Cardiomyopathy Atherosclerotic cardiovascular disease Tachyarrhythmia HLD (hyperlipidemia) Afib COPD (chronic obstructive pulmonary disease) Surgical History (Updated 04/21/23 @ 08:49 by Brooke Hector) No pertinent past surgical history Family History Other Adopted Social History (Reviewed 10/13/23 @ 10:58 by Danitza Zamora [facility] Household Members: Spouse Housing: Condominium Do you presently have visiting nurse or other home services: No Alcohol intake: never Patient Tobacco Use Status: Former Tobacco user Cigarette Packs Per Day: 1 Years Smoked: 41 Advance Directives Date on File: 10/19/20 service: No Current occupational status: retired Review of Systems Const Denies daytime sleepiness, Denies excessive sweating, Denies fatigue, Denies fever(s), Denies lethargy, Denies malaise, Denies night sweats, Denies snoring and Denies weight loss Eyes Denies blurry vision and Denies itchy eyes ENT Denies nasal congestion, Denies post nasal drip, Denies sinus pain, Denies sinus pressure and Denies other ( Thrush) Card Denies chest pain, Denies pedal edema, Denies dyspnea, Denies orthopnea and Denies paroxysmal nocturnal dyspnea Resp Denies cough, Denies hemoptysis, Denies excessive phlegm production, Denies dyspnea, Denies snoring and Denies wheezing GI Denies abdominal pain and Denies heartburn Musc Denies myalgias, Denies arthralgias and Denies joint swelling Skin/Breast Denies rash Neuro Denies memory loss and Denies seizure-like activity Psych Denies abnormal sleep pattern, Denies anxiety and Denies memory loss Endo Denies excessive sweating, Denies fatigue and Denies heat intolerance Israel/Lymph Denies easy bruising Aller/Immun Denies itchy eyes, Denies seasonal rhinorrhea and Denies wheezing Physical Exam Vital Signs: Last Vital Signs Pulse 99 06/15/24 09:37 BP 111/62 06/15/24 09:37 Pulse Ox 94 06/15/24 09:37 Oxygen Delivery Method Nasal Cannula 06/15/24 09:37 Oxygen Flow Rate 1.5 06/15/24 09:37 BMI result Body Mass Index 23.5 Const General: no acute distress and alert Nutritional Appearance: not obese Orientation/consciousness: Other orientation findings ( oriented) HEENT Head: Yes atraumatic Eyes General: appearance normal, both eyes and all related structures Sclerae: sclerae normal EOM: EOMs intact bilaterally Neck Neck: Yes supple Lymphatic: no lymphadenopathy noted Resp Effort & Inspection: normal respiratory effort and no use of accessory muscles Auscultation: clear to auscultation bilaterally Cardio Rate: regular rate Rhythm: regular rhythm Heart sounds: no gallops, no murmurs and no rubs Skin General skin exam: other ( warm) Extrem General: No clubbing, No cyanosis and No edema Assessment & Plan Assessment & Plan (1) COPD (chronic obstructive pulmonary disease): Code(s): J44.9 - Chronic obstructive pulmonary disease, unspecified Category: Medical Plan: Reasonable control on maximum therapy with trilogy, theophylline, prednisone 5 mg daily, duo nebs, and albuterol MDI. Continue current regimen. (2) Supplemental oxygen dependent: Code(s): Z99.81 - Dependence on supplemental oxygen Category: Medical Plan: Continue supplemental oxygen to maintain O2 saturation of 88-92%. (3) Pulmonary air trapping: Code(s): R09.89 - Other specified symptoms and signs involving the circulatory and respiratory systems Category: Medical Plan: Continue with as needed clonazepam. Medications: Refilled clonazepam 1 mg PO DAILY PRN 30 tabs 3RF anxiety 30 days Coding Level of Care Code Est Pt Level 4 (27286) Complex EM visit Add On G2211 Diagnoses COPD (chronic obstructive pulmonary disease) J44.9 Supplemental oxygen dependent Z99.81 Pulmonary air trapping R09.89
== END 2024-06-15 10:02 | disposition home or self-care (01) ==
PROVIDERS: PCP Internal Medicine; Visit Provider Internal Medicine Pulmonary Disease
DX: J44.9 Chronic obstructive pulmonary disease, unspecified (principal); Z99.81 Dependence on supplemental oxygen; R09.89 Other specified symptoms and signs involving the circulatory and respiratory systems
CPT/HCPCS: 99214; G2211

== ENCOUNTER → 2024-06-15 09:16 | Outpatient (BNVA) | payer MEDICARE, SELFPAY ==
[2023-04-01 14:47] VITALS: BP 120/70; BP 124/64; BMI 23.1
== END ==
PROVIDERS: PCP Internal Medicine; Visit Provider Internal Medicine Pulmonary Disease
DX: J44.9 Chronic obstructive pulmonary disease, unspecified (principal); R09.89 Other specified symptoms and signs involving the circulatory and respiratory systems; Z99.81 Dependence on supplemental oxygen
CPT/HCPCS: 99212

== ENCOUNTER 2024-10-26 10:08 | Outpatient (AMB) | payer MEDICARE, SELFPAY ==
[2023-04-01 14:47] VITALS: BP 120/70; BP 124/64; BMI 23.1
[2024-10-26 10:11] VITALS: BP 132/64; PULSE 104; O2SAT 95; BMI 23.9
--- NOTE | 2024-10-26 10:11 | MHC.OFFVIS ---
Vital Signs 10/26/24 10:11 Height 6 ft Weight 176 lb BMI 23.9 BP 132/64 Blood Pressure Location Rt brachial Position Sitting Pulse 104 H Pulse Source Doppler Pulse Oximetry (%) 95 Oxygen Delivery Method Nasal Cannula Oxygen Flow Rate 1 Comment Verbal weight- Intake Visit Reasons: COPD Allergies No Known Allergies Allergy (Verified 02/16/24 11:21) HPI HPI COPD: Details: 74-year-old gentleman, former 30+ pack-year smoker, quit 2009,? followed for severe supplemental oxygen dependent COPD and 3 mm pulmonary nodules. He has been evaluated at [facility] for [facility] transplant program.? He previously was evaluated with left heart catheterization by his sack filler and now continues on medical therapy. He has been using Trelegy, theophylline, prednisone 5 mg daily, duo nebs, and albuterol MDI with good control of his symptoms. He denies recent exacerbations. [facility] Medical History (Updated 06/15/24 @ 10:07 by Brian Bennett MD) Cardiomyopathy Atherosclerotic cardiovascular disease Tachyarrhythmia HLD (hyperlipidemia) Afib COPD (chronic obstructive pulmonary disease) Surgical History (Updated 04/21/23 @ 08:49 by Brooke Hector) No pertinent past surgical history Family History Other Adopted Social History Household Members: [facility] Do you presently have visiting nurse or other home services: No Alcohol intake: never Patient Tobacco Use Status: Former Tobacco user Cigarette Packs Per Day: 1 Years Smoked: 41 Advance Directives Date on File: 10/19/20 service: No Current occupational status: retired Review of Systems Const Denies daytime sleepiness, Denies excessive sweating, Denies fatigue, Denies fever(s), Denies lethargy, Denies malaise, Denies night sweats, Denies snoring and Denies weight loss Eyes Denies blurry vision and Denies itchy eyes ENT Denies nasal congestion, Denies post nasal drip, Denies sinus pain, Denies sinus pressure and Denies other ( Thrush) Card Denies chest pain, Denies pedal edema, Denies dyspnea, Reports dyspnea on exertion, Denies orthopnea and Denies paroxysmal nocturnal dyspnea Resp Denies cough, Denies hemoptysis, Denies excessive phlegm production, Denies dyspnea, Reports dyspnea on exertion, Denies snoring and Denies wheezing GI Denies abdominal pain and Denies heartburn Musc Denies myalgias, Denies arthralgias and Denies joint swelling Skin/Breast Denies rash Neuro Denies memory loss and Denies seizure-like activity Psych Denies abnormal sleep pattern, Denies anxiety and Denies memory loss Endo Denies excessive sweating, Denies fatigue and Denies heat intolerance Israel/Lymph Denies easy bruising Aller/Immun Denies itchy eyes, Denies seasonal rhinorrhea and Denies wheezing Physical Exam Vital Signs: Last Vital Signs Pulse 104 H 10/26/24 10:11 BP 132/64 10/26/24 10:11 Pulse Ox 95 10/26/24 10:11 Oxygen Delivery Method Nasal Cannula 10/26/24 10:11 Oxygen Flow Rate 1 10/26/24 10:11 BMI result Body Mass Index 23.9 Const General: no acute distress and alert Nutritional Appearance: not obese Orientation/consciousness: Other orientation findings ( oriented) HEENT Head: Yes atraumatic Eyes General: appearance normal, both eyes and all related structures Sclerae: sclerae normal EOM: EOMs intact bilaterally Neck Neck: Yes supple Lymphatic: no lymphadenopathy noted Resp Effort & Inspection: normal respiratory effort and no use of accessory muscles Auscultation: clear to auscultation bilaterally Cardio Rate: regular rate Rhythm: regular rhythm Heart sounds: no gallops, no murmurs and no rubs Skin General skin exam: other ( warm) Extrem General: No clubbing, No cyanosis and No edema Assessment & Plan Assessment & Plan (1) COPD (chronic obstructive pulmonary disease): Code(s): J44.9 - Chronic obstructive pulmonary disease, unspecified Category: Medical Plan: Advanced COPD on maximum therapy with Trelegy, duo nebs, theophylline, prednisone 5 mg daily. Will add Ohtuvayre. Restart pulmonary rehab. (2) Supplemental oxygen dependent: Code(s): Z99.81 - Dependence on supplemental oxygen Category: Medical Plan: Continue supplemental oxygen to maintain O2 saturation of 88-92%. (3) Pulmonary air trapping: Code(s): R09.89 - Other specified symptoms and signs involving the circulatory and respiratory systems Category: Medical Plan: Continue on clonazepam for hyperventilation induced air trapping. Coding Level of Care Code Est Pt Level 4 (02201) Complex EM visit Add On G2211 Diagnoses COPD (chronic obstructive pulmonary disease) J44.9 Supplemental oxygen dependent Z99.81 Pulmonary air trapping R09.89
--- OUTSIDE RECORDS SUMMARY | 2024-10-26 11:44 | XMS_ITS | Clinical Summary ---
Author Organization [facility] Address [address] [place] [address] Phone Care Team Providers Care Fundraising Officer Name Role Phone Alfa Velasco MD Primary Care Provider [phone] Immunizations Name Administration Dates Next Due Moderna SARS-CoV-2 COVID-19, mRNA, LNP-S, preservative free 12/20/2020 Surgical History Surgery Date Site/Laterality Comments SHOULDER SURGERY 03/03/14 Left PROCEDURE: HISTORICAL SHOULDER SURGERY NECK SURGERY 07/28/13 PROCEDURE: HISTORICAL NECK SURGERY HERNIA REPAIR 2011 PROCEDURE: HISTORICAL HERNIA REPAIR/UMB BACK SURGERY 2005 PROCEDURE: HISTORICAL BACK SURGERY COLONOSCOPY 10.16.11 PROCEDURE: CT COLONOSCOPY FLX DX W/COLLJ SPEC WHEN PFRMD; COMMENT: tubular adenoma, repeat 3 years CATARACT EXTRACTION 10/08 PROCEDURE: HISTORICAL CATARACT REMOVAL OTHER SURGICAL HISTORY 03/07/15 PROCEDURE: ---- OTHER ----; COMMENT: deviated septum ESOPHAGOGASTRODUODENOSCOPY 04/09/16 [facility] PROCEDURE: CT ESOPHAGOGASTRODUODENOSCOPY TRANSORAL DIAGNOSTIC; COMMENT: normal COLONOSCOPY 04/09/16 PROCEDURE: OUTSIDE COLONOSCOPY; COMMENT: Hemorrhoids; repeat in 5 yrs under propofol Medical History Medical History Date Comments Tubular adenoma 04/24/2014 DX:Tubular adeno ma; COMMENT: 10/05; CN recommended 3 years Duodenal ulcer 04/24/2014 DX:Duodenal ulce r Umbilical hernia 04/24/2014 DX:Umbilical he rnia; COMMENT: repaired Microscopic hematuria 04/24/2014 DX:Microsc opic hematuria; COMMENT: 2011, neg abd usn, not clear what other PACHECO was done Bronchitis, not specified as acute or chronic DX:Bronchitis, not specified as acute or chronic Esophageal reflux DX:Esophageal reflux Anxiety state DX:Anxiety state Hyperlipidemia DX:Hyperlipidemi a Emphysema (subcutaneous) (fabian rgical) resulting from a procedure DX:Emphysema (subcutaneous) (surgical) resulting from a procedure Family History Medical History Relation Name Comments No Known Problems Brother No Known Problems Daughter No Known Problems Father No Known Problems Mother No Known Problems Other No Known Problems Sister No Known Problems Son Autoimmune disease Neg Hx Breast cancer Neg Hx Colon cancer Neg Hx Coronary artery disease Neg Hx Diabetes Neg Hx Heart attack Neg Hx Heart failure Neg Hx Hyperlipidemia Neg Hx Hypertension Neg Hx Mental illness Neg Hx Prostate cancer Neg Hx Sleep apnea Neg Hx Thyroid disease Neg Hx Relation Name Status Comments Brother Daughter Father Mother Other Sister Son Social History Tobacco Use Types Packs/Day Years Used Date Smoking Tobacco: Former Cigarettes 0.5 41.6 0 07/27/1969 - 03/07/2011 Smokeless Tobacco: Never Alcohol Use Standard Drinks/Week Comments No 0 (1 standard drink = 0.6 oz pur e alcohol) Sex and Gender Information Value Date Recorded Sex Assigned at Not on file Legal Sex Male 12:11 AM EST Gender Identity Not on file Sexual Orientation Not on file Obstetrics History Last Filed Vital Signs Vital Sign Reading Time Taken Comments Blood Pressure 119/74 08/20/2022 1:23 PM EST Sit ting L Arm Pulse 111 08/20/2022 1:23 PM EST Temperature - - Respiratory Rate - - Oxygen Saturation 95% 01/23/2022 10:44 AM EDT 1 L of o2 Inhaled Oxygen Concentration - - Weight 73.9 kg (163 lb) 08/20/2022 1:23 PM EST Height 182.9 cm (6') 08/20/2022 1:23 PM EST Body Mass Index 22.11 08/20/2022 1:23 PM EST Plan of Treatment Health Maintenance Due Date Last Done Comments DTaP,Tdap,and Td Vaccines (1 - Tdap) 02/08/1971 Zoster Vaccines (1 of 2) 02/08/2002 RSV Immunization Adult Patients (1 - Risk 60-74 years 1-dose series) 2012 Abdominal Aortic Aneurysm (AAA) Screen 07/05/2022 Cholesterol Screening (Lipid Panel) 07/05/2022 Depression Screening 07/05/2022 Falls Risk Assessment 07/05/2022 Hepatitis C Screening 07/05/2022 Medicare Annual Wellness Visit 07/05/2022 Social Influencers of Health Screening 07/05/2022 Hypertension/CHF/CAD Annual BMP Blood Test 07/06/2022 COVID-19 Vaccine (2023-2 5 season) 2024 06/26/2021, 12/20/2020, 11/22/2020 Influenza Vaccine (#1) 2024 , 06/04/2021, 05/08/2020 Lung Cancer Screening (Low Dose CT) 07/07/2024 07/07/2023, 06/10/2022, 03/05/2021 Colorectal Cancer Screening: Colonoscopy 07/23/2026 Pneumococcal Vaccine: 50+ Years Completed 03/06/2020, 06/23/2017 Hepatitis A Vaccines Aged Out 02/27/2021 No long er eligible based on patient's age to complete this topic Hepatitis B Vaccines Completed 09/04/2021, 04/02/2021, 02/27/2021 HIB Vaccines Aged Out No longer eligi ble based on patient's age to complete this topic HPV Vaccines Aged Out No longer eligi ble based on patient's age to complete this topic IPV Vaccines Aged Out No longer eligi ble based on patient's age to complete this topic MMR Vaccines Aged Out No longer eligi ble based on patient's age to complete this topic Meningococcal ACWY Vaccine Aged Out N o longer eligible based on patient's age to complete this topic Meningococcal B Vacine Aged Out No lo nger eligible based on patient's age to complete this topic RSV Immunization Patients Under 20 months Aged Out No longer eligible b ased on patient's age to complete this topic Varicella Vaccines Aged Out No longer eligible based on patient's age to complete this topic Procedures Procedure Name Priority Date/Time Associated Diagnosis Comments CT LUNG SCREENING LOW DOSE Routine 07/07/2023 3:49 PM EST Encounter for screening for malignant neoplasm of respiratory organs from Last 3 Months or Most Recently Relevant to Health Maintenance Results * CT LUNG SCREENING LOW DOSE (07/07/2023 3:49 PM EST) Anatomical Region Laterality Modality Computed Tomogra phy 06/30/2023 12:4 3 PM EST Narrative 07/07/2023 3:49 PM EST [facility] Diagnostic Imaging Department [address] [place] [id number] Patient: ??EDUARDO ALVA ?/Age/Sex: 1950 - 73 - M Unit#: ??[id number] ? Location/Status: ??SPDICATLS/REG CLI ? Mnemonic/Ordering Site: ??CTLUNGLD/SPCT Ordering Physician: ??DIONE LOPEZ MD CT Lung Screening Low Dose - 06/30/23 - 9694 Report Status:Signed History: ??73 year-old 80 pack-year former smoker, asymptomatic, for lung cancer screening. Quit smoking 13 years ago, chronic obstructive pulmonary disease, emphysema, coronary artery disease Comparison: 06/10/2022 and 02/29/2020 Technique: Helical volumetric imaging of the thorax was performed, using low- dose technique, without IV contrast. DLP: 202.89 mGy/cm ??CTDIvol: 4.89 mGy Pretio InteractiveT Iterative reconstruction technique Findings: Chest: : There is no evidence for mediastinal or hilar adenopathy. ??The heart size is normal. ??The aorta is ectatic but unchanged. ??Heart size normal. ??There is coronary artery calcification. ??There is no pericardial or pleural effusion. There is chronic obstructive pulmonary disease with emphysematous changes. There are fibronodular changes in the apices unchanged. ??There is no suspicious pulmonary nodule, mass or infiltrate. Abdomen: This study was performed without contrast and with lower than standard dose. These factors reduce the sensitivity for detection of small lesions in the upper abdomen. Limited views of the upper abdomen reveal low attenuating lesions left lobe of the liver likely benign cysts unchanged. ??There is marked scoliosis of the lower thoracic spine convex right and multilevel degenerative change. There is diffuse osteopenia unchanged. Impression: Chronic obstructive pulmonary disease with emphysematous changes and fibronodular changes in the apices aorta and unchanged. ??No suspicious pulmonary nodule, mass or infiltrate. Lung RADS 1: ??No lung nodules or nodules with specific calcifications and fat containing nodules - Continue annual screening with LDCT in 12 months. [id number] [id number] [id number] G9551 Dictating Physician: ??MUNIR LIAO MD Electronically Signed by: ??MUNIR LIAO MD Dic Date/Time: ??07/07/23 1540 Sign date/Time: ??07/07/23 1547 Procedure Note Munir Liao MD - 09/01/2023 [facility] Diagnostic Imaging Department [address] [place] [address] Patient: EDUARDO ALVA /Age/Sex: 1950 - 73 - M Unit#: [id number] Location/Status: SPDICATLS/REG CLI Mnemonic/Ordering [facility] Ordering Physician: DIONE LOPEZ MD CT Lung Screening Low Dose - 06/30/23 - 1304 Report Status:Signed History: 73 year-old 80 pack-year former smoker, asymptomatic, for lungcancer screening. Quit smoking 13 years ago, chronic obstructive pulmonarydisease, emphysema, coronary artery disease Comparison: 06/10/2022 and 02/29/2020 Technique: Helical volumetric imaging of the thorax was performed, usinglow- dose technique, without IV contrast. DLP: 202.89 mGy/cm CTDIvol: 4.89 mGy UsentricpeOxxy VCT Iterative reconstruction technique Findings: Chest: : There is no evidence for mediastinal or hilar adenopathy. Theheart size is normal. The aorta is ectatic but unchanged. Heart size normal.There is coronary artery calcification. There is no pericardial or pleuraleffusion. There is chronic obstructive pulmonary disease with emphysematouschanges. There are fibronodular changes in the apices unchanged. There is nosuspicious pulmonary nodule, mass or infiltrate. Abdomen: This study was performed without contrast and with lower thanstandard dose. These factors reduce the sensitivity for detection of small lesionsin the upper abdomen. Limited views of the upper abdomen reveal low attenuatinglesions left lobe of the liver likely benign cysts unchanged. There is markedscoliosis of the lower thoracic spine convex right and multilevel degenerativechange. There is diffuse osteopenia unchanged. Impression: Chronic obstructive pulmonary disease with emphysematous changes and fibronodular changes in the apices aorta and unchanged. No suspiciouspulmonary nodule, mass or infiltrate. Lung RADS 1: No lung nodules or nodules with specific calcifications andfat containing nodules - Continue annual screening with LDCT in 12 months. [id number] [id number] G9557 G9551 Dictating Physician: MUNIR LIAO MD Electronically Signed by: MUNIR LIAO MD Dic Date/Time: 07/07/23 1540 Sign date/Time: 07/07/23 1549 Dione Lopez MD IMG CT PROCEDURES Final Result from Last 3 Months or Most Recently Relevant to Health Maintenance Insurance [employer] MEDICARE Advance Directives Documents on File Type Date Recorded Patient Stock Preparation Supervisor Expl anation Health Care Decision (hx) 01/28/2018 AD JACOB DIRECTIVE Health Care Decision (hx) 01/28/2018 AD JACOB DIRECTIVE Health Care Decision (hx) 01/28/2018 AD JACOB DIRECTIVE Health Care Decision (hx) 01/28/2018 AD JACOB DIRECTIVE Health Care Decision (hx) 01/28/2018 AD JACOB DIRECTIVE Health Care Decision (hx) 01/28/2018 AD JACOB DIRECTIVE Health Care Decision (hx) 01/28/2018 AD JACOB DIRECTIVE Health Care Decision (hx) 01/28/2018 AD JACOB DIRECTIVE Health Care Decision (hx) 01/28/2018 AD JACOB DIRECTIVE Health Care Decision (hx) 01/28/2018 AD JACOB DIRECTIVE Health Care Decision (hx) 01/28/2018 AD JACOB DIRECTIVE Care Teams Fundraising Officer Relationship Specialty Start Date End Date Alfa Velasco MD [address] [place] [id number] PCP - General 06/05/22
== END 2024-10-26 10:39 | disposition home or self-care (01) ==
LOC: HO.HPS 10:08
PROVIDERS: PCP Internal Medicine; Visit Provider Internal Medicine Pulmonary Disease
DX: J44.9 Chronic obstructive pulmonary disease, unspecified (principal); Z99.81 Dependence on supplemental oxygen; R09.89 Other specified symptoms and signs involving the circulatory and respiratory systems
CPT/HCPCS: 99214; G2211

== ENCOUNTER → 2024-10-26 10:08 | Outpatient (BNVA) | payer MEDICARE, SELFPAY ==
[2023-04-01 14:47] VITALS: BP 120/70; BP 124/64; BMI 23.1
== END ==
PROVIDERS: PCP Internal Medicine; Visit Provider Internal Medicine Pulmonary Disease
DX: J44.9 Chronic obstructive pulmonary disease, unspecified (principal); R09.89 Other specified symptoms and signs involving the circulatory and respiratory systems; Z99.81 Dependence on supplemental oxygen
CPT/HCPCS: 99212

== ENCOUNTER 2024-11-28 10:19 | Outpatient (AMB) | payer MEDICARE, SELFPAY ==
[2023-04-01 14:47] VITALS: BP 120/70; BP 124/64; BMI 23.1
[2024-11-28 10:25] VITALS: BP 152/84; PULSE 135; O2SAT 94; BMI 23.8
--- NOTE | 2024-11-28 10:25 | A.OFFVIS_ITS ---
Vital Signs 11/28/24 10:25 Height 6 ft Weight 175 lb 4.28 oz BMI 23.8 BP 152/84 H Blood Pressure Location Rt brachial Position Sitting Pulse 135 H Pulse Source Pulse Oximeter Pulse Oximetry (%) 94 Oxygen Delivery Method Nasal Cannula Oxygen Flow Rate 2 Intake Visit Reasons: sob, wheezing chest tightness Intake Note: pt is here for SOB and Wheezing and chest tightness for the past 3 days and has been coughing up yellow and green mucus Allergies No Known Allergies Allergy (Verified 11/28/24 10:53) Medication List - Last Reconciled 11/28/24 by April Condon MD acetaminophen 500 mg PO Q6H PRN albuterol sulfate 90 mcg/actuation 2 puffs inhalation Q4H PRN ascorbic acid (vitamin C) (Vitamin C) 1,000 mg PO DAILY aspirin (Adult Low Dose Aspirin) 81 mg PO DAILY atorvastatin 20 mg PO BEDTIME clonazepam 1 mg PO DAILY PRN 30 days ensifentrine (Ohtuvayre) 2.5 mL inhalation BID qgresizjvrx-yhbdmguyp-niwnsobb 200-62.5-25 mcg (Trelegy Ellipta) 1 inh inhalation DAILY 30 days ipratropium-albuterol 0.5 mg-3 mg(2.5 mg base)/3 mL 3 mL inhalation Q4H PRN levalbuterol HCl 1.25 mg inhalation Q4H PRN mirtazapine 30 mg PO BEDTIME multivitamin 1 tab PO DAILY nitroglycerin 0.4 mg sublingual Q5M PRN pantoprazole 40 mg PO DAILY@0630 prednisone 5 mg PO DAILY 3 months theophylline ER 400 mg PO DAILY tizanidine 2 mg PO BEDTIME trazodone 25 mg PO BEDTIME verapamil ER 240 mg PO BEDTIME Do you need a note to return to daycare/school/sports/work: No HPI HPI sob, wheezing chest tightness: Details: THIS 74 YEARS OLD GENTLEMAN IS A KNOWN CASE OF ADVANCED CHRONIC OBSTRUCTIVE PULMONARY DISEASE AND IS ALREADY ON MAXIMUM TREATMENT, INCLUDING TRELEGY INHALER DAILY, DUONEB UPDRAFTS TWICE A DAY, THEOPHYLLINE 400 MG DAILY, PREDNISONE 5 MG DAILY, HE IS ALSO ON OXYGEN 2-4 L/MINUTE. Enssssssifentrine inhalation solution has been ordered but he has not received it yet. HE COMES IN TODAY WITH 3-4 DAYS' HISTORY OF INCREASED COUGH, CHEST CONGESTION, INCREASED SHORTNESS OF BREATH. HOWEVER DOES NOT HAVE ANY FEVER OR CHILLS. [facility] Medical History (Updated 11/28/24 @ 11:02 by April Condon MD) COPD exacerbation Cardiomyopathy Atherosclerotic cardiovascular disease Tachyarrhythmia HLD (hyperlipidemia) Afib COPD (chronic obstructive pulmonary disease) Surgical History No pertinent past surgical history Family History Other Adopted Social History Household Members: Spouse Housing: Condominium Do you presently have visiting nurse or other home services: No Alcohol intake: never Patient Tobacco Use Status: Former Tobacco user Cigarette Packs Per Day: 1 Years Smoked: 41 Advance Directives Date on File: 10/19/20 service: No Current occupational status: retired Review of Systems Const Denies daytime sleepiness, Denies excessive sweating, Denies fatigue, Denies fever(s), Denies lethargy, Denies malaise, Denies night sweats, Denies snoring and Denies weight loss Eyes Denies blurry vision and Denies itchy eyes ENT Denies nasal congestion, Denies post nasal drip, Denies sinus pain, Denies sinus pressure and Denies other ( Thrush) Card Denies chest pain, Denies pedal edema, Denies dyspnea, Reports dyspnea on exertion, Denies orthopnea and Denies paroxysmal nocturnal dyspnea Resp Denies cough, Denies hemoptysis, Denies excessive phlegm production, Denies dyspnea, Reports dyspnea on exertion, Denies snoring and Denies wheezing GI Denies abdominal pain and Denies heartburn Musc Denies myalgias, Denies arthralgias and Denies joint swelling Skin/Breast Denies rash Neuro Denies memory loss and Denies seizure-like activity Psych Denies abnormal sleep pattern, Denies anxiety and Denies memory loss Endo Denies excessive sweating, Denies fatigue and Denies heat intolerance [place]/Lymph Denies easy bruising Aller/Immun Denies itchy eyes, Denies seasonal rhinorrhea and Denies wheezing Physical Exam Vital Signs: Last Vital Signs Pulse 135 H 11/28/24 10:25 BP 152/84 H 11/28/24 10:25 Pulse Ox 94 11/28/24 10:25 Oxygen Delivery Method Nasal Cannula 11/28/24 10:25 Oxygen Flow Rate 2 11/28/24 10:25 BMI result Body Mass Index 23.8 Const General: no acute distress and alert Nutritional Appearance: not obese Orientation/consciousness: Other orientation findings ( oriented) HEENT Head: Yes atraumatic Eyes General: appearance normal, both eyes and all related structures Sclerae: sclerae normal EOM: EOMs intact bilaterally Neck Neck: Yes supple Lymphatic: no lymphadenopathy noted Chest Chest palpation & inspection: normal inspection of the chest, normal palpation of entire chest wall and no tenderness Resp Other: PATIENT IS NOTED TO BE MODERATELY DYSPNEIC. HE STARTS HAVING LOT OF COUGH ON TAKING DEEP BREATH. BREATH SOUNDS ARE VERY DISTANT. THERE ARE INSPIRATORY AND EXPIRATORY WHEEZES OVER THE LOWER LOBES. Effort & Inspection: uses accessory muscles Cardio Rate: regular rate Rhythm: regular rhythm Heart sounds: no gallops, no murmurs and no rubs Skin General skin exam: other ( warm) Extrem General: No clubbing, No cyanosis and No edema Assessment & Plan Assessment & Plan (1) COPD exacerbation: Comment: THIS GENTLEMAN IS A KNOWN CASE OF ADVANCED CHRONIC OBSTRUCTIVE PULMONARY DISEASE AND IS ALREADY ON MAXIMUM THERAPEUTIC REGIMEN INCLUDING O2 SUPPLEMENTATION. HE HAS AN ACUTE EXACERBATION PROBABLY DUE TO ACUTE BRONCHITIS FOR THE LAST 3-4 DAYS. Code(s): J44.1 - Chronic obstructive pulmonary disease with (acute) exacerbation Category: Medical Plan: HE IS ADVISED TO CONTINUE HIS REGULAR REGIMEN AND IN ADDITION THE FOLLOWING: PREDNISONE 60 MG A DAY FOR 5 DAYS THEN HE CAN RESUME HIS 5 MG A DAY BENJA NTENANCE. Z-REGINA 2 TABLETS ON THE 1ST DAY THEN 1 TABLET A DAY FOR NEXT 4 DAYS, IF HE DOES NOT GET MUCH BETTER HE MAY HAVE TO REPEAT 1 MORE COURSE. ADVISED TO USE IPRATROPIUM-ALBUTEROL SOLUTION IN THE NEBULIZER Q 6 HOURS WHILE AWAKE. DO NOT GO FOR PHYSICAL THERAPY FOR THE NEXT 2 WEEKS. CALL US BACK IF NOT MUCH BETTER IN THE NEXT 1 WEEK (2) Chronic respiratory failure with hypoxia: Comment: PATIENT HAS CHRONIC RESPIRATORY FAILURE DUE TO HYPOXEMIA, . TREATED WITH OXYGEN SUPPLEMENTATION Code(s): J96.11 - Chronic respiratory failure with hypoxia Category: Medical Plan: ADVISED TO CONTINUE O2 2 L/MINUTE AT REST AND MAY INCREASE UP TO 3 OR 4 L/MINUTE WHEN WALKING AROUND Medications: New azithromycin For 250 mg dose pack: take 500 mg today (day 1), then 250 mg for 4 days (days 2-5) PO 6 tabs 1RF prednisone PREDNISONE 20 MG 2 TABS IN AM AND 1 TAB IN PM 20 mg PO BID 7 days 20 tabs 0RF COPD EXCERBATION Coding Level of Care Code Est Pt Level 3 (66379) Diagnoses COPD exacerbation J44.1 Chronic respiratory failure with hypoxia J96.11
--- OUTSIDE RECORDS SUMMARY | 2024-11-28 11:37 | XMS_ITS | Clinical Summary ---
Author Organization [facility] Address [address] [place] [address] Phone Care Team Providers Care Electric Relay Tester Name Role Phone Alfa Velasco MD Primary Care Provider [phone] Immunizations Name Administration Dates Next Due Moderna SARS-CoV-2 COVID-19, mRNA, LNP-S, preservative free 12/20/2020 Surgical History Surgery Date Site/Laterality Comments SHOULDER SURGERY 03/03/14 Left PROCEDURE: HISTORICAL SHOULDER SURGERY NECK SURGERY 07/28/13 PROCEDURE: HISTORICAL NECK SURGERY HERNIA REPAIR 2011 PROCEDURE: HISTORICAL HERNIA REPAIR/UMB BACK SURGERY 2005 PROCEDURE: HISTORICAL BACK SURGERY COLONOSCOPY 10.16.11 PROCEDURE: OK COLONOSCOPY FLX DX W/COLLJ SPEC WHEN PFRMD; COMMENT: tubular adenoma, repeat 3 years CATARACT EXTRACTION 10/08 PROCEDURE: HISTORICAL CATARACT REMOVAL OTHER SURGICAL HISTORY 03/07/15 PROCEDURE: ---- OTHER ----; COMMENT: deviated septum ESOPHAGOGASTRODUODENOSCOPY 04/09/16 [facility] PROCEDURE: OK ESOPHAGOGASTRODUODENOSCOPY TRANSORAL DIAGNOSTIC; COMMENT: normal COLONOSCOPY 04/09/16 [...] 08/20/2022 1:23 PM EST Plan of Treatment Upcoming Encounters Date Type Department Care Team (Late st Contact Info) Description 12/21/2024 2:00 PM EDT Appointment [facility] CT Scan [address] [place] [address] Health Maintenance Due Date Last Done Comments [...] Annual BMP Blood Test 07/06/2022 COVID-19 Vaccine ( - 2023-2 5 season) 2024 06/26/2021, 12/20/2020, 11/22/2020 Lung Cancer Screening (Low Dose CT) 07/07/2024 07/07/2023, 06/10/2022, 03/05/2021 Influenza Vaccine (Season Ended) 2025 06/09/2022, 06/04/2021, 05/08/2020 Colorectal Cancer Screening: Colonoscopy 07/23/2026 Pneumococcal Vaccine: [...] age to complete this topic Meningococcal B Vaccine Aged Out No l onger eligible based on patient's age to complete [...] PM EST Narrative 07/07/2023 3:49 PM EST [facility] Diagnostic Imaging Department [address] [place] [address] Patient: ??EDUARDO ALVA ?/Age/Sex: 1950 - 73 - M Unit#: ??[id number] ? Location/Status: ??SPDICATLS/REG CLI ? Mnemonic/Ordering Site: ??CTLUNGLD/SPCT Ordering Physician: ??DIONE LOPEZ MD CT Lung Screening Low Dose - 06/30/23 - 1304 Report Status:Signed History: ??73 year-old 80 pack-year former smoker, asymptomatic, for lung cancer screening. Quit smoking 13 years ago, chronic obstructive pulmonary disease, emphysema, coronary artery disease Comparison: 06/10/2022 and 02/29/2020 Technique: Helical volumetric imaging of the thorax was performed, using low- dose technique, without IV contrast. DLP: 202.89 mGy/cm ??CTDIvol: 4.89 mGy Minggl VCT Iterative reconstruction technique Findings: Chest: : [...] annual screening with LDCT in 12 months. [id number] [id number] G9557 G9551 Dictating Physician: ??MUNIR LIAO MD Electronically Signed by: ??MUNIR LIAO MD Dic Date/Time: ??07/07/23 1540 Sign date/Time: ??07/07/23 1549 Procedure Note Munir Liao MD - 09/01/2023 [facility] Diagnostic Imaging Department [address] [place] [address] Patient: EDUARDO ALVA Jaden /Age/Sex: 1950 - 73 - M Unit#: [id number] Location/Status: SPDICATLS/REG CLI Mnemonic/Ordering Site: [facility] Ordering Physician: DIONE LOPEZ MD CT Lung [...] contrast. DLP: 202.89 mGy/cm CTDIvol: 4.89 mGy Revolution PrepT Iterative reconstruction technique Findings: Chest: : There [...] annual screening with LDCT in 12 months. [id number] [id number] [id number] G9551 Dictating Physician: MUNIR LIAO MD Electronically Signed by: MUNIR LIAO MD Dic Date/Time: 07/07/23 154 Sign date/Time: 07/07/23 7711 Dione Lopez MD IMG CT PROCEDURES Final Result from Last 3 Months or Most Recently Relevant to Health Maintenance Insurance AAR MEDICARE Advance Directives Documents on File Type Date Recorded Patient Jailor Expl anation Health Care Decision (hx) 01/28/2018 [...] (hx) 01/28/2018 AD JACOB DIRECTIVE Care Teams Electric Relay Tester Relationship Specialty Start Date End Date Alfa Velasco MD [address] [place] [id number] [facility] - General 06/05/22
== END 2024-11-28 10:51 | disposition home or self-care (01) ==
PROVIDERS: PCP Internal Medicine; Visit Provider Internal Medicine
DX: J44.1 Chronic obstructive pulmonary disease with (acute) exacerbation (principal); J96.11 Chronic respiratory failure with hypoxia
CPT/HCPCS: 99213

== ENCOUNTER → 2024-11-28 10:19 | Outpatient (BNVA) | payer MEDICARE, SELFPAY ==
[2023-04-01 14:47] VITALS: BP 120/70; BP 124/64; BMI 23.1
== END ==
PROVIDERS: PCP Internal Medicine; Visit Provider Internal Medicine
DX: J44.1 Chronic obstructive pulmonary disease with (acute) exacerbation (principal); J96.11 Chronic respiratory failure with hypoxia
CPT/HCPCS: 99212

== ENCOUNTER 2024-12-07 09:08 | Outpatient (AMB) | payer MEDICARE, SELFPAY ==
[2023-04-01 14:47] VITALS: BP 120/70; BP 124/64; BMI 23.1
--- NOTE | 2024-12-07 09:33 | A.OFFVIS_ITS ---
Vital Signs 12/07/24 09:34 Height 6 ft Weight 174 lb 2.643 oz BMI 23.6 BP 130/80 Blood Pressure Location Lt brachial Position Sitting Pulse 113 H Intake Visit Reasons: 1 yr f/up Intake Note: 1 year follow-up with ekg c/o high heart rate and palpitations City Council Member Required: No Allergies No Known Allergies Allergy (Verified 11/28/24 10:53) Medication List - Last Reconciled 12/07/24 by Ritesh Puentes MD acetaminophen 500 mg PO Q6H PRN albuterol sulfate 90 mcg/actuation 2 puffs inhalation Q4H PRN ascorbic acid (vitamin C) (Vitamin C) 1,000 mg PO DAILY aspirin (Adult Low Dose Aspirin) 81 mg PO DAILY atorvastatin 20 mg PO BEDTIME clonazepam 1 mg PO DAILY PRN 30 days ensifentrine (Ohtuvayre) 2.5 mL inhalation BID gnypffvfvea-paxdsijkr-rqffsfbf 200-62.5-25 mcg (Trelegy Ellipta) 1 inh inhalation DAILY 30 days ipratropium-albuterol 0.5 mg-3 mg(2.5 mg base)/3 mL 3 mL inhalation Q4H PRN levalbuterol HCl 1.25 mg inhalation Q4H PRN mirtazapine 30 mg PO BEDTIME multivitamin 1 tab PO DAILY nitroglycerin 0.4 mg sublingual Q5M PRN pantoprazole 40 mg PO DAILY@0630 prednisone 5 mg PO DAILY 3 months theophylline ER 400 mg PO DAILY tizanidine 2 mg PO BEDTIME trazodone 25 mg PO BEDTIME verapamil ER 240 mg PO BEDTIME HPI Comments Details: Mateusz returns for follow up. Previously, he was seen at [facility] but has been with us for the last few years. To recall, he has advanced pulmonary disease, COPD. In the past, he was listed for lung transplantation but no longer in the list due to age. Has chronic sinus tachycardia which is suspected to be mainly from advanced lung disease. Other medications like theophylline, steroids, inhalers and nebulizers may also play some role in it. Overall, breathing is just about the same as before. He does get short of breath with activity and also chest pounding. However, unchanged from prior. No angina. He states he is very similar to before. [facility] Medical History (Updated 11/28/24 @ 11:02 by April Condon MD) COPD exacerbation Cardiomyopathy Atherosclerotic cardiovascular disease Tachyarrhythmia HLD (hyperlipidemia) Afib COPD (chronic obstructive pulmonary disease) Surgical History No pertinent past surgical history Family History Other Adopted Social History Household Members: Spouse [facility] Do you presently have visiting nurse or other home services: No Alcohol intake: never Patient Tobacco Use Status: Former Tobacco user Cigarette Packs Per Day: 1 Years Smoked: 41 Advance Directives Date on File: 10/19/20 service: No Current occupational status: retired Review of Systems Const Denies chills, Denies fatigue, Denies fever(s), Denies frequent falls, Denies weakness, Denies weight gain and Denies weight loss ENT Denies dizziness Card Denies chest pain, Denies leg edema, Denies lightheadedness, Denies palpitations, Denies dyspnea, Denies dyspnea on exertion, Denies orthopnea and Denies other (loss of consciousness) Resp Denies cough, Denies dyspnea and Denies dyspnea on exertion GI Denies hematochezia and Denies change in stool character Musc Denies abnormal gait, Denies muscle weakness, Denies numbness, Denies radiating pain into limb and Denies tingling Neuro Denies abnormal gait, Denies dizziness, Denies frequent falls, Denies numbness, Denies tingling and Denies weakness Endo Denies fatigue and Denies palpitations Physical Exam Vital Signs: Last Vital Signs Pulse 113 H 12/07/24 09:34 BP 130/80 12/07/24 09:34 BMI result Body Mass Index 23.6 Const General: comfortable and no acute distress Orientation/consciousness: patient oriented x3 HEENT Other: Unremarkable Head: Yes normal to inspection Neck Neck: Yes normal visual inspection Chest Chest palpation & inspection: normal inspection of the chest Resp Auscultation: clear to auscultation bilaterally Cardio Palpation: normal PMI Heart sounds: S1 normal heart sound present, S2 normal heart sound present, no gallops, no murmurs and no rubs GI Palpation (GI): Soft to palpation Back/Spine/Pelvis Other: unremarkable Skin General skin exam: no rashes or lesions noted Neuro General: patient oriented x3 Extrem General: Yes normal to inspection Psych Mental Status: mental status grossly normal Office Procedures EKG Details: EKG with sinus tachycardia at 113/Min; right atrial enlargement; possible old anterior infarct but could also be from body habitus as well as COPD; normal VT and corrected QT. Grossly similar to prior. [id number]-Ihqwwnppycomolvox, Complete Assessment & Plan Assessment & Plan (1) Atherosclerotic cardiovascular disease: Code(s): I25.10 - Atherosclerotic heart disease of [place] coronary artery without angina pectoris Category: Medical (2) Cardiomyopathy: Code(s): I42.9 - Cardiomyopathy, unspecified Category: Medical Qualifiers: Cardiomyopathy type: other Qualified Code(s): I42.8 - Other cardiomyopathies (3) Tachycardia: Code(s): R00.0 - Tachycardia, unspecified Category: Medical (4) COPD (chronic obstructive pulmonary disease): Code(s): J44.9 - Chronic obstructive pulmonary disease, unspecified Category: Medical Plan Cardiac studies summarized as below. Echocardiogram in [address] [facility]-LVEF 55-60%. Probably normal RV size and systolic function. No significant valvular issues. Prior to that, at some point LVEF was 35-40% related to frequent PVCs. In the last echocardiogram from 2022, LVEF diminished at 40-45%. Cardiac catheterization from 2020 at [place] had shown IFR positive 70% LAD les ion. Repeat catheterization 2021 at [facility] showed that was no longer hemodynamically significant and nonobstructive rather. Dobutamine myocardial perfusion imaging study from 2022 without any ischemia or infarction. LVEF was still diminished. Overall, advanced lung disease on supplemental oxygen, mild cardiomyopathy and markedly limited exercise capacity. Remains on aspirin, statins. Lipids can be followed up through his own PCP. Sinus tachycardia is multifactorial likely from some combination of advanced lung disease, theophylline, prednisone, inhalers. Has been stable for the last few years. He remains on verapamil for antianginal effects as well as sinus tachycardia. No changes made. Plan discussed with significant other. Discussion Notes During the consultation, I discussed the critical management of respiratory and cardiac conditions with the patient. We reviewed how COPD and emphysema affect heart rate elevation and the interplay with medications such as theophylline and prednisone. Emphasis was placed on avoidance of strenuous exertion to prevent cardiac overload. We addressed the impact of limiting physical therapy to protect from exertional tachycardia. Verapamil's role in reducing heart rate was discussed. Transplant candidacy was clarified, given the patient's age. Together, we decided on an annual follow-up schedule with the option to contact me if symptoms escalate or change. Patient education on medication impact and lifestyle adjustments was provided to support his continuing care plan. Patient was informed and verbally consented to the use of an ambient scribe for clinic note documentation during this visit. Patient Instructions: - Continue taking your medications as prescribed. - Limit strenuous physical activity to what you can tolerate. - If your insurance covers it, continue taking verapamil. - Follow up with me annually unless issues arise sooner. - Contact me if you experience new or worsening symptoms. - Protect your hands according to carpal tunnel precautions. Coding Level of Care Code Est Pt Level 4 (06490) Complex EM visit Add On G2211 Diagnoses Atherosclerotic cardiovascular disease I25.10 Other cardiomyopathy I42.8 Cardiomyopathy type: other Tachycardia R00.0 COPD (chronic obstructive pulmonary disease) J44.9 CPT Codes EKG - CPT: 64374-Dudbijwgqikblwjwf, Complete ([id number])
[2024-12-07 09:34] VITALS: BP 130/80; PULSE 113; BMI 23.6
--- OUTSIDE RECORDS SUMMARY | 2024-12-07 09:36 | XMS_ITS | Clinical Summary ---
Author Organization [facility] Address [address] [place] [address] Phone Care Team Providers Care Ed Teacher Name Role Phone Alfa Velasco MD Primary Care Provider Encounters Date Type Department Care Team Description 11/29/2024 Telephone Lung Screening Program - [place] [address] [facility] [address] [place] [address] Julita Au [place] Appointment (1st Notification) from Last 3 Months Immunizations Name Administration Dates Next Due Moderna SARS-CoV-2 COVID-19, mRNA, LNP-S, preservative free 12/20/2020 Surgical History Surgery Date Site/Laterality Comments SHOULDER SURGERY 03/03/14 Left PROCEDURE: HISTORICAL SHOULDER SURGERY NECK SURGERY 07/28/13 PROCEDURE: HISTORICAL NECK SURGERY HERNIA REPAIR 2011 PROCEDURE: HISTORICAL HERNIA REPAIR/UMB BACK SURGERY 2005 PROCEDURE: HISTORICAL BACK SURGERY COLONOSCOPY 10.16.11 PROCEDURE: MD COLONOSCOPY FLX DX W/COLLJ SPEC WHEN PFRMD; COMMENT: tubular adenoma, repeat 3 years CATARACT EXTRACTION 10/08 PROCEDURE: HISTORICAL CATARACT REMOVAL OTHER SURGICAL HISTORY 03/07/15 PROCEDURE: ---- OTHER ----; COMMENT: deviated septum ESOPHAGOGASTRODUODENOSCOPY 04/09/16 [facility] PROCEDURE: MD ESOPHAGOGASTRODUODENOSCOPY TRANSORAL DIAGNOSTIC; COMMENT: normal COLONOSCOPY 04/09/16 [...] Info) Description 12/21/2024 2:00 PM EDT Appointment [facility] CT Scan [address] [place] [address] Health Maintenance Due Date Last [...] PM EST Narrative 07/07/2023 3:49 PM EST [facility] Diagnostic Imaging Department [address] [place] [address] Patient: ??EDUARDO ALVA ?/Age/Sex: 1950 - 73 - M Unit#: ??[id number] ? Location/Status: ??SPDICATLS/REG CLI ? Mnemonic/Ordering Site: ??CTLUNGLD/SPCT Ordering Physician: ??DIONE LOPEZ MD CT Lung Screening Low Dose - 06/30/23 - 9064 Report Status:Signed History: ??73 year-old 80 pack-year former smoker, asymptomatic, for lung cancer screening. Quit smoking 13 years ago, chronic obstructive pulmonary disease, emphysema, coronary artery disease Comparison: 06/10/2022 and 02/29/2020 Technique: Helical volumetric imaging of the thorax was performed, using low- dose technique, without IV contrast. DLP: 202.89 mGy/cm ??CTDIvol: 4.89 mGy [employer] VCT Iterative reconstruction technique Findings: Chest: : [...] annual screening with LDCT in 12 months. 11624 G9637 G9557 G9551 Dictating Physician: ??MUNIR LIAO MD Electronically Signed by: ??MUNIR LIAO MD Dic Date/Time: ??07/07/23 1540 Sign date/Time: ??07/07/23 1549 Procedure Note Munir Liao MD - 09/01/2023 [facility] Diagnostic Imaging Department [address] [place] [address] Patient: NIDA,EDUARDO Stanley /Age/Sex: 1950 - 73 - M Unit#: [id number] Location/Status: SPDICATLS/REG CLI Mnemonic/Ordering Site: [facility] Ordering Physician: DIONE LOPEZ MD CT Lung [...] contrast. DLP: 202.89 mGy/cm CTDIvol: 4.89 mGy [employer] VCT Iterative reconstruction technique Findings: Chest: : [...] annual screening with LDCT in 12 months. 39529 G9637 G9557 G9551 Dictating Physician: MUNIR LIAO MD Electronically Signed by: MUNIR LIAO MD Dic Date/Time: 07/07/23 1540 Sign date/Time: 07/07/23 1549 Dione Lopez MD IMG CT PROCEDURES Final Result from Last 3 Months or Most Recently Relevant to Health Maintenance [place] [address] [place] [address] MEDICARE Advance Directives Documents on File Type Date Recorded Patient Technical Engineer Expl anation Health Care Decision (hx) 01/28/2018 [...] (hx) 01/28/2018 AD JACOB DIRECTIVE Care Teams Ed Teacher Relationship Specialty Start Date End Date Alfa Velasco MD [address] [place] [address] PCP - General 06/05/22
== END 2024-12-07 10:09 | disposition home or self-care (01) ==
LOC: HO.HCS 09:09
PROVIDERS: PCP Internal Medicine; Visit Provider Internal Medicine
DX: I25.10 Atherosclerotic heart disease of native coronary artery without angina pectoris (principal); I42.8 Other cardiomyopathies; R00.0 Tachycardia, unspecified; J44.9 Chronic obstructive pulmonary disease, unspecified
CPT/HCPCS: 93010; 99214; G2211

== ENCOUNTER → 2024-12-07 09:08 | Outpatient (BNVA) | payer MEDICARE, SELFPAY ==
[2023-04-01 14:47] VITALS: BP 120/70; BP 124/64; BMI 23.1
== END ==
PROVIDERS: PCP Internal Medicine; Visit Provider Internal Medicine
DX: I25.10 Atherosclerotic heart disease of native coronary artery without angina pectoris (principal); I42.8 Other cardiomyopathies; R00.0 Tachycardia, unspecified; J44.9 Chronic obstructive pulmonary disease, unspecified; Z87.891 Personal history of nicotine dependence
CPT/HCPCS: 93005; 99212

== ENCOUNTER 2025-01-19 12:38 | Outpatient (AMB) | payer MEDICARE, SELFPAY ==
[2023-04-01 14:47] VITALS: BP 120/70; BP 124/64; BMI 23.1
[2025-01-03 08:56] VITALS: BP 120/70; BP 124/64; BMI 23.1
--- OUTSIDE RECORDS SUMMARY | 2025-01-19 08:40 | XMS_ITS | Encounter Summary ---
Author Organization [facility] Address [address] [place] [address] Care Team Providers Care Cell Changer Name Role Phone Alfa Velasco MD Primary Care Provider [phone] Reason for Referral * Imaging (Routine) - Authorized Specialty Diagnoses / Procedures Referred By Ubaldo moreau Referred To Contact Radiology Diagnoses Coronary artery disease due to lipid rich plaque Procedures CT Angio Heart w 3D Imaging/Function Meggan Boogie NP [address] [place] [address] Phone: tel: fax: [facility] Referral ID Status Reason Start Date Expiration Date V isits Requested Visits Authorized [id number] Authorized 01/19/2025 01/19/2026 1 1 Reason for Visit * Reason Comments Follow-up Encounter Details Date Type Department Care Team (Late st Contact Info) Description 01/19/2025 8:40 AM EDT Office Visit [facility] - [address] [place] [address] Meggan Boogie NP [address] [place] [address] Hyperlipidemia, unspecified hyperlipidemia type (Primary Dx); Coronary artery disease due to lipid rich plaque Social History Tobacco Use Types Packs/Day Years [...] on file Sexual Orientation Not on file documented as of this encounter Last Filed Vital Signs Vital Sign Reading Time Taken Comments Blood Pressure 134/80 01/19/2025 8:34 AM EDT Pulse 93 01/19/2025 8:34 AM EDT Temperature - - Respiratory Rate - - Oxygen Saturation 92% 01/19/2025 8:34 AM EDT Inhaled Oxygen Concentration - - Weight 79.8 kg (176 lb) 01/19/2025 8:34 AM EDT Height 182.9 cm (6') 01/19/2025 8:34 AM EDT Body Mass Index 23.87 01/19/2025 8:34 AM EDT documented in this encounter Plan of Treatment Upcoming Encounters Date Type Department Care Team (Late st Contact Info) Description 01/26/2025 8:00 AM EDT Appointment [facility] Interventional Radiology [address] [place] [address] 03/07/2025 9:10 AM EDT Office Visit [facility] - [address] [place] [phone] Meggan Boogie, MEAGAN [address] [place] [address] Pending Results Name Type Priority Associated Diagnoses Date /Time ECG 12 lead ECG Routine Hyperlipidemia, unspecified hyperlipidemia type 01/19/2025 8:40 AM EDT Scheduled Orders Name Type Priority Associated Diagnoses Orde r Schedule CT Angio Heart w 3D Imaging/Function Cardiac CT/MRI Routine Coronary artery disease due to lipid rich plaque Expected: 01/19/2025, Expires: 01/19/2026 documented as of this encounter Procedures Procedure Name Priority Date/Time Associated Diagnosis Comments ECG 12-LEAD Routine 01/19/2025 8:40 AM EDT Hyperlipidemia, unspecified hyperlipidemia type documented in this encounter Visit Diagnoses Diagnosis Hyperlipidemia, unspecified hyperlipidemia type- Primary Coronary artery disease due to lipid rich plaque documented in this encounter Care Teams Cell Changer Relationship Specialty Start Date End Date Alfa Velasco MD [address] [place] [address] PCP - General Internal Medicine 12/20/24 documented as of this encounter
[2025-01-19 12:56] VITALS: BP 126/72; PULSE 116; O2SAT 93; BMI 23.6
--- NOTE | 2025-01-19 12:56 | A.OFFVIS_ITS ---
Vital Signs 01/19/25 12:56 Height 6 ft Weight 174 lb BMI 23.6 BP 126/72 Blood Pressure Location Rt brachial Position Sitting Pulse 116 H Pulse Source Pulse Oximeter Pulse Oximetry (%) 93 Oxygen Delivery Method Room Air Intake Visit Reasons: Clearance Thoracic surgery Allergies No Known Allergies Allergy (Verified 01/19/25 13:03) HPI HPI Clearance Thoracic surgery: Details: 74-year-old gentleman, former 30+ pack-year smoker, quit 2009,? followed for severe supplemental oxygen dependent COPD. He has been evaluated at [facility].? He previously was evaluated with left heart catheterization by his pellet machine operator and now continues on medical therapy. He has been using Trelegy, theophylline, Ohtuvayre, prednisone 5 mg daily, duo nebs, and albuterol MDI with good control of his symptoms. He denies recent exacerbations. He continues with [facility] lung cancer screening program, now with concerns for growing pulmonary nodule and is scheduled for biopsy [facility] Medical History (Updated 01/19/25 @ 15:09 by Brian Bennett MD) COPD exacerbation Cardiomyopathy Atherosclerotic cardiovascular disease Tachyarrhythmia HLD (hyperlipidemia) Afib COPD (chronic obstructive pulmonary disease) Surgical History No pertinent past surgical history Family History Other Adopted Social History Household Members: Spouse Housing: Condominium Do you presently have visiting nurse or other home services: No Alcohol intake: never Patient Tobacco Use Status: Former Tobacco user Cigarette Packs Per Day: 1 Years Smoked: 41 Advance Directives Date on File: 10/19/20 service: No Current occupational status: retired Review of Systems Const Denies daytime sleepiness, Denies excessive sweating, Denies fatigue, Denies fever(s), Denies lethargy, Denies malaise, Denies night sweats, Denies snoring and Denies weight loss Eyes Denies blurry vision and Denies itchy eyes ENT Denies nasal congestion, Denies post nasal drip, Denies sinus pain, Denies sinus pressure and Denies other ( Thrush) Card Denies chest pain, Denies pedal edema, Denies dyspnea, Denies orthopnea and Denies paroxysmal nocturnal dyspnea Resp Denies cough, Denies hemoptysis, Denies excessive phlegm production, Denies dyspnea, Denies snoring and Denies wheezing GI Denies abdominal pain and Denies heartburn Musc Denies myalgias, Denies arthralgias and Denies joint swelling Skin/Breast Denies rash Neuro Denies memory loss and Denies seizure-like activity Psych Denies abnormal sleep pattern, Denies anxiety and Denies memory loss Endo Denies excessive sweating, Denies fatigue and Denies heat intolerance [place]/Lymph Denies easy bruising Aller/Immun Denies itchy eyes, Denies seasonal rhinorrhea and Denies wheezing Physical Exam Vital Signs: Last Vital Signs Pulse 116 H 01/19/25 12:56 BP 126/72 01/19/25 12:56 Pulse Ox 93 01/19/25 12:56 Oxygen Delivery Method Room Air 01/19/25 12:56 BMI result Body Mass Index 23.6 Const General: no acute distress and alert Nutritional Appearance: not obese Orientation/consciousness: Other orientation findings ( oriented) HEENT Head: Yes atraumatic Eyes General: appearance normal, both eyes and all related structures Sclerae: sclerae normal EOM: EOMs intact bilaterally Neck Neck: Yes supple Lymphatic: no lymphadenopathy noted Resp Effort & Inspection: normal respiratory effort and no use of accessory muscles Auscultation: clear to auscultation bilaterally Cardio Rate: regular rate Rhythm: regular rhythm Heart sounds: no gallops, no murmurs and no rubs Skin General skin exam: other ( warm) Extrem General: No clubbing, No cyanosis and No edema Assessment & Plan Assessment & Plan (1) COPD (chronic obstructive pulmonary disease): Code(s): J44.9 - Chronic obstructive pulmonary disease, unspecified Category: Medical Plan: Reasonable baseline control on essentially maximum medical therapy with trilogy, theophylline, duo nebs, prednisone 5 mg daily, Ohtuvayre, and albuterol MDI. (2) Pulmonary air trapping: Code(s): R09.89 - Other specified symptoms and signs involving the circulatory and respiratory systems Category: Medical Plan: Reasonable control on clonazepam as needed daily. Continue current regimen. (3) Supplemental oxygen dependent: Code(s): Z99.81 - Dependence on supplemental oxygen Category: Medical Plan: Continue supplemental oxygen to maintain O2 saturation of 89-92%. (4) Pulmonary nodules: Code(s): R91.8 - Other nonspecific abnormal finding of lung field Category: Medical Plan: Increasing pulmonary nodules, patient is followed by [facility] lung cancer screening program and is scheduled for percutaneous lung biopsy. (5) Encounter for preoperative pulmonary examination: Code(s): Z01.811 - Encounter for preprocedural respiratory examination Category: Medical Plan: At this time patient is at low risk for pulmonary preoperative complications for the proposed percutaneous lung biopsy under moderate sedation. Coding Level of Care Code Est Pt Level 5 (42095) Complex EM visit Add On G2211 Diagnoses COPD (chronic obstructive pulmonary disease) J44.9 Pulmonary air trapping R09.89 Supplemental oxygen dependent Z99.81 Pulmonary nodules R91.8 Encounter for preoperative pulmonary examination Z01.811
== END 2025-01-19 13:26 | disposition home or self-care (01) ==
LOC: HO.HPS 12:39
PROVIDERS: PCP Internal Medicine; Visit Provider Internal Medicine Pulmonary Disease
DX: J44.9 Chronic obstructive pulmonary disease, unspecified (principal); R09.89 Other specified symptoms and signs involving the circulatory and respiratory systems; Z99.81 Dependence on supplemental oxygen; R91.8 Other nonspecific abnormal finding of lung field; Z01.811 Encounter for preprocedural respiratory examination
CPT/HCPCS: 99215; G2211

== ENCOUNTER → 2025-01-19 12:38 | Outpatient (BNVA) | payer MEDICARE, SELFPAY ==
[2025-01-03 08:56] VITALS: BP 120/70; BP 124/64; BMI 23.1
== END ==
PROVIDERS: PCP Internal Medicine; Visit Provider Internal Medicine Pulmonary Disease
DX: Z01.811 Encounter for preprocedural respiratory examination (principal); J44.9 Chronic obstructive pulmonary disease, unspecified; R09.89 Other specified symptoms and signs involving the circulatory and respiratory systems; R91.8 Other nonspecific abnormal finding of lung field; Z99.81 Dependence on supplemental oxygen
CPT/HCPCS: 99212

== ENCOUNTER 2025-03-02 12:42 | Outpatient (AMB) | payer MEDICARE, SELFPAY ==
[2023-04-01 14:47] VITALS: BP 120/70; BP 124/64; BMI 23.1
[2025-01-03 08:56] VITALS: BP 120/70; BP 124/64; BMI 23.1
--- OUTSIDE RECORDS SUMMARY | 2025-03-02 12:45 | XMS_ITS | Encounter Summary ---
Author Organization [facility] Address [address] [place] [address] Phone Care Team Providers Care Corporate Webmaster Name Role Phone Alfa Velasco MD Primary Care Provider [phone] Brian Bennett MD Unavailable [phone] Margaret Georges NP Unavailable Ricco Liang MD Unavailable [phone] Encounter Details Date Type Department Care Team (Late st Contact Info) Description 04/15/2021 Procedure Pass [facility] Endoscopy Department [address] [place] [id number] Social History Tobacco Use Types Packs/Day Years Used Date Smoking Tobacco: Former Cigarettes 1.5 40 1 971 - 2010 Smokeless Tobacco: Never Alcohol Use Standard Drinks/Week Comments Not Currently 0 (1 standard drink = 0.6 oz pur e alcohol) Sex and Gender Information Value Date Recorded Sex Assigned at Male 12/17/2020 3:28 PM EDT Legal Sex Male 3:22 PM EDT Gender Identity Male 12/17/2020 3:28 PM EDT Sexual Orientation Straight 12/17/2020 3: 28 PM EDT documented as of this encounter Functional Status * Calculated C-SSRS Risk Score (Lifetime/Recent) Answer Date of Assessment Author No Risk Indicated 04/15/2021 4:00 PM EDT Jam- Irvin, Mary, RN * [place] Suicide Severity Rating Scale (Screener/Recent Self-Report) Question Answer Date of Assessment Author 1. Wish to be (Past 1 Month) No 04/15/2021 4:00 PM EDT Prescott RN 2. Non-Specific Active Suicidal Thoughts (Past 1 Month) No 04/15/2021 4:00 PM EDT Prescott RN 6. Suicidal Behavior (Lifetime) No 04/15/2021 4:00 PM EDT Prescott RN documented as of this encounter Plan of Treatment Not on file documented as of this encounter Visit Diagnoses Not on filedocumented in this encounter Care Teams Corporate Webmaster Relationship Specialty Start Date End Date Alfa Velasco MD [address] [place] [address] PCP - General Internal Medicine 12/17/20 Brian Bennett MD [address] [place] [address] Referring Physician Intensive Care 12/19/20 Margaret Georges NP [address] [place] [address] [facility] Cardiology 04/02/21 Ricco Liang MD [address] [place] [address] Gas[facility] Tester Cardiology 04/16/21 documented as of this encounter Additional Source Comments The information contained in this document represents components of the legal health record. It is not the complete legal health record.[facility]
--- OUTSIDE RECORDS SUMMARY | 2025-03-02 12:45 | XMS_ITS | Clinical Summary ---
Author Organization [facility] Address [address] [place] [address] Phone Care Team Providers Care Branch Officer Name Role Phone Alfa Velasco MD Primary Care Provider [phone] Allergies No known active allergies Medications acetaminophen (TYLENOL) 500 mg capsule Take 2 capsules (1,000 mg total) by mouth. 2 Active ascorbic acid (VITAMIN C) 500 mg tablet Take 2 tablets (1,000 mg total) by mouth daily. Active albuterol HFA (PROAIR HFA ; PROVENTIL HFA ; VENTOLIN HFA) 90 mcg/actuation inhaler Inhale 2 puffs by mouth every 4 (four) hours if needed. for wheezing Active aspirin 81 mg EC tablet Take 1 tablet (81 mg total) by mouth 1 (one) time each day. 1 Active atorvastatin (LIPITOR) 20 mg tablet Take 1 tablet (20 mg total) by mouth 1 (one) time each day. Active clonazePAM (KlonoPIN) 1 mg tablet 0.5 mg. 2 Active ipratropium-albut Farideh (DUONEB) 0.5-2.5 mg/3 mL nebulizer solution Take 3 mL by nebulization. Active lidocaine (LIDODERM) 5 % patch Place 1 patch on the skin 1 (one) time each day at the same time. 4 Active pantoprazole (PROTONIX) 40 mg EC tablet Take 1 tablet (40 mg total) by mouth 1 (one) time each day. Active theophylline (TERESA-24) 400 mg 24 hr capsule Take 1 capsule (400 mg total) by mouth. 1 Active mirtazapine (REMERON) 30 mg tablet Take 1 tablet (30 mg total) by mouth. at bedtime Active multivitamin with minerals capsule Take 1 tablet by mouth daily. Active nitroglycerin (NITROSTAT) 0.[address] 1 tablet (0.4 mg total) under the tongue. 5 Active predniSONE (DELTASONE) 5 mg tablet Take 1 tablet (5 mg total) by mouth 1 (one) time each day. Active tiZANidine (ZANAFLEX) 2 mg tablet Take 1 tablet (2 mg total) by mouth every 8 (eight) hours if needed for muscle spasms. Active traZODone (DESYREL) 50 mg tablet Take 1 tablet (50 mg total) by mouth. 2 Active verapamil ER (VERELAN) 240 mg 24 hr capsule Take 1 capsule (240 mg total) by mouth. 2 Active Trelegy Ellipta 200-62.5-25 mcg inhaler Inhale 1 puff (200 mcg total) by mouth 1 (one) time each day. 5 Active ensifentrine (Ohtuvayre) 3 mg/2.5 mL suspension for nebulization Inhale 2.5 mL by mouth 2 (two) times a day. Active Active Problems Problem Noted Date Diagnosed Date Primary cancer of left upper lobe of lung ([facility] V24, [facility] V28) 02/08/2025 Generalized anxiety disorder 02/03/2025 Retinal mass 02/03/2025 Multiple pulmonary nodules 02/03/2025 Chronic obstructive pulmonar y disease ([facility] V24, [facility] V28) 01/09/2025 Lung mass 12/30/2024 COPD (chronic obstructive pu lmonary disease) ([facility] V24, [facility] V28) 12/30/2024 Colon polyp 07/19/2021 Overview (02/03/2025): Tubular adenoma 10/05 Arteriosclerosis of coronary artery 04/16/2021 Overview (02/03/2025): 04/16 cath: prox LAD 70% stenosis Hypertension 04/16/2021 Osteoporosis 04/01/2021 Overview (02/03/2025): 04/16 DXA t-score -2.5 lumbar spine, -2.9 left hip Declines treatment as of 06/16 Declines consideration of treatment as of 06/16 Hypoxia 04/20/2019 Stage 3 severe COPD by GOLD classification ([facility] V24, [facility] V28) 10/20/2017 Overview (02/03/2025): Dr Bennett Pulmonary nodules 10/20/2017 Overview (02/03/2025): [facility] LDCT program following Hyperlipidemia 02/16/2016 Overview (02/03/2025): Last Assessment & Plan: Patient's LDL somewhat above target given his known coronary artery disease. He is currently on moderate intensity statin which is at max dose given his calcium channel monika. He has made dietary modifications since his visits out in [place]. If his LDL remains elevated on his next check, will change to Crestor 40 mg a day. Assessment & Plan (02/03/2025 2:34 PM EDT): Continue statin therapy. Goal LDL less than 70. Orders: ECG 12 lead Cardiomyopathy ([facility] V24, [facility] V28) 2015 Overview (02/03/2025): [facility] Likely PVC mediated Normalized with PVC suppression Last Assessment & Plan: His LVEF remains normal with very low PVC burden on recent holter. He had an episode of dizziness while at pulmonary rehab, which has not recurred since he started drinking an electrolyte drink at rehab. His holter is unrevealing. His LVEF is preserved. And his CAD is not the likely cuplrit for his dizzy symptoms, and per [place], does not require intervention pre transplant. For now, continue current CCB dose. Continue hydration. Continue aggressive pulmonary intervention/toilet. Frequent PVCs 01/12/2016 Overview (02/03/2025): Last Assessment & Plan: The patient's PVCs have improved on current beta-monika dose. He does continue with episodes of palpitations. Historically, these have gotten better with better hydration with electrolyte drink. Continue ongoing supportive therapy. Erectile dysfunction 07/10/2015 Duodenal ulcer 04/24/2014 Overview (02/03/2025): Seen on EGD 2008 Tubular adenoma 04/24/2014 Overview (02/03/2025): 10/05; CN recommended 3 years Anxiety and depression 03/07/2014 Back pain 03/07/2014 GERD (gastroesophageal reflux disease) 4 Overview (02/03/2025): Normal EGD 04/11 Neck pain 03/07/2014 Encounters Date Type Department Care Team Description 02/21/2025 9:50 AM EDT - 02/21/2025 11:59 PM EDT Hospital Encounter [facility] Radiation Oncology [address] [place] [phone] Discharge Disposition: Home or Self Care 02/16/2025 1:00 PM EDT - 02/16/2025 11:59 PM EDT Hospital Encounter [facility] Radiation Oncology [address] [place] [phone] Kailyn Bernard MD Primary cancer of left upper lobe of lung (CMS/HCC V24, CMS/HCC V28) Discharge Disposition: Home or Self Care 02/16/2025 11:28 AM EDT - 02/16/2025 11:59 PM EDT Hospital Encounter [facility] Radiation Oncology [address] [place] [phone] Primary cancer of left upper lobe of lung (CMS/HCC V24, CMS/HCC V28) (Primary Dx) Discharge Disposition: Home or Self Care 02/08/2025 12:06 PM EDT - 02/08/2025 11:59 PM EDT Hospital Encounter [facility] Radiation Oncology [address] [place] [phone] Kailyn Bernard MD Primary cancer of left upper lobe of lung ([facility] V24, [facility] V28) (Primary Dx); Pulmonary nodule Discharge Disposition: Home or Self Care 02/08/2025 12:06 PM EDT - 02/08/2025 11:59 PM EDT Hospital Encounter [facility] Radiation Oncology [address] [place] [phone] Discharge Disposition: Home or Self Care 02/08/2025 11:15 AM EDT Office Visit [facility] - [place] [address] [facility] [address] [place] [phone] Nedra Lopez MD Primary cancer of left upper lobe of lung ([facility] V24, [facility] V28) (Primary Dx); Stage 3 severe COPD by GOLD classification ([facility] V24, [facility] V28) 02/03/2025 Telephone [facility] - [place] [address] [facility] [address] [place] [phone] Anahi Espinoza MA biopsy results 02/02/2025 Telephone [facility] - [facility] [address] [facility] [address] [place] [phone] Meggan Boogie NP Appointment (Coronary CTA) 02/02/2025 Telephone [facility] Radiation Oncology [address] [place] [phone] Meera Gusman MA 01/26/2025 11:38 AM EDT - 01/26/2025 11:59 PM EDT Hospital Encounter [facility] Xray [address] [place] [phone] Discharge Disposition: Home or Self Care 01/26/2025 6:19 AM EDT - 01/26/2025 11:59 PM EDT Hospital Encounter [facility] Interventional Radiology [address] [place] [phone] Pulmonary nodule Discharge Disposition: Home or Self Care 01/19/2025 8:40 AM EDT Office Visit [facility] - [address] [facility] [address] [place] [phone] Meggan Boogie NP Hyperlipidemia, unspecified hyperlipidemia type (Primary Dx); Coronary artery disease due to lipid rich plaque 01/13/2025 10:15 AM EDT Office Visit [facility] Surgery - [place] [address] [facility] [address] [place] [phone] Nedra Lopez MD Pulmonary nodule (Primary Dx); Pulmonary emphysema, unspecified emphysema type (CMS/HCC V24, CMS/[facility] V28) 01/10/2025 Telephone [facility] - [facility] [address] [facility] [address] [place] [phone] Ricco Liang MD Scheduling 01/10/2025 Telephone [facility] - [facility] [address] [facility] [address] [place] [phone] Alfa Velasco MD Referral (Received paper referral - sent to [facility] - 08/20/2024 - ) 01/05/2025 11:03 AM EDT - 01/05/2025 11:59 PM EDT Hospital Encounter [facility] PET Scan [address] [place] [phone] Pulmonary nodule Discharge Disposition: Home or Self Care 01/02/2025 2:40 PM EDT - 01/02/2025 11:59 PM EDT Hospital Encounter [facility] MRI [address] [place] [phone] Pulmonary nodule Discharge Disposition: Home or Self Care 12/30/2024 9:15 AM EDT Consult Thoracic Surgery - [place] [address] [facility] [address] [place] [phone] Nedra Lopez MD Pulmonary nodule (Primary Dx); Pulmonary emphysema, unspecified emphysema type (CMS/HCC V24, CMS/[facility] V28) 12/22/2024 Telephone Lung Screening Program - [place] [address] [facility] [address] [place] [phone] Ioana Solis MA Results (Lung Screening- Suspicious Findings) 12/21/2024 1:18 PM EDT - 12/21/2024 11:59 PM EDT Hospital Encounter [facility] CT Scan [address] [place] [address] Encounter for screening for malignant neoplasm of respiratory organs; Personal history of nicotine dependence Discharge Disposition: Home or Self Care from Last 3 Months Immunizations Name Administration Dates Next Due Moderna SARS-CoV-2 COVID-19, mRNA, LNP-S, preservative free 12/20/2020 Surgical History Surgery Date Site/Laterality Comments SHOULDER SURGERY 03/03/14 Left PROCEDURE: HISTORICAL SHOULDER SURGERY NECK SURGERY 07/28/13 PROCEDURE: HISTORICAL NECK SURGERY HERNIA REPAIR 2011 PROCEDURE: HISTORICAL HERNIA REPAIR/UMB BACK SURGERY 2005 PROCEDURE: HISTORICAL BACK SURGERY COLONOSCOPY 10.16.11 PROCEDURE: [place] COLONOSCOPY FLX DX W/COLLJ SPEC WHEN PFRMD; COMMENT: tubular adenoma, repeat 3 years CATARACT EXTRACTION 10/08 PROCEDURE: HISTORICAL CATARACT REMOVAL OTHER SURGICAL HISTORY 03/07/15 PROCEDURE: ---- OTHER ----; COMMENT: deviated septum ESOPHAGOGASTRODUODENOSCOPY 04/09/16 [facility] PROCEDURE: [place] ESOPHAGOGASTRODUODENOSCOPY TRANSORAL DIAGNOSTIC; COMMENT: normal COLONOSCOPY 04/09/16 [...] DX:Emphysema (subcutaneous) (surgical) resulting from a procedure Hypertension 04/16/2021 Family History Medical History Relation Name Comments [...] 0 07/27[birth year]1969 - 03/07/2011 Smokeless Tobacco: Never Tobacco Cessation:Counseling Given: Not Answered Alcohol Use Standard Drinks/Week Comments No 0 (1 standard drink = 0.6 oz pur e alcohol) Sex and Gender Information Value Date Recorded Sex Assigned at Not on file Legal Sex Male 12:11 AM EST Gender Identity Not on file Sexual Orientation Not on file Obstetrics History Last Filed Vital Signs Vital Sign Reading Time Taken Comments Blood Pressure 136/80 02/08/2025 12:58 PM EDT Pulse 112 02/08/2025 12:58 PM EDT Temperature 36.6 C (97.8 F) 02/08/2025 12:58 PM EDT Respiratory Rate 17 02/08/2025 12:58 PM EDT Oxygen Saturation 96% 02/08/2025 12:58 PM EDT O2 @ 2L Inhaled Oxygen Concentration - - Weight 79.2 kg (174 lb 9.6 oz) 02/08/2025 12:58 PM EDT Height 182.9 cm (6') 02/08/2025 12:58 PM EDT Body Mass Index 23.68 02/08/2025 12:58 PM EDT Plan of Treatment Upcoming Encounters Date Type Department Care Team (Late st Contact Info) Description 03/06/2025 11:30 AM EDT Appointment [facility] Radiation Oncology [address] [place] [phone] Luis Angel Georges MD [address] [place] [address] 03/07/2025 9:10 AM EDT Office Visit [facility] - [facility] [address] [facility] [address] [place] [phone] Meggan Boogie NP [address] [facility] [address] [place] [phone] 03/08/2025 11:00 AM EDT Appointment [facility] Radiation Oncology [address] [place] [phone] Luis Angel Georges MD [address] [place] [phone] 03/10/2025 11:00 AM EDT Appointment [facility] Radiation Oncology [address] [place] [phone] Luis Angel Georges MD [address] [place] [phone] 03/13/2025 11:00 AM EDT Appointment [facility] Radiation Oncology [address] [place] [phone] Kailyn Bernard MD [address] [place] [phone] 03/15/2025 11:00 AM EDT Appointment [facility] Radiation Oncology [address] [place] [phone] Kailyn Bernard MD [address] [place] [phone] 03/15/2025 11:25 AM EDT Appointment [facility] Radiation Oncology [address] [place] [phone] Kailyn Bernard MD [address] [place] [phone] Health Maintenance Due Date Last Done Comments DTaP,Tdap,and Td Vaccines (1 - Tdap) 02/08/1971 Zoster Vaccines (1 of 2) 02/08/1971 RSV Immunization Adult Patients (1 - Risk 60-74 years 1-dose series) 2012 Abdominal Aortic Aneurysm (AAA) Screen 07/05/2022 Falls Risk Assessment 07/05/2022 Medicare Annual Wellness Visit 07/05/2022 Social Influencers of Health Screening 07/05/2022 Hypertension/CHF/CAD Annual BMP Blood Test 07/06/2022 02/25/2021 COVID-19 Vaccine ( season) 2024 05/20/2022, 08/12/2021, 06/26/2021, Additional history exists Depression Screening 07/27/2024 Influenza Vaccine (#1) 2025 , 07/08/2023, 06/09/2022, Additional history exists Lung Cancer Screening (Low Dose CT) 12/21/2025 12/21/2024, 07/07/2023, 06/10/2022, Additional history exists Cholesterol Screening (Lipid Panel) 02/25/2026 02/25/2021 Colorectal Cancer Screening: Colonoscopy 07/23/2026 Pneumococcal Vaccine: 50+ Years Completed 03/06/2020, 06/23/2017 Hepatitis A Vaccines Aged Out 02/27/2021 No long er eligible based on patient's age to complete this topic Hepatitis C Screening Completed 04/15/2021 Hepatitis B Vaccines Completed 09/04/2021, 04/02/2021, 02/27/2021 [...] 20 months Aged Out No longer eligible based on patient's age to complete this topic Varicella Vaccines Aged Out No longer eligible based on patient's age to complete this topic Procedures Procedure Name Priority Date/Time Associated Diagnosis Comments ECG 12-LEAD Routine 02/03/2025 2:33 PM EDT Hyperlipidemia, unspecified hyperlipidemia type XR CHEST 1 VIEW (STATISTICS) Routine 01/26/2025 11:[address] BX LUNG/MEDIASTINUM PERC NDL CORE W IMAGE GUIDE Routine 01/26/2025 9:15 AM EDT Pulmonary nodule FINE NEEDLE ASPIRATION Routine 01/26/2025 8:57 AM EDT Pulmonary nodule TISSUE EXAM Routine 01/26/2025 8:57 AM EDT Pulmonary nodule PET CT SKULL TO MID THIGH INITIAL Routine 01/05/2025 1:41 PM EDT Pulmonary nodule MR BRAIN WO AND W CONTRAST Routine 01/02/2025 4:50 PM EDT Pulmonary nodule CT LUNG SCREENING Routine 12/21/2024 1:5 0 PM EDT Encounter for screening for malignant neoplasm of respiratory organs Personal history of nicotine dependence from Last 3 Months Results * ECG 12 lead (02/03/2025 2:33 PM EDT) 01/19/2025 8:40 AM EDT Meggan Boogie [employer] ECG ORDERABLES Final Result GEMUSE * XR Chest 1 View (Statistics) (01/26/2025 11:41 AM EDT) Anatomical Region Laterality Modality Body Radiographic Susan ging 01/26/2025 12:2 1 PM EDT Impressions 01/26/2025 12:23 PM EDT Unchanged tiny left apical pneumothorax. -------- FINAL REPORT -------- Dictated By: Willard Melendez Dictated Date: 01/26/2025 12:21 ET Assigned Physician: Willard Melendez Reviewed and Electronically Signed By: Willard Melendez Signed Date: 01/26/2025 12:23 ET Workstation ID: [id number] Transcribed By: Self Edit Transcribed Date: 01/26/2025 12:21 ET Narrative 01/26/2025 12:23 PM EDT INDICATION: Status post lung biopsy FINDINGS: Single view of the chest obtained. Compared to multiple prior studies most recent from December 17, 2019. Tiny apical pneumothorax noted after left upper lobe lung biopsy unchanged from images performed immediately after biopsy. There is no evidence of significant effusion. Underlying pulmonary parenchymal pattern, cardiomediastinal silhouette and bony structures are stable. Procedure Note Willard Melendez MD - 01/26/2025 INDICATION: Status post lung biopsy FINDINGS: Single view of the chest obtained. Compared to multiple priorstudies most recent from December 17, 2019. Tiny apical pneumothorax noted after left upper lobe lung biopsy unchangedfrom images performed immediately after biopsy. There is no evidence ofsignificant effusion. Underlying pulmonary parenchymal pattern,cardiomediastinal silhouette and bony structures are stable. IMPRESSION: Unchanged tiny left apical pneumothorax. -------- FINAL REPORT -------- Dictated By: Willard Melendez Dictated Date: 01/26/2025 12:21 ET Assigned Physician: Willard Melendez Reviewed and Electronically Signed By: Willard Melendez Signed Date: 01/26/2025 12:23 ET Workstation ID: [id number] Transcribed By: Self Edit Transcribed Date: 01/26/2025 12:21 ET Willard Melendez MD IMG XR PROCEDURES Final Result * CT Bx Lung/Mediastinum Perc Ndl Core w Image Guide (01/26/2025 9:15 AM EDT) Anatomical Region Laterality Modality Lung Interventional R adiology 01/26/2025 4:04 PM EDT Impressions 01/26/2025 4:[address]-guided fine-needle and core biopsy of left apical pulmonary nodule. -------- FINAL REPORT -------- Dictated By: Willard Melendez Dictated Date: 01/26/2025 16:04 ET Assigned Physician: Willard Melendez Reviewed and Electronically Signed By: Willard Melendez Signed Date: 01/26/2025 16:14 ET Workstation ID: [id number] Transcribed By: Self Edit Transcribed Date: 01/26/2025 16:04 ET Narrative 01/26/2025 4:14 PM EDT INDICATION: Pulmonary nodule, PET positive PROCEDURE: Written informed consent obtained for CT-guided lung biopsy with chest tube placement if needed. prior relevant studies: PET/CT from January 05, 2025 Scanner: Bilneur speed 16 slice VCT Dose reduction technique: ASIR (Adaptive statistical iterative reconstruction) and/or AEC (automated exposure control) Dose: total exam DLP 226 mGY per cm MEDICATIONS: Local anesthesia: 1% buffered lidocaine administered subcutaneously and down to the pleural surface. Sedation: Moderate intravenous sedation was initiated and maintained for 30 minutes while the patient was independently monitored by the radiology nurse under the supervision of the interventional radiologist. A total of 3 mg of Versed and 100 mcg of fentanyl administered during the procedure. TECHNIQUE: Patient placed prone on the interventional CT table and multiple images obtained to localize left apical pulmonary nodule. Appropriate region of the skin was marked, draped and prepped using maximum sterile barrier. Timeout performed. Moderate sedation initiated and local anesthetic administered. Under CT fluoroscopic guidance a 17-gauge coaxial needle was advanced towards the periphery of the localized lesion. Multiple 20-gauge fine-needle samples obtained followed by 18- gauge core biopsy sampling. Blood patch performed upon removal of the coaxial needle. FINDINGS: Imaging obtained during biopsy demonstrate needle position within the localized nodule. Postbiopsy images demonstrate trace apical pneumothorax which did not change on 2 hour postbiopsy chest x-ray. Specimens: Multiple histological slides created with samples placed in formalin as well as CytoLyt. Preliminary cytologic analysis demonstrates adequate sampling suggesting malignancy. Procedure Note Willard Melendez MD - 01/26/2025 INDICATION: Pulmonary nodule, PET positive PROCEDURE: Written informed consent obtained for CT-guided lung biopsywith chest tube placement if needed. prior relevant studies: PET/CT from January 05, 2025 Scanner: Bilneur speed 16 slice VCT Dose reduction technique: ASIR (Adaptive statistical iterativereconstruction) and/or AEC (automated exposure control) Dose: total exam DLP 226 mGY per cm MEDICATIONS: Local anesthesia: 1% buffered lidocaine administered subcutaneously anddown to the pleural surface. Sedation: Moderate intravenous sedation was initiated and maintained for30 minutes while the patient was independently monitored by the radiologynurse under the supervision of the interventional radiologist. A total of3 mg of Versed and 100 mcg of fentanyl administered during theprocedure. TECHNIQUE: Patient placed prone on the interventional CT table andmultiple images obtained to localize left apical pulmonary nodule.Appropriate region of the skin was marked, draped and prepped usingmaximum sterile barrier. Timeout performed. Moderate sedation initiated and local anesthetic administered. Under CTfluoroscopic guidance a 17-gauge coaxial needle was advanced towards theperiphery of the localized lesion. Multiple 20-gauge fine-needle samplesobtained followed by 18-gauge core biopsy sampling. Blood patch performed upon removal of the coaxial needle. FINDINGS: Imaging obtained during biopsy demonstrate needle positionwithin the localized nodule. Postbiopsy images demonstrate trace apicalpneumothorax which did not change on 2 hour postbiopsy chest x-ray. Specimens: Multiple histological slides created with samples placed informalin as well as CytoLyt. Preliminary cytologic analysis demonstratesadequate sampling suggesting malignancy. IMPRESSION: CT-guided fine-needle and core biopsy of left apical pulmonary nodule. -------- FINAL REPORT -------- Dictated By: Willard Melendez Dictated Date: 01/26/2025 16:04 ET Assigned Physician: Willard Melendez Reviewed and Electronically Signed By: Willard Melendez Signed Date: 01/26/2025 16:14 ET Workstation ID: [id number] Transcribed By: Self Edit Transcribed Date: 01/26/2025 16:04 ET Nedra Lopez MD IMG CT PROCEDURES Final Result * Fine needle aspiration (01/26/2025 8:57 AM EDT) Final Diagnosis Lung, Left Upper Lobe, fine needle aspiration, (ThinPrep, cell block): -VIRTUALLY ACELLULAR SPECIMEN -See concurrent core needle biopsy [id number] 01/30/2025 8:37 AM EDT [facility] Specimen A Adequacy Specimen processed and examined, but unsatisfactory for eval of abnormal epithelial 01/30/2025 8:37 AM EDT [facility] Gross Description A. Lung, Left Upper Lobe, : Received 30 ml of clear saline solution ,1 thin prep, 1 cell block 01/30/2025 8:37 AM EDT [facility] Disclaimer Unless otherwise specified, all tissue is 10% NB formalin fixed and paraffin embedded. Technical cytopathology services provided by [facility], at [address] [place] [address] (IA # [id number]/Clara Candelaria MD, Hazmat Tanker Driver.) 01/30/2025 8:37 AM EDT [facility] [facility] Fine Needle Aspirate Structure of upper lobe of left lung / Unknown 01/26/2025 8:57 AM EDT 01/26/2025 9:25 AM EDT us Nedra Lopez MD LAB PATHOLOGY ORDERABLES Final R esult [facility] [address] [place] [address], [place] [phone] * Tissue exam (01/26/2025 8:57 AM EDT) Addendum Immunophenotypic results are not pathognomonic. Approximately 9% of lung adenocarcinomas are negative for TTF-1 and NapsinA. The features in this case could be consistent with primary lung adenocarcinoma, but are not definitive. Clinical correlation is needed. NGS testing may be recommended, as clinically indicated. CK7: Expressed by neoplastic cells P40: Negative NKX3.1: Negative CK20: Negative TTF-1: Negative NapsinA: Negative GATA3: Negative SATB2: Negative PAX8: Negative The immunohistochemistry stains were medically necessary and performed because the additional information was needed by the pathologist to determine immunophenotype of the neoplasm/malignancy. 12:40 PM EDT [facility] Addendum electronically signed by Kishore Candelaria MD on 2025 at 12:40 PM Final Diagnosis Lung, Left Upper Lobe-core needle biopsy: -NON-SMALL CELL CARCINOMA See addendum for immunohistology 12:40 PM EDT [facility] Addendum electronically signed by Kishore Candelaria MD on 02/01/2025 at 9:48 AM Gross Description A. Lung, Left Upper Lobe, : Labeled core biopsy AICHA lung . Received in formalin are four clark-yellow to pink-red soft tissue cores, ranging from 0.3 x 0.1 cm to 0.8 x 0.1 cm, which are wrapped in paper and submitted in toto in two cassettes, two pieces each, x 2 with six unstained slides between levels. A touch prep is made. JEFF 12:40 PM EDT [facility] Intraoperative Consultation A. Lung, Left Upper Lobe, : Touch prep = MALIGNANT JS 12:40 PM EDT [facility] Disclaimer NOTE: The immunohistochemical tests and in situ hybridization tests were developed and their performance characteristics were determined by [facility]. They have not been cleared or approved by the U.S. Food and Drug Administration. The FDA has determined that such clearance or approval is not necessary. These tests are used for clinical purposes. They should not be regarded as investigational or for research. This laboratory is certified under the Clinical Laboratory Improvement Amendments of 1988 (CLIA) as qualified to perform high complexity clinical laboratory testing. (controls appropriate) Unless otherwise specified, all tissue is 10% NB formalin fixed and paraffin embedded. 12:40 PM EDT [facility] Tissue Structure of upper lobe of left lung / Unknown 01/26/2025 8:57 AM EDT 01/26/2025 9:23 AM EDT us Nedra Lopez MD LAB PATHOLOGY ORDERABLES Edited Result - Final [facility] [address] [place] [address], * PET CT Skull to Mid Thigh Initial (01/05/2025 1:41 PM EDT) Anatomical Region Laterality Modality Body Radiographic Susan ging 01/10/2025 5:02 AM EDT Impressions 01/10/2025 5:20 AM EDT 1. FDG avid left upper lobe nodule suspicious for primary lung malignancy 2. New mildly FDG avid nonspecific 6 x 10 mm juxtapleural nodule in the right upper lobe this may represent benign etiology such as postinfectious or postinflammatory nodule or underlying malignancy. 3. No significant FDG avid lymphadenopathy Please note: The CT was acquired at a low radiation dose settings. The images are of nondiagnostic quality and used solely for purposes of attenuation correction and slice localization for the PET scan. If a diagnostic CT study is desired it must be ordered separately. -------- FINAL REPORT -------- Dictated By: Petrona Vaz Dictated Date: 01/10/2025 05:02 ET Assigned Physician: Petrona Vaz Reviewed and Electronically Signed By: Petrona Vaz Signed Date: 01/10/2025 05:20 ET Workstation ID: [id number] Transcribed By: Self Edit Transcribed Date: 01/10/2025 05:02 ET Narrative 01/10/2025 5:20 AM EDT INDICATION: Lung nodule, > 8mm TECHNIQUE: FDG PET-CT imaging was performed from the skull bases through the thighs in a single acquisition with data set reconstructed in axial, coronal, and sagittal planes at the computer workstation with fused data from both the PET imaging study and attenuation correction CT. The CT portion of the examination was done strictly for attenuation correction and is not a true diagnostic CT examination. DLP: 524 mGy-cm Radiopharmaceutical: 10.5 mCi of F-18 FDG IV. Blood glucose: 108 mg/dl. COMPARISON: Correlation is made with prior chest CT November 2024 FINDINGS: HEAD AND NECK: No abnormal FDG activity. THORAX: Left upper lobe nodule SUV max 10.3. New 6 x 10 mm juxtapleural nodule in the right upper lobe SUV max 1.8. No significant FDG avid thoracic or hilar lymphadenopathy. Nonspecific bilateral axillary lymph nodes SUV 1.5 on the left and 1.6 on the right. ABDOMEN/PELVIS: Nonspecific bowel activity. No significant FDG avid abdominal or pelvic lymphadenopathy. Low-attenuation lesions in the liver without significant FDG activity. Diverticulosis. Bilateral fat-containing inguinal hernias. Prominent prostate gland without significant activity SUV max 2.8. MUSCULOSKELETAL: No abnormal FDG activity. Postsurgical appearance of the lumbar spine. Physiologic muscle activity. Procedure Note Petrona Vaz MD - 01/10/2025 INDICATION: Lung nodule, > 8mm TECHNIQUE: FDG PET-CT imaging was performed from the skull bases throughthe thighs in a single acquisition with data set reconstructed in axial,coronal, and sagittal planes at the computer workstation with fused datafrom both the PET imaging study and attenuation correction CT. The CTportion of the examination was done strictly for attenuation correctionand is not a true diagnostic CT examination. DLP: 524 mGy-cm Radiopharmaceutical: 10.5 mCi of F-18 FDG IV. Blood glucose: 108 mg/dl. COMPARISON: Correlation is made with prior chest CT November 2024 FINDINGS: HEAD AND NECK: No abnormal FDG activity. THORAX: Left upper lobe nodule SUV max 10.3. New 6 x 10 mm juxtapleuralnodule in the right upper lobe SUV max 1.8. No significant FDG avid thoracic or hilar lymphadenopathy. Nonspecific bilateral axillary lymph nodes SUV 1.5 on the left and 1.6 onthe right. ABDOMEN/PELVIS: Nonspecific bowel activity. No significant FDG avidabdominal or pelvic lymphadenopathy. Low-attenuation lesions in the liverwithout significant FDG activity. Diverticulosis. Bilateralfat-containing inguinal hernias. Prominent prostate gland withoutsignificant activity SUV max 2.8. MUSCULOSKELETAL: No abnormal FDG activity. Postsurgical appearance of thelumbar spine. Physiologic muscle activity. IMPRESSION: 1. FDG avid left upper lobe nodule suspicious for primary lungmalignancy 2. New mildly FDG avid nonspecific 6 x 10 mm juxtapleural nodule in theright upper lobe this may represent benign etiology such as postinfectiousor postinflammatory nodule or underlying malignancy. 3. No significant FDG avid lymphadenopathy Please note: The CT was acquired at a low radiation dose settings. The images are ofnondiagnostic quality and used solely for purposes of attenuationcorrection and slice localization for the PET scan. If a diagnostic CTstudy is desired it must be ordered separately. -------- FINAL REPORT -------- Dictated By: Petrona Vaz Dictated Date: 01/10/2025 05:02 ET Assigned Physician: Petrona Vaz Reviewed and Electronically Signed By: Petrona Vaz Signed Date: 01/10/2025 05:20 ET Workstation ID: [id number] Transcribed By: Self Edit Transcribed Date: 01/10/2025 05:02 ET [facility] Lopez [facility] Final Result * MR Brain wo and w Contrast (01/02/2025 4:50 PM EDT) Anatomical Region Laterality Modality Head and Neck Magnetic Resonan ce 01/02/2025 5:20 PM EDT Impressions 01/02/2025 5:36 PM EDT No acute findings or intracranial metastases. 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 -------- FINAL REPORT -------- Dictated By: MACK SUNSHINE Dictated Date: 01/02/2025 17:20 ET Assigned Physician: MACK SUNSHINE Reviewed and Electronically Signed By: MACK SUNSHINE Signed Date: 01/02/2025 17:36 ET Workstation ID: [id number] Transcribed By: Self Edit Transcribed Date: 01/02/2025 17:20 ET Narrative 01/02/2025 5:36 PM EDT PROCEDURE: Brain MRI INDICATION: Lung cancer staging TECHNIQUE: Multiplanar, multisequence MRI of the brain without and with contrast. 18 mL Dotarem injected intravenously without complication from 20 mL vial with the remainder discarded. COMPARISON: No priors available. FINDINGS: No acute infarct, mass effect, or intracranial hemorrhage. Small old infarct with associated hemosiderin deposition in the left basal ganglia. Small old infarcts in the left cerebellum laterally. Brain parenchyma is otherwise normal in signal. No abnormal intracranial enhancement. Ventricles, sulci, and cisterns are normal in size and configuration. No hydrocephalus. Sella and foramen magnum are normal. Major intracranial arterial flow voids are normal. Major dural venous sinuses enhance normally with contrast. Sinuses and mastoid air cells are clear. Bilateral lens implants. Skull base soft tissues and orbits are otherwise normal. No marrow replacing lesions throughout the calvarium. Procedure Note Mack Sunshine MD - 01/02/2025 PROCEDURE: Brain MRI INDICATION: Lung cancer staging TECHNIQUE: Multiplanar, multisequence MRI of the brain without and withcontrast. 18 mL Dotarem injected intravenously without complication from20 mL vial with the remainder discarded. COMPARISON: No priors available. FINDINGS: No acute infarct, mass effect, or intracranial hemorrhage. Small old infarct with associated hemosiderin deposition in the left basalganglia. Small old infarcts in the left cerebellum laterally. Brainparenchyma is otherwise normal in signal. No abnormal intracranial enhancement. Ventricles, sulci, and cisterns are normal in size and configuration. Nohydrocephalus. Sella and foramen magnum are normal. Major intracranial arterial flow voids are normal. Major dural venoussinuses enhance normally with contrast. Sinuses and mastoid air cells are clear. Bilateral lens implants. Skull base soft tissues and orbits are otherwisenormal. No marrow replacing lesions throughout the calvarium. IMPRESSION: No acute findings or intracranial metastases. 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 -------- FINAL REPORT -------- Dictated By: MACK SUNSHINE Dictated Date: 01/02/2025 17:20 ET Assigned Physician: MACK SUNSHINE Reviewed and Electronically Signed By: MACK SUNSHINE Signed Date: 01/02/2025 17:36 ET Workstation ID: [id number] Transcribed By: Self Edit Transcribed Date: 01/02/2025 17:20 ET Nedra Lopez MD IMG MRI PROCEDURES Final Result * CT Lung Screening (12/21/2024 1:50 PM EDT) Anatomical Region Laterality Modality Chest Computed Tomogra phy 12/21/2024 7:41 PM EDT Addenda Addendum by Evelia Sandoval MD on 12/22/2024 9:32 AM EDT Please note this is a lung BIRADS 4B--very suspicious -------- ADDENDUM -------- Dictated By: Evelia Sandoval Dictated Date: 12/22/2024 09:32 ET Assigned Physician: Evelia Sandoval Reviewed and Electronically Signed By: Evelia Sandoval Signed Date: 12/22/2024 09:32 ET Workstation ID: [id number] Transcribed By: Self Edit Transcribed Date: 12/22/2024 09:32 ET Impressions 12/21/2024 7:56 PM EDT 1. LUNG-RADS category 4B: Very suspicious 2. Left apical spiculated nodule measuring 2.0 x 1.9 x 1.5 cm new from prior examination highly worrisome for malignancy. 3. 0.6 cm left upper lobe groundglass nodules present. RECOMMENDATION: PET/CT and/or tissue sampling is recommended. A [employer] message has been communicated to the office of NEDRA LOPEZ via the [employer] System on 12/21/2024 7:56 PM, Message ID [id number]. -------- FINAL REPORT -------- Dictated By: Evelia Sandoval Dictated Date: 12/21/2024 19:41 ET Assigned Physician: Evelia Sandoval Reviewed and Electronically Signed By: Evelia Sandoval Signed Date: 12/21/2024 19:56 ET Workstation ID: [id number] Transcribed By: Self Edit Transcribed Date: 12/21/2024 19:41 ET Narrative 12/21/2024 7:[address] CHEST WITHOUT CONTRAST FOR LUNG CANCER SCREENING INDICATION: Tobacco abuse, encounter for screening for malignant neoplasm TECHNIQUE: Helical, low dose CT (LDCT) of the chest was performed without intravenous contrast. Additional maximal intensity projection images COMPARISON: CT-lung screening from 06/30/2023 FINDINGS: Lung Screening Specific: A left apical spiculated 1.5 x 1.9 x 2.0 cm nodule (series 3, image 38) abutting the subpleural surface with mild adjacent architectural traction. 0.3 cm solid nodule within the medial right middle lobe (series 3, image 168). 0.2 cm lateral right middle lobe solid nodule (series 3, image 192). There are 0.4 cm solid nodule along the right fissure (series 3, image 181). 0.6 cm groundglass nodule within the left upper lobe (series 3, image 130). Lung parenchyma: Severe centrilobular emphysematous changes throughout the lung parenchyma. Apical pleural-parenchymal scarring. No focal consolidation or effusion. Mild diffuse peribronchiolar wall thickening. Mediastinum: Heart is within normal limits for size with a trace pericardial effusion. Moderate atherosclerosis of the thoracic aorta. Upper abdomen: Left hepatic lobe 0.9 cm cyst. Too small to characterize 0.6 cm hypodensity within the superior left hepatic lobe. MSK: Mild degenerative changes of the thoracic spine. Soft tissues are grossly within normal limits. Procedure Note Evelia Sandoval MD - 12/21/2024 CT CHEST WITHOUT CONTRAST FOR LUNG CANCER SCREENING INDICATION: Tobacco abuse, encounter for screening for malignantneoplasm TECHNIQUE: Helical, low dose CT (LDCT) of the chest was performed withoutintravenous contrast. Additional maximal intensity projection images COMPARISON: CT-lung screening from 06/30/2023 FINDINGS: Lung Screening Specific: A left apical spiculated 1.5 x 1.9 x 2.0 cmnodule (series 3, image 38) abutting the subpleural surface with mildadjacent architectural traction. 0.3 cm solid nodule within the medialright middle lobe (series 3, image 168). 0.2 cm lateral right middle lobesolid nodule (series 3, image 192). There are 0.4 cm solid nodule alongthe right fissure (series 3, image 181). 0.6 cm groundglass nodule withinthe left upper lobe (series 3, image 130). Lung parenchyma: Severe centrilobular emphysematous changes throughout the lung parenchyma.Apical pleural-parenchymal scarring. No focal consolidation or effusion.Mild diffuse peribronchiolar wall thickening. Mediastinum: Heart is within normal limits for size with a tracepericardial effusion. Moderate atherosclerosis of the thoracic aorta. Upper abdomen: Left hepatic lobe 0.9 cm cyst. Too small to characterize0.6 cm hypodensity within the superior left hepatic lobe. MSK: Mild degenerative changes of the thoracic spine. Soft tissues aregrossly within normal limits. IMPRESSION: 1. LUNG-RADS category 4B: Very suspicious 2. Left apical spiculated nodule measuring 2.0 x 1.9 x 1.5 cm new fromprior examination highly worrisome for malignancy. 3. 0.6 cm left upper lobe groundglass nodules present. RECOMMENDATION: PET/CT and/or tissue sampling is recommended. A FYI message has been communicated to the office of NEDRA LOPEZ via [employer] System on 12/21/2024 7:56 PM, Message [id number]. 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
--- OUTSIDE RECORDS SUMMARY | 2025-03-02 12:45 | XMS_ITS ---
Author Name [facility] Organization Unknown Care Team Organization Name Specialty Phone Email Start Date End [facility] te [facility] Termed, PROVIDER Primary Care 06/03/202202/24
[2025-03-02 12:57] VITALS: BP 108/62; PULSE 122; O2SAT 94; BMI 23.7
--- NOTE | 2025-03-02 12:57 | MHC.OFFVIS ---
Vital Signs 03/02/25 12:57 Height 6 ft Weight 175 lb BMI 23.7 BP 108/62 Blood Pressure Location Rt brachial Position Sitting Pulse 122 H Pulse Source Pulse Oximeter Pulse Oximetry (%) 94 Oxygen Delivery Method Nasal Cannula Oxygen Flow Rate 1 Intake Visit Reasons: COPD Allergies No Known Allergies Allergy (Verified 01/19/25 13:03) HPI HPI COPD: Details: 75-year-old gentleman, former 30+ pack-year smoker, quit 2009,? followed for severe supplemental oxygen dependent COPD. He has been evaluated at [facility] for lung transplant program.? He previously was evaluated with left heart catheterization by his auxiliary powerplant operator and now continues on medical therapy. He has been using Trelegy, theophylline, Ohtuvayre, prednisone 5 mg daily, duo nebs, and albuterol MDI with good control of his symptoms. He denies recent exacerbations. He continues with [facility] lung cancer screening program, now with positive biopsy and is scheduled to undergo XRT. [facility] Medical History (Updated 03/02/25 @ 13:17 by Brian Bennett MD) COPD exacerbation Cardiomyopathy Atherosclerotic cardiovascular disease Tachyarrhythmia HLD (hyperlipidemia) Afib COPD (chronic obstructive pulmonary disease) Surgical History No pertinent past surgical history Family History Other Adopted Social History Household Members: Spouse Housing: Condominium Do you presently have visiting nurse or other home services: No Alcohol intake: never Patient Tobacco Use Status: Former Tobacco user Cigarette Packs Per Day: 1 Years Smoked: 41 Advance Directives Date on File: 10/19/20 service: No Current occupational status: retired Review of Systems Const Denies daytime sleepiness, Denies excessive sweating, Denies fatigue, Denies fever(s), Denies lethargy, Denies malaise, Denies night sweats, Denies snoring and Denies weight loss Eyes Denies blurry vision and Denies itchy eyes ENT Denies nasal congestion, Denies post nasal drip, Denies sinus pain, Denies sinus pressure and Denies other ( Thrush) Card Denies chest pain, Denies pedal edema, Denies dyspnea, Denies orthopnea and Denies paroxysmal nocturnal dyspnea Resp Denies cough, Denies hemoptysis, Denies excessive phlegm production, Denies dyspnea, Denies snoring and Denies wheezing GI Denies abdominal pain and Denies heartburn Musc Denies myalgias, Denies arthralgias and Denies joint swelling Skin/Breast Denies rash Neuro Denies memory loss and Denies seizure-like activity Psych Denies abnormal sleep pattern, Denies anxiety and Denies memory loss Endo Denies excessive sweating, Denies fatigue and Denies heat intolerance [place]/Lymph Denies easy bruising Aller/Immun Denies itchy eyes, Denies seasonal rhinorrhea and Denies wheezing Physical Exam Vital Signs: Last Vital Signs Pulse 122 H 03/02/25 12:57 BP 108/62 03/02/25 12:57 Pulse Ox 94 03/02/25 12:57 Oxygen Delivery Method Nasal Cannula 03/02/25 12:57 Oxygen Flow Rate 1 03/02/25 12:57 BMI result Body Mass Index 23.7 Const General: no acute distress and alert Nutritional Appearance: not obese Orientation/consciousness: Other orientation findings ( oriented) HEENT Head: Yes atraumatic Eyes General: appearance normal, both eyes and all related structures Sclerae: sclerae normal EOM: EOMs intact bilaterally Neck Neck: Yes supple Lymphatic: no lymphadenopathy noted Resp Effort & Inspection: normal respiratory effort and no use of accessory muscles Auscultation: clear to auscultation bilaterally Cardio Rate: regular rate Rhythm: regular rhythm Heart sounds: no gallops, no murmurs and no rubs Skin General skin exam: other ( warm) Extrem General: No clubbing, No cyanosis and No edema Assessment & Plan Assessment & Plan (1) COPD (chronic obstructive pulmonary disease): Code(s): J44.9 - Chronic obstructive pulmonary disease, unspecified Category: Medical Plan: Essentially on maximum therapy with trilogy, duo nebs, theophylline, Ohtuvayre, prednisone 5 mg, and albuterol MDI. Continue current regimen. (2) Supplemental oxygen dependent: Code(s): Z99.81 - Dependence on supplemental oxygen Category: Medical Plan: Continue supplemental oxygen to maintain O2 saturation of 89-92%. (3) Pulmonary air trapping: Code(s): R09.89 - Other specified symptoms and signs involving the circulatory and respiratory systems Category: Medical Plan: Well controlled on clonazepam as needed daily. Continue current regimen. (4) Lung cancer: Code(s): C34.90 - Malignant neoplasm of unspecified part of unspecified bronchus or lung Category: Medical Plan: Now status post positive biopsy at [facility], patient scheduled to undergo XRT. Coding Level of Care Code Est Pt Level 4 (77022) Complex EM visit Add On G2211 Diagnoses COPD (chronic obstructive pulmonary disease) J44.9 Supplemental oxygen dependent Z99.81 Pulmonary air trapping R09.89 Lung cancer C34.90
== END 2025-03-02 13:20 | disposition home or self-care (01) ==
LOC: HO.HPS 12:43
PROVIDERS: PCP Internal Medicine; Visit Provider Internal Medicine Pulmonary Disease
DX: J44.9 Chronic obstructive pulmonary disease, unspecified (principal); Z99.81 Dependence on supplemental oxygen; R09.89 Other specified symptoms and signs involving the circulatory and respiratory systems; C34.90 Malignant neoplasm of unspecified part of unspecified bronchus or lung
CPT/HCPCS: 99214; G2211

== ENCOUNTER → 2025-03-02 12:42 | Outpatient (BNVA) | payer MEDICARE, SELFPAY ==
[2025-01-03 08:56] VITALS: BP 120/70; BP 124/64; BMI 23.1
== END ==
PROVIDERS: PCP Internal Medicine; Visit Provider Internal Medicine Pulmonary Disease
DX: R09.89 Other specified symptoms and signs involving the circulatory and respiratory systems (principal); J44.9 Chronic obstructive pulmonary disease, unspecified; C34.90 Malignant neoplasm of unspecified part of unspecified bronchus or lung; Z99.81 Dependence on supplemental oxygen
CPT/HCPCS: 99212

== ENCOUNTER 2025-06-14 08:43 | Outpatient (AMB) | payer MEDICARE, SELFPAY ==
[2025-01-03 08:56] VITALS: BP 120/70; BP 124/64; BMI 23.1
[2025-06-14 08:59] VITALS: BP 128/72; PULSE 126; O2SAT 94; BMI 23.6
--- NOTE | 2025-06-14 08:59 | A.OFFVIS_ITS ---
Vital Signs 06/14/25 08:59 Height 6 ft Weight 174 lb BMI 23.6 BP 128/72 Blood Pressure Location Lt brachial Position Sitting Pulse 126 H Pulse Source Pulse Oximeter Pulse Oximetry (%) 94 Oxygen Delivery Method Nasal Cannula Oxygen Flow Rate 1 Intake Visit Reasons: COPD Allergies No Known Allergies Allergy (Verified 06/14/25 09:05) HPI HPI COPD: Details: 75-year-old gentleman, former 30+ pack-year smoker, quit 2009,? followed for severe supplemental oxygen dependent COPD. He has been evaluated at [facility] for lung transplant program.? He previously was evaluated with left heart catheterization by his drawing in machine tender and now continues on medical therapy. He has been using Trelegy, theophylline, Ohtuvayre, prednisone 5 mg daily, duo nebs, and albuterol MDI with slowly worsening control of his symptoms. He denies recent exacerbations. He is status post SBRT to the left upper lobe cancerous nodule with follow-up CAT scan pending for July 18, 2025. [facility] Medical History (Updated 03/02/25 @ 13:17 by Brian Bennett MD) COPD exacerbation Cardiomyopathy Atherosclerotic cardiovascular disease Tachyarrhythmia HLD (hyperlipidemia) Afib COPD (chronic obstructive pulmonary disease) Surgical History No pertinent past surgical history Family History Other Adopted Social History Household Members: Spouse Housing: Condominium Do you presently have visiting nurse or other home services: No Alcohol intake: never Patient Tobacco Use Status: Former Tobacco user Cigarette Packs Per Day: 1 Years Smoked: 41 Advance Directives Date on File: 10/19/20 service: No Current occupational status: retired Review of Systems Const Denies daytime sleepiness, Denies excessive sweating, Denies fatigue, Denies fever(s), Denies lethargy, Denies malaise, Denies night sweats, Denies snoring and Denies weight loss Eyes Denies blurry vision and Denies itchy eyes ENT Denies nasal congestion, Denies post nasal drip, Denies sinus pain, Denies sinus pressure and Denies other ( Thrush) Card Denies chest pain, Denies pedal edema, Reports palpitations, Denies dyspnea, Reports dyspnea on exertion, Denies orthopnea and Denies paroxysmal nocturnal dyspnea Resp Denies cough, Denies hemoptysis, Denies excessive phlegm production, Denies dyspnea, Reports dyspnea on exertion, Denies snoring and Denies wheezing GI Denies abdominal pain and Denies heartburn Musc Denies myalgias, Denies arthralgias and Denies joint swelling Skin/Breast Denies rash Neuro Denies memory loss and Denies seizure-like activity Psych Denies abnormal sleep pattern, Denies anxiety and Denies memory loss Endo Denies excessive sweating, Denies fatigue, Denies heat intolerance and Reports palpitations [place]/Lymph Denies easy bruising Aller/Immun Denies itchy eyes, Denies seasonal rhinorrhea and Denies wheezing Physical Exam Vital Signs: Last Vital Signs Pulse 126 H 06/14/25 08:59 BP 128/72 06/14/25 08:59 Pulse Ox 94 06/14/25 08:59 Oxygen Delivery Method Nasal Cannula 06/14/25 08:59 Oxygen Flow Rate 1 06/14/25 08:59 BMI result Body Mass Index 23.6 Const General: no acute distress and alert Nutritional Appearance: not obese Orientation/consciousness: Other orientation findings ( oriented) HEENT Head: Yes atraumatic Eyes General: appearance normal, both eyes and all related structures Sclerae: sclerae normal EOM: EOMs intact bilaterally Neck Neck: Yes supple Lymphatic: no lymphadenopathy noted Resp Effort & Inspection: normal respiratory effort and no use of accessory muscles Auscultation: clear to auscultation bilaterally Cardio Rate: regular rate Rhythm: regular rhythm Heart sounds: no gallops, no murmurs and no rubs Skin General skin exam: other ( warm) Extrem General: No clubbing, No cyanosis and No edema Assessment & Plan Assessment & Plan (1) COPD (chronic obstructive pulmonary disease): Code(s): J44.9 - Chronic obstructive pulmonary disease, unspecified Category: Medical Plan: Essentially maximum therapy with slowly worsening symptoms. Will increase prednisone to 10 mg daily. Continue Trelegy, theophylline, duo nebs, Ohtuvayre, and albuterol MDI. (2) Supplemental oxygen dependent: Code(s): Z99.81 - Dependence on supplemental oxygen Category: Medical Plan: Continue supplemental oxygen to maintain O2 saturation of 88-93%. (3) Pulmonary air trapping: Code(s): R09.89 - Other specified symptoms and signs involving the circulatory and respiratory systems Category: Medical Plan: Continue as needed clonazepam for pulmonary air trapping. (4) Lung cancer: Code(s): C34.90 - Malignant neoplasm of unspecified part of unspecified bronchus or lung Category: Medical Plan: Left upper lobe, now status post SBRT, follow-up CT chest is pending for June of 2025. Medications: New prednisone 10 mg PO DAILY 90 tabs 4RF Refilled clonazepam 1 mg PO DAILY PRN 30 tabs 3RF anxiety 30 days Coding Level of Care Code Est Pt Level 4 (52061) Complex EM visit Add On G2211 Diagnoses COPD (chronic obstructive pulmonary disease) J44.9 Supplemental oxygen dependent Z99.81 Pulmonary air trapping R09.89 Lung cancer C34.90
--- OUTSIDE RECORDS SUMMARY | 2025-06-14 16:23 | XMS_ITS | Clinical Summary ---
Author Organization [facility] Address [address] [place] [address] Phone Care Team Providers Care Casino Manager Name Role Phone Alfa Velasco MD Primary Care Provider [phone] Allergies No known active allergies Medications acetaminophen [...] mouth 1 (one) time each day. Active mirtazapine (REMERON) 30 mg tablet Take [...] mouth 2 (two) times a day. Active theophylline (TERESA-24) 400 mg 24 hr capsule Take 450 mg by mouth 1 (one) time each day. Do not crush or chew. 450mg Active Active Problems Problem Noted Date Diagnosed Date Primary cancer of left upper lobe of lung ([facility] V24, [facility] V28) 02/08/2025 Generalized anxiety disorder 02/03/2025 Retinal mass 02/03/2025 Multiple pulmonary nodules 02/03/2025 Chronic obstructive pulmonar y disease ([facility] V24, [facility] V28) 01/09/2025 Lung mass 12/30/2024 COPD (chronic obstructive pu lmonary disease) ([facility] V24, [facility] V28) 12/30/2024 Colon polyp 07/19/2021 Overview (02/03/2025): Tubular adenoma 10/05 Arteriosclerosis of coronary artery 04/16/2021 Overview (02/03/2025): 04/16 cath: prox LAD 70% stenosis Assessment & Plan (03/07/2025 9:38 AM EDT): Patient denies any anginal symptoms at this time. He will continue on his current dose of aspirin and statin therapy as well as verapamil. We did discuss moving forward with coronary CT to evaluate for ischemia during his last office visit should the patient require surgery. Since that visit, he has been diagnosed with lung cancer as outlined above and will be undergoing radiation therapy. He has been told by his other care teams, that he is not a surgical candidate in light of his severe pulmonary disease. Subsequently the patient has requested to cancel coronary CTA as this will not impact his treatment moving forward. Instructed to call 911 or go to the emergency room should the patient begin to experience chest pain or pressure lasting greater than 10 minutes does not resolve with rest. Hypertension 04/16/2021 Assessment & Plan (03/07/2025 9:38 AM EDT): Acceptable during today's exam with a reading of 120/70. I have made no changes to his medications. Continue verapamil. Osteoporosis 04/01/2021 Overview (02/03/2025): 04/16 DXA t-score -2.5 lumbar spine, -2.9 left hip Declines treatment as of 06/16 Declines consideration of treatment as of 06/16 Hypoxia 04/20/2019 Stage 3 severe COPD by GOLD classification (CMS/HCC V24, CMS/HCC V28) 10/20/2017 Overview (02/03/2025): Dr Bennett Pulmonary nodules 10/20/2017 Overview (02/03/2025): [facility] LDCT program following Hyperlipidemia 02/16/2016 Overview (02/03/2025): Last Assessment & Plan: Patient's LDL somewhat above target given his known coronary artery disease. He is currently on moderate intensity statin which is at max dose given his calcium channel monika. He has made dietary modifications since his visits out in [place]. If his LDL remains elevated on his next check, will change to Crestor 40 mg a day. Assessment & Plan (03/07/2025 9:38 AM EDT): Continue current statin therapy. Goal LDL less than 70. Patient will be following up with his vacuum metalizer operator Dr. Puentes going forward. Assessment & Plan (02/03/2025 2:34 PM EDT): Continue statin therapy. Goal LDL less than 70. Orders: ECG 12 lead Cardiomyopathy (CMS/HCC V24, CMS/HCC V28) 2015 Overview (02/03/2025): [facility] Cardiology Likely PVC mediated Normalized with PVC [...] cuplrit for his dizzy symptoms, and per [place], does not require intervention pre transplant. For [...] ulcer 04/24/2014 Overview (02/03/2025): Seen on EGD 2007 Tubular adenoma 04/24/2014 Overview (02/03/2025): 10/05; CN recommended 3 years Anxiety and depression 03/07/2014 Back pain 03/07/2014 GERD (gastroesophageal reflux disease) 4 Overview (02/03/2025): Normal EGD 04/11 Neck pain 03/07/2014 Encounters Date Type Department Care Team Description 04/28/2025 9:03 AM EDT - 04/28/2025 11:59 PM EDT Hospital Encounter [facility] Radiation Oncology [address] [place] [phone] Rosa Mckeon NP Primary cancer of left upper lobe of lung (CMS/HCC V24, CMS/HCC V28) (Primary Dx) Discharge Disposition: Home or Self Care 03/17/2025 10:58 AM EDT - 03/17/2025 11:59 PM EDT Hospital Encounter [facility] Radiation Oncology [address] [place] [phone] Kailyn Bernard MD Primary cancer of left upper lobe of lung (CMS/HCC V24, CMS/HCC V28) (Primary Dx) Discharge Disposition: Home or Self Care 03/17/2025 10:57 AM EDT - 03/17/2025 11:59 PM EDT Hospital Encounter [facility] Radiation Oncology [address] [place] [phone] Kailyn Bernard MD Discharge Disposition: Home or Self Care 03/15/2025 10:37 AM EDT - 03/15/2025 11:59 PM EDT Hospital Encounter [facility] Radiation Oncology [address] [place] [phone] Kailyn Bernard MD Discharge Disposition: Home or Self Care from Last 3 Months Immunizations Immunization Administration Dates Next Due Moderna SARS-CoV-2 COVID-19, mRNA, LNP-S, preservative free 12/20/2020 Surgical History Surgery Date Site/Laterality Comments SHOULDER SURGERY 03/03/14 Left PROCEDURE: HISTORICAL SHOULDER SURGERY NECK SURGERY 07/28/13 PROCEDURE: HISTORICAL NECK SURGERY HERNIA REPAIR 2011 PROCEDURE: HISTORICAL HERNIA REPAIR/UMB BACK SURGERY 2005 PROCEDURE: HISTORICAL BACK SURGERY COLONOSCOPY 10.16.11 PROCEDURE: WA COLONOSCOPY FLX DX W/COLLJ SPEC WHEN PFRMD; COMMENT: tubular adenoma, repeat 3 years CATARACT EXTRACTION 10/08 PROCEDURE: HISTORICAL CATARACT REMOVAL OTHER SURGICAL HISTORY 03/07/15 PROCEDURE: ---- OTHER ----; COMMENT: deviated septum ESOPHAGOGASTRODUODENOSCOPY 04/09/16 [facility] PROCEDURE: WA ESOPHAGOGASTRODUODENOSCOPY TRANSORAL DIAGNOSTIC; COMMENT: normal COLONOSCOPY 04/09/16 [...] Value Date Recorded Sex Assigned at Male 05/19/2025 1:14 PM EDT Legal Sex Male 12:11 AM EST Gender Identity Not on file Sexual Orientation Not on file Obstetrics History Last Filed Vital Signs Vital Sign Reading Time Taken Comments Blood Pressure 139/87 04/28/2025 9:08 AM EDT Pulse 107 04/28/2025 9:08 AM EDT Temperature 36.6 C (97.8 F) 04/28/2025 9:08 AM EDT Respiratory Rate 18 04/28/2025 9:08 AM EDT Oxygen Saturation 94% 04/28/2025 9:08 AM EDT Inhaled Oxygen Concentration - - Weight 80 kg (176 lb 6.4 oz) 04/28/2025 9:08 AM EDT Height 182.9 cm (6') 04/28/2025 9:08 AM EDT Body Mass Index 23.92 04/28/2025 9:08 AM EDT Plan of Treatment Upcoming Encounters Date Type Department Care Team (Late st Contact Info) Description 07/18/2025 11:15 AM EST Appointment [facility] CT Scan [address] [place] [phone] 08/03/2025 10:30 AM EST Appointment [facility] Radiation Oncology [address] [place] [address] Rosa Mckeon NP [address] [place] [address] Health Maintenance Due Date Last Done Comments DTaP,Tdap,and Td Vaccines (1 - Tdap) 02/08/1971 Zoster Vaccines (1 of 2) 02/08/1971 RSV Immunization Adult Patients (1 - Risk 50-74 years 1-dose series) 02/08/2002 Abdominal Aortic Aneurysm (AAA) Screen 07/05/2022 Falls Risk Assessment 07/05/2022 Medicare Annual Wellness Visit 07/05/2022 Social Influencers of Health Screening 07/05/2022 Hypertension/CHF/CAD Annual BMP Blood Test 07/06/2022 02/25/2021 Depression Screening 07/27/2024 COVID-19 Vaccine ( season) 2025 05/20/2022, 08/12/2021, 06/26/2021, Additional history exists Influenza Vaccine (#1) 2025 , 07/08/2023, 06/09/2022, [...] Procedure Name Priority Date/Time Associated Diagnosis Comments RAD ONC MSQ TREATMENT SUMMARY Routine 03/17/2025 10:57 AM EDT RAD ONC MSQ TREATMENT SUMMARY Routine 03/15/2025 11:[address] LUNG SCREENING Routine 12/21/2024 1:5 0 PM EDT Encounter for screening for malignant neoplasm of respiratory organs Personal history of nicotine dependence from Last 3 Months or Most Recently Relevant to Health Maintenance Results * Rad Onc Msq Treatment Summary (03/17/2025 10:57 AM EDT) Pathologist [facility] Emergency Department Treatment Site LUL_ReScan MOSA IQ RADIATION ONCOLOGY Course Number 1 MOSAIQ RADIATION ONCOLOGY Prescribed Fractional Dose 1,000 cGray MOSAIQ RADIATION ONCOLOGY Prescribed Total Dose 5,000 cGray MOSAIQ RADIATION ONCOLOGY Actual Fractions Delivered 5 MOSAIQ RADIATION ONCOLOGY Actual Session Delivered Dose 1,000 cGray MOSAIQ RADIATION ONCOLOGY Actual Total Dose 5,000 cGray MOSAIQ RADIATION ONCOLOGY Prescribed Technique SBRT VMAT MOSAIQ RADIATION ONCOLOGY Elapsed Days 9 MOSAIQ RADIATION ONCOLOGY Start Date 03/08/2025 MOSAIQ RADIATION ONCOLOGY Last Date 03/17/2025 MOSAIQ RADIATION ONCOLOGY Prescribed Number of Fractions 5 MOSAIQ RADIATION ONCOLOGY 03/17/2025 10:5 7 AM EDT Physician Radiation Oncology RADIATION ONCOLO GY ORDERABLES Final Result Performing Organization Address [facility] Co de Phone Number MOSAIQ RADIATION ONCOLOGY * Rad Onc Msq Treatment Summary (03/15/2025 11:17 AM EDT) Treatment Site LUL_ReScan MOSA IQ RADIATION ONCOLOGY Course Number 1 MOSAIQ RADIATION ONCOLOGY Prescribed Fractional Dose 1,000 cGray MOSAIQ RADIATION ONCOLOGY Prescribed Total Dose 5,000 cGray MOSAIQ RADIATION ONCOLOGY Actual Fractions Delivered 4 MOSAIQ RADIATION ONCOLOGY Actual Session Delivered Dose 1,000 cGray MOSAIQ RADIATION ONCOLOGY Actual Total Dose 4,000 cGray MOSAIQ RADIATION ONCOLOGY Prescribed Technique SBRT VMAT MOSAIQ RADIATION ONCOLOGY Elapsed Days 7 MOSAIQ RADIATION ONCOLOGY Start Date 03/08/2025 MOSAIQ RADIATION ONCOLOGY Last Date 03/15/2025 MOSAIQ RADIATION ONCOLOGY Prescribed Number of Fractions 5 MOSAIQ RADIATION ONCOLOGY 03/15/2025 11:1 7 AM EDT Physician Radiation Oncology RADIATION ONCOLO GY ORDERABLES Final Result Performing Organization Address [facility] Co ak Phone Number MOSAIQ RADIATION ONCOLOGY * CT Lung Screening (12/21/2024 1:50 PM [...] Signed Date: 12/22/2024 09:32 ET Workstation ID: [id number] Transcribed By: Self Edit Transcribed Date: 12/22/2024 09:32 ET Impressions 12/21/2024 7:56 PM EDT 1. LUNG-RADS category 4B: Very suspicious 2. Left apical spiculated nodule measuring 2.0 x 1.9 x 1.5 cm new from prior examination highly worrisome for malignancy. 3. 0.6 cm left upper lobe groundglass nodules present. RECOMMENDATION: PET/CT and/or tissue sampling is recommended. A Mobicious message has been communicated to the office of DIONE LOPEZ via the [employer] System on 12/21/2024 7:56 PM, Message ID [id number]. -------- FINAL REPORT -------- Dictated By: Evelia Sandoval Dictated Date: 12/21/2024 19:41 ET Assigned Physician: Evelia Sandoval Reviewed and Electronically Signed By: Evelia Sandoval Signed Date: 12/21/2024 19:56 ET Workstation ID: [id number] Transcribed By: Self Edit Transcribed Date: 12/21/2024 [...] PET/CT and/or tissue sampling is recommended. A WittyParrotI message has been communicated to the office of DIONE LOPEZ via [employer] System on 12/21/2024 7:56 PM, Message [phone]. -------- FINAL REPORT -------- Dictated By: Evelia Sandoval Dictated Date: 12/21/2024 19:41 ET Assigned Physician: Evelia Sandoval Reviewed and Electronically Signed By: Evelia Sandoval Signed Date: 12/21/2024 19:56 ET Workstation ID: [id number] Transcribed By: Self Edit Transcribed Date: 12/21/2024 19:41 ET Dione Lopez MD IMG CT PROCEDURES Edited Result - Final from Last 3 Months or Most Recently Relevant to Health Maintenance Insurance [facility] MEDICARE Advance Directives Documents on File Type Date Recorded Patient Quantitative Analyst Marketing Expl anation Health Care Decision (hx) 01/28/2018 [...] (hx) 01/28/2018 AD JACOB DIRECTIVE Care Teams Casino Manager Relationship Specialty Start Date End Date Alfa Velasco MD [address] [place] [id number] PCP - General Internal Medicine 12/20/24
--- OUTSIDE RECORDS SUMMARY | 2025-06-14 16:24 | XMS_ITS ---
Author Organization [facility] Address [address] [place] [address] Phone Care Team Providers Care Legal Services Professional Name Role Phone Alfa Velasco MD Primary Care Provider [phone] Active Problems Problem Noted Date Diagnosed Date Primary cancer of left upper lobe of lung ([facility] V24, [facility] V28) 02/08/2025 Generalized anxiety disorder 02/03/2025 Retinal mass 02/03/2025 Multiple pulmonary nodules 02/03/2025 Chronic obstructive pulmonar y disease ([facility] V24, [facility] V28) 01/09/2025 Lung mass 12/30/2024 COPD (chronic obstructive pu lmonary disease) ([facility] V24, [facility] V28) 12/30/2024 Colon polyp 07/19/2021 [...] Dr Bennett Pulmonary nodules 10/20/2017 Overview (02/03/2025): [facility] LDCT program following Hyperlipidemia 02/16/2016 Overview (02/03/2025): Last Assessment & Plan: Patient's LDL somewhat above target given his known coronary artery disease. He is currently on moderate intensity statin which is at max dose given his calcium channel monika. He has made dietary modifications since his visits out in [place]. If his LDL remains elevated on his next check, will change to Crestor 40 mg a day. Assessment & Plan (03/07/2025 9:38 AM EDT): Continue current statin therapy. Goal LDL less than 70. Patient will be following up with his ward maid Dr. Puentes going forward. Assessment & Plan (02/03/2025 2:34 PM EDT): Continue statin therapy. Goal LDL less than 70. Orders: ECG 12 lead Cardiomyopathy (CMS/HCC V24, CMS/HCC V28) 2015 Overview (02/03/2025): [facility] Cardiology Likely PVC mediated Normalized with PVC [...] cuplrit for his dizzy symptoms, and per [place], does not require intervention pre transplant. For [...] EGD 2008 Tubular adenoma 04/24/2014 Overview (02/03/2025): 3/; CN recommended 3 years Anxiety and depression 03/07/2014 Back pain 03/07/2014 GERD (gastroesophageal reflux disease) 4 Overview (02/03/2025): Normal EGD 04/11 Neck pain 03/07/2014 Current Treatment and Therapy Plans No current plan information found. Past Treatment and Therapy Plans No past plan information found. Current Radiation Episodes * Radiation Therapy: LungOverview* First Treatment Date Latest Treatment Date Treatment Site Technique Goal Episode Provider 03/08/2025 03/17/2025 Lung Curative Kailyn Bernard MD * Linked Problems Treatment Courses* Course 1 03/08/2025 - 03/17/2025 Treatment Sites Treatment Period Fraction Dose Fractions Total Dose LUL_ReScan 03/08/2025 - 03/17/2025 1,000 / 1,000 cGy 5 5,000 / 5,000 cGy Lifetime Dose Tracking * Chemical Lifetime Dose Automatic Entry Manual Entr y Radiation (DLP) 195.14 mGy-cm 195.14 mGy-cm 0 mGy-cm CTDIvol 4.83 mGy 4.83 mGy 0 mGy
--- OUTSIDE RECORDS SUMMARY | 2025-06-14 16:24 | XMS_ITS | Encounter Summary ---
Author Organization [facility] Address [address] [place] [phone] Phone Care Team Providers Care Night Time Nanny Name Role Phone Alfa Velasco MD Primary Care Provider [phone] Brian Bennett MD Unavailable [phone] Margaret Georges NP Unavailable Ricco Liang MD Unavailable Encounter Details Date Type Department Care Team (Late st Contact Info) Description 04/15/2021 Procedure Pass [facility] Endoscopy Department [address] [place] [id number] Social History Tobacco Use Types Packs/Day Years [...] PM EDT Jam- Irvin, Mary, RN * [place] Suicide Severity Rating Scale (Screener/Recent Self-Report) Question [...] on filedocumented in this encounter Care Teams Night Time Nanny Relationship Specialty Start Date End Date Alfa Velasco MD [address] [place] [phone] PCP - General Internal Medicine 12/17/20 Brian Bennett MD [address] [place] [address] Referring Physician Intensive Care 12/19/20 Margaret Georges NP [address] [place] [phone] Breastfeeding Educator Cardiology 04/02/21 Ricco Liang MD [address] [place] [phone] Breastfeeding Educator Cardiology 04/16/21 documented as of this encounter Additional Source Comments The information contained in this document represents components of the legal health record. It is not the complete legal health record.[facility]
--- OUTSIDE RECORDS SUMMARY | 2025-06-14 16:24 | XMS_ITS | Encounter Summary ---
Author Organization [facility] Address [address] [place] [address] Phone Care Team Providers Care Individual Small Group Instructor Name Role Phone Alfa Velasco MD Primary Care Provider [phone] Brian Bennett MD Unavailable [phone] Margaret Georges NP Unavailable Ricco Liang MD Unavailable Encounter Details Date Type Department Care Team (Late st Contact Info) Description 03/15/2021 Transcribe Orders [facility] [address] Unknown, Unknown, Social History Tobacco Use Types Packs/Day Years Used Date Smoking Tobacco: Never Assessed Sex and Gender Information Value Date Recorded Sex Assigned at Male 12/17/2020 3:28 PM EDT Legal Sex Male 3:22 PM EDT Gender Identity Male 12/17/2020 3:28 PM EDT Sexual Orientation Straight 12/17/2020 3: 28 PM EDT documented as of this encounter Plan of Treatment Not on file documented as of this encounter Visit Diagnoses Not on filedocumented in this encounter Care Teams Individual Small Group Instructor Relationship Specialty Start Date End Date Alfa Velasco MD [facility] [place] [address] PCP - General Internal Medicine 12/17/20 Brian Bennett MD [address] [place] [address] Referring Physician Intensive Care 12/19/20 Margaret Georges NP [address] [address] Landscape Manager Cardiology 04/02/21 Ricco Liang MD [address] [address] Landscape Manager Cardiology 04/16/21 documented as of this encounter Additional Source Comments The information contained in this document represents components of the legal health record. It is not the complete legal health record.[facility]
--- OUTSIDE RECORDS SUMMARY | 2025-06-14 16:24 | XMS_ITS | Encounter Summary ---
Author Organization [facility] Address [address] [place] [address] Phone Care Team Providers Care Window Shade Ring Coverer Name Role Phone Alfa Velasco MD Primary Care Provider [phone]- [phone] Brian Bennett MD Unavailable [phone] Margaret Georges NP Unavailable Ricco Liang MD Unavailable Encounter Details Date Type Department Care Team (Late st Contact Info) Description 07/10/2021 Procedure Pass [facility] Echocardiography [address] [place] [address] Social History Tobacco Use Types Packs/Day Years [...] on filedocumented in this encounter Care Teams Window Shade Ring Coverer Relationship Specialty Start Date End Date Alfa Velasco MD [address] [place] [address] PCP - General Internal Medicine 12/17/20 Brian Bennett MD [address] [place] [address] Referring Physician Intensive Care 12/19/20 Margaret Georges NP [address] [place] [address] Epic Manager Cardiology 04/02/21 Ricco Liang MD [address] [place] [address] Epic Manager Cardiology 04/16/21 documented as of this encounter Additional Source Comments The information contained in this document represents components of the legal health record. It is not the complete legal health record.[facility]
--- OUTSIDE RECORDS SUMMARY | 2025-06-14 16:24 | XMS_ITS | Clinical Summary ---
Author Organization [facility] Address [address] [place] [address] Phone Care Team Providers Care Group Cio Name Role Phone Alfa Velasco MD Primary Care Provider [phone]- [phone] Brian Bennett MD Unavailable [phone] Margaret Georges NP Unavailable Ricco Liang MD Unavailable [phone] Allergies No known active allergies Medications traZODone (DESYREL) 50 MG tablet Take 25 mg by mouth nightly at bedtime. Active predniSONE (DELTASONE) 5 MG tablet Take 5 mg by mouth daily. Active atorvastatin (LIPITOR) 20 MG tablet Take 20 mg by mouth nightly at bedtime. Active pantoprazole (PROTONIX) 40 MG tablet Take 40 mg by mouth daily. Active tiotropium (SPIRIVA HANDIHALER) 18 mcg inhalation capsule Inhale 18 mcg into the lungs daily. Active mirtazapine (REMERON) 30 MG tablet Take 30 mg by mouth nightly at bedtime. Active verapamiL (VERELAN) 240 MG 24 hr capsule Take 240 mg by mouth nightly at bedtime. Active levalbuterol (XOPENEX) 1.25 mg/3 mL nebulizer solution Take 1 ampule by nebulization every 8 (eight) hours as needed for wheezing. Active budesonide-form oterol (SYMBICORT) 160-4.5 mcg/actuation inhaler Inhale 2 puffs into the lungs 2 (two) times a day. Active tiZANidine (ZANAFLEX) 2 MG tablet Take 2 mg by mouth every 8 (eight) hours as needed (muscle spasms). Active lidocaine (LIDODERM) 5 % Place 1 patch onto the skin daily. Remove & Discard patch within 12 hours or as directed by MD Active acetaminophen (TYLENOL) 500 MG tablet Take 500 mg by mouth every 6 (six) hours as needed for pain (specific location in comments). Active ascorbic acid, vitamin C, (VITAMIN C) 500 MG tablet Take 1,000 mg by mouth daily. Active multivitamin with minerals Cap Take 1 tablet by mouth daily. Active albuterol 90 mcg/actuation inhaler Inhale 2 puffs into the lungs every 6 (six) hours as needed for wheezing. Active theophylline (UNIPHYL) 400 mg 24 hr tablet Take 1 tablet (400 mg total) by mouth daily. 1 Active aspirin 81 MG EC tablet Take 1 tablet by mouth daily. 1 Active clindamycin (CLEOCIN) 300 MG capsule TAKE 1 CAPSULE BY MOUTH THREE TIMES DAILY FOR INFECTION FOR 10 DAYS 2 Active clonazePAM (KLONOPIN) 1 MG tablet TAKE 1 TABLET BY MOUTH ONCE DAILY NEEDED FOR ANXIETY 2 Active ipratropium-alb uteroL (DUONEB) 0.5-3 mg (2.5 mg base)/3 mL nebulizer solution USE 1 AMPULE IN NEBULIZER EVERY 4 TO 6 HOURS NEEDED FOR WHEEZING 2 Active Active Problems Problem Noted Date Diagnosed Date CAD (coronary artery disease) 04/16/2021 Overview (11/10/2021): 04/16 cath: prox LAD 70% stenosis, iFR 0.84 Last Assessment & Plan: The patient has no chest pain, and his SOB is most likely related to his underlying end stage lung disease. Per [place], they will intervene on his LAD lesion at the time of his transplant if appropriate, but continue medical therapy for now. Continue CCB, continue statin. Will ask the pt to add low-dose ASA 81mg/d. Follow Hypertension 04/16/2021 Encounter for pre-transplant evaluation for lung transplant 04/15/2021 Osteoporosis 04/01/2021 Overview (11/10/2021): Declines consideration of treatment as of 06/16 History of compression fracture of spine 019 Overview (11/10/2021): chronic on CT 02/11, but not noted previously Stage 3 severe COPD by GOLD classification 10/20 Overview (03/04/2021): Dr Bennett Hyperlipidemia 02/16/2016 Overview (11/10/2021): Last Assessment & Plan: Patient's LDL somewhat above target given his known coronary artery disease. He is currently on moderate intensity statin which is at max dose given his calcium channel monika. He has made dietary modifications since his visits out in [place]. If his LDL remains elevated on his next check, will change to Crestor 40 mg a day. Cardiomyopathy 01/12/2016 Overview (11/10/2021): [facility] Likely PVC mediated Normalized with [...] cuplrit for his dizzy symptoms, and per [facility], does not require intervention pre transplant. For now, continue current CCB dose. Continue hydration. Continue aggressive pulmonary intervention/toilet. Duodenal ulcer 04/24/2014 Overview (11/10/2021): Seen on EGD 2008 Tubular adenoma 04/24/2014 Overview (11/10/2021): 3/; CN recommended 3 years GERD (gastroesophageal reflux disease) 4 Overview (11/10/2021): Normal EGD 04/11 Back pain 03/07/2014 Anxiety and depression 03/07/2014 Immunizations Immunization Administration Dates Next Due COVID-19 (Pre-05/18) Moderna Vaccine, mRNA, PF 06/26/2021,12/20/2020 Hepatitis A, Adult 02/27/2021 Hepatitis B Adult 09/04/2021,04/02/2021,02/28/20 21 Influenza High-Dose Quadriva lent Preservative Free IM 04/16/2021(Deferred: Patient Refused) Influenza High-Dose Trivalen t Preservative Free IM 06/04/2021,05/08/2020 Pneumococcal conjugate PCV13 06/23/2017 Pneumococcal polysaccharide PPSV23 03/06/2020 Social History Tobacco Use Types Packs/Day Years Used Date Smoking Tobacco: Former Cigarettes 1.5 40 1 971 - 2010 Smokeless Tobacco: Never Alcohol Use Standard Drinks/Week Comments Not Currently 0 (1 standard drink = 0.6 oz pur e alcohol) Education Answer Date Recorded Are you interested in more education? Not on deondre e 11/22/2022 Are you concerned about learning? Not on file 11/22/2022 No 11/22/2022 No 11/22/2022 Digital Access Answer Date Recorded No 12/20/2022 No 12/20/2022 No 12/20/2022 Reliable internet access at home? Not on file 12/20/2022 Device with a working camera? Not on file Sex and Gender Information Value Date Recorded Sex Assigned at Male 12/17/2020 3:28 PM EDT Legal Sex Male 3:22 PM EDT Gender Identity Male 12/17/2020 3:28 PM EDT Sexual Orientation Straight 12/17/2020 3: 28 PM EDT Last Filed Vital Signs Vital Sign Reading Time Taken Comments Blood Pressure 129/75 11/19/2021 10:04 AM EDT Pulse 111 11/19/2021 10:04 AM EDT Temperature 37 C (98.6 F) 11/19/2021 10:04 AM EDT Respiratory Rate 18 11/19/2021 10:04 AM EDT Oxygen Saturation 93% 11/19/2021 10:04 AM EDT Inhaled Oxygen Concentration 2% 04/15/2021 1 2:27 PM EDT Weight 75.5 kg (166 lb 8 oz) 11/19/2021 10:04 AM EDT Height 180.3 cm (5' 11 ) 11/19/2021 10:04 AM EDT Body Mass Index 23.22 11/19/2021 10:04 AM EDT Plan of Treatment Health Maintenance Due Date Last Done Comments Adult Td,Tdap Booster 1952 BLOOD PRESSURE 1952 DEPRESSION SCREENING 1964 SMOKING Hx and SMOKELESS TOBACCO SCREENING 02/08/1965 COLOGUARD 02/08/1997 COLONOSCOPY 02/08/1997 COLORECTAL CANCER SCREENING 02/08/1997 FIT TEST 02/08/1997 FOBT 02/08/1997 SIGMOIDOSCOPY 02/08/1997 VIRTUAL COLONOSCOPY 02/08/1997 RSV VACCINE (1 - Risk 50-74 years 1-dose series) 02/08/2002 ZOSTER VACCINES (1 of 2) 02/08/2002 ABDOMINAL AORTIC ANEURYSM (AAA) SCREENING 02/08/2017 LIPID PANEL 02/25/2022 02/25/2021 INFLUENZA VACCINE (#1) 2025 , 06/04/2021, 05/08/2020 COVID-19 VACCINE ( season) 2025 08/12/2021, 06/26/2021, 12/20/2020, Additional history exists PNEUMOCOCCAL VACCINES (50+ years) Completed 03/06/2020, 06/23/2017 HEPATITIS A VACCINES Aged Out 02/27/2021 No long er eligible based on patient's age to complete this topic HEPATITIS C SCREENING Completed 04/15/2021 , 04/15/2021, 02/25/2021, Additional history exists HIB VACCINES Aged Out No longer eligi ble based on patient's age to complete this topic IPV VACCINES Aged Out No longer eligi ble based on patient's age to complete this topic MENINGOCOCCAL VACCINES (ACWY) Aged Out No longer eligible based on patient's age to complete this topic MENINGOCOCCAL VACCINES (B) Aged Out N o longer eligible based on patient's age to complete this topic Medical Devices Not on file Procedures Procedure Name Priority Date/Time Associated Diagnosis Comments HEPATITIS C VIRAL LOAD, PCR Routine 04/15/2021 7:34 AM EDT Encounter for pre-transplant evaluation for lung transplant LIPID PANEL Routine 02/25/2021 3:12 PM EDT Encounter for pre-transplant evaluation for lung transplant from Last 3 Months or Most Recently Relevant to Health Maintenance Results * Hepatitis C viral load (PCR) (04/15/2021 7:34 AM EDT) HCV RNA PCR QN <15 NOT DETECTED NOT DETECTED IU/mL [facility] [address] HCV RNA PCR QN <1.18 NOT DETECTED NOT DETECTED Log IU/mL [facility] [address] Comment: (NOTE) This test was performed using Real-Time Polymerase Chain Reaction. Reportable Range: 15 IU/mL to 100,000,000 IU/mL (1.18 Log IU/mL to 8.00 Log IU/mL). The analytical performance characteristics of this assay have been determined by [employer]. The modifications have not been cleared or approved by the FDA. This assay has been validated pursuant to the CLIA regulations and is used for clinical purposes. For more information on this test, go to: http://education.[employer]/faq/SSK57v7 (This link is being provided for informational/ educational purposes only.) Blood 04/15/2021 7:34 AM EDT 04/15/2021 8:27 AM EDT Jodie Lynne PIANO MECHANIC APPRENTICE LAB BLOOD BKR ORDERABLES Fi nal Result [facility] [address] [address], [facility] * (ABNORMAL) Lipid panel (02/25/2021 3:12 PM EDT) CHOLESTEROL 188 <200 mg/dL [facility] TRIGLYCERIDES 151(H) 35 - 150 mg/dL [facility] HDL 62 40 - 80 mg/dL [facility] CALCULATED LDL 96 50 - 129 mg/dL [facility] VLDL 30 mg/dL [facility] CARDIAC RISK RATIO 3.0 0.0 - 4.0 [facility] 02/25/2021 3:12 PM EDT 02/25/2021 3:37 PM EDT us Jodie Lynne PIANO MECHANIC APPRENTICE LAB BLOOD BKR ORDERABLES nal Result Performing Organization Address City/State/[facility] Co de Phone Number [facility] [address] [place] [address] from Last 3 Months or Most Recently Relevant to Health Maintenance Insurance MEDICARE PART A & B [facility] MEDICARE SUPPLEMENT MEDICARE PART A & B MEDICARE SUPPLEMENT MEDICARE PART A & B [facility] MEDICARE SUPPLEMENT MEDICARE PART A & B [facility] MEDICARE SUPPLEMENT MEDICARE PART A & B MEDICARE SUPPLEMENT MEDICARE PART A & B [facility] MEDICARE SUPPLEMENT MEDICARE PART A & B MEDICARE SUPPLEMENT MEDICARE PART A & B [id number] [place] [address] MEDICARE SUPPLEMENT MEDICARE PART A & B [facility] MEDICARE SUPPLEMENT MEDICARE PART A & B [facility] MEDICARE SUPPLEMENT Advance Directives For more information, please contact: [phone] (9AM - 5PM [facility], Thursday-Thursday) * Full Code (Latest Code Status on File) Date Activated Date Inactivated Comments 04/15/2021 4:08 PM Question Answer Comments Code Status Confirmed With: Patient * Full Code Date Activated Date Inactivated Comments 04/15/2021 12:57 PM 04/15/2021 4:08 PM Question Answer Comments Code Status Confirmed With: Patient Care Teams Group Cio Relationship Specialty Start Date End Date Alfa Velasco MD [address] [place] [phone] PCP - General Internal Medicine 12/17/20 Brian Bennett MD [address] [place] [address] Referring Physician Intensive Care 12/19/20 Margaret Georges NP [address] [place] [address] Bilingual Sales Representative Cardiology 04/02/21 Ricco Liang MD [address] [address] Bilingual Sales Representative Cardiology 04/16/21 Additional Source Comments The information contained in this document represents components of the legal health record. It is not the complete legal health record.[facility]
--- OUTSIDE RECORDS SUMMARY | 2025-06-14 16:24 | XMS_ITS | Encounter Summary ---
Author Organization [facility] Address [address] [place] [address] Phone Care Team Providers Care Processor Inspector Name Role Phone Alfa Velasco MD Primary Care Provider [phone] Brian Bennett MD Unavailable [phone] Margaret Georges NP Unavailable Ricco Liang MD Unavailable [phone] Encounter Details Date Type Department Care Team (Late st Contact Info) Description 04/15/2021 Procedure Pass [facility] Cardiac Insulation Cutter And Former [address] [place] [address] Social History Tobacco Use Types Packs/Day Years [...] No Risk Indicated 04/15/2021 4:00 PM EDT Mary BellYRN * [place] Suicide Severity Rating Scale (Screener/Recent Self-Report) Question Answer Date of Assessment Author 1. Wish to be (Past 1 Month) No 04/15/2021 4:00 PM EDT [place], YRN 2. Non-Specific Active Suicidal Thoughts (Past 1 Month) No 04/15/2021 4:00 PM EDT [place] RN 6. Suicidal Behavior (Lifetime) No 04/15/2021 4:00 PM EDT [place] RN documented as of this encounter Plan of Treatment Not on file documented as of this encounter Visit Diagnoses Not on filedocumented in this encounter Care Teams Processor Inspector Relationship Specialty Start Date End Date Alfa Velasco MD [address] [place] [address] PCP - General Internal Medicine 12/17/20 Brian Bennett MD [address] [place] [address] Referring Physician Intensive Care 12/19/20 Margaret Georges NP [address] [place] [address] Campus Recruiting Coordinator Cardiology 04/02/21 Ricco Liang MD [address] [place] [address] Campus Recruiting Coordinator Cardiology 04/16/21 documented as of this encounter Additional Source Comments The information contained in this document represents components of the legal health record. It is not the complete legal health record.[facility]
== END 2025-06-14 09:30 | disposition home or self-care (01) ==
LOC: HO.HPS 08:43
PROVIDERS: PCP Internal Medicine; Visit Provider Internal Medicine Pulmonary Disease
DX: J44.9 Chronic obstructive pulmonary disease, unspecified (principal); Z99.81 Dependence on supplemental oxygen; R09.89 Other specified symptoms and signs involving the circulatory and respiratory systems; C34.90 Malignant neoplasm of unspecified part of unspecified bronchus or lung
CPT/HCPCS: 99214; G2211

== ENCOUNTER → 2025-06-14 08:43 | Outpatient (BNVA) | payer MEDICARE, SELFPAY ==
[2025-01-03 08:56] VITALS: BP 120/70; BP 124/64; BMI 23.1
== END ==
PROVIDERS: PCP Internal Medicine; Visit Provider Internal Medicine Pulmonary Disease
DX: J44.9 Chronic obstructive pulmonary disease, unspecified (principal); Z87.891 Personal history of nicotine dependence; Z99.81 Dependence on supplemental oxygen; C34.12 Malignant neoplasm of upper lobe, left bronchus or lung; R09.89 Other specified symptoms and signs involving the circulatory and respiratory systems
CPT/HCPCS: 99212